=== PATIENT | female | born 1940 | race Caucasian/White ===

== ENCOUNTER → 2017-10-03 16:29 | Outpatient (CLI) | payer MEDICARE, BC, SELFPAY ==
--- NOTE | 2017-10-03 16:51 | RAD_ITS ---
STUDY: X-RAY - LEFT KNEE REASON FOR EXAM: Female, 77 years old. Pain TECHNIQUE: 4 view(s) of the knee. COMPARISON: None. FINDINGS: Normal visualized distal femur. Normal visualized proximal tibia and fibula. Normal proximal tibiofibular articulation. Normal medial femorotibial compartment. Normal lateral femorotibial compartment. Normal patellofemoral articulation. The soft tissue structures are unremarkable. RAD/Knee 4 or More Views IMPRESSION: Normal x-ray examination of the knee. Electronically Signed: Serjio Bolanos DO at 23:02 EDT Tel [phone], Service support ,
[2017-10-03 17:59] LABS: Absolute Lymphocyte Count 1.93 X10^3/ul (0.83-4.51); Absolute Neutrophil Count 4.2 X10^3/uL (2.0-7.7); Basophil# 0.02 X10^3/uL; Basophil% 0.3 % (0-1); Eosinophil# 0.14 X10^3/uL; Eosinophils% 1.8 % (0-5); Hematocrit 33.8 % (37-47); Hemoglobin 10.8 g/dl (12.0-15.0); Lymphocyte # 1.93 X10^3/ul (4.0); Lymphocyte % 25.3 % (19-41); Mean Corpuscular Hgb 29.6 pg (27.0-32.0); Mean Corpuscular Volume 92.6 fL (81-99); Mean Platelet Vol. 9.2 fl (6.2-12.0); Neutrophil # 4.23 X10^3/uL (2.7-7.7); Neutrophil % 55.5 % (47-70); Platelet Count 357 K/mm3 (150-450); RBC Distribution Width CV 17.9 % (11.6-14.6); RBC Distribution Width SD 60.4 fl (35.1-43.9); Red Blood Count 3.65 M/mm3 (4.2-5.4); White Blood Count 7.6 K/mm3 (4.4-11.0)
[2017-10-03 18:04] LABS: POSITIVE COUNT NO; POSITIVE DIFFERENTIAL NO; POSITIVE MORPHOLOGY NO
[2017-10-03 18:11] LABS: Rheumatoid Factor < 10.0 IU/mL (<15); Uric Acid 3.8 mg/dL (2.6-6.0)
[2017-10-04 08:53] LABS: PTHIN 30.7 pg/mL (18.4-80.1)
[2017-10-07 16:09] LABS: ANTINUCLEAR ANTIBODIES DIRECT Positive (Negative); Anti-Centromere B Ab <0.2 AI (0.0-0.9); Anti-Chromatin <0.2 AI (0.0-0.9); Anti-Jo <0.2 AI (0.0-0.9); Anti-Scleroderma-70 AB <0.2 AI (0.0-0.9); RNP Ab 0.3 AI (0.0-0.9); SJOGREN'S Anti-SS-B test < 0.2 AI (0.0-0.9); Smith Ab <0.2 AI (0.0-0.9)
[2017-10-07 18:13] LABS: Anti-dsDNA Ab 2 IU/mL (0-9)
== END ==
PROVIDERS: Family Provider Family Medicine; PCP Family Medicine; Visit Provider Family Medicine
DX: M17.12 Unilateral primary osteoarthritis, left knee (principal)
CPT/HCPCS: 36415; 73564; 83970; 84550; 85025; 86038; 86140; 86431

== ENCOUNTER → 2017-10-03 18:34 | Outpatient (CLI) | payer MEDICARE, BC, SELFPAY | PROVIDERS: Family Provider Family Medicine; PCP Family Medicine; Visit Provider Family Medicine | DX: N30.00 Acute cystitis without hematuria (principal); M17.12 Unilateral primary osteoarthritis, left knee | CPT/HCPCS: 36415; 73564; 83970; 84550; 85025; 86038; 86140; 86225; 86235; 86431; 87086 ==

== ENCOUNTER → 2017-10-25 15:03 | Outpatient (CLI) | payer MEDICARE, BC, SELFPAY ==
[2017-10-25 15:48] LABS: Absolute Lymphocyte Count 2.26 X10^3/ul (0.83-4.51); Absolute Neutrophil Count 2.9 X10^3/uL (2.0-7.7); Basophil# 0.04 X10^3/uL; Basophil% 0.6 % (0-1); Eosinophil# 0.05 X10^3/uL; Eosinophils% 0.8 % (0-5); Hematocrit 33.2 % (37-47); Hemoglobin 10.6 g/dl (12.0-15.0); Lymphocyte # 2.26 X10^3/ul (4.0); Lymphocyte % 36.1 % (19-41); Mean Corp Hgb Conc 31.9 g/gl (32-36); Mean Corpuscular Hgb 29.4 pg (27.0-32.0); Mean Corpuscular Volume 92.2 fL (81-99); Mean Platelet Vol. 8.7 fl (6.2-12.0); Monocyte# 0.96 X10^3/uL; Monocyte% 15.3 % (0-10); Neutrophil # 2.94 X10^3/uL (2.7-7.7); POSITIVE COUNT NO; POSITIVE DIFFERENTIAL NO; POSITIVE MORPHOLOGY NO; Platelet Count 377 K/mm3 (150-450); RBC Distribution Width SD 56.8 fl (35.1-43.9); White Blood Count 6.3 K/mm3 (4.4-11.0)
[2017-10-25 16:43] LABS: Vitamin B12 1224 pg/mL (211-911)
== END ==
PROVIDERS: Family Provider Family Medicine; PCP Family Medicine; Visit Provider Nurse Practitioner Adult Health
DX: D64.9 Anemia, unspecified (principal)
CPT/HCPCS: 36415; 82607; 82746; 85025

== ENCOUNTER 2018-01-05 18:17 | Emergency (ER) | payer MEDICARE, BC, SELFPAY ==
[2018-01-05 18:18] VITALS: BP 153/88; PULSE 87; RESP 18; TEMP 36.8; O2SAT 99; BMI 23.0
--- NOTE | 2018-01-05 18:34 | ED.DCSUM_ITS ---
- ER Visit Summary Date of Service: 01/05/18 Chief Complaint: Elevated blood pressure History of Present Illness: The patient is a 77 F presenting with elevated blood pressure. She states she checked her blood pressure today at home. It was 168 systolic. When she rechecked it was 158 systolic. She is on metoprolol 12.5 mg twice a day. She is asymptomatic. She denies chest pain, shortness of breath. Denies headache. Denies numbness or weakness. Denies any complaints. Physical Examination: Vitals are stable. Blood pressure 153/88. Patient is afebrile. Alert no acute distress. HEENT exam is unremarkable. Neck is supple. Lungs are clear and equal bilaterally. Heart is regular rate and rhythm. Abdomen is soft nontender nondistended. Extremities are unremarkable. Skin is warm and dry. No focal neurologic deficit. Remainder of exam is unremarkable. Emergency Department Course and Treatment: Repeat blood pressure is 147/90. Patient remains asymptomatic. Discussed with Dr. Zavala. Patient is advised to follow-up in the office. Advised return to ED if worsening complaints Disposition: Discharge home Impression: Hypertension This note was generated with PartyLineation software. It may contain incorrect words, spelling, and punctuation that were not noted in review of the chart prior to signing ED Disposition - Plan for ED Patient: Chief Complaint: Hypertension Instructions: ED HTN Established Referrals: Alex Naranjo MD [Primary Care Provider] -
[2018-01-05 18:40] VITALS: BP 147/90; PULSE 83; RESP 14
--- NOTE | 2018-01-05 19:03 | ED.DEP ---
ED Disposition - Plan for ED Patient: Chief Complaint: Hypertension Instructions: ED HTN Established Referrals: Alex Naranjo MD [Primary Care Provider] -
[2018-01-05 19:21] VITALS: BP 152/77; PULSE 70; RESP 17; O2SAT 100
== END 2018-01-05 19:23 | disposition home or self-care (01) ==
LOC: ED 18:41
PROVIDERS: Emergency Provider Emergency Medicine; Family Provider Family Medicine; PCP Family Medicine
DX: I10 Essential (primary) hypertension (principal); Z79.82 Long term (current) use of aspirin; Z79.899 Other long term (current) drug therapy
CPT/HCPCS: 99282

== ENCOUNTER → 2018-03-19 16:27 | Outpatient (CLI) | payer MEDICARE, BC, SELFPAY ==
[2018-03-19 18:41] LABS: ALB/GLOB Ratio 1.2 RATIO (0.9-2.4); AST(SGOT) 21 U/L (15-37); Alanine Aminotransfer ALT/SGPT 24 U/L (13-56); Albumin, Serum 3.9 g/dL (3.2-5.0); Alkaline Phosphatase 38 U/L (45-117); Anion Gap 10 (5-15); BUN 19 mg/dL (7-18); Calcium,Total 9.5 mg/dL (8.5-10.1); Chloride 103 mmol/L (98-107); Creatinine, Serum 0.95 mg/dL (0.55-1.02); EST Glomerular Filtration Rate 61 mL/min (>60); Est Glom Filt Rate - Afr Amer 73 mL/min (>60); Globulin 3.2 g/dL (2.2-4.2); Glucose 93 mg/dL (74-106); Potassium 4.3 mmol/L (3.5-5.1); Protein, Total 7.1 g/dL (6.4-8.2); Sodium Level 139 mmol/L (136-145); Thyroid Stim Hormone (TSH) 2.25 uIU/mL (0.358-3.74)
[2018-03-19 18:42] LABS: Microalbumin,Random Urine < 5.0 mg/L (NO RANGE EST.)
--- OUTSIDE RECORDS SUMMARY | 2018-05-21 19:00 | XMS RPT_ITS ---
:1940 Author Organization OH[facility] Care Team Providers Name Role Phone Alex Naranjo Attending Unavailable Jose A, Alex Primary Care Unavailable Alex Naranjo Attending Unavailable Naranjo, Alex Referring Unavailable Naranjo, Alex Primary Care Unavailable Alex Naranjo Attending Unavailable Jose A, Alex Primary Care Unavailable Jose A, Alex Referring Unavailable Emilee Reeder Attending Unavailable Emilee Reeder Referring Unavailable Naranjo, Alex Primary Care Unavailable Naranjo, Alex Primary Care Unavailable Liseth Arauz Attending Unavailable PROBLEMS PROBLEMS DATE TYPE CONDITION / CODE ATTENDING STATUS SOURCE 10/25/2017 Unknown D64.9 - Anemia, [place], Active [place] unspecified / [facility] D64.9(ICD-10) Hospital Repository 10/04/2017 Unknown N30.00 - Acute Alex Naranjo Active [facility] cystitis without Community hematuria / Hospital N30.00(ICD-10) Repository 10/03/2017 Unknown M17.12 - Alex Naranjo Active [facility] Unilateral [facility] primary Hospital osteoarthritis, Repository left knee / M17.12(ICD-10) PROCEDURES PROCEDURES No Procedure Records FoundRESULTS RESULTS COMPREHENSIVE METABOLIC Collected: 03/19/2018 Status: F Source: [place] PROFIL 4:31 PM [facility] REPOSITORY TYPE CODE TESTS RESULT OUT OF RANGE REFERENCE UNITS LAB L501.0100 74-106 mg/dL Normal GLU 93 Result Comment: Please note revised GLUCOSE reference range effective 2017. LAB L501.1000 7-18 mg/dL High BUN 19 LAB L501.1100 0.55-1.02 mg/dL Normal CREAT,SERUM 0.95 Result Comment: The validity of the calculated GFR AND GFRAA in patients over 70 years has not been determined. Clinical correlation is essential. LAB L501.1110 >60 mL/min Normal EST GFR 61 Result Comment: Non- GFR Calc LAB L501.1115 >60 mL/min Normal EST GFR - AA 73 Result Comment: GFR Calc LAB L501.1300 10-20 RATIO Normal BUN/CRE 20.0 LAB L501.1500 6.4-8.2 g/dL T Normal PROT 7.1 LAB L501.1800 3.2-5.0 g/dL Normal ALB 3.9 LAB L501.1950 2.2-4.2 g/dL Normal GLOB 3.2 LAB L501.2000 0.9-2.4 RATIO Normal A/G 1.2 LAB L501.2200 8.5-10.1 mg/dL CA Normal 9.5 LAB L501.4100 15-37 U/L Normal AST 21 LAB L501.4305 45-117 U/L Low ALK P 38 LAB L501.4405 13-56 U/L Normal ALT 24 LAB L501.4600 0.20-1.00 mg/dL T Normal BILI 0.60 LAB L501.5300 136-145 mmol/L NA Normal 139 LAB L501.5600 3.5-5.1 mmol/L K Normal 4.3 LAB L501.5900 98-107 mmol/L CL Normal 103 LAB L501.6100 21.0-32.0 mmol/L Normal CO2 26.0 LAB L501.6200 5-15 Normal GAP 10 Performed By: #### L500.4050, L501.5200, L501.9520, L502.0250 #### [facility] [address] [place], [address] MAGNESIUM Collected: 03/19/2018 Status: F Source: [place] 4:31 PM [facility] REPOSITORY TYPE CODE TESTS RESULT OUT OF RANGE REFERENCE UNITS LAB L501.5200 1.6-2.6 mg/dL Normal MG 2.0 Performed By: #### L500.4050, L501.5200, L501.9520, L502.0250 #### [facility] [address] [place], [address] THYROID STIM HORMONE Collected: 03/19/2018 Status: F Source: [place] (TSH) 4:31 PM [facility] REPOSITORY TYPE CODE TESTS RESULT OUT OF RANGE REFERENCE UNITS LAB L501.9520 0.358-3.74 uIU/mL Normal TSH 2.25 Performed By: #### L500.4050, L501.5200, L501.9520, L502.0250 #### [facility] [address] [place], [address] MICROALB:CREAT Collected: 03/19/2018 Status: F Source: [place] RATIO,RANDOM UR 4:31 PM [facility] REPOSITORY TYPE CODE TESTS RESULT OUT OF RANGE REFERENCE UNITS LAB L501.1200 NO RANGE EST. mg/dL 18.80 Normal UR CREAT LAB L502.0500 NO RANGE EST. mg/L < 5.0 Normal MICROALBUMI N,UR LAB L502.0600 <30 mg/g CRE mg/g CRE Test Normal not performed MALB:CREAT Performed By: #### L500.4050, L501.5200, L501.9520, L502.0250 #### [facility] [address] [place], [place], [address] EMERGENCY DEPARTMENT Observed: 01/05/2018 Status: F Source: [place] SUMMARY 9:34 PM [facility] REPOSITORY [facility] Medical Records Department [address] [place] [address] Emergency Department Summary 01/05/18 1832 MR#: [id number] Acct: [id number] Name: AMANDA GRAY Rep #: [id number] : 1940 77 From: Liseth Arauz MD PCP: Alex Naranjo MD Status: DEP ER - ER Visit Summary Date of Service: 01/05/18 Chief Complaint: Elevated blood pressure History of Present Illness: The patient is a 77 F presenting with elevated blood pressure. She states she checked her blood pressure today at home. It was 168 systolic. When she rechecked it was 158 systolic. She is on metoprolol 12.5 mg twice a day. She is asymptomatic. She denies chest pain, shortness of breath. Denies headache. Denies numbness or weakness. Denies any complaints. Physical Examination: Vitals are stable. Blood pressure 153/88. Patient is afebrile. Alert no acute distress. HEENT exam is unremarkable. Neck is supple. Lungs are clear and equal bilaterally. Heart is regular rate and rhythm. Abdomen is soft nontender nondistended. Extremities are unremarkable. Skin is warm and dry. No focal neurologic deficit. Remainder of exam is unremarkable. Emergency Department Course and Treatment: Repeat blood pressure is 147/90. Patient remains asymptomatic. Discussed with Dr. Zavala. Patient is advised to follow-up in the office. Advised return to ED if worsening complaints Disposition: Discharge home Impression: Hypertension This note was generated with ReferralMD dictation software. It may contain incorrect words, spelling, and punctuation that were not noted in review of the chart prior to signing ED Disposition - Plan for ED Patient: Chief Complaint: Hypertension Instructions: ED HTN Established Referrals: Alex Naranjo MD [Primary Care Provider] - What to do if you have Problems For any increased pain, shortness of breath, bleeding, nausea or vomiting, chest pain, or any unexpected problems, contact your Primary Care Provider. Call [facility] ([phone]) or report to the closest Emergency Room. Call 911 if necessary. 01/05/182133 <Electronically signed by Liseth Arauz MD> Date Liseth Arauz MD Cosigner Signature (If Indicated): Date CC: Alex Naranjo MD DISCHARGE INSTRUCTION Observed: 01/05/2018 Status: F Source: [place] 7:04 PM [facility] REPOSITORY [facility] Medical Records Department [address] [place] [address] Discharge Instruction 01/05/181902 MR#: [id number] Acct: [id number] Name: AMANDA GRAY Rep #: [id number] : 1940 77 From: Liseth Arauz MD PCP: Alex Naranjo MD Status: REG ER ED Disposition - Plan for ED Patient: Chief Complaint: Hypertension Instructions: ED HTN Established Referrals: Alex Naranjo MD [Primary Care Provider] - What to do if you have Problems For any increased pain, shortness of breath, bleeding, nausea or vomiting, chest pain, or any unexpected problems, contact your Primary Care Provider. Call [facility] ([phone]) or report to the closest Emergency Room. Call 911 if necessary. 01/05/181903 <Electronically signed by Liseth Arauz MD> Date Liseth Arauz MD Cosigner Signature (If Indicated): Date CC: Alex Naranjo MD CBC W/DIFF, AUTOMATED Collected: 10/25/2017 Status: F Source: [place] 3:07 PM [facility] REPOSITORY Order Comment: Order Date: 10/22/17 Order Info: 0184-1 - CBCD TYPE CODE TESTS RESULT OUT OF RANGE REFERENCE UNITS LAB L100.1000 4.4-11.0 K/mm3 Normal WBC 6.3 LAB L100.1200 4.2-5.4 M/mm3 Low RBC 3.60 LAB L100.1300 12.0-15.0 g/dl Low HGB 10.6 LAB L100.1400 37-47 % Low HCT 33.2 LAB L100.1500 81-99 fL Normal MCV 92.2 LAB L100.1600 27.0-32.0 pg Normal MCH 29.4 LAB L100.1700 32-36 g/gl Low MCHC 31.9 LAB L100.1810 11.6-14.6 % High RDW CV 17.0 LAB L100.1820 35.1-43.9 fl High RDW SD 56.8 LAB L100.1900 150-450 K/mm3 Normal PLT 377 LAB L100.2000 6.2-12.0 fl Normal MPV 8.7 LAB L100.2100 47-70 % Normal NEUT% 47.0 LAB L100.2200 19-41 % Normal LY% 36.1 LAB L100.2300 0-10 % High MONO% 15.3 LAB L100.2400 0-5 % Normal EO% 0.8 LAB L100.2500 0-1 % Normal BASO% 0.6 LAB L100.2550 0.0-0.9 % Normal IM GRAN % 0.200 Result Comment: IG% - Immature Granulocytes (promyelocytes, myelocytes and metamyelocytes) > 1% indicates that a LEFT SHIFT is Present. LAB L100.2620 2.0-7.7 X10 3/uL Normal Absolute Neut 2.9 LAB L100.2720 0.83-4.51 X10 3/ul Normal Absolute Lymph 2.26 Performed By: #### L100.0100, L506.0250, L503.0105 #### [facility] [address] [place], [place], [address] FOLATES, (FOLIC ACID) Collected: 10/25/2017 Status: F Source: [place] 3:07 PM [facility] REPOSITORY Order Comment: Order Date: 10/22/17 Order Info: 2284-8 - FOLS Is Patient Taking Vitamins or Folic Acid Supplements? N TYPE CODE TESTS RESULT OUT OF REFERENCE UNITS RANGE LAB L506.0250 3.1-55.4 ng/mL High FOLATES 58.30 Performed By: #### L100.0100, L506.0250, L503.0105 #### [facility] [address] [place], [address] VITAMIN B12 Collected: 10/25/2017 Status: F Source: [place] 3:07 PM [facility] REPOSITORY Order Comment: Order Date: 10/22/17 Order Info: 2132-9 - B12 TYPE CODE TESTS RESULT OUT OF REFERENCE UNITS RANGE LAB L503.0105 211-911 pg/mL High Vitamin B12 1224 Performed By: #### L100.0100, L506.0250, L503.0105 #### [facility] [address] [place], [address] KNEE 4 OR MORE Observed: 10/03/2017 Status: F Source: [place] VIEWS 4:41 PM [facility] REPOSITORY [facility] Imaging Services [address] [place] [address] Knee 4 or More Views MR#: [id number] Acct: [id number] Name: AMANDA GRAY Rep #: [id number] : 1940 F 77 From: Serjio Bolanos DO PCP: Alex Naranjo MD Status: REG CLI Study: Knee 4 or More Views Date of Exam: 10/03/17 Exam# [id number] Ordering Dr: Alex Naranjo MD STUDY: X-RAY - LEFT KNEE REASON FOR EXAM: Female, 77 years old. Pain TECHNIQUE: 4 view(s) of the knee. COMPARISON: None. FINDINGS: Normal visualized distal femur. Normal visualized proximal tibia and fibula. Normal proximal tibiofibular articulation. Normal medial femorotibial compartment. Normal lateral femorotibial compartment. Normal patellofemoral articulation. The soft tissue structures are unremarkable. RAD/Knee 4 or More Views IMPRESSION: Normal x-ray examination of the knee. Electronically Signed: Serjiodi Bolanos DO at 23:02 EDT Tel [phone], Service support , CC: Alex Naranjo MD Tank Shop Supervisor: Signed CBC W/DIFF, AUTOMATED Collected: 10/03/2017 Status: F Source: [place] 4:40 PM [facility] REPOSITORY Order Comment: PLEASE DO COMPREHENSIVE PANEL IF [place] IS POSITIVE PER TYPE CODE TESTS RESULT OUT OF RANGE REFERENCE UNITS LAB L100.1000 4.4-11.0 K/mm3 Normal WBC 7.6 LAB L100.1200 4.2-5.4 M/mm3 Low RBC 3.65 LAB L100.1300 12.0-15.0 g/dl Low HGB 10.8 LAB L100.1400 37-47 % Low HCT 33.8 LAB L100.1500 81-99 fL Normal MCV 92.6 LAB L100.1600 27.0-32.0 pg Normal MCH 29.6 LAB L100.1700 32-36 g/gl Normal MCHC 32.0 LAB L100.1810 11.6-14.6 % High RDW CV 17.9 LAB L100.1820 35.1-43.9 fl High RDW SD 60.4 LAB L100.1900 150-450 K/mm3 Normal PLT 357 LAB L100.2000 6.2-12.0 fl Normal MPV 9.2 LAB L100.2100 47-70 % Normal NEUT% 55.5 LAB L100.2200 19-41 % Normal LY% 25.3 LAB L100.2300 0-10 % High MONO% 17.0 LAB L100.2400 0-5 % Normal EO% 1.8 LAB L100.2500 0-1 % Normal BASO% 0.3 LAB L100.2550 0.0-0.9 % Normal IM GRAN % 0.100 Result Comment: IG% - Immature Granulocytes (promyelocytes, myelocytes and metamyelocytes) > 1% indicates that a LEFT SHIFT is Present. LAB L100.2620 2.0-7.7 X10 3/uL Normal Absolute Neut 4.2 LAB L100.2720 0.83-4.51 X10 3/ul Normal Absolute Lymph 1.93 Performed By: #### L100.0100 #### [facility] [address] [place], [address] URIC ACID Collected: 10/03/2017 Status: F Source: [place] 4:40 PM [facility] REPOSITORY Order Comment: PLEASE DO COMPREHENSIVE PANEL IF [place] IS POSITIVE PER TYPE CODE TESTS RESULT OUT OF RANGE REFERENCE UNITS LAB L501.1400 2.6-6.0 mg/dL Normal URIC 3.8 Result Comment: The drugs N-Acetylcysteine and Metamizole may falsely depress this assay. Performed By: #### L501.1400, L501.6710, L505.7010 #### [facility] [address] [place], [address] CRP Collected: 10/03/2017 Status: F Source: [place] 4:40 PM [facility] REPOSITORY Order Comment: PLEASE DO COMPREHENSIVE PANEL IF [place] IS POSITIVE PER TYPE CODE TESTS RESULT OUT OF RANGE REFERENCE UNITS LAB L501.6710 0.0-3.0 mg/L High 18.50 C-REACTIVE PROT Result Comment: C-Reactive Protein (CRP) provides useful information for the diagnosis, therapy and monitoring of inflammatory processes and associated diseases. For the evaluation of Relative Risk for Cardiovascular Disease, a High Sensitivity CRP (HSCRP) should be ordered. Performed By: #### L501.1400, L501.6710, L505.7010 #### [facility] [address] [place], [address] RHEUMATOID FACTOR Collected: 10/03/2017 Status: F Source: [place] 4:40 PM [facility] REPOSITORY Order Comment: PLEASE DO COMPREHENSIVE PANEL IF [place] IS POSITIVE PER TYPE CODE TESTS RESULT OUT OF RANGE REFERENCE UNITS LAB L505.7010 <15 IU/mL Normal RHEUMATOID FAC < 10.0 Performed By: #### L501.1400, L501.6710, L505.7010 #### [facility] [address] [place], [address] PTHIN Collected: 10/03/2017 Status: F Source: [place] 4:40 PM [facility] REPOSITORY Order Comment: PLEASE DO COMPREHENSIVE PANEL IF [place] IS POSITIVE PER TYPE CODE TESTS RESULT OUT OF RANGE REFERENCE UNITS LAB L509.1000 18.4-80.1 pg/mL Normal PTHIN 30.7 Performed By: #### L509.1000 #### [facility] [address] [place], [address] DENT[place] W/ REFLEX MULT Collected: 10/03/2017 Status: F Source: [place] CONFIRM 4:40 PM [facility] REPOSITORY Order Comment: PLEASE DO COMPREHENSIVE PANEL IF [place] IS POSITIVE PER TYPE CODE TESTS RESULT OUT OF RANGE REFERENCE UNITS LAB L3100.5475 Negative High Positive DENTON-DIRECT LAB L3100.5500 0-9 IU/mL 2 Normal dsDNA AB Result Comment: Negative <5 Equivocal 5 - 9 Positive >9 LAB L3100.9200 0.0-0.9 AI Anti-SS-A High 7.0 LAB L3100.9300 0.0-0.9 AI Anti-SS-B Normal < 0.2 LAB L3410.0427 0.0-0.9 AI ANTICHROMATIN Normal <0.2 LAB L3410.0500 0.0-0.9 AI ANTI-LYUDMILA Normal <0.2 LAB L3410.0700 0.0-0.9 AI ANTISCLER Normal <0.2 LAB L3410.1200 0.0-0.9 AI SLIME PLANT OPERATOR Ab Normal 0.3 LAB L3410.1300 0.0-0.9 AI NARANJO Ab Normal <0.2 LAB L3410.4010 0.0-0.9 AI ANTI-CENT B Normal <0.2 LAB L3410.4150 . COMMENT Normal Comment Result Comment: Autoantibody Disease Association Condition Frequency --------- Antinuclear Antibody, SLE, mixed connective Direct (DENTON-D) tissue diseases --------- dsDNA SLE 40 - 60% --------- Chromatin Drug induced SLE 90% SLE 48 - 97% --------- SSA (Ro) SLE 25 - 35% Sjogren's Syndrome 40 - 70% Lupus 100% --------- SSB (La) SLE 10% Sjogren's Syndrome 30% --------- Sm (anti-Naranjo) SLE 15 - 30% --------- SLIME PLANT OPERATOR Mixed Connective Tissue Disease 95% (U1 nRNP, SLE 30 - 50% anti-ribonucleoprotein) Polymyositis and/or Dermatomyositis 20% --------- Scl-70 (antiDNA Scleroderma (diffuse) 20 - 35% topoisomerase) Crest 13% --------- Lyudmila-1 Polymyositis and/or Dermatomyositis 20 - 40% --------- Centromere B Scleroderma - Crest variant 80% Performed at: [facility] [id number] Food Adviser: Vignesh Oneal PhD, Phone: [phone] Performed By: #### L3100.5450 #### [facility] (refer to report for specific site) refer to report for address and phone number Observed: 10/03/2017 Status: F Source: [place] CULTURE, URINE 3:15 PM [facility] REPOSITORY Urine Culture Culture exhibits no growth. Performed By: #### M100.0650 #### [facility] [address] [place] [address], [id number] ALLERGIES ALLERGIES DATE TYPE / CODE NAME / CODE REACTION SEVERITY SOURCE 01/05/2018 Drug No Known Unknown [facility] Allergy/4160 Allergies/F00 Hospital 63016(SNOMED 9822393(RXNOR Repository CT) M) ENCOUNTERS ENCOUNTERS ADMIT/DISCHARGE ACCOUNT ADMITTING ENCOUNTER LOCATION SOURCE NUMBER CLASS 03/19/2018 [id number] Ambulatory [place] [facility] ing:MFPLAB Repository 01/05/2018/ [id number] Emergency [place] 8 0 [facility] ing:ED Repository 10/25/2017 [id number] Ambulatory [place] 4 [facility] ing:LAB Repository 10/03/2017 [id number] Ambulatory [place] 9 [facility] ing:LABSPEC Repository 10/03/2017 [id number] Ambulatory [place] 7 [facility] ing:MTLAB Repository PAYERS PAYERS ENCOUNTER GUARANTOR PAYER SUBSCRIBER SOURCE 03/19/2018 Amanda Barger Primary Amanda Barger [place] [id number] Insurance:MEDICARE LaneDOB: Community [place] PART A [facility] [address] [id number] Number: Repository [address]Lzm: 330 [id number] [phone] (HP) Date:2018-03-19 03/19/2018 Secondary ALEJANDRO L LANEDOB: [place] Insurance:ANTHEMPolic [id number] [id number] Repository Date:9651-65-08[address] [place] [address]EF: 03/19/2018 Tertiary NOT GIVENUNK [place] Insurance:SELF PAY [facility] Number: Effective Repository Date:2018-03-19 01/05/2018 Amanda Barger Primary Amanda Barger [place] [id number] Insurance:MEDICARE LaneDOB: [place] PART A [facility] [address] [id number] [place] Number: Repository [id number]: 330 [id number] [phone] (HP) Date:2018-01-05 01/05/2018 Secondary ALEJANDRO L MARINADOB: [facility] Insurance:ANTHEMPolic [id number] Community [facility] y Number: [facility] [id number] Repository Date:0528-35-05[address] [place] [address]MQ: 01/05/2018 Tertiary NOT GIVENUNK [place] Insurance:SELF PAY [facility] Number: Effective Repository Date:2018-01-05 10/25/2017 Amanda Barger Primary Amanda Barger [place] [id number] Insurance:MEDICARE LaneDOB: [place] PART A [facility] [address] [id number] Number: Repository [id number]: 330 [id number] [phone] (HP) Date:2017-10-25 10/25/2017 Secondary ALEJANDRO L LANEDOB: [place] Insurance:ANTHEMPolic [id number] [id number] Repository Date:8831-39-38[address], [place] [address]UT: 10/25/2017 Tertiary NOT GIVENUNK [place] Insurance:SELF PAY [facility] Effective Repository Date:2017-10-25 10/03/2017 Amanda Barger Primary Amanda Barger [place] [id number] Insurance:MEDICARE LaneDOB: [place] PART A [facility] [address] 1965[place] Number: Repository [id number]: 330 [id number] [phone] (HP) Date:2017-10-03 10/03/2017 Secondary ALEJANDRO L MARINADOB: [place] Insurance:ANTHEMPolic [id number] [facility] y Number: [facility] [id number] Repository Date:4204-95-31[address], [place] [address]DI: 10/03/2017 Tertiary NOT GIVENUNK [place] Insurance:SELF PAY [facility] Number: Effective Repository Date:2017-10-03 10/03/2017 Amanda Barger Primary Amanda Barger [facility] [id number] Insurance:MEDICARE LaneDOB: [place] PART A [facility] [address] [id number] Number: Repository [id number]: 330 [id number] [phone] (HP) Date:2017-10-03 10/03/2017 Secondary ALEJANDRO GRAYDOB: [place] Insurance:ANTHEMPolic [id number] [facility] y Number: [facility] [id number] Repository Date:2702-73-74[address], [place] [address]VM: 10/03/2017 Tertiary NOT GIVENUNK [place] Insurance:SELF PAY [facility] Number: Effective Repository Date:2017-10-03
== END ==
PROVIDERS: Family Provider Family Medicine; PCP Family Medicine; Visit Provider Family Medicine
DX: I10 Essential (primary) hypertension (principal); R09.89 Other specified symptoms and signs involving the circulatory and respiratory systems
CPT/HCPCS: 36415; 80053; 82043; 82570; 83735; 84443

== ENCOUNTER → 2019-03-06 13:32 | Outpatient (CLI) | payer MEDICARE, BC, SELFPAY ==
[2019-03-06 16:15] LABS: Anion Gap 2 (5-15); BUN 15 mg/dL (7-18); BUN/Creat Ratio 14.3 RATIO (10-20); Calcium,Total 9.9 mg/dL (8.5-10.1); Chloride 102 mmol/L (98-107); Cholesterol 218 mg/dL (200); Creatinine, Serum 1.05 mg/dL (0.55-1.02); EST Glomerular Filtration Rate 54 mL/min (>60); Est Glom Filt Rate - Afr Amer 65 mL/min (>60); Glucose 98 mg/dL (74-106); High Density Lipoprotein 70 mg/dL; Potassium 4.2 mmol/L (3.5-5.1); Sodium Level 135 mmol/L (136-145); Triglycerides 82 mg/dL; Very Low Density Lipoprotein 16 mg/dL (5-40)
== END ==
PROVIDERS: Family Provider Family Medicine; PCP Family Medicine; Referring Provider Family Medicine; Visit Provider Family Medicine
DX: I10 Essential (primary) hypertension (principal)
CPT/HCPCS: 36415; 80048; 80061

== ENCOUNTER 2020-05-05 09:56 | Outpatient (RCR) | payer MEDICARE, BC, SELFPAY ==
[2020-05-05] MEDS: COVID-19 VACC, MRNA(PFIZER)/PF 30 MCG/0.3 ML SYRINGE IM (15:07)
[2020-05-26] MEDS: COVID-19 VACC, MRNA(PFIZER)/PF 30 MCG/0.3 ML SYRINGE IM (14:43)
== END 2020-08-02 23:59 ==
LOC: IMMUN 09:56
PROVIDERS: PCP Family Medicine; Referring Provider Family Medicine; Visit Provider Family Medicine
DX: Z23 Encounter for immunization (principal)
CPT/HCPCS: 0001A; 0002A; 91300

== ENCOUNTER → 2021-01-04 15:20 | Outpatient (CLI) | payer MEDICARE, BC, SELFPAY ==
[2021-01-04 18:16] LABS: Anion Gap 7 (5-15); BUN 16 mg/dL (7-18); BUN/Creat Ratio 16.8 RATIO (10-20); Calcium,Total 9.7 mg/dL (8.5-10.1); Chloride 102 mmol/L (98-107); Cholesterol 229 mg/dL (200); Creatinine, Serum 0.95 mg/dL (0.55-1.02); EST Glomerular Filtration Rate 60 mL/min (>60); Est Glom Filt Rate - Afr Amer 73 mL/min (>60); Glucose 87 mg/dL (74-106); High Density Lipoprotein 73 mg/dL; Sodium Level 136 mmol/L (136-145); Triglycerides 85 mg/dL; Very Low Density Lipoprotein 17 mg/dL (5-40)
== END ==
PROVIDERS: PCP Family Medicine; Referring Provider Family Medicine; Visit Provider Family Medicine
DX: Z20.822 Contact with and (suspected) exposure to COVID-19 (principal); I10 Essential (primary) hypertension
CPT/HCPCS: 36415; 80048; 80061; 82306; 86769

== ENCOUNTER → 2021-06-26 | Outpatient (CLI) | payer MEDICARE, BC, SELFPAY ==
[2021-06-26 18:03] LABS: Anion Gap 4 (5-15); BUN 14 mg/dL (7-18); BUN/Creat Ratio 15.4 RATIO (10-20); Calcium,Total 9.5 mg/dL (8.5-10.1); Chloride 105 mmol/L (98-107); Creatinine, Serum 0.91 mg/dL (0.55-1.02); EST Glomerular Filtration Rate 63 mL/min (>60); Est Glom Filt Rate - Afr Amer 76 mL/min (>60); Glucose 93 mg/dL (74-106); Potassium 3.9 mmol/L (3.5-5.1); Sodium Level 137 mmol/L (136-145)
== END | disposition home or self-care (01) ==
LOC: MFPLAB 16:48
PROVIDERS: PCP Family Medicine; Visit Provider Family Medicine
DX: I10 Essential (primary) hypertension (principal)
CPT/HCPCS: 36415; 80048

== ENCOUNTER → 2022-01-09 | Outpatient (CLI) | payer MEDICARE, BC, SELFPAY ==
[2022-01-09 18:06] LABS: T4 Total, Thyroxin 7.4 ug/dL (4.8-13.9); Thyroid Stim Hormone (TSH) 1.52 uIU/mL (0.358-3.74)
== END | disposition home or self-care (01) ==
LOC: MFPLAB 15:18
PROVIDERS: PCP Family Medicine; Referring Provider Family Medicine; Visit Provider Family Medicine
DX: L85.3 Xerosis cutis (principal)
CPT/HCPCS: 36415; 84436; 84443

== ENCOUNTER → 2022-01-23 | Outpatient (CLI) | payer MEDICARE, BC, SELFPAY ==
[2022-01-23 17:43] LABS: Mucous, Urine 0 SEEN /hpf (<or=2+); Red Blood Cells-Urine 0 SEEN /hpf (0-5); Squamous Epithelial Cells - UA 0 SEEN /hpf (5-10)
[2022-01-23 17:56] LABS: Color, Urine Yellow (Yellow); Glucose, Dipstick Normal (Normal); Ketone-Dipstick Negative (Negative); Leukocyte Esterase-Dipstick 100 /ul (Negative); Nitrite-Dipstick Negative (Negative); Occult Blood-Urine 25 /ul (Negative); Protein-Dipstick Negative (Negative); Specific Gravity, Urine 1.015 (1.002-1.030); Urine Bilirubin Dipstick Negative (Negative); Urine Clarity Clear (Clear); Urine Urobilinogen Normal (Normal)
[2022-01-23 18:17] LABS: Bacteria RARE /hpf (None Seen); White Blood Cells 25-50 SEEN /hpf (0-5)
== END | disposition home or self-care (01) ==
PROVIDERS: PCP Family Medicine; Visit Provider Family Medicine
DX: R82.90 Unspecified abnormal findings in urine (principal)
CPT/HCPCS: 81001

== ENCOUNTER 2022-03-31 10:25 | Inpatient (IN) | payer MEDICARE, BC, SELFPAY ==
[2022-03-31] VITALS (22 sets, daily range): BP systolic 75–134; BP diastolic 48–88; PULSE 74–110; RESP 11–21; TEMP 36.2–36.9; O2SAT 93–100; BMI 21.9
--- NOTE | 2022-03-31 10:51 | ED.VIS.GI ---
HPI HPI - GI History of Present Illness Chief Complaint: GI Bleed Narrative Narrative: 82-year-old female takes low-dose aspirin presents with rectal bleeding that began this morning at 830. She states she had a bowel movement that was runny. She noticed bright red blood afterwards. She continued to have rectal bleeding. She denies any abdominal pain. No lightheadedness or dizziness. No chest pain or shortness of breath. She denies any other bleeding diathesis. She states she had to wear a pad/depends. PFSH PFS Home Medications aspirin 81 mg chewable tablet 81 mg PO DAILY@0800 12/01/16 [History Last Taken Unknown] metoprolol tartrate 25 mg tablet 12.5 mg PO BID 12/01/16 [History Last Taken Unknown] tramadol 50 mg tablet 50 mg PO Q8H PRN PRN Pain 01/05/18 [History Last Taken Unknown] Allergy/AdvReac Type Severity Reaction Status Date / Time No Known Allergies Allergy Verified 03/31/22 10:28 Social History Smoking Status: Never smoker EXAM Physical Exam Const Vital Signs: 03/31/22 10:28 03/31/22 11:43 Temperature 98.0 F Temperature Source Temporal Pulse Rate 78 74 Respiratory Rate 16 Blood Pressure 103/51 L 94/53 L Blood Pressure Mean 68 66 Pulse Ox 98 100 Oxygen Delivery Method Room Air Room Air MDM MDM MDM Narrative Medical decision making narrative: Patient has had intermittent hypotension, so I did not perform orthostatics. She still remained cognizant. Rectal examination through visual inspection only showed no evidence of dried blood or hemorrhaging, her daughter was present in the room at her request. I reviewed her laboratory work. Her CBC shows slightly elevated white count of 15.1 which I think is nonspecific, hemoglobin at 8.2, 2 points below her baseline approximately. Platelet estimate was performed and was adequate. BUN slightly elevated at 21 with creatinine of 0.9, chloride slightly elevated at 109. Glucose of 132 elevated appropriately with a normal anion gap of 6. While I do feel that her hemoglobin is stable, given her hypotension albeit transient, I discussed patient with Dr. Lisa Hernandez who would like the patient admitted to the ICU. She has already discussed the patient with gastroenterology. Patient is in guarded condition given her tenuous blood pressure. Disposition is admitted in stable condition. Lab Data Attestation: I reviewed the patient's lab results. Labs: Laboratory Results - last 24 hr 03/31/22 03/31/22 11:05 11:05 WBC 15.1 H RBC 2.96 L Hgb 8.2 L Hct 26.2 L MCV 88.5 MCH 27.7 MCHC 31.3 L RDW Std Deviation 58.5 H RDW Coeff of Brenda 18.3 H Plt Count Immature Gran % (Auto) 0.600 Neut % (Auto) 82.4 H Lymph % (Auto) 7.9 L [place] % (Auto) 7.8 Eos % (Auto) 0.8 Baso % (Auto) 0.5 Absolute Neuts (auto) 12.4 H Absolute Lymphs (auto) 1.19 Nucleated RBC % 0 Differential Comment SCANNED Platelet Estimate ADEQUATE Sodium 140 Potassium 4.4 Chloride 109 H Carbon Dioxide 25.0 Anion Gap 6 BUN 21 H Creatinine 0.93 Estim Creat Clear Calc 1.77 Est GFR (MDRD) Af Amer 75 Est GFR (MDRD) Non-Af 62 BUN/Creatinine Ratio 22.6 H Glucose 132 H Calcium 8.7 Total Bilirubin 0.40 AST 18 ALT 20 Alkaline Phosphatase 47 Total Protein 6.8 Albumin 3.0 L Globulin 3.8 Albumin/Globulin Ratio 0.8 L Critical Care Time Critical Care Time: Yes Critical care time (excluding procedures): 30-74 minutes (31), Including time spent:, Discussing w/Patient &/or Family/Instructional Specialist, Discussing w/Consultants, Arranging Admission or Transfer and Performing Direct Patient Care at Bedside Discharge Plan Dx/Rx/DC Orders Clinical Impression: Rectal bleeding, Anemia, Hypotension Disposition Disposition: Acute Care Hospital [facility]
[2022-03-31] MEDS: 0.9% Normal Saline 1,000 ML 1000 ML IV (11:12)
[2022-03-31 11:19] LABS: Absolute Lymphocyte Count 1.19 X10^3/uL (0.83-4.51); Absolute Neutrophil Count 12.4 X10^3/uL (2.0-7.7); Basophil# 0.07 X10^3/uL; Basophil% 0.5 % (0-1); Eosinophil# 0.12 X10^3/uL; Eosinophils% 0.8 % (0-5); Hematocrit 26.2 % (37-47); Hemoglobin 8.2 g/dL (12.0-15.0); Lymphocyte # 1.19 X10^3/ul (0.83-4.51); Lymphocyte % 7.9 % (19-41); Mean Corp Hgb Conc 31.3 g/dL (32-36); Mean Corpuscular Hgb 27.7 pg (27.0-32.0); Mean Corpuscular Volume 88.5 fL (81-99); Monocyte# 1.17 X10^3/uL; Monocyte% 7.8 % (0-10); NRBC Flagged by Analyzer 0 % (0-5); Neutrophil # 12.41 X10^3/uL (2.7-7.7); Neutrophil % 82.4 % (47-70); POSITIVE COUNT YES; RBC Distribution Width CV 18.3 % (11.6-14.6); RBC Distribution Width SD 58.5 fl (35.1-43.9); Red Blood Count 2.96 M/mm3 (4.2-5.4); White Blood Count 15.1 K/mm3 (4.4-11.0)
[2022-03-31 11:36] LABS: ALB/GLOB Ratio 0.8 RATIO (0.9-2.4); AST(SGOT) 18 U/L (15-37); Alanine Aminotransfer ALT/SGPT 20 U/L (13-56); Alkaline Phosphatase 47 U/L (45-117); Anion Gap 6 (5-15); BUN 21 mg/dL (7-18); BUN/Creat Ratio 22.6 RATIO (10-20); Calcium,Total 8.7 mg/dL (8.5-10.1); Chloride 109 mmol/L (98-107); Creatinine, Serum 0.93 mg/dL (0.55-1.02); EST Glomerular Filtration Rate 62 mL/min (>60); Est Glom Filt Rate - Afr Amer 75 mL/min (>60); Estimated Creatinine Clearance 1.77 ml/min; Globulin 3.8 g/dL (2.2-4.2); Glucose 132 mg/dL (74-106); Potassium 4.4 mmol/L (3.5-5.1); Protein, Total 6.8 g/dL (6.4-8.2); Sodium Level 140 mmol/L (136-145)
[2022-03-31 11:45] LABS: Differential Indicated SCAN CRITERIA MET
[2022-03-31 11:46] LABS: Differential Comment SCANNED; Platelet Estimate ADEQUATE (ADEQ)
[2022-03-31 13:20] LABS: Hemoglobin 7.3 g/dL (12.0-15.0)
[2022-03-31 13:30] LABS: International Normalized Ratio 1.2
[2022-03-31] MEDS: Lactated Ringers 1,000 ML 75 ML IV (14:03)
--- NOTE | 2022-03-31 14:09 | CT_ITS ---
HISTORY: Rectal bleeding began this morning at 8:30. TECHNIQUE: Helically acquired images were obtained of the abdomen and pelvis after the intravenous administration of 100mL Isovue-370. A radiation dose optimization technique was used for this scan. 372 images. COMPARISON: None. FINDINGS: LOWER CHEST: 2.2 x 2.7 cm centrally necrotic left lower lobe mass. BOWEL: Bowel including appendix nondilated. Mild diffuse colonic wall thickening with prominence of the vasa recta. Colonic diverticulosis. 2.6 x 3.2 cm left and 1.7 x 2.6 cm right outpouchings of the rectosigmoid wall with wall thickening. No enlarged pericolonic lymph nodes. PERITONEUM: No significant ascites. LIVER: No enhancing mass. Fatty infiltration. GALLBLADDER/BILIARY TREE: Gallbladder present. SPLEEN/PANCREAS: Homogeneous and nonenlarged. KIDNEYS: No hydronephrosis. Mild left renal scarring with tiny upper pole cyst. ADRENAL GLANDS: No nodules. VESSELS: Tortuous abdominal aorta without aneurysm. Moderate atherosclerosis of the abdominal aorta and its major branches. PELVIC ORGANS: Trace air in the urinary bladder. Trace free fluid in the pelvis. Prominent left adnexal vessels. BONES: Degenerative change and thoracolumbar scoliosis CT/Abdomen/Pelvis W IV Cont ONLY IMPRESSION: 2.7 cm centrally necrotic left lower lobe mass, concerning for primary malignancy or pulmonary metastasis. Diffuse colonic wall thickening with prominence of the vasa recta compatible with pancolitis. Colonic diverticulosis with larger focal outpouchings and wall thickening of the rectosigmoid colon concerning for ulcerations, possible underlying mass with inflamed giant diverticula considered less likely. Electronically Signed: Alisha Sutherland MD at 15:43 EST ,
--- NOTE | 2022-03-31 15:00 | NURSING ---
Pt up to [facility]. While having liquid, bloody BM, pt became dizzy. Pt then became unresponsive with syncopal episode. Placed back in bed x3 assist. BP 75/51 and pt becomes responsive again. Dr. Hernandez notified.
--- NOTE | 2022-03-31 16:22 | HP.PCM.HOS_ITS ---
HPI - General General Date of Admission: 03/31/22 Date of Service: 03/31/22 Chief Complaint: Rectal bleeding [facility] Nikolai GRAY, is a 82 F who presented to the emergency department at [facility] on 03/31/2022 with hematochezia. Patient reported on presentation at 830 this morning she had a bowel movement that was runny and noted bright red blood afterwards. She continued to have multiple bowel movements prior to presentation that included hematochezia. She denied any abdominal pain. She did have the presyncopal episode with an episode of nausea while at home but none in the emergency department. Her blood pressure was borderline on presentation and she was given IV fluids. She has never had a colonoscopy. She takes only aspirin with an 81 mg dosing at baseline. The patient denied any urinary incontinence but then reported she wears depends. She has chronic low back pain with resultant stenosis causing intermittent bilateral lower extremity pain/tingling numbness for which she takes Ultram. She states that she was feeling in her normal state of health prior to this morning. Vital signs on presentation showed a temperature of 98 degrees, blood pressure of 103/51 with a repeat at 94/53, heart rate of 78, respiratory rate 16, oxygen saturations 98% on room air. CBC showed a leukocytosis with a white count of 15.1, hemoglobin of 8.2 (recent baseline unknown however it appears in Baseline hemoglobin was between 10 and 11), platelets were normal and the patient did have a mild left shift with an 82.4% neutrophilia. Coags were normal. Chemistry panel showed mildly elevated BUN at 21 with a serum creatinine of 0.93 and a blood glucose of 132. Liver functions were normal. T ype and screen were performed the patient was found to be a negative with negative antibody screen. CT of the abdomen pelvis showed a 2.7 centrally necrotic left lower lobe mass concerning for primary malignancy or metastasis, diffuse colonic wall thickening with prominence of the vasa recta compatible with pancolitis as well as colonic diverticulosis with large old focal outpouchings and wall thickening of the rectosigmoid colon concerning for ulcerations and possible underlying mass with inflamed giant diverticula. [facility] Medical History Chronic pain GI bleed HLD (hyperlipidemia) HTN (hypertension) Tremor Home Medications aspirin 81 mg chewable tablet 81 mg PO DAILY@0800 12/01/16 [History Last Taken Unknown] metoprolol tartrate 25 mg tablet 12.5 mg PO BID 12/01/16 [History Last Taken Unknown] tramadol 50 mg tablet 50 mg PO Q8H PRN PRN Pain 01/05/18 [History Last Taken Unknown] Allergy/AdvReac Type Severity Reaction Status Date / Time No Known Allergies Allergy Verified 03/31/22 10:28 no significant family history no surgical history Social History (Updated 03/31/22 @ 16:[address] Nohemy Hernandez, DO) household members: none housing: house Smoking Status: Never smoker alcohol intake: never substance use type: does not use ROS Constitutional Constitutional: Denies anorexia, change in weight, chills, fatigue, fever(s), malaise, night sweats, weakness or other Eyes Eyes: Denies blurry vision, change in eye color, change in vision, discharge f rom eye(s), double vision, erythema, eye pain, loss of vision or other ENT HEENT: Denies abnormal hearing, dysphagia, ear pain, epistaxis, headache(s), hearing loss, nasal congestion, nasal discharge, post nasal drip, sinus pressure, sore throat or other Cardiovascular Cardiovascular: Reports syncope; Denies chest pain, claudication, dyspnea on exertion, edema, lightheadedness, orthopnea, palpitations, paroxysmal nocturnal dyspnea, rapid heart rate or other Respiratory/Chest Respiratory/Chest: Denies cough, dyspnea, excessive phlegm production, he moptysis, productive cough, shortness of breath at rest, shortness of breath with exertion, wheezing or other Gastrointestinal Gastrointestinal: Reports hematochezia and nausea; Denies abdominal pain, coffee ground emesis, constipation, diarrhea, dyspepsia, hematemesis, loose stools, melena, vomiting or other Genitourinary Genitourinary: Reports urinary incontinence; Denies burning urination, diffic ulty urinating, dysuria, hematuria, nocturia, urinary frequency, urinary hesitancy, urinary urgency or other Musculoskeletal Musculoskeletal: Denies arthralgias, back pain, joint pain, joint stiffness, joint swelling, myalgias, neck pain or other Neurologic Neurologic: Denies abnormal gait, abnormal speech, confusion, disequilibrium, dizziness, focal weakness, headache(s), numbness, paresthesias, seizure-like activity, seizures, syncope, tingling, tremor(s) or other Psychiatric Psychiatric: Denies anxiety, depression, homicidal ideation, suicidal ideation or other Endocrine Endocrinology: Denies change in body appearance, cold intolerance, excessive sweating, heat intolerance, polydipsia, polyuria or other Hematologic/Lymphatic Hematologic/Lymphatic: Denies anemia, easy bleeding, easy bruising, lymphadenopathy or other Allergic/Immunologic Allergic/Immunologic: Denies rhinitis, hives, eczemia, asthma or other Vital Signs Vital Signs Vital Signs: 03/31/22 10:28 03/31/22 11:43 03/31/22 13:17 Temperature 98.0 F 97.8 F Temperature Source Temporal Temporal Pulse Rate 78 74 83 Respiratory Rate 16 17 Blood Pressure 103/51 L 94/53 L 121/65 H Blood Pressure [BP] Blood Pressure Mean 68 66 83 Blood Pressure Mean [BP] Blood Pressure Source Blood Pressure Source [BP] Blood Pressure Position Blood Pressure Position [BP] Blood Pressure Location Blood Pressure Location [BP] Pulse Ox 98 100 96 Oxygen Delivery Method Room Air Room Air Room Air 03/31/22 13:45 03/31/22 14:00 03/31/22 14:15 Temperature 97.3 F L Temperature Source Temporal Pulse Rate 87 88 88 Respiratory Rate 15 15 Blood Pressure 134/64 H 129/64 H 111/60 Blood Pressure [BP] Blood Pressure Mean 87 85 77 Blood Pressure Mean [BP] Blood Pressure Source Monitor Monitor Monitor Blood Pressure Source [BP] Blood Pressure Position Semi-Fowlers Semi-Fowlers Semi-Fowlers Blood Pressure Position [BP] Blood Pressure Location Left Arm Left Arm Left Arm Blood Pressure Location [BP] Pulse Ox 100 99 Oxygen Delivery Method Room Air Room Air 03/31/22 14:30 03/31/22 14:56 03/31/22 15:00 Temperature Temperature Source Pulse Rate 84 92 84 Respiratory Rate 14 11 L Blood Pressure 101/55 L Blood Pressure [BP] 75/51 L 88/53 L Blood Pressure Mean 70 Blood Pressure Mean [BP] 59 64 Blood Pressure Source Monitor Blood Pressure Source [BP] Monitor Monitor Blood Pressure Position Semi-Fowlers Blood Pressure Position [BP] Semi-Fowlers Semi-Fowlers Blood Pressure Location Left Arm Blood Pressure Location [BP] Left Arm Left Arm Pulse Ox 100 98 Oxygen Delivery Method Room Air Room Air 03/31/22 15:30 03/31/22 14:05 03/31/22 16:00 Temperature 97.1 F L Temperature Source Temporal Pulse Rate 86 85 Respiratory Rate 16 16 Blood Pressure Blood Pressure [BP] 99/48 L 102/51 L Blood Pressure Mean Blood Pressure Mean [BP] 65 68 Blood Pressure Source Blood Pressure Source [BP] Monitor Monitor Blood Pressure Position Blood Pressure Position [BP] Semi-Fowlers Semi-Fowlers Blood Pressure Location Blood Pressure Location [BP] Left Arm Left Arm Pulse Ox 100 100 Oxygen Delivery Method Room Air Room Air Room Air Weight Weight: 54.431 kg Body Mass Index (BMI) 21.9 Physical Exam Const alert, oriented x3, no apparent distress, average body habitus and well nourished Constitutional Narrative: Pale appearing, elderly, white female, sitting up in bed, daughter at bedside, currently appears nontoxic HEENT normocephalic, head/scalp atraumatic and hearing grossly normal bilaterally HEENT Narrative: Upper dental plate in place, Mallampati 2, no thrush Eyes PERRL and EOMs intact bilaterally Eyes Narrative: Conjunctiva are pale bilaterally, no scleral icterus Neck no lymphadenopathy, supple, no JVD and no carotid bruits Neck Narrative: Trachea midline, no thyroid enlargement Resp normal respiratory effort, no retractions, no use of accessory muscles and clear to auscultation bilaterally Auscultation: Negative for rales, rhonchi or wheezes Cardio regular rate, regular rhythm, S1 normal heart sound, S2 normal heart sound, no murmurs, no rub, no gallops and no clicks GI normal to inspection, nondistended, normoactive bowel sounds, soft to palpation and non-tender Extremity no clubbing, cyanosis or edema Extremity Narrative: 2+ pedal pulses Skin no rashes or lesions noted, no wounds, skin turgor normal, no jaundice, no petechiae and no mottling Skin Narrative: Skin is pale General Skin Exam: pallor Neuro oriented x3, CN's II-XII intact bilaterally, moves all extremities and no focal motor deficits Neuro Narrative: Mild generalized weakness-proximal greater than distal with no focal deficits Speech: speech normal Psych affect normal Psych Narrative: Very pleasant, appropriately interactive Results Lab / Micro Data Result Diagrams: 03/31/22 13:10 03/31/22 11:05 Labs: Laboratory Results - last 24 hr 03/31/22 11:05: WBC 15.1 H, RBC 2.96 L, Hgb 8.2 L, Hct 26.2 L, MCV 88.5, MCH 27.7, MCHC 31.3 L, RDW Std Deviation 58.5 H, RDW Coeff of Brenda 18.3 H, Plt Count , Immature Gran % (Auto) 0.600, Neut % (Auto) 82.4 H, Lymph % (Auto) 7.9 L, [place] % (Auto) 7.8, Eos % (Auto) 0.8, Baso % (Auto) 0.5, Absolute Neuts (auto) 12.4 H , Absolute Lymphs (auto) 1.19, Nucleated RBC % 0, Differential Comment SCANNED, Platelet Estimate ADEQUATE 03/31/22 11:05: Sodium 140, Potassium 4.4, Chloride 109 H, Carbon Dioxide 25.0, Anion Gap 6, BUN 21 H, Creatinine 0.93, Estim Creat Clear Calc 1.77, Est GFR (MDRD) Af Amer 75, Est GFR (MDRD) Non-Af 62, BUN/Creatinine Ratio 22.6 H, Glucose 132 H, Calcium 8.7, Total Bilirubin 0.40, AST 18, ALT 20, Alkaline Phosphatase 47, Total Protein 6.8, Albumin 3.0 L, Globulin 3.8, Albumin/Globulin Ratio 0.8 L 03/31/22 13:10: PT 15.0 H, INR 1.2 03/31/22 13:10: Blood Type A NEGATIVE, Antibody Screen NEGATIVE 03/31/22 13:10: Hgb 7.3 L, Hct 24.0 L Radiology Impression Abdomen/Pelvis CT 03/31/22 14:09 IMPRESSION: 2.7 cm centrally necrotic left lower lobe mass, concerning for primary malignancy or pulmonary metastasis. Diffuse colonic wall thickening with prominence of the vasa recta compatible with pancolitis. Colonic diverticulosis with larger focal outpouchings and wall thickening of the rectosigmoid colon concerning for ulcerations, possible underlying mass with inflamed giant diverticula considered less likely. 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 -Check CT of the chest for further malignancy -Check CEA -Continue clear liquid diet -Hold home aspirin -Will be admitted to the ICU given her relative hypotension on admission at high risk for hemorrhagic shock if she continues to bleed -GI consulted and following--> patient will likely be prepped for colonoscopy Hypotension -Currently improved with IV fluids -Suspect somewhat vasovagal -Continue to monitor -Hold home metoprolol -Continue LR at 75 cc/h Acute on chronic anemia -MCV is normal however I do suspect iron deficiency -Check iron studies -Every 6 hour H&H -Transfuse for hemoglobin less than 7 -Type and screen completed -Patient appears to have been anemic for considerable amount of time upon review of data available Leukocytosis -No signs of acute infection -Suspect reactive -Repeat CBC in a.m. Chronic low back pain with spinal stenosis -Continue as needed Ultram DVT prophylaxis -SCDs -Chemoprophylaxis contraindicated with GI bleeding CODE STATUS -DNR CCA with no intubation as per discussion on Charges/Coding Visit Charges Inpatient E&M: 23615 Init Hosp L3
--- NOTE | 2022-03-31 16:28 | CT_ITS ---
INDICATION: lung mass EXAMINATION: CT CHEST WITHOUT CONTRAST - CT Chest W/O Contrast Injection TECHNIQUE: Helically acquired images were obtained of the chest. A radiation dose optimization technique was used for this scan. IV Contrast dosage and agent: None. Radiation Dose (provided by facility) CTDIvol (6.77 ) mGy, DLP ( 260.37) mGy-cm COMPARISON: CT of the abdomen on the same date, 03/31/2022 FINDINGS: LUNGS, PLEURA AND LARGE AIRWAYS: Lungs are well expanded. No focal infiltrate or consolidation. There is however a mass at the LEFT lung base measuring 2.6 x 2.4 cm, mildly lobulated contour, mild spiculation, and central necrosis is noted. No other pulmonary masses identified. No pleural effusion. Scattered areas of mild nodular pleural thickening without definitive mass lesions noted. THYROID: No thyroid lesions. HEART AND PERICARDIUM: Heart size is normal. No pericardial effusion. Valvular annulus calcifications and scattered coronary vascular calcifications present. VESSELS: Diffuse aortic calcifications without aneurysmal dilatation. MEDIASTINUM AND DEVORAH: No mediastinal or hilar adenopathy. Esophagus is unremarkable. There is a small hiatal hernia. UPPER ABDOMEN: No acute pathology. BONES: No suspicious lytic or blastic abnormality. CT/Chest without Contrast IMPRESSION: 1. Solitary mass at the LEFT lung base measuring 2.6 x 2.4 cm, central necrosis is noted. Mild lobulation spiculation evident, and pattern is consistent with a neoplastic process. No other pulmonary masses or evidence of metastatic disease. 2. No parenchymal infiltrate consolidation or effusion. Electronically Signed: Oneil George MD at 22:22 EST ,
[2022-03-31] MEDS: 0.9% Saline Lock 10 ML Syringe IV (18:36)
[2022-03-31 18:47] LABS: Hematocrit 19.5 % (37-47); Hemoglobin 6.2 g/dL (12.0-15.0)
[2022-03-31 19:07] LABS: Ferritin 22 ng/mL (8-252); Iron 26 ug/dL (50-170); Iron Binding Capacity,Total 300 ug/dL (250-450); PERCENT IRON SATURATION 8.7 % (15.0-55.0)
--- NOTE | 2022-03-31 20:49 | CON.PCM.GI_ITS ---
HPI Consult Data Date of Consult: 03/31/22 HPI Narrative Reason for Consultation: GI bleed HPI Narrative: AMANDA GRAY, is a 82 F who presents from home with lower GI bleeding. She has a past medical history of iron deficiency anemia. Her hemoglobin has been progressively decreasing over the last several years. She is not on iron. She has not had a colonoscopy. She takes low-dose aspirin presents with rectal bleeding that began this morning at 830.? She states she had a bowel movement that was runny.? She noticed bright red blood afterwards.? She continued to have rectal bleeding.? She denies any abdominal pain.? No lightheadedness or dizziness.? No chest pain or shortness of breath.? She denies any other bleeding diathesis. Hemoglobin in the ED was 8.2 and on repeat it was 7.3. I was consulted to manage his lower GI bleeding. She was admitted to the ICU for hypotension. I requested that she get a CT scan of the abdomen and pelvis.? CT scan abdomen and pelvis displayed: 2.7 cm centrally necrotic left lower lobe mass, concerning for primary malignancy or pulmonary metastasis. Diffuse colonic wall thickening with prominence of the vasa recta compatible with pancolitis.? Colonic diverticulosis with larger focal outpouchings and wall thickening of the rectosigmoid colon concerning for ulcerations, possible underlying mass with inflamed giant diverticula considered less likely. CT scan of the chest is pending. [facility] Medical History Chronic pain GI bleed HLD (hyperlipidemia) HTN (hypertension) Tremor Home Medications aspirin 81 mg chewable tablet 81 mg PO DAILY@0800 12/01/16 [History Last Taken Unknown] metoprolol tartrate 25 mg tablet 12.5 mg PO 0800 Check with primary doctor 12/01/16 [History Last Taken Unknown] tramadol 50 mg tablet 50 mg PO Q8H PRN PRN Pain 01/05/18 [History Last Taken Unknown] metoprolol tartrate 25 mg tablet 25 mg PO QHS Check with primary doctor 03/31/22 [History Last Taken Unknown] Allergy/AdvReac Type Severity Reaction Status Date / Time No Known Allergies Allergy Verified 03/31/22 10:28 Family History no significant family his Surgical History no surgical history Social History (Updated 03/31/22 @ 16:[address] Nohemy Hernandez DO) household members: none housing: house Smoking Status: Never smoker alcohol intake: never substance use type: does not use ROS Constitutional Constitutional: Denies anorexia, change in weight, chills, fatigue, fever(s), malaise, night sweats, weakness or other Eyes Eyes: Denies blurry vision, change in eye color, change in vision, discharge from eye(s), double vision, erythema, eye pain, loss of vision or other ENT HEENT: Denies abnormal hearing, dysphagia, ear pain, epistaxis, headache(s), hearing loss, nasal congestion, nasal discharge, post nasal drip, sinus pressure, sore throat or other Cardiovascular Cardiovascular: Reports syncope; Denies chest pain, claudication, dyspnea on exertion, edema, lightheadedness, orthopnea, palpitations, paroxysmal nocturnal dyspnea, rapid heart rate or other Respiratory/Chest Respiratory/Chest: Denies cough, dyspnea, excessive phlegm production, hemoptysis, productive cough, shortness of breath at rest, shortness of breath with exertion, wheezing or other Gastrointestinal Gastrointestinal: Reports hematochezia and nausea; Denies abdominal pain, coffee ground emesis, constipation, diarrhea, dyspepsia, hematemesis, loose stools, melena, vomiting or other Genitourinary Genitourinary: Reports urinary incontinence; Denies burning urination, difficulty urinating, dysuria, hematuria, nocturia, urinary frequency, urinary hesitancy, urinary urgency or other Musculoskeletal Musculoskeletal: Denies arthralgias, back pain, joint pain, joint stiffness, joint swelling, myalgias, neck pain or other Neurologic Neurologic: Denies abnormal gait, abnormal speech, confusion, disequilibrium, dizziness, focal weakness, headache(s), numbness, paresthesias, seizure-like activity, seizures, syncope, tingling, tremor(s) or other Psychiatric Psychiatric: Denies anxiety, depression, homicidal ideation, suicidal ideation or other Endocrine Endocrinology: Denies change in body appearance, cold intolerance, excessive sweating, heat intolerance, polydipsia, polyuria or other Hematologic/Lymphatic Hematologic/Lymphatic: Denies anemia, easy bleeding, easy bruising, lymphadenopathy or other Allergic/Immunologic Allergic/Immunologic: Denies rhinitis, hives, eczemia, asthma or other Physical Exam Const alert, oriented x3, no apparent distress, average body habitus and well cory shed HEENT normocephalic, head/scalp atraumatic and hearing grossly normal bilaterally Eyes PERRL and EOMs intact bilaterally Eyes Narrative: Conjunctiva are pale bilaterally, no scleral icterus Neck no lymphadenopathy, supple, no JVD and no carotid bruits Neck Narrative: Trachea midline, no thyroid enlargement Resp normal respiratory effort, no retractions, no use of accessory muscles and clear to auscultation bilaterally Auscultation: Negative for rales, rhonchi or wheezes Cardio regular rate, regular rhythm, S1 normal heart sound, S2 normal heart sound, no murmurs, no rub, no gallops and no clicks GI normal to inspection, nondistended, normoactive bowel sounds, soft to palpation and non-tender Extremity no clubbing, cyanosis or edema Extremity Narrative: 2+ pedal pulses Skin no rashes or lesions noted, no wounds, skin turgor normal, no jaundice, no petechiae and no mottling Skin Narrative: Skin is pale General Skin Exam: pallor Neuro oriented x3, CN's II-XII intact bilaterally, moves all extremities and no focal motor deficits Neuro Narrative: Mild generalized weakness-proximal greater than distal with no focal deficits Speech: speech normal Psych affect normal Psych Narrative: Very pleasant, appropriately interactive Lab / Micro Data Result Diagrams: 03/31/22 18:30 03/31/22 11:05 Labs: Laboratory Results - last 24 hr 03/31/22 11:05: WBC 15.1 H, RBC 2.96 L, Hgb 8.2 L, Hct 26.2 L, MCV 88.5, MCH 27.7, MCHC 31.3 L, RDW Std Deviation 58.5 H, RDW Coeff of Brenda 18.3 H, Plt Count , Immature Gran % (Auto) 0.600, Neut % (Auto) 82.4 H, Lymph % (Auto) 7.9 L, Grundy % (Auto) 7.8, Eos % (Auto) 0.8, Baso % (Auto) 0.5, Absolute Neuts (auto) 12.4 H, Absolute Lymphs (auto) 1.19, Nucleated RBC % 0, Differential Comment SCANNED, Platelet Estimate ADEQUATE 03/31/22 11:05: Sodium 140, Potassium 4.4, Chloride 109 H, Carbon Dioxide 25.0, Anion Gap 6, BUN 21 H, Creatinine 0.93, Estim Creat Clear Calc 1.77, Est GFR (MDRD) Af Amer 75, Est GFR (MDRD) Non-Af 62, BUN/Creatinine Ratio 22.6 H, Glucose 132 H, Calcium 8.7, Total Bilirubin 0.40, AST 18, ALT 20, Alkaline Phosp hatase 47, Total Protein 6.8, Albumin 3.0 L, Globulin 3.8, Albumin/Globulin Ratio 0.8 L 03/31/22 13:05: Crossmatch See Detail 03/31/22 13:10: PT 15.0 H, INR 1.2 03/31/22 13:10: Blood Type A NEGATIVE, Antibody Screen NEGATIVE 03/31/22 13:10: Hgb 7.3 L, Hct 24.0 L 03/31/22 18:30: Hgb 6.2 L, Hct 19.5 L 03/31/22 18:30: Iron 26 L, TIBC 300, Iron Saturation 8.7 L, Ferritin 22 Radiology Impression Abdomen/Pelvis CT 03/31/22 14:09 IMPRESSION: 2.7 cm centrally necrotic left lower lobe mass, concerning for primary malignancy or pulmonary metastasis. Diffuse colonic wall thickening with prominence of the vasa recta compatible with pancolitis. Colonic diverticulosis with larger focal outpouchings and wall thickening of the rectosigmoid colon concerning for ulcerations, possible underlying mass with inflamed giant diverticula considered less likely. Electronically Signed: Alisha Sutherland MD at 15:43 EST , Assessment & Plan Assessment/Plan (1) Lung mass: PLAN: Lung mass concerning for a primary carcinoma of the lung versus metastatic lesion in the lung. She may need lung biopsy. (2) Rectal bleeding: PLAN: She will need colonoscopy to evaluate her colon for primary colonic malignancy. There is diffuse colitis seen on her colonoscopy with some thickening of bowel pouches in the sigmoid colon possibly secondary to diverticulitis. I will start her on antibiotics. (3) Anemia: PLAN: She should have an upper and lower endoscopy due to her BUN to creatinine ratio being elevated to rule out any peptic ulcer disease since she takes aspirin as other etiologies of her anemia along with possible colonic malignancy she will need a colonoscopy. Recommend to transfuse 2 units of packed red blood cells. Charges/Coding Visit Charges Inpatient E&M: 25280 Init Hosp L3
[2022-03-31] MEDS: Acetaminophen 500 MG Tablet 1000 MG PO (20:56)
[2022-04-01] VITALS (30 sets, daily range): BP systolic 103–144; BP diastolic 49–78; PULSE 85–121; RESP 12–20; TEMP 36.2–37; O2SAT 94–100
[2022-04-01 02:42] LABS: Hematocrit 24.3 % (37-47); Hemoglobin 7.7 g/dL (12.0-15.0)
--- NOTE | 2022-04-01 02:55 | NURSING ---
Patient called out saying she didn't feel well. This RN and DRIVER ENGINEER in room, pt pale, stating she was nauseous. Pt became unconscious, BP 44/27 @ 0256, HR 90. Placed in trendelenburg position. Pt alert and talking at 0259 & BP 85/57. This RN called and updated Dr Duff, order received for additional unit of PRBC and to increase IVF to 100 ml/hr.
[2022-04-01 05:16] LABS: Absolute Lymphocyte Count 1.38 X10^3/uL (0.83-4.51); Basophil# 0.04 X10^3/uL; Basophil% 0.4 % (0-1); Eosinophil# 0.03 X10^3/uL; Eosinophils% 0.3 % (0-5); Hematocrit 22.2 % (37-47); Hemoglobin 7.2 g/dL (12.0-15.0); Lymphocyte # 1.38 X10^3/ul (0.83-4.51); Mean Corp Hgb Conc 32.4 g/dL (32-36); Mean Corpuscular Hgb 28.7 pg (27.0-32.0); Mean Corpuscular Volume 88.4 fL (81-99); Mean Platelet Vol. 9.3 fl (6.2-12.0); Monocyte# 1.13 X10^3/uL; Monocyte% 10.7 % (0-10); NRBC Flagged by Analyzer 0.2 % (0-5); Neutrophil # 7.95 X10^3/uL (2.7-7.7); Neutrophil % 75.1 % (47-70); Platelet Count 305 K/mm3 (150-450); RBC Distribution Width CV 16.2 % (11.6-14.6); RBC Distribution Width SD 52.6 fl (35.1-43.9); Red Blood Count 2.51 M/mm3 (4.2-5.4); White Blood Count 10.6 K/mm3 (4.4-11.0)
[2022-04-01 05:38] LABS: ALB/GLOB Ratio 0.9 RATIO (0.9-2.4); AST(SGOT) 13 U/L (15-37); Alanine Aminotransfer ALT/SGPT 13 U/L (13-56); Albumin, Serum 2.3 g/dL (3.2-5.0); Alkaline Phosphatase 32 U/L (45-117); Anion Gap 6 (5-15); BUN 16 mg/dL (7-18); BUN/Creat Ratio 23.3 RATIO (10-20); Calcium,Total 7.6 mg/dL (8.5-10.1); Chloride 114 mmol/L (98-107); Creatinine, Serum 0.69 mg/dL (0.55-1.02); EST Glomerular Filtration Rate 88 mL/min (>60); Est Glom Filt Rate - Afr Amer 106 mL/min (>60); Estimated Creatinine Clearance 35.49 ml/min; Globulin 2.5 g/dL (2.2-4.2); Glucose 135 mg/dL (74-106); Potassium 4.1 mmol/L (3.5-5.1); Protein, Total 4.8 g/dL (6.4-8.2); Sodium Level 142 mmol/L (136-145)
[2022-04-01] MEDS: 0.9% Saline Lock 10 ML Syringe IV (06:04)
[2022-04-01] MEDS: Lactated Ringers 1,000 ML 100 ML IV (08:02)
[2022-04-01 13:20] LABS: Hematocrit 23.1 % (37-47); Hemoglobin 7.3 g/dL (12.0-15.0); POSITIVE COUNT YES
--- NOTE | 2022-04-01 13:53 | PCM.PN.HOSP ---
Subjective Subjective Patient with ongoing rectal bleeding through the night. Has been and she is a total of 3 units of PRBC's since admission and hemoglobin is staying about the same level. 2 more units have been ordered. Did have a syncopal episode yesterday what sounds like it was vasovagal as it occurred when she got up to have a bowel movement. CT of her chest showed a mass at the left lower lobe that solitary. I discussed with the patient and her daughter and the need for lung biopsy which will be performed on Saturday based on interventional radiology schedule. She voiced understanding. She was very concerned about having to use the bedpan for bowel prep and felt that she would make a mess of the bed. I assured her that this was not an unusual occurrence for the hospital more used to dealing with it. Objective Data Objective Data Vital Signs: Vital Signs Temp Pulse Resp BP Pulse Ox O2 Del Method 97.3 F L 101 H 17 131/66 H 98 Room Air 04/01/22 12:00 04/01/22 13:00 04/01/22 13:00 04/01/22 13:00 04/01/22 13:00 04/01/22 13:00 Oxygen Delivery Method Room Air Weight: 55.3 kg Body Mass Index (BMI) 21.9 Intake & Output: Intake and Output for Last 24 Hours 03/30/22 03/31/22 04/01/22 23:59 23:59 23:59 Intake Total 1951.25 / 1951.25 1410.83 / 1410.83 Output Total 450 / 450 350 / 350 Balance 1501.25 / 1501.25 1060.83 / 1060.83 Lab / Micro Data Result Diagrams: 04/01/22 13:00 04/01/22 05:08 Labs: Laboratory Results - last 24 hr 03/31/22 13:05: Crossmatch See Detail 03/31/22 13:05: Crossmatch See Detail 03/31/22 13:10: Blood Type A NEGATIVE, Antibody Screen NEGATIVE 03/31/22 18:30: Hgb 6.2 L, Hct 19.5 L 03/31/22 18:30: Iron 26 L, TIBC 300, Iron Saturation 8.7 L, Ferritin 22 04/01/22 02:35: Hgb 7.7 L, Hct 24.3 L 04/01/22 05:08: WBC 10.6, RBC 2.51 L, Hgb 7.2 L, Hct 22.2 L, MCV 88.4, MCH 28.7, MCHC 32.4, RDW Std Deviation 52.6 H, RDW Coeff of Brenda 16.2 H, Plt Count 305, MPV 9.3, Immature Gran % (Auto) 0.500, Neut % (Auto) 75.1 H, Lymph % (Auto) 13.0 L, Frontier % (Auto) 10.7 H, Eos % (Auto) 0.3, Baso % (Auto) 0.4, Absolute Neuts (auto) 8.0 H, Absolute Lymphs (auto) 1.38, Nucleated RBC % 0.2 04/01/22 05:08: Sodium 142, Potassium 4.1, Chloride 114 H, Carbon Dioxide 22.0, Anion Gap 6, BUN 16, Creatinine 0.69, Estim Creat Clear Calc 35.49, Est GFR (MDRD) Af Amer 106, Est GFR (MDRD) Non-Af 88, BUN/Creatinine Ratio 23.3 H, Glucose 135 H, Calcium 7.6 L, Total Bilirubin 0.60, AST 13 L, ALT 13, Alkaline Phosphatase 32 L, Total Protein 4.8 L, Albumin 2.3 L, Globulin 2.5, Albumin/Globulin Ratio 0.9 04/01/22 13:00: Hgb 7.3 L, Hct 23.1 L Radiography Diagnostic Testing: Radiology Impression Abdomen/Pelvis CT 03/31/22 14:09 IMPRESSION: 2.7 cm centrally necrotic left lower lobe mass, concerning for primary malignancy or pulmonary metastasis. Diffuse colonic wall thickening with prominence of the vasa recta compatible with pancolitis. Colonic diverticulosis with larger focal outpouchings and wall thickening of the rectosigmoid colon concerning for ulcerations, possible underlying mass with inflamed giant diverticula considered less likely. Electronically Signed: Alisha Sutherland MD at 15:43 EST , Chest CT 03/31/22 16:28 IMPRESSION: 1. Solitary mass at the LEFT lung base measuring 2.6 x 2.4 cm, central necrosis is noted. Mild lobulation spiculation evident, and pattern is consistent with a neoplastic process. No other pulmonary masses or evidence of metastatic disease. 2. No parenchymal infiltrate consolidation or effusion. Electronically Signed: Oneil George MD at 22:22 EST , Physical Exam Const alert, oriented x3, no apparent distress and average body habitus Constitutional Narrative: Pale appearing, elderly, white female, sitting up in bed, daughter at bedside, currently appears nontoxic, color seems to be improved as patient looks less pale than yesterday HEENT normocephalic, head/scalp atraumatic and hearing grossly normal bilaterally HEENT Narrative: Mallampati 2, no thrush Resp normal respiratory effort, no retractions, no use of accessory muscles and clear to auscultation bilaterally Auscultation: Negative for rales, rhonchi or wheezes Cardio regular rate, regular rhythm, S1 normal heart sound, S2 normal heart sound, no murmurs, no rub, no gallops and no clicks GI normal to inspection, nondistended, normoactive bowel sounds, soft to palpation and non-tender Extremity no clubbing, cyanosis or edema Extremity Narrative: 2+ pedal pulses Skin no rashes or lesions noted, no wounds, skin turgor normal, no jaundice, no petechiae and no mottling Skin Narrative: Skin is pale but improved Neuro oriented x3, CN's II-XII intact bilaterally, moves all extremities and no focal motor deficits Neuro Narrative: Mild generalized weakness-proximal greater than distal with no focal deficits Speech: speech normal Psych affect normal Psych Narrative: Very pleasant, appropriately interactive Assessment & Plan Assessment/Plan (1) Rectal bleeding: (2) Anemia: (3) Hypotension: (4) Leukocytosis: (5) Lung mass: PLAN: Plan Rectal bleeding/hematochezia -Patient never had colonoscopy -CT of the abdomen pelvis showed markedly abnormal colon along with a left lower lobe lung mass with central necrosis -Check C. difficile and enteric panel -Patient with ongoing bleeding -Plan is for colonoscopy tomorrow -CEA is pending -Continue clear liquid diet -Continue to hold home aspirin -Continue ICU care -GI following and case discussed Lung mass -This appears to be solitary left lower lobe -CT-guided biopsy ordered -Suspect this is a primary malignancy -Discussed with patient Hypotension -Improved with IV fluids and transfusion -We will decrease LR to 50 cc/h Acute on chronic anemia -Iron studies are consistent with iron deficiency -Patient has been transfused 3 units packed red blood cells thus far -2 more units pending -Plan is to repeat hemoglobin 4 hours after second unit is in -IV iron 200 mg daily x2 days has been ordered -This along with her transfusion should boost her iron stores -Patient appears to have been anemic for considerable amount of time upon review of data available Leukocytosis -No signs of acute infection -Resolved Chronic low back pain with spinal stenosis -Continue as needed Ultram DVT prophylaxis -SCDs -Chemoprophylaxis contraindicated with GI bleeding CODE STATUS -DNR CCA with no intubation as per discussion on admission Charges/Coding Visit Charges Inpatient E&M: 85231 Subs Hosp L2
[2022-04-01] MEDS: Acetaminophen 500 MG Tablet 1000 MG PO ×2 (14:08→21:18)
[2022-04-02] VITALS (29 sets, daily range): BP systolic 99–153; BP diastolic 45–114; PULSE 82–119; RESP 12–28; TEMP 36.4–37.4; O2SAT 86–100; BMI 22.0
--- NOTE | 2022-04-02 | COLBX_PTH ---
PATIENT: AMANDA GRAY LOC: [facility] U#:[id number] AGE/SX: 82/F ROOM: ICU01 RE03/31/[address]: Dr. Nohemy Hernandez, DO : 1940 BED: 1 DIS: 04/03/2022 SPEC #: [id number] RECD: 04/02/22 15:13 STATUS: RAFAELA REQ #: [id number] NARINDER: 04/02/22 00:[address]: Yaya Duff DEPT: SURGICAL PATHOLOGY RECD BY: Ty Kincaid ENTERED: 04/03/22 09:10 SP TYPE: COLON BX OTHR DR: MD Dr. Andre Patel MD Dr. Kathryn Lee, DO Tissues: A - Duodenum, NOS B - Esophageal mucous membrane C - Sigmoid colon biopsy Procedures: Surgery Specimen Level IV Comments: @ Ordering doctor for SUIV edited from to @ by OLYA at 04/03/22 1334 @ Submitting doctor edited from to @ by RGOOD at 04/03/22 1330 HEADER OPERATION: Colonoscopy with biopsy and tattoo and electrohemostasis, EGD PRE-OP DIAGNOSIS: Lung mass, rectal bleeding, anemia TISSUE SUBMITTED: A ? Duodenal ulcer biopsy, B ? Distal esophagus biopsy, C ? Sigmoid polyp MICROSCOPIC DIAGNOSIS A ? Duodenal ulcer biopsy: Fragments of duodenal mucosa with focal ulceration, fibrinous exudation and acute and chronic inflammation. B ? Distal esophagus biopsy: Fragments of gastroesophageal mucosa with mild chronic inflammation. Negative for intestinal metaplasia (goblet cell metaplasia). See comment. C ? Sigmoid polyp, biopsy: Consistent with inflammatory polyp. SJ 04/04/2022 COMMENT Alcian blue/PAS stain with matched control is used in the evaluation of the specimen. MICROSCOPIC DESCRIPTION Slides are reviewed. GROSS DESCRIPTION A. Received is one container labeled with the patient name and designated duodenal ulcer. The specimen consists of two irregular fragments of light mansfield soft tissue that in aggregate measure 0.6 x 0.3 x 0.1 cm. The specimen is totally submitted in one cassette. B. Received is one container labeled with the patient name and designated distal esophagus. The specimen consists of multiple irregular fragment of light mansfield soft tissue that in aggregate measure 0.8 x 0.5 x 0.1 cm. The specimen is totally submitted in one cassette. C. Received is one container labeled with the patient name and designated sigmoid polyp. The specimen consists of one mansfield polyp that measures 0.8 x 0.8 x 0.5 cm. The specimen is bisected and totally submitted in one cassette. /AM:cc 04/04/2022 TC:2 CPT: 47824 x3, 02636
[2022-04-02] MEDS: Lactated Ringers 1,000 ML 50 ML IV (01:22)
[2022-04-02 04:45] LABS: Anion Gap 6 (5-15); BUN 15 mg/dL (7-18); BUN/Creat Ratio 26.8 RATIO (10-20); Calcium,Total 7.5 mg/dL (8.5-10.1); Chloride 115 mmol/L (98-107); Creatinine, Serum 0.56 mg/dL (0.55-1.02); EST Glomerular Filtration Rate 111 mL/min (>60); Est Glom Filt Rate - Afr Amer 134 mL/min (>60); Estimated Creatinine Clearance 35.49 ml/min; Glucose 91 mg/dL (74-106); Magnesium 1.7 mg/dL (1.6-2.6); Potassium 5.3 mmol/L (3.5-5.1); Sodium Level 143 mmol/L (136-145)
[2022-04-02 05:12] LABS: Absolute Lymphocyte Count 2.12 X10^3/uL (0.83-4.51); Absolute Neutrophil Count 5.9 X10^3/uL (2.0-7.7); Basophil# 0.06 X10^3/uL; Basophil% 0.6 % (0-1); Eosinophil# 0.16 X10^3/uL; Eosinophils% 1.7 % (0-5); Hematocrit 25.5 % (37-47); Hemoglobin 8.7 g/dL (12.0-15.0); Lymphocyte # 2.12 X10^3/ul (0.83-4.51); Lymphocyte % 21.9 % (19-41); Mean Corp Hgb Conc 34.1 g/dL (32-36); Mean Corpuscular Hgb 30.4 pg (27.0-32.0); Mean Corpuscular Volume 89.2 fL (81-99); Mean Platelet Vol. 9.3 fl (6.2-12.0); Monocyte# 1.38 X10^3/uL; Monocyte% 14.3 % (0-10); NRBC Flagged by Analyzer 0 % (0-5); Platelet Count 237 K/mm3 (150-450); RBC Distribution Width CV 15.6 % (11.6-14.6); RBC Distribution Width SD 50.5 fl (35.1-43.9); Red Blood Count 2.86 M/mm3 (4.2-5.4); White Blood Count 9.7 K/mm3 (4.4-11.0)
[2022-04-02] MEDS: 0.9% Saline Lock 10 ML Syringe IV ×2 (08:31→12:00)
--- NOTE | 2022-04-02 10:00 | NURSING ---
To Endo w/ OR staff.
[2022-04-02] MEDS: Epinephrine (1 mg/ml) 1 MG/ML VIAL (12:07)
[2022-04-02] MEDS: 0.9% Normal Saline (Pres. free 10 ML Vial (12:07)
--- NOTE | 2022-04-02 12:21 | OP.EGD_ITS ---
Patient Name: Thania Jonas Procedure Date: 04/02/2022 11:03 AM Date of : 1940 Age: 82 Procedure: Upper GI endoscopy Indications: Epigastric abdominal pain Providers: Yaya Duff DO Medicines: Monitored Anesthesia Care Patient Profile: This is an 82 year old female. Refer to note in patient chart for documentation of history and physical. Patient has symptoms of acute abdominal cramping and acute global abdominal pain. Complications: No immediate complications. Procedure: Pre-Anesthesia Assessment: - Prior to the procedure, a History and Physical was performed, and patient medications and allergies were reviewed. The risks and benefits of the procedure and the sedation options and risks were discussed with the patient. All questions were answered and informed consent was obtained. Patient identification and proposed procedure were verified by the physician in the pre-procedure area. Mental Status Examination: alert and oriented. Airway Examination: normal oropharyngeal airway and neck mobility. CV Examination: normal. Prophylactic Antibiotics: The patient does not require prophylactic antibiotics. Prior Anticoagulants: The patient has taken no previous anticoagulant or antiplatelet agents. ASA Grade Assessment: II - A patient with mild systemic disease. After reviewing the risks and benefits, the patient was deemed in satisfactory condition to undergo the procedure. The anesthesia plan was to use moderate sedation / analgesia (conscious sedation). Immediately prior to administration of medications, the patient was re-assessed for adequacy to receive sedatives. The heart rate, respiratory rate, oxygen saturations, blood pressure, adequacy of pulmonary ventilation, and response to care were monitored throughout the procedure. The physical status of the patient was re-assessed after the procedure. After obtaining informed consent, the endoscope was passed under direct vision. Throughout the procedure, the patient's blood pressure, pulse, and oxygen saturations were monitored continuously. The Colonoscope was introduced through the mouth, and advanced to the second part of duodenum. The upper GI endoscopy was accomplished without difficulty. The patient tolerated the procedure well. Scope In: 11:06:34 AM Scope Out: 11:12:58 AM Total Procedure Duration Time 0 hours 6 minutes 24 seconds Findings: LA Grade B (one or more mucosal breaks greater than 5 mm, not extending between the tops of two mucosal folds) esophagitis with no bleeding was found 35 to 37 cm from the incisors. Biopsies were taken with a cold forceps for histology. Verification of patient identification for the specimen was done. Estimated blood loss was minimal. A small hiatal hernia was present. No other significant abnormalities were identified in a careful examination of the stomach. Three non-bleeding superficial duodenal ulcers with no stigmata of bleeding were found in the duodenal bulb. The largest lesion was 4 mm in largest dimension. Biopsies were taken with a cold forceps for histology. Verification of patient identification for the specimen was done. Estimated blood loss was minimal. Impression: - LA Grade B reflux esophagitis. Biopsied. - Small hiatal hernia. - Multiple non-bleeding duodenal ulcers with no stigmata of bleeding. Biopsied. Recommendation: - Discharge patient to home. - Resume previous diet. - Continue present medications. - Await pathology results. - Repeat upper endoscopy in 4 months for surveillance. Procedure Code(s): --- Professional --- 04630, Esophagogastroduodenoscopy, flexible, transoral; with biopsy, single or multiple CPT copyright 2017 [employer]. All rights reserved. The codes documented in this report are preliminary and upon foreign language instructor review may be revised to meet current compliance requirements. Yaya Duff DO 04/02/2022 12:21:13 PM This report has been signed electronically. Number of Addenda: 0 Note Initiated On: 04/02/2022 11:03 AM
--- NOTE | 2022-04-02 12:22 | OP.CCLET_ITS ---
04/02/2022 Lorna Aguillon [address] [place] [address] Re : Upper GI endoscopy procedure for Thania Jonas Dear Dr. Aguillon This procedure was performed on Saturday, April 02, 2022. My impressions and recommendations are as follows: Impressions : - LA Grade B reflux esophagitis. Biopsied. - Small hiatal hernia. - Multiple non-bleeding duodenal ulcers with no stigmata of bleeding. Biopsied. Recommendations : - Discharge patient to home. - Resume previous diet. - Continue present medications. - Await pathology results. - Repeat upper endoscopy in 4 months for surveillance. My findings are described in the full procedure note, which is enclosed. If I can be of further assistance, please feel free to contact me at . Sincerely, Yaya Duff, 04/02/2022 12:21:13 PM This report has been signed electronically.
--- NOTE | 2022-04-02 12:28 | OP.CCLET_ITS ---
04/02/2022 [address] [place] [address] Re : Colonoscopy procedure for Thania Pritesh Dear Dr. Aguillon This procedure was performed on Saturday, April 02, 2022. My impressions and recommendations are as follows: Impressions : - Moderate diverticulosis in the recto-sigmoid colon, in the sigmoid colon and in the descending colon. There was active bleeding coming from the diverticular opening. Injected. Treated with a heater probe. - One 9 mm polyp in the sigmoid colon, removed with a hot snare. Resected and retrieved. - Blood in the entire examined colon. - The examined portion of the ileum was normal. Recommendations : - Return patient to [facility] for ongoing care. - Full liquid diet. - Continue present medications. - Await pathology results. - Repeat colonoscopy in 6 months because the bowel preparation was poor. My findings are described in the full procedure note, which is enclosed. If I can be of further assistance, please feel free to contact me at . Sincerely, Yyaa Duff, 04/02/2022 12:27:47 PM This report has been signed electronically.
--- NOTE | 2022-04-02 12:28 | OP.COLON_ITS ---
Patient Name: Thania Jonas Procedure Date: 04/02/2022 11:15 AM Date of : 1940 Age: 82 Procedure: Colonoscopy Indications: This is the patient's first colonoscopy, Hematochezia Providers: Yaya Duff DO Medicines: Monitored Anesthesia Care Patient Profile: This is an 82 year old female. Refer to note in patient chart for documentation of history and physical. Patient has symptoms of acute abdominal cramping and acute global abdominal pain. Last Colonoscopy: none. The patient's first colonoscopy is today. Complications: No immediate complications. Procedure: Pre-Anesthesia Assessment: - Prior to the procedure, a History and Physical was performed, and patient medications and allergies were reviewed. The risks and benefits of the procedure and the sedation options and risks were discussed with the patient. All questions were answered and informed consent was obtained. Patient identification and proposed procedure were verified by the physician in the pre-procedure area. Mental Status Examination: alert and oriented. Airway Examination: normal oropharyngeal airway and neck mobility. CV Examination: normal. Prophylactic Antibiotics: The patient does not require prophylactic antibiotics. Prior Anticoagulants: The patient has taken no previous anticoagulant or antiplatelet agents. ASA Grade Assessment: II - A patient with mild systemic disease. After reviewing the risks and benefits, the patient was deemed in satisfactory condition to undergo the procedure. The anesthesia plan was to use moderate sedation / analgesia (conscious sedation). Immediately prior to administration of medications, the patient was re-assessed for adequacy to receive sedatives. The heart rate, respiratory rate, oxygen saturations, blood pressure, adequacy of pulmonary ventilation, and response to care were monitored throughout the procedure. The physical status of the patient was re-assessed after the procedure. After I obtained informed consent, the scope was passed under direct vision. Throughout the procedure, the patient's blood pressure, pulse, and oxygen saturations were monitored continuously. The Colonoscope was introduced through the anus and advanced to the terminal ileum. The colonoscopy was performed without difficulty. The patient tolerated the procedure well. No bowel preparation was given prior to the procedure. Retroflexion was not performed due to a very small redundant rectum. Scope In: 11:16:49 AM Scope Out: 12:13:20 PM Total Procedure Duration Time 0 hours 56 minutes 31 seconds Findings: The perianal and digital rectal examinations were normal. Multiple small and large-mouthed diverticula were found in the recto-sigmoid colon, sigmoid colon and descending colon. There was active bleeding coming from the diverticular opening. Area was successfully injected with 5 mL of a 1:10,000 solution of epinephrine for hemostasis. Coagulation for hemostasis using heater probe was successful. Area was successfully injected with 5 mL Juany ink for tattooing. Estimated blood loss was minimal. A 9 mm polyp was found in the sigmoid colon. The polyp was sessile. The polyp was removed with a hot snare. Resection and retrieval were complete. Verification of patient identification for the specimen was done. Estimated blood loss was minimal. Red blood was found in the entire colon. The terminal ileum appeared normal. Impression: - Moderate diverticulosis in the recto-sigmoid colon, in the sigmoid colon and in the descending colon. There was active bleeding coming from the diverticular opening. Injected. Treated with a heater probe. - One 9 mm polyp in the sigmoid colon, removed with a hot snare. Resected and retrieved. - Blood in the entire examined colon. - The examined portion of the ileum was normal. Recommendation: - [facility] to [facility] care. - Full liquid diet. - Continue present medications. - Await pathology results. - Repeat colonoscopy in 6 months because the bowel preparation was poor. Procedure Code(s): --- Professional --- 85153, 59, Colonoscopy, flexible; with control of bleeding, any method 16712, Colonoscopy, flexible; with removal of tumor(s), polyp(s), or other lesion(s) by snare technique CPT copyright 2017 [employer]. All rights reserved. The codes documented in this report are preliminary and upon oil expeller operator review may be revised to meet current compliance requirements. Yaya Duff DO 04/02/2022 12:27:47 PM This report has been signed electronically. Number of Addenda: 0 Note Initiated On: 04/02/2022 11:15 AM
--- NOTE | 2022-04-02 15:45 | CASEMGMT ---
RN CM TOOL AND DIE ENGINEER CM to room to meet with patient for initial transition planning/care coordination assessment. SHARRI IGLESIAS introduced self and role at [facility]. Pt voices understanding and consents to assessment at this time. Pt resting in bed in no distress at this time. Pt is A/O at this time and answers all questions appropriately. Care providers, pharmacy, and demographics verified/updated at this time. PCP: Dr Aguillon Specialists: none Preferred Pharmacy: [facility] Insurance: Eddie PERYR Prescription Benefit: Yes Living Will/HPOA: Pt states is not sure if she has done these or who is her POA, if she has. She would like to complete new ones. SW, Erin, made aware. Pt made aware, if SW unable to meet w/her prior to discharge, that she can meet w/SW as an out-pt to complete AD. She was provided w/Garage Door Opener Installer rac card w/contact info. LNOK: Dtr, Indira. Son, Mello. BrotherMac Living Arrangements: [place] [facility]one story w/basement w/one step to enter. Denies difficulty w/stairs. Indep w/ADL's and IADL's and manages her own medications. Transportation: Pt states drives self and states no transportation concerns at this time. DME: Denies using any DME and denies needs. She states she does have a shower chair, but does not use it. HHC/SNF: No hx of either. Denies needs for HHC at this time. Pt wishes to return home and states has no concerns with going home at time of discharge. CM to follow for any discharge planning/needs. Pt voices no further concerns/needs at this time. Advised pt to ask for CM if any further questions/concerns/needs arise. Voices understanding. PLAN: Home SW for AD Natacha WOLFF RN, CM
--- NOTE | 2022-04-02 15:45 | CHAPLAIN ---
Type of Pastoral Visit _x__ Initial Visit ___ Follow-up Visit ___ On-call Visit ___ General Patient Visit ___ Spiritual Assessment ___ Family Conference ___ Bereavement ___ Rapid Response ___ Code Blue ___ Other (describe below) Pastoral Care Referral From _x__ Patient ___ Family ___ Nurse ___ Physician ___ Professor Of Kinesiology ___ Senior Software Qa Engineer ___ Other (describe below) Sacrament/Intervention _x__ Active listening ___ Anointing ___ Judaism ___ Bereavement ___ Communion _x__ Jayda exploration ___ _x__ Life review _x__ Prayer ___ Reconciliation ___ Sacrament of Sick ___ Supportive presence ___ Wedding ___ Other (describe below) Pastoral Comments patient is awake and watching TV after having a procedure done earlier today; pt is welcoming and identifies herself as a Episcopal believer; pt states that she has had good news today and is thankful for answers to prayer; pt was in June and navigating through this new season; pt asks for prayer about 'what is next' as family lives out of state; pt speaks freely about her jayda in God and how this is supportive to her
--- NOTE | 2022-04-02 16:12 | PN.HOSP_ITS ---
Subjective Subjective Bloody bowel movements have decreased in frequency and hemoglobin seems to be stabilizing. Colonoscopy was performed today with plans for CT-guided biopsy tomorrow. No current issues or needs expressed. No significant issues overnight. Objective Data Objective Data Vital Signs: Vital Signs Temp Pulse Resp BP Pulse Ox O2 Del Method 98.1 F 92 15 128/65 H 100 Room Air 04/02/22 16:00 04/02/22 16:00 04/02/22 16:00 04/02/22 16:00 04/02/22 16:00 04/02/22 16:00 Oxygen Delivery Method Room Air Weight: 54.7 kg Body Mass Index (BMI) 22.0 Intake & Output: Intake and Output for Last 24 Hours 03/31/22 04/01/22 04/02/22 23:59 23:59 23:59 Intake Total 1951.25 / 1951.25 2662.50 / 2662.50 1325.33 / 1325.33 Output Total 450 / 450 750 / 750 400 / 400 Balance 1501.25 / 1501.25 1912.50 / 1912.50 925.33 / 925.33 Lab / Micro Data Result Diagrams: 04/02/22 04:50 04/02/22 04:20 Labs: Laboratory Results - last 24 hr 03/31/22 13:05: Crossmatch See Detail 03/31/22 13:05: Crossmatch See Detail 04/02/22 04:20: WBC Cancelled, Corrected WBC Cancelled, RBC Cancelled, Hgb Cancelled, Hct Cancelled, MCV Cancelled, MCH Cancelled, MCHC Cancelled, RDW Std Deviation Cancelled, RDW Coeff of Brenda Cancelled, Plt Count Cancelled, MPV Cancelled, Immature Gran % (Auto) Cancelled, Neut % (Auto) Cancelled, Lymph % (Auto) Cancelled, Duc[place]ne % (Auto) Cancelled, Eos % (Auto) Cancelled, Baso % (Auto) Cancelled, Absolute Neuts (auto) Cancelled, Absolute Lymphs (auto) Cancelled, Total Counted Cancelled, Neutrophils % (Manual) Cancelled, Band Neutrophils % Cancelled, Lymphocytes % (Manual) Cancelled, Monocytes % (Manual) Cancelled, Eosinophils % (Manual) Cancelled, Basophils % (Manual) Cancelled, Metamyelocytes % Cancelled, Myelocytes % Cancelled, Promyelocytes % Cancelled, Blast Cells % Cancelled, Plasma Cell % (Manual) Cancelled, Other Cells % Cancelled, Nucleated RBC % Cancelled, Nucleated RBCs/100 WBC Cancelled, Differential Comment Cancelled, Diff Path Review Cancelled, Hypersegmented Neuts Cancelled, Atypical Lymphocytes Cancelled, Reactive Lymphocytes Cancelled, Smudge Cells Cancelled, Toxic Granulation Cancelled, Toxic Vacuolation Cancelled, Dohle Bodies Cancelled, Suzanne Rods Cancelled, Platelet Estimate Cancelled, Plt Morphology Comment Cancelled, RBC Morphology Cancelled, Polychromasia Cancelled, Hypochromasia Cancelled, Poikilocytosis Cancelled, Basophilic Stippling Can celled, Anisocytosis Cancelled, Microcytosis Cancelled, Macrocytosis Cancelled, Spherocytes Cancelled, Sickle Cells Cancelled, Target Cells Cancelled, Tear Drop Cells Cancelled, Ovalocytes Cancelled, Stomatocytes Cancelled, [place] Bodies Cancelled, Shashi Cells Cancelled, Bite Cells Cancelled, Crenated Cell Cancelled, Acanthocytes (Spur) Cancelled, Rouleaux Cancelled, Schistocytes Cancelled 04/02/22 04:20: Sodium 143, Potassium 5.3 H, Chloride 115 H, Carbon Dioxide 22.0, Anion Gap 6, BUN 15, Creatinine 0.56, Estim Creat Clear Calc 35.49, Est GFR (MDRD) Af Amer 134, Est GFR (MDRD) Non-Af 111, BUN/Creatinine Ratio 26.8 H, Glucose 91, Calcium 7.5 L, Phosphorus 2.0 L, Magnesium 1.7 04/02/22 04:50: WBC 9.7, RBC 2.86 L, Hgb 8.7 L, Hct 25.5 L, MCV 89.2, MCH 30.4, MCHC 34.1 D, RDW Std Deviation 50.5 H, RDW Coeff of Brenda 15.6 H, Plt Count 237, MPV 9.3, Immature Gran % (Auto) 0.500, Neut % (Auto) 61.0, Lymph % (Auto) 21.9, Duchesne % (Auto) 14.3 H, Eos % (Auto) 1.7, Baso % (Auto) 0.6, Absolute Neuts (auto) 5.9, Absolute Lymphs (auto) 2.12, Nucleated RBC % 0 Physical Exam Const alert, oriented x3, no apparent distress, average body habitus and well nourished Constitutional Narrative: Pale appearing, elderly, white female, sitting up in a chair at the bedside, daughter at bedside, currently appears nontoxic HEENT normocephalic, head/scalp atraumatic, hearing grossly normal bilaterally and moist oral mucous membranes HEENT Narrative: Mallampati 2 Resp normal respiratory effort, no retractions, no use of accessory muscles and clear to auscultation bilaterally Auscultation: Negative for rales, rhonchi or wheezes Cardio regular rate, regular rhythm, S1 normal heart sound, S2 normal heart sound, no murmurs, no rub, no gallops and no clicks GI normal to inspection, nondistended, normoactive bowel sounds, soft to palpation and non-tender Extremity no clubbing, cyanosis or edema Extremity Narrative: 2+ pedal pulses Skin General Skin Exam: pallor Neuro oriented x3, moves all extremities and no focal motor deficits Neuro Narrative: Mild generalized weakness-proximal greater than distal with no focal deficits Speech: speech normal Psych affect normal Psych Narrative: Very pleasant, appropriately interactive Assessment & Plan Assessment/Plan (1) Rectal bleeding: (2) Anemia: (3) Hypotension: (4) Leukocytosis: (5) Lung mass: PLAN: Plan Rectal bleeding/hematochezia -CT of the abdomen pelvis showed markedly abnormal colon along with a left lower lobe lung mass with central necrosis -EGD demonstrated grade B esophagitis which were biopsied, small hiatal hernia, and multiple nonbleeding duodenal ulcers with no stigmata of bleeding -Repeat EGD was recommended in 4 months -Colonoscopy demonstrated moderate diverticulosis in the rectosigmoid colon, sigmoid colon, and descending colon with active bleeding coming from one of the diverticular openings, this was injected and treated with heater probe, 1 9 mm polyp in the sigmoid colon that was removed with hot snare and sent for pathology -Vince colonoscopy was recommended in 6 months secondary to poor bowel prep -CEA remains pending -Full liquid diet initiated -Continue to hold home aspirin -Continue ICU care -GI following and case discussed Lung mass -This appears to be solitary left lower lobe -CT-guided biopsy ordered and pending for tomorrow -Suspect this is a primary malignancy -Discussed with patient Hypophosphatemia -Sodium Phos bolus given -Repeat Phos in the morning Hyperkalemia -Likely related to transfusions -Renal function is normal and patient is on no potassium supplementation -Repeat potassium in a.m. -Suspect specimen may have hemolyzed as well Hypotension -Resolved -Discontinue the fluids Acute on chronic anemia -Iron studies are consistent with iron deficiency -Patient has been transfused 5 units packed red blood cells since admission - hemoglobin has now stabilized -IV iron 200 mg daily x2 days has been completed -Patient appears to have been anemic for considerable amount of time upon review of data available Chronic low back pain with spinal stenosis -Continue as needed Ultram DVT prophylaxis -SCDs -Chemoprophylaxis contraindicated with GI bleeding CODE STATUS -DNR CCA with no intubation as per discussion on admission Charges/Coding Visit Charges Inpatient E&M: 04637 Subs Hosp L2 Reason for Visit Reason for Visit: Diagnoses Anemia, unspecified (03/31/22) Elevated white blood cell count, unspecified (03/31/22) Hypotension, unspecified (03/31/22) Hemorrhage of anus and rectum (03/31/22) Other nonspecific abnormal finding of lung field (03/31/22)
[2022-04-02 17:49] LABS: Hematocrit 26.8 % (37-47); Hemoglobin 8.9 g/dL (12.0-15.0)
[2022-04-02] MEDS: Acetaminophen 500 MG Tablet 1000 MG PO (20:43)
[2022-04-03] VITALS (21 sets, daily range): BP systolic 95–135; BP diastolic 40–80; PULSE 82–116; RESP 13–24; TEMP 36.7–37.1; O2SAT 91–100
--- NOTE | 2022-04-03 | ASPIGT_PTH ---
PATIENT: AMANDA GRAY LOC: [facility] U#:[id number] AGE/SX: 82/F ROOM: [facility]01 RE03/31/[address]: Dr. Nohemy Hernandez DO : 1940 BED: 1 DIS: 04/03/2022 SPEC #: [id number] RECD: 04/03/22 11:23 STATUS: RAFAELA REQ #: [id number] NARINDER: 04/03/22 00:[address]: Nohemy Hernandez DEPT: SURGICAL PATHOLOGY RECD BY: Ty Kincaid ENTERED: 04/03/22 11:23 SP TYPE: ASP RAD OTHR DR: MD Dr. Andre Patel MD Tissues: Lung, NOS Procedures: FNA Specimen Adequacy Special Stain Group II Surgery Specimen Level IV Imprint (control) HEADER OPERATION: CT-guided lung biopsy PRE-OP DIAGNOSIS: Left lower lobe lung mass TISSUE SUBMITTED: Left lower lobe 20-gauge core x5 MICROSCOPIC DIAGNOSIS Left lower lobe, CT guided core biopsy: Extensive necrosis, focal chronic inflammation and focal areas suggestive of necrotizing granuloma formation. Negative for malignancy. SJ 04/04/22 COMMENT The specimen is evaluated at the time of biopsy by Dr. Barrera. Immediate Evaluation = Negative for malignant cells. Degenerated cells noted. Special stain for fungi is positive for numerous organisms (budding yeast); matched control is appropriate. Correlation with culture studies is necessary for definite classification. Special stain for acid fast bacilli is negative for organisms; matched controls are appropriate. If there is high suspicion for malignancy, rebiopsy is suggested if clinically indicated. Correlation with clinical, radiologic findings and appropriate follow up are necessary. Case has been reviewed in consultation with Dr. Ortiz who concurs with the above diagnosis. IDC:AM MICROSCOPIC DESCRIPTION Slides are reviewed. GROSS DESCRIPTION Received is one container labeled with the patient name and designated left lower lobe. The specimen consists of multiple irregular fragments of light mansfield soft tissue that in aggregate measure 1.0 x 0.4 x 0.1 cm. The specimen is totally submitted in one cassette. Two touch imprints are prepared at the time of core biopsy. /AM:hermelinda 04/04/2022 TC:3 CPT:76461, 82018, 66070 x2
[2022-04-03 03:23] LABS: Absolute Lymphocyte Count 2.38 X10^3/uL (0.83-4.51); Absolute Neutrophil Count 15.6 X10^3/uL (2.0-7.7); Basophil# 0.05 X10^3/uL; Basophil% 0.2 % (0-1); Eosinophil# 0.01 X10^3/uL; Hematocrit 23.8 % (37-47); Hemoglobin 7.8 g/dL (12.0-15.0); Lymphocyte # 2.38 X10^3/ul (0.83-4.51); Lymphocyte % 11.7 % (19-41); Mean Corp Hgb Conc 32.8 g/dL (32-36); Mean Corpuscular Volume 91.5 fL (81-99); Mean Platelet Vol. 9.5 fl (6.2-12.0); Monocyte# 2.23 X10^3/uL; NRBC Flagged by Analyzer 0.2 % (0-5); Neutrophil # 15.55 X10^3/uL (2.7-7.7); Neutrophil % 76.4 % (47-70); POSITIVE DIFFERENTIAL YES; Platelet Count 246 K/mm3 (150-450); RBC Distribution Width CV 16.2 % (11.6-14.6); White Blood Count 20.4 K/mm3 (4.4-11.0)
[2022-04-03 03:33] LABS: Differential Indicated SCAN CRITERIA MET
[2022-04-03 03:36] LABS: Anion Gap 6 (5-15); BUN 9 mg/dL (7-18); BUN/Creat Ratio 12.9 RATIO (10-20); Calcium,Total 7.7 mg/dL (8.5-10.1); Chloride 110 mmol/L (98-107); EST Glomerular Filtration Rate 86 mL/min (>60); Est Glom Filt Rate - Afr Amer 104 mL/min (>60); Estimated Creatinine Clearance 35.49 ml/min; Glucose 103 mg/dL (74-106); Potassium 3.3 mmol/L (3.5-5.1); Sodium Level 142 mmol/L (136-145)
[2022-04-03 03:44] LABS: Anisocytosis 1+
[2022-04-03 03:45] LABS: Atypical Lymphocyte 1+ %
--- NOTE | 2022-04-03 07:00 | PN_ITS ---
Subjective Subjective Patient underwent an EGD and colonoscopy yesterday. She denies any abdominal pain. She denies any nausea, vomiting or diarrhea. She tolerating diet. She underwent percutaneous lung biopsy today. Objective Data Objective Data Vital Signs: Vital Signs Temp Pulse Resp BP Pulse Ox O2 Del Method O2 Flow Rate 98.3 F 112 H 16 99/53 L 97 Room Air 2 04/03/22 12:00 04/03/22 14:00 04/03/22 14:00 04/03/22 14:00 04/03/22 14:00 04/03/22 14:00 04/03/22 07:52 Oxygen Flow Rate (L/min) 2 Oxygen Delivery Method [6] Room Air Oxygen Delivery Method [5] Room Air Oxygen Delivery Method [4] Room Air Oxygen Delivery Method [3] Room Air Oxygen Delivery Method [2] Room Air Oxygen Delivery Method [1 ( Room Air Initial Baseline)] Oxygen Delivery Method Room Air Weight: 128 lb 11.999 oz Body Mass Index (BMI) 22.0 Intake & Output: Intake and Output for Last 24 Hours 04/01/22 04/02/22 04/03/22 23:59 23:59 23:59 Intake Total 2662.50 / 2662.50 2684.50 / 2684.50 50 / 50 Output Total 750 / 750 0 / 2049 650 / 650 Balance 1912.50 / 1912.50 634.50 / 634.50 -600 / -600 Lab / Micro Data Result Diagrams: 04/03/22 12:35 04/03/22 03:08 Labs: Laboratory Results - last 24 hr 03/31/22 18:30: Carcinoembryonic Ag 1.8 04/02/22 17:38: Hgb 8.9 L, Hct 26.8 L 04/03/22 03:08: WBC 20.4 H, RBC 2.60 L, Hgb 7.8 L, Hct 23.8 L, MCV 91.5, MCH 30.0, MCHC 32.8, RDW Std Deviation 54.0 H, RDW Coeff of Brenda 16.2 H, Plt Count 246, MPV 9.5, Immature Gran % (Auto) 0.700, Neut % (Auto) 76.4 H, Lymph % (Auto) 11.7 L, [place] % (Auto) 11.0 H, Eos % (Auto) 0.0, Baso % (Auto) 0.2, Absolute Neuts (auto) 15.6 H, Absolute Lymphs (auto) 2.38, Nucleated RBC % 0.2, Diff Path Review Reviewed, Atypical Lymphocytes 1+, Anisocytosis 1+ 04/03/22 03:08: Sodium 142, Potassium 3.3 L, Chloride 110 H, Carbon Dioxide 26.0, Anion Gap 6, BUN 9, Creatinine 0.70, Estim Creat Clear Calc 35.49, Est GFR (MDRD) Af Amer 104, Est GFR (MDRD) Non-Af 86, BUN/Creatinine Ratio 12.9, Glucose 103, Calcium 7.7 L, Phosphorus 3.0 04/03/22 12:35: Hgb 8.2 L Radiography Diagnostic Testing: Radiology Impression Biopsy CT 04/03/22 10:00 IMPRESSION: 1. CT directed core needle biopsy of the left lower lobe pulmonary nodule using CT image guidance with image documentation as described. Pathology results are pending. 2. Conscious Sedation protocol utilized with independent monitoring. Electronically Signed: Andre Lomeli MD at 11:12 EST , Physical Exam Narrative Patient states she is feeling much better, no more rectal bleeding. Anxious for her CT-guided biopsy but would like to go home later today if able. Const alert, oriented x3, no apparent distress, average body habitus and well nourished Constitutional Narrative: Pale appearing, elderly, white female, sitting up in a chair at the bedside, family at bedside, currently appears nontoxic General Appearance: cooperative, comfortable, well kempt and well developed Orientation / Consciousness: awake, oriented to person, oriented to place and oriented to time Exam Limitations: no limitations HEENT normocephalic, head/scalp atraumatic, hearing grossly normal bilaterally and moist oral mucous membranes HEENT Narrative: Mallampati 2, no thrush Eyes PERRL and EOMs intact bilaterally Eyes Narrative: Conjunctiva are pale bilaterally, no scleral icterus Neck no lymphadenopathy, supple, no JVD and no carotid bruits Neck Narrative: Trachea midline, no thyroid enlargement Resp normal respiratory effort, no retractions, no use of accessory muscles and clear to auscultation bilaterally Auscultation: Negative for rales, rhonchi or wheezes Cardio regular rate, regular rhythm, S1 normal heart sound, S2 normal heart sound, no murmurs, no rub, no gallops and no clicks GI normal to inspection, nondistended, normoactive bowel sounds, soft to palpation and non-tender Extremity no clubbing, cyanosis or edema Extremity Narrative: 2+ pedal pulses Skin no rashes or lesions noted, no wounds, skin turgor normal, no jaundice, no petechiae and no mottling Skin Narrative: Skin is pale but improved from the time of admission Neuro oriented x3, CN's II-XII intact bilaterally, moves all extremities and no focal motor deficits Neuro Narrative: Very mild generalized weakness-proximal greater than distal with no focal deficits Speech: speech normal Psych affect normal Psych Narrative: Very pleasant, appropriately interactive Assessment & Plan Assessment/Plan (1) Rectal bleeding: (2) Anemia: (3) Hypotension: (4) Leukocytosis: (5) Lung mass: PLAN: Plan Rectal bleeding/hematochezia -CT of the abdomen pelvis showed markedly abnormal colon along with a left lower lobe lung mass with central necrosis -EGD demonstrated grade B esophagitis which were biopsied, small hiatal hernia, and multiple nonbleeding duodenal ulcers with no stigmata of bleeding -Repeat EGD was recommended in 4 months -Colonoscopy demonstrated moderate diverticulosis in the rectosigmoid colon, sigmoid colon, and descending colon with active bleeding coming from one of the diverticular openings, this was injected and treated with heater probe, 1 9 mm polyp in the sigmoid colon that was removed with hot snare and sent for pathology -Repeat colonoscopy was recommended in 6 months secondary to poor bowel prep -CEA remains pending -Full liquid diet initiated -Continue to hold home aspirin Charges/Coding Visit Charges Inpatient E&M: 36176 Subs Hosp L2
[2022-04-03] MEDS: Potassium Chloride Oral Tablet 20 MEQ 60 MEQ PO (08:20)
[2022-04-03 08:55] LABS: Carcinoembryonic Antigen 1.8 ng/mL (0.0-4.7)
--- NOTE | 2022-04-03 10:00 | CT_ITS ---
PROCEDURE: CT GUIDED CORE NEEDLE BIOPSY OF A left lower lobe LUNG LESION INDICATION: Female, 82 years old. Lung Mass LLL PHYSICIAN: Dr. NESSA Cole CONSENT: Written informed consent was obtained having explained the risks, benefits and alternatives in detail with the patient who accepted the risks and agreed to proceed. Laboratory review and clinical assessment was performed. CONSCIOUS SEDATION PROTOCOL: The Drugs used were: 1 mg Versed, IV., and 25 mcg Fentanyl, IV. The sedation time was: 26 minutes. Conscious sedation was started at 10:23 AM and terminated at 10:49 AM. The conscious sedation protocol was independently monitored. RADIATION DOSAGE (If Supplied By Facility): CTDIvol = ( 14.5 ) mGy, DLP = ( 213.53 ) mGycm Individualized dose optimization techniques were used for this CT. TECHNIQUE: The patient was placed in the prone position. A noncontrast CT was performed to localize the lesion in the left lower lobe . The skin surface was prepped and draped in a sterile fashion. 1% lidocaine was used for local anesthesia. Using CT guidance, a 20-gauge coaxial biopsy device was advanced to the periphery of the lesion. A total of 5 core specimens were obtained. The specimens were placed in a formalin solution. A post procedure CT demonstrated no adverse sequelae or pneumothorax. The patient tolerated the procedure well without adverse event. A negative biopsy does not exclude malignancy. Further imaging or clinical followup based on patient condition and degree of clinical suspicion for malignancy. Suggest rebiopsy, if biopsy results do not match with clinical scenario. CT/Biopsy/Inj or Needle Placement IMPRESSION: 1. CT directed core needle biopsy of the left lower lobe pulmonary nodule using CT image guidance with image documentation as described. Pathology results are pending. 2. Conscious Sedation protocol utilized with independent monitoring. Electronically Signed: Andre Lomeli MD at 11:12 EST ,
[2022-04-03] MEDS: Midazolam 2 MG/2 ML Syringe IV (10:23)
[2022-04-03] MEDS: fentaNYL 100 MCG/2 ML Ampul IV (10:24)
[2022-04-03] MEDS: Lidocaine 2% (20 ml mdv) 20 ML Vial INFILT (10:30)
--- NOTE | 2022-04-03 11:01 | RAD_ITS ---
STUDY: X-RAY CHEST REASON FOR EXAM: Female, 82 years old. LLL bx -- Immediately post lung biopsy TECHNIQUE: AP inspiration and expiration views. COMPARISON: Comparison is made with prior chest radiograph dated 12/01/2016. FINDINGS: EKG electrodes are seen. No evidence of pneumothorax on the immediate postl eft lung biopsy radiographs. RAD/Chest Insp/Exp 2 View IMPRESSION: No evidence of pneumothorax on the immediate post left lung biopsy radiographs. Electronically Signed: Andre Lomeli MD at 11:30 EST ,
--- NOTE | 2022-04-03 11:11 | CASEMGMT ---
Addendum entered by Marcelina Delgadillo 04/03/22 12:41: Social Work [facility] did text back via [facility] that pt has a bed hold, and she will fax POA papers if they have them. CHARLIE Benavides Original Note: Social Work SW spoke w/pt, gave her blank POA/LW forms, as pt told CM today she already does have the papers completed. SW let her know that if she ever needs to update them, she can call the social work department to set up an appointment to complete them. Pt states understanding. SW remains available for any additional social service. CHARLIE Benavides
[2022-04-03 12:11] LABS: Pathologist Review Reviewed
--- NOTE | 2022-04-03 12:30 | DS.PCM_ITS ---
Providers Date of Admission: 03/31/22 Date of Discharge: 04/03/22 Primary Care Physician: Dr. Lorna Aguillon MD Consultations 03/31/22 13:37 Consult: Gastroenterology Routine Consulting Provider: [facility] Reason for Consult: Hematochezia EMERGENT Consult: No Notified: Yes Date Notified: 03/31/22 Time Notified: 12:31 Method of Notification: Text 04/01/22 07:41 Consult: Interventional Radiology Routine Consulting Provider: Andre Lomeli Reason for Consult: CT guided bx EMERGENT Consult: No Notified: Yes Date Notified: 04/01/22 Time Notified: 07:41 Method of Notification: Physician Initiated Reason For Visit: GI BLEED Diagnosis Discharge Diagnosis (1) Rectal bleeding: Status: Acute Code(s): K62.5 - Hemorrhage of anus and rectum (2) Anemia: Status: Acute Code(s): D64.9 - Anemia, unspecified (3) Hypotension: Status: Acute Code(s): I95.9 - Hypotension, unspecified (4) Leukocytosis: Status: Acute Code(s): D72.829 - Elevated white blood cell count, unspecified (5) Lung mass: Status: Acute Code(s): R91.8 - Other nonspecific abnormal finding of lung field Medications at Discharge Home Medications metoprolol tartrate 25 mg tablet 12.5 mg PO 0800 Check with primary doctor 12/01/16 tramadol 50 mg tablet 50 mg PO Q8H PRN PRN Pain 01/05/18 metoprolol tartrate 25 mg tablet 25 mg PO QHS Check with primary doctor 03/31/22 pantoprazole 40 mg tablet,delayed release (Protonix) 40 mg PO DAILY #30 tabs 04/03/22 Hospital Course Operations - (Left lung ccdity-AT-nxobqu) Procedures Colonoscopy, EGD and - (CT chest/CT abdomen pelvis) Summary of Care Provided Minutes Spent on Discharge: 40 Hospital Course: Mrs. Jonas is an 82-year-old white female who presents emergency department at [facility] on 03/31/2022 with a chief complaint of rectal bleeding. The patient reported at the time of presentation that at approximately 830 on that morning she had a bowel movement that was runny and she noted bright red blood afterwards. She continued to have multiple bowel movements prior to presentation that were consistent with him ongoing hematochezia. She denied any abdominal pain. She did have a presyncopal episode prior to presentation that was associated with nausea while she was using the bathroom but none in the emergency department. She did have another event that was full syncope while she was having a bowel movement in the ICU after admission. Vitals were stable during that time. Her blood pressure was borderline on presentation and she was given IV fluids. She denied ever having a colonoscopy on presentation. She takes minimal medication but does take as pirin 81 mg daily. She reported being in her normal state of health prior to the morning of admission. Vital signs on presentation showed a temperature of 98 degrees, blood pressure of 103/51 with a repeat at 94/53, heart rate of 78, respiratory rate 16, oxygen saturations 98% on room air.? CBC showed a leukocytosis with a white count of 15.1, hemoglobin of 8.2 (recent baseline unknown however it appears in Baseline hemoglobin was between 10 and 11), platelets were normal and the patient did have a mild left shift with an 82.4% neutrophilia.? Coags were normal.? Chemistry panel showed mildly elevated BUN at 21 with a serum creatinine of 0.93 and a blood glucose of 132.? Liver functions were normal.? Type and screen were performed the patient was found to be a negative with negative antibody screen.? CT of the abdomen pelvis showed a 2.7 centrally necrotic left lower lobe mass concerning for primary malignancy or metastasis, diffuse colonic wall thickening with prominence of the vasa recta compatible with pancolitis as well as colonic diverticulosis with large old focal outpouchings and wall thickening of the rectosigmoid colon concerning for ulcerations and possible underlying mass with inflamed giant diverticula. She was admitted to the ICU and her hemoglobin was trended. Her hemoglobin did trend down significantly as she did have ongoing rectal bleeding and she was given initially 3 units of packed red blood cells. She had ongoing rectal bleeding and required 2 more units for a total of 5 units of packed red blood cells during her hospital course. Her hemoglobin is finally stabilized and her rectal bleeding resolved on the a.m. of 04/02/2022. With her initial CT there was concern of metastatic disease from her colon given her presentation and a CT of her chest was performed however there were no more lesions noted in the lungs and it suspected that this was a lung primary we did schedule her for a CT- guided biopsy which was performed on 04/03/2022. Pathology results were pending at the time of discharge. She was taken for EGD and colonoscopy on 04/02/2022 EGD showed grade B esophagitis with no bleeding and biopsy was performed, small hiatal hernia, and 3 nonbleeding superficial duodenal ulcers with no stigmata of bleeding were found in the duodenal bulb. The largest lesion measured at 4 mmHg. Biopsies were taken there and she was placed on Protonix 40 mg daily which was continued at discharge. Colonoscopy demonstrated a moderate amount of diverticulosis in the rectosigmoid, sigmoid, and descending colon. There was active bleeding coming from a diverticular opening and this was injected and treated with heater probe at which time hemostasis was identified. 1 at 9 mm polyp was removed from the sigmoid colon with hot snare and resected and retrieved and sent for pathology. There was blood in the entire colon. She was resumed on a diet and specimens were sent for pathology which were pending upon discharge. A repeat colonoscopy was also recommended in 6 months secondary to poor bowel prep at the time of acute inpatient colonoscopy. She did have a leukocytosis on the day of discharge however was clinically stable. I suspect this is reactive from her recent procedures. Her hemoglobin did drop to 7.8 from 8.9 the day previously and repeat was pending to demonstrate debility however I suspect this is equilibration as she has had no more blood in her stool. Repeat hemoglobin was found to be 8.2. Follow-up chest x-ray after CT- guided biopsy shows no pneumothorax. We did arrange follow-up with pulmonary medicine at the time of discharge for follow-up of her biopsy and to make appropriate referrals. She is also to follow-up with Dr. Duff within the next 2 to 4 weeks to follow-up with her biopsies from her colonoscopy and EGD. Again, she will need a repeat colonoscopy in 6 months. She was discharged home in stable condition and was able to ambulate in bed dependently prior to discharge on 04/03/2022. Discharge diagnoses: Hematochezia secondary to diverticular bleed Duodenal ulcers Acute blood loss anemia-stable Chronic anemia Leukocytosis-reactive Lung mass Hypophosphatemia-resolved Hyperkalemia-resolved Hypotension-resolved Chronic low back pain secondary to spinal stenosis Physical Exam Narrative Patient states she is feeling much better, no more rectal bleeding. Anxious for her CT-guided biopsy but would like to go home later today if able. Const alert, oriented x3, no apparent distress, average body habitus and well nourished Constitutional Narrative: Pale appearing, elderly, white female, sitting up in a chair at the bedside, family at bedside, currently appears nontoxic General Appearance: cooperative, comfortable, well kempt and well developed Orientation / Consciousness: awake, oriented to person, oriented to place and oriented to time Exam Limitations: no limitations HEENT normocephalic, head/scalp atraumatic, hearing grossly normal bilaterally and moist oral mucous membranes HEENT Narrative: Mallampati 2, no thrush Eyes PERRL and EOMs intact bilaterally Eyes Narrative: Conjunctiva are pale bilaterally, no scleral icterus Neck no lymphadenopathy, supple, no JVD and no carotid bruits Neck Narrative: Trachea midline, no thyroid enlargement Resp normal respiratory effort, no retractions, no use of accessory muscles and clear to auscultation bilaterally Auscultation: Negative for rales, rhonchi or wheezes Cardio regular rate, regular rhythm, S1 normal heart sound, S2 normal heart sound, no murmurs, no rub, no gallops and no clicks GI normal to inspection, nondistended, normoactive bowel sounds, soft to palpation and non-tender Extremity no clubbing, cyanosis or edema Extremity Narrative: 2+ pedal pulses Skin no rashes or lesions noted, no wounds, skin turgor normal, no jaundice, no petechiae and no mottling Skin Narrative: Skin is pale but improved from the time of admission Neuro oriented x3, CN's II-XII intact bilaterally, moves all extremities and no focal motor deficits Neuro Narrative: Very mild generalized weakness-proximal greater than distal with no focal deficits Speech: speech normal Psych affect normal Psych Narrative: Very pleasant, appropriately interactive Weight / BMI Weight Weight: 58.4 kg Body Mass Index (BMI) 22.0 ABG / Lab / Microbiology Data Result Diagrams: 04/03/22 03:08 04/03/22 03:08 Laboratory: Laboratory Results - last 24 hr 03/31/22 18:30: Carcinoembryonic Ag 1.8 04/02/22 17:38: Hgb 8.9 L, Hct 26.8 L 04/03/22 03:08: WBC 20.4 H, RBC 2.60 L, Hgb 7.8 L, Hct 23.8 L, MCV 91.5, MCH 30.0, MCHC 32.8, RDW Std Deviation 54.0 H, RDW Coeff of Brenda 16.2 H, Plt Count 246, MPV 9.5, Immature Gran % (Auto) 0.700, Neut % (Auto) 76.4 H, Lymph % (Auto) 11.7 L, Wilcox % (Auto) 11.0 H, Eos % (Auto) 0.0, Baso % (Auto) 0.2, Absolute Neuts (auto) 15.6 H, Absolute Lymphs (auto) 2.38, Nucleated RBC % 0.2, Diff Path Review Reviewed, Atypical Lymphocytes 1+, Anisocytosis 1+ 04/03/22 03:08: Sodium 142, Potassium 3.3 L, Chloride 110 H, Carbon Dioxide 26.0, Anion Gap 6, BUN 9, Creatinine 0.70, Estim Creat Clear Calc 35.49, Est GFR (MDRD) Af Amer 104, Est GFR (MDRD) Non-Af 86, BUN/Creatinine Ratio 12.9, Glucose 103, Calcium 7.7 L, Phosphorus 3.0 Radiography Diagnostic Testing: Radiology Impression Biopsy CT 04/03/22 10:00 IMPRESSION: 1. CT directed core needle biopsy of the left lower lobe pulmonary nodule using CT image guidance with image documentation as described. Pathology results are pending. 2. Conscious Sedation protocol utilized with independent monitoring. 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 Please call tomorrow to make follow-up appointment with Dr. Duff from gastroenterology Discharge Orders/Prescriptions Prescriptions: New pantoprazole [Protonix] 40 mg tablet,delayed release (DR/EC) 40 mg PO DAILY Qty: 30 1RF Continued metoprolol tartrate 25 MG tablet 12.5 mg PO 0800 tramadol 50 MG tablet 50 mg PO Q8H PRN PRN (Reason: Pain) metoprolol tartrate 25 mg Tablet 25 mg PO QHS Discontinued aspirin 81 MG tablet,chewable 81 mg PO DAILY@0800 Referrals / Follow Up: Lorna Aguillon MD [Primary Care Provider] - Within 2 Weeks Yaya Duff DO [Med Staff - Active Staff] - Within 2 Weeks Peg Upton NP, SECY-C [Med Staff - Adv Practice Prof] - Disposition Disposition (needs filled in before D/C Order can be placed): Home, Self Care Charges/Coding Visit Charges Inpatient E&M: 48072 Disch Hosp >30min
--- NOTE | 2022-04-03 12:30 | RAD_ITS ---
INDICATION: LLL BX -- 2 hours post lung biopsy EXAMINATION/TECHNIQUE: X-RAY - XR Chest 2 Views COMPARISON: 04/03/2022. FINDINGS: The lungs are unchanged. The cardiomediastinal silhouette is stable. No pleural effusion or pneumothorax. The osseous structures are unchanged. RAD/Chest Insp/Exp 2 View IMPRESSION: No pneumothorax. No change from prior study. Electronically Signed: Miah Dunham MD at 18:03 EST ,
[2022-04-03 12:48] LABS: Hemoglobin 8.2 g/dL (12.0-15.0)
--- NOTE | 2022-04-03 14:29 | CASEMGMT ---
SHARRI IGLESIAS NOTE: Pt being discharged home. SHARRI IGLESIAS to room to talk w/pt and family who are at bedside. Pt sitting up in chair. Pt states she feels she is almost back to her baseline and feels safe w/returning home. She does not feel she needs HHC or OP therapy at this time. She was made aware, once she returns home, if she is interested in therapy, to discuss options w/her PCP. She voices understanding. She and family deny having any discharge planning needs or concerns. Natacha WOLFF RN, CM
== END 2022-04-03 15:14 | disposition home or self-care (01) | DRG 377 ==
LOC: ED 12:43 → ICU 12:54
PROVIDERS: Internal Medicine Gastroenterology; Admitting Provider Internal Medicine; Emergency Provider Emergency Medicine; PCP Family Medicine; Visit Provider Internal Medicine
PROC: 0DJD8ZZ Inspection of Lower Intestinal Tract, Via Natural or Artificial Opening Endoscopic (ICD-10-PCS; CPT 45378; principal; 2022-04-02 10:55)
DX: K57.31 Diverticulosis of large intestine without perforation or abscess with bleeding (principal); J85.0 Gangrene and necrosis of lung; D62 Acute posthemorrhagic anemia; J84.10 Pulmonary fibrosis, unspecified; K62.5 Hemorrhage of anus and rectum; E83.39 Other disorders of phosphorus metabolism; D72.829 Elevated white blood cell count, unspecified; I95.1 Orthostatic hypotension; E78.5 Hyperlipidemia, unspecified; M48.00 Spinal stenosis, site unspecified; I10 Essential (primary) hypertension; K44.9 Diaphragmatic hernia without obstruction or gangrene; E87.5 Hyperkalemia; K21.00 Gastro-esophageal reflux disease with esophagitis, without bleeding; K63.5 Polyp of colon; M48.061 Spinal stenosis, lumbar region without neurogenic claudication; K26.9 Duodenal ulcer, unspecified as acute or chronic, without hemorrhage or perforation; G89.29 Other chronic pain; R91.8 Other nonspecific abnormal finding of lung field; Z79.82 Long term (current) use of aspirin; Z79.899 Other long term (current) drug therapy; Z66 Do not resuscitate
CPT/HCPCS: 71046; 71250; 74177; 77012; 80048; 80053; 82378; 82728; 83540; 83550; 83735; 84100; 85014; 85018; 85025; 85610; 86850; 86900; 86901; 86920; 88172; 88305; 88313; 94668; 99156; 99285; J1756; J7030; J7040; J7050; J7120; P9016; Q9967; A4216; A4648; C2613; J2405; J2916; J3490

== ENCOUNTER → 2022-04-18 | Outpatient (CLI) | payer MEDICARE, BC, SELFPAY ==
[2022-04-18 18:00] LABS: Absolute Lymphocyte Count 1.97 X10^3/uL (0.83-4.51); Absolute Neutrophil Count 4.9 X10^3/uL (2.0-7.7); Basophil# 0.05 X10^3/uL; Basophil% 0.6 % (0-1); Eosinophil# 0.08 X10^3/uL; Hematocrit 29.9 % (37-47); Hemoglobin 9.1 g/dL (12.0-15.0); Lymphocyte # 1.97 X10^3/ul (0.83-4.51); Mean Corp Hgb Conc 30.4 g/dL (32-36); Mean Corpuscular Hgb 30.1 pg (27.0-32.0); Mean Platelet Vol. 9.3 fl (6.2-12.0); Monocyte# 1.14 X10^3/uL; Monocyte% 13.9 % (0-10); NRBC Flagged by Analyzer 0 % (0-5); Neutrophil # 4.93 X10^3/uL (2.7-7.7); Neutrophil % 60.1 % (47-70); Platelet Count 618 K/mm3 (150-450); RBC Distribution Width CV 16.6 % (11.6-14.6); RBC Distribution Width SD 58.7 fl (35.1-43.9); Red Blood Count 3.02 M/mm3 (4.2-5.4); White Blood Count 8.2 K/mm3 (4.4-11.0)
== END | disposition home or self-care (01) ==
LOC: MFPLAB 16:43
PROVIDERS: PCP Family Medicine; Referring Provider Family Medicine; Visit Provider Family Medicine
DX: D64.9 Anemia, unspecified (principal)
CPT/HCPCS: 36415; 85025

== ENCOUNTER → 2022-06-05 | Outpatient (CLI) | payer MEDICARE, BC, SELFPAY ==
[2022-06-05 17:45] LABS: Absolute Lymphocyte Count 3.07 X10^3/uL (0.83-4.51); Absolute Neutrophil Count 3.5 X10^3/uL (2.0-7.7); Basophil# 0.08 X10^3/uL; Eosinophils% 2.5 % (0-5); Hematocrit 33.9 % (37-47); Hemoglobin 10.2 g/dL (12.0-15.0); Lymphocyte # 3.07 X10^3/ul (0.83-4.51); Lymphocyte % 38.8 % (19-41); Mean Corp Hgb Conc 30.1 g/dL (32-36); Mean Corpuscular Hgb 27.9 pg (27.0-32.0); Mean Corpuscular Volume 92.9 fL (81-99); Mean Platelet Vol. 9.1 fl (6.2-12.0); Monocyte# 1.09 X10^3/uL; Monocyte% 13.8 % (0-10); NRBC Flagged by Analyzer 0 % (0-5); Neutrophil # 3.46 X10^3/uL (2.7-7.7); Neutrophil % 43.6 % (47-70); Platelet Count 480 K/mm3 (150-450); RBC Distribution Width CV 16.5 % (11.6-14.6); RBC Distribution Width SD 56.2 fl (35.1-43.9); Red Blood Count 3.65 M/mm3 (4.2-5.4); White Blood Count 7.9 K/mm3 (4.4-11.0)
== END | disposition home or self-care (01) ==
LOC: MFPLAB 16:06
PROVIDERS: PCP Family Medicine; Referring Provider Family Medicine; Visit Provider Family Medicine
DX: D64.9 Anemia, unspecified (principal)
CPT/HCPCS: 36415; 85025

== ENCOUNTER → 2022-06-29 | Outpatient (CLI) | payer MEDICARE, BC, SELFPAY ==
--- NOTE | 2022-06-29 17:14 | CT_ITS ---
INDICATION: Follow-up lung mass. EXAMINATION: CT CHEST WITHOUT CONTRAST - CT Chest W/O Contrast Injection TECHNIQUE: Helically acquired images were obtained of the chest. A radiation dose optimization technique was used for this scan. IV Contrast dosage and agent: None. COMPARISON: CT of the chest, March 31, 2022. FINDINGS: LUNGS, PLEURA AND LARGE AIRWAYS: The lungs are well expanded. The subpleural posterolateral left lower lobe there is a mildly lobulated 2.8 x 2.1 x 2.0 cm mass. This may be dated with the pleural surface both posteriorly and along the left diaphragm. Lungs are otherwise clear. No pleural effusion or thickening. No pneumothorax. THYROID: No thyroid lesions. HEART AND PERICARDIUM: Heart size is normal. No pericardial effusion. CORONARY ARTERIES: Coronary artery calcification are present VESSELS: Atherosclerotic tortuosity of the thoracic aorta without aneurysm. Normal pulmonary arteries. MEDIASTINUM AND DEVORAH: No mediastinal or hilar adenopathy. Esophagus is unremarkable. No hiatal hernia. UPPER ABDOMEN: No acute pathology. BONES: Degenerative changes of the thoracic spine. CT/Chest without Contrast IMPRESSION: Decrease in the left lower lobe pulmonary mass. This appears more distinct and more separate from the pleural surface. For low-risk or high-risk patients consider a follow-up chest CT at 3 months. If unchanged consider an additional follow-up CT at 18-24 months. Alternatively (or additionally) PET/CT or tissue sampling could be performed. Electronically Signed: Omar Villeda DO at 16:38 EDT Reading Location ID and State: [facility] Tel [phone], Service support ,
== END | disposition home or self-care (01) ==
LOC: CT 17:10
PROVIDERS: PCP Family Medicine; Referring Provider Nurse Practitioner Acute Care; Visit Provider Nurse Practitioner Acute Care
DX: R91.8 Other nonspecific abnormal finding of lung field (principal)
CPT/HCPCS: 71250

== ENCOUNTER → 2022-07-10 | Outpatient (CLI) | payer MEDICARE, BC, SELFPAY ==
[2022-07-10 18:40] LABS: Anion Gap 6 (5-15); BUN 15 mg/dL (7-18); BUN/Creat Ratio 16.2 RATIO (10-20); Calcium,Total 9.4 mg/dL (8.5-10.1); Chloride 103 mmol/L (98-107); Cholesterol 183 mg/dL (200); Creatinine, Serum 0.92 mg/dL (0.55-1.02); EST Glomerular Filtration Rate 62 mL/min (>60); Est Glom Filt Rate - Afr Amer 75 mL/min (>60); Glucose 85 mg/dL (74-106); High Density Lipoprotein 58 mg/dL; Potassium 4.4 mmol/L (3.5-5.1); Sodium Level 135 mmol/L (136-145); Triglycerides 73 mg/dL; Very Low Density Lipoprotein 15 mg/dL (5-40)
== END | disposition home or self-care (01) ==
LOC: MFPLAB 15:12
PROVIDERS: PCP Family Medicine; Visit Provider Family Medicine
DX: I10 Essential (primary) hypertension (principal)
CPT/HCPCS: 36415; 80048; 80061

== ENCOUNTER → 2022-08-01 | Outpatient (CLI) | payer MEDICARE, BC, SELFPAY ==
[2022-08-01 17:37] LABS: Absolute Lymphocyte Count 2.62 X10^3/uL (0.83-4.51); Absolute Neutrophil Count 3.9 X10^3/uL (2.0-7.7); Basophil# 0.07 X10^3/uL; Basophil% 0.9 % (0-1); Eosinophil# 0.14 X10^3/uL; Eosinophils% 1.8 % (0-5); Hematocrit 35.8 % (37-47); Lymphocyte # 2.62 X10^3/ul (0.83-4.51); Lymphocyte % 33.5 % (19-41); Mean Corp Hgb Conc 30.7 g/dL (32-36); Mean Corpuscular Hgb 26.9 pg (27.0-32.0); Mean Corpuscular Volume 87.5 fL (81-99); Mean Platelet Vol. 9.1 fl (6.2-12.0); Monocyte# 1.13 X10^3/uL; Monocyte% 14.4 % (0-10); NRBC Flagged by Analyzer 0 % (0-5); Neutrophil # 3.85 X10^3/uL (2.7-7.7); Neutrophil % 49.1 % (47-70); Platelet Count 504 K/mm3 (150-450); RBC Distribution Width CV 18.9 % (11.6-14.6); RBC Distribution Width SD 60.2 fl (35.1-43.9); Red Blood Count 4.09 M/mm3 (4.2-5.4); White Blood Count 7.8 K/mm3 (4.4-11.0)
[2022-08-01 17:55] LABS: Ferritin 63 ng/mL (8-252); Iron 88 ug/dL (50-170)
== END | disposition home or self-care (01) ==
LOC: MFPLAB 16:09
PROVIDERS: PCP Family Medicine; Visit Provider Family Medicine
DX: D53.9 Nutritional anemia, unspecified (principal)
CPT/HCPCS: 36415; 82728; 83540; 85025

== ENCOUNTER → 2022-08-13 | Outpatient (CLI) | payer MEDICARE, BC, SELFPAY ==
[2022-08-15 15:08] LABS: Cytoplasmic Ab (C-ANCA) <1:20 titer (Neg:<1:20); Perinuclear Ab (P-ANCA) <1:20 titer (Neg:<1:20); QNTFERON TB Mitogen Value > 10.00 IU/mL (.); QNTFERON TB Nil Value 0.04 IU/mL (.); QNTFERON TB1+ Ag Value 0.05 IU/mL (.); QNTFERON TB2+ Ag Value 0.07 IU/mL (.); QNTIFERON TB Positive Criteria Negative (Negative)
== END | disposition home or self-care (01) ==
LOC: PAVLAB 14:21
PROVIDERS: PCP Family Medicine; Referring Provider Internal Medicine Critical Care Medicine; Visit Provider Internal Medicine Critical Care Medicine
DX: R91.1 Solitary pulmonary nodule (principal)
CPT/HCPCS: 36415; 86256; 86480

== ENCOUNTER → 2023-05-10 | Outpatient (CLI) | payer MEDICARE, BC, SELFPAY ==
[2023-05-10 17:39] LABS: Absolute Lymphocyte Count 2.49 X10^3/uL (0.83-4.51); Absolute Neutrophil Count 4.2 X10^3/uL (2.0-7.7); Basophil# 0.05 X10^3/uL; Basophil% 0.6 % (0-1); Eosinophil# 0.04 X10^3/uL; Eosinophils% 0.5 % (0-5); Hematocrit 33.3 % (37-47); Hemoglobin 10.3 g/dL (12.0-15.0); Lymphocyte # 2.49 X10^3/ul (0.83-4.51); Lymphocyte % 31.9 % (19-41); Mean Corp Hgb Conc 30.9 g/dL (32-36); Mean Corpuscular Hgb 27.5 pg (27.0-32.0); Mean Corpuscular Volume 88.8 fL (81-99); Mean Platelet Vol. 8.8 fl (6.2-12.0); Monocyte# 0.98 X10^3/uL; Monocyte% 12.6 % (0-10); NRBC Flagged by Analyzer 0 % (0-5); Neutrophil # 4.22 X10^3/uL (2.7-7.7); Neutrophil % 54.1 % (47-70); Platelet Count 493 K/mm3 (150-450); RBC Distribution Width CV 18.2 % (11.6-14.6); RBC Distribution Width SD 58.7 fl (35.1-43.9); Red Blood Count 3.75 M/mm3 (4.2-5.4); White Blood Count 7.8 K/mm3 (4.4-11.0)
[2023-05-10 17:57] LABS: Anion Gap 4 (5-15); BUN 14 mg/dL (7-18); BUN/Creat Ratio 14.7 RATIO (10-20); Calcium,Total 9.1 mg/dL (8.5-10.1); Chloride 105 mmol/L (98-107); Cholesterol 186 mg/dL (200); Creatinine, Serum 0.95 mg/dL (0.55-1.02); EST Glomerular Filtration Rate 60 mL/min (>60); Est Glom Filt Rate - Afr Amer 72 mL/min (>60); Glucose 96 mg/dL (74-106); High Density Lipoprotein 67 mg/dL; Potassium 3.9 mmol/L (3.5-5.1); Sodium Level 135 mmol/L (136-145); Triglycerides 74 mg/dL; Very Low Density Lipoprotein 15 mg/dL (5-40)
--- OUTSIDE RECORDS SUMMARY | 2023-05-10 19:37 | XMS RPT_ITS | CCD ---
Author Name Unknown Address [address] [place] [address] Organization [facility] Care Team Providers Care Fur Examiner Name Role Phone Lorena HARRELL, Aide Arrieta Unavailable [phone] Medications Completed/Discontinued Medications Medication Drug Class(es) Dates Sig (Normalized) Sig (Original) amitriptyline hydrochloride 10 mg oral tablet (1 source) Tricyclic Antidepressant Start: 09-21-2011 take 1 tablet by mouth once daily AMITRIPTYLINE HCL 10 MG TABS One tablet by mouth daily every night AMITRIPTYLINE HCL [id number] Karolina Valdivia MD Ascorbic Acid 4700 MG / POLYETHYLENE GLYCOL 3350 [id number] MG / Potassium Chloride 1015 MG / Sodium Ascorbate 5900 MG / Sodium Chloride 2690 MG / sodium sulfate 7500 MG Powder for Oral Solution (1 source) Osmotic Laxative Start: 08-26-2012 End: 08-27-2012 MOVIPREP 100 GM SOLR use as per instructions [id number] F-NA ASC-C [id number] Constance Gould aspirin 325 mg delayed release oral tablet (2 sources) Nonsteroidal Anti-inflammatory Drug Start: 08-01-2011 take 1 tablet by mouth once daily ASPIRIN 325 MG TBEC One tablet by mouth daily ASPIRIN [id number] Karolina Valdivia MD Problems Active Problems Problem Classification Problem Date Documented Da te Episodic/Chronic Disorders of lipid metabolism (2 sources) Hyperlipidemia; Translations: [Hyperlipidemia, unspecified] Onset: 08-28-2011 09-12-2011 Chronic Essential hypertension (2 sources) Benign essential hypertension; Translations: [Essential (primary) hypertension] Onset: 08-01-2011 09-12-2011 Chronic Past or Other Problems Problem Classification Problem Date Documented Da te Episodic/Chronic Cardiac dysrhythmias (1 source) Palpitations; Translations: [Palpitations] Onset: 09-13-2011 09-14-2011 Episodic Deficiency and other anemia (1 source) Anemia; Translations: [Anemia, unspecified] Onset: 08-28-2011 08-28-2011 Episodic Nonspecific chest pain (1 source) Atypical chest pain; Translations: [Other chest pain] Onset: 08-01-2011 08-01-2011 Episodic Unclassified (1 source) Encounter for screening for malignant neoplasm of colon; Translations: [Encounter for screening for malignant neoplasm of colon] Onset: 08-28-2011 08-28-2011 Episodic Results Test Name Value Interpretation Reference Range Facil ity Vital Signs Date Time Vital Sign Value Performing Clinician Faci lity 08-26-2012 14:41-0400 BMI (Body Mass Index) 26.02 kg/m2 [facility] Work Phone: 08-26-2012 14:41-0400 Body Temperature 98.5 [degF] [facility] Work Phone: 08-26-2012 14:41-0400 BP Diastolic 75 mm[Hg] [facility] Work Phone: 08-26-2012 14:41-0400 BP Systolic 118 mm[Hg] [facility] Work Phone: 08-26-2012 14:41-0400 BSA (Body Surface Area) 1.61 m2 [facility]ide [facility] Work Phone: 08-26-2012 14:41-0400 Height 154.94 cm [facility] Work Phone: 08-26-2012 14:41-0400 Pulse (Heart Rate) 73 /min [facility] Work Phone: 08-26-2012 14:41-0400 Respiratory Rate 16 /min [facility] Work Phone: 08-26-2012 14:41-0400 Weight 62.23 kg [facility] Work Phone: Procedures Date Procedure Procedure Detail Performing Clinician Start: 12-17-2016 End: 12-21-2016 Nuclear stress test -exercise Siddhartha Benitez MD Start: 09-13-2011 End: 10-01-2011 48 hour holter monitor Karolina Valdivia MD Start: 09-12-2011 End: 09-13-2011 Follow Up Appt 2 months Karolina Valdivia MD Start: 08-28-2011 End: 08-28-2011 Follow Up Appt 6 weeks Karolina Valdivia MD Start: 08-01-2011 End: 08-06-2011 *CBC with Differential Karolina Valdivia MD Start: 08-01-2011 End: 08-06-2011 *CMP Complete Metabolic Panel Karolina Valdivia MD Start: 08-01-2011 End: 08-07-2011 *UA - Urinalysis w/o Micro Karolina Valdivia MD Start: 08-01-2011 End: 08-14-2011 Follow Up Appt 2 weeks Karolina Valdivia MD Start: 08-01-2011 End: 08-07-2011 Lipid 1996 panel - Serum or Plasma Karolina Valdivia MD Start: 08-01-2011 End: 08-14-2011 Nuclear stress test -exercise Karolina Valdivia MD Start: 08-01-2011 End: 08-06-2011 Thyrotropin [Units/volume] in Serum or Plasma Karolina Valdivia MD Plan of Treatment Date Care Activity Detail Author Start: 12-17-2016 End: 12-17-2016 Nuclear stress test -exercise Nuclear stress test -exercise [facility] Work Phone: Start: 09-13-2011 End: 10-01-2011 48 hour holter monitor 48 hour holter monitor [facility] Work Phone: Start: 09-12-2011 End: 09-12-2011 Cardiac Referral Cardiac Referral [address], [address], [place], [address] [facility] Work Phone: Start: 09-12-2011 End: 09-13-2011 Follow Up Appt 2 months Follow Up Appt 2 months [facility] Work Phone: Start: 08-28-2011 End: 08-28-2011 Follow Up Appt 6 weeks Follow Up Appt 6 weeks [facility] Work Phone: Start: 08-01-2011 End: 08-06-2011 *CBC with Differential *CBC with Differential [facility] Work Phone: Start: 08-01-2011 End: 08-06-2011 *CMP Complete Metabolic Panel *CMP Complete Metabolic Panel [facility] Work Phone: Start: 08-01-2011 End: 08-07-2011 *UA - Urinalysis w/o Micro *UA - Urinalysis w/o Micro [facility] Work Phone: Start: 08-01-2011 End: 08-14-2011 Follow Up Appt 2 weeks Follow Up Appt 2 weeks [facility] Work Phone: Start: 08-01-2011 End: 08-07-2011 Lipid panel [AGGREGATE] *Lipid Profile [facility] Work Phone: Start: 08-01-2011 End: 08-14-2011 Nuclear stress test -exercise Nuclear stress test -exercise [facility] Work Phone: Start: 08-01-2011 End: 08-06-2011 Thyroid stimulating hormone (TSH) *TSH [facility] Work Phone: Additional Source Comments FOR RECORDS PERTAINING TO PATIENTS WHO ARE OR HAVE BEEN ENROLLED IN A CHEMICAL DEPENDENCY/SUBSTANCEABUSE PROGRAM, SOME INFORMATION MAY BE OMITTED. This clinical summary was aggregated from multiple sources. Caution should be exercised in using it in the provision of clinical care. This summary normalizes information from multiple sources, and as a consequence, information in this document may materially change the coding, format and clinical context of patient data. In addition, data may be omitted in some cases. CLINICAL DECISIONS SHOULD BE BASED ON THE PRIMARY CLINICAL RECORDS. [facility] [employer] [facility]. provides no warranty or guarantee of the accuracy or completeness of information in this document.
== END | disposition home or self-care (01) ==
LOC: MTLAB 16:39
PROVIDERS: PCP Family Medicine; Referring Provider Family Medicine; Visit Provider Family Medicine
DX: I10 Essential (primary) hypertension (principal); D53.9 Nutritional anemia, unspecified
CPT/HCPCS: 36415; 80048; 80061; 85025

== ENCOUNTER 2023-05-27 15:13 | Inpatient (IN) | payer MEDICARE, BC, SELFPAY ==
[2023-05-27] VITALS (7 sets, daily range): BP systolic 118–154; BP diastolic 65–86; PULSE 76–92; RESP 16; TEMP 36–36.9; O2SAT 98–100; BMI 22.6; BMI 21.0
--- NOTE | 2023-05-27 16:21 | CT_ITS ---
INDICATION: Abdominal pain -- IV PO Contrast EXAMINATION: CT ABDOMEN AND PELVIS WITH CONTRAST - CT Abdomen And Pelvis W/ Contrast Injection TECHNIQUE: Helically acquired images were obtained of the abdomen and pelvis following IV contrast. A radiation dose optimization technique was used for this scan. IV Contrast dosage and agent: 100 cc [id number] Oral contrast: Yes. COMPARISON: 03/31/2022 FINDINGS: LOWER CHEST: Largely fluid attenuation lesion left lung base posteriorly decreased to current 1.4 cm compared to prior 2.1 cm. No consolidations or pleural effusions. Stable small hiatal hernia. LIVER: Homogeneous. No focal mass. GALLBLADDER AND BILIARY TREE: No calcified gallstones. No gallbladder distension or wall edema. No intra- or extrahepatic biliary ductal dilation. PANCREAS: No focal cystic or solid mass. SPLEEN: Normal size without focal cystic or solid mass. ADRENAL GLANDS: No nodules. KIDNEYS AND URETERS: No hydronephrosis. PERITONEUM: No ascites or free air. BOWEL: Normal appendix. Short segment of proximal sigmoid colon colon mildly distended with wall thickening, minimal adjacent stranding. Findings similar to prior study but limited to this segment. Diffusely increased colonic fecal burden. LYMPH NODES: No enlarged mesenteric or retroperitoneal lymph nodes. VESSELS: Aorta is non-dilated. URINARY BLADDER: Unremarkable. REPRODUCTIVE ORGANS: No pelvic masses. ABDOMINAL WALL: No discrete abdominal or pelvic wall hernia. BONES: No acute or aggressive abnormality. CT/Abdomen/Pelvis WITH Contrast IMPRESSION: Focal inflammatory changes in the proximal sigmoid colon with similar appearance to prior study but limited to this single segment. Findings consistent with colitis, diverticulitis or other inflammatory/neoplastic etiology. Colonic fecal burden consistent with clinical constipation. Significant decrease in size of the left lower lobe lesion since prior study. Findings consistent with benign etiology. Electronically Signed: Kyle Hodge MD at 18:59 EDT ,
--- NOTE | 2023-05-27 16:22 | ED.VIS.GI ---
HPI HPI - GI History of Present Illness Chief Complaint: GI Bleed Informant: patient Abdominal Pain/Flank Pain Onset: Yesterday Context: Gradual Onset Timing: Continuous Nausea/Vomiting/Emesis GI Symptom: Negative for Nausea or Vomiting Diarrhea/Melena/Hematochezia GI Symptom: Positive for Hematochezia Onset: Yesterday Stool Quality: Positive for BRB per rectum Associated Symptoms Associated Symptoms: Negative for Dysuria, Frequency or Hematuria Narrative Narrative: Patient presents with gastrointestinal bleeding that began yesterday. Patient states that she noted some bright red bleeding from her rectum yesterday. Patient states it has been constant. Patient denies any abdominal pain. Patient denies any nausea or vomiting. Patient denies any fevers or chills. Patient denies any urinary complaints. Patient states she does have a history of chronic back pain. Patient states that this is not any worse than usual. PFSH PFSH Medical History Back pain Bladder disease Heartburn History of GI bleed HLD (hyperlipidemia) HTN (hypertension) Low iron Non-smoker Numbness and tingling Post-menopausal Syncope Tremor Wears dentures Wears glasses Home Medications metoprolol tartrate 25 mg tablet 12.5 mg PO 0800 Check with primary doctor 12/01/16 [History Last Taken Unknown] tramadol 50 mg tablet 50 mg PO Q8H PRN PRN Pain 01/05/18 [History Last Taken Unknown] metoprolol tartrate 25 mg tablet 25 mg PO QHS Check with primary doctor 03/31/22 [History Last Taken Unknown] Allergy/AdvReac Type Severity Reaction Status Date / Time No Known Allergies Allergy Verified 05/27/23 15:20 Family History Mother CAD (coronary artery disease) Surgical History History of esophagogastroduodenoscopy (EGD) Hx of colonoscopy Social History household members: none housing: house Smoking Status: Never smoker alcohol intake: never substance use type: does not use ROS ROS ED Constitutional Constitutional ED: Denies chills or fever(s) Eyes Eyes: Denies blurry vision or change in vision ENT ENT ED: Denies rhinorrhea or sore throat Cardiovascular Cardiovascular: Denies chest pain or palpitations Respiratory/Chest Respiratory/Chest: Denies cough or dyspnea Gastrointestinal Gastrointestinal: Reports melena; Denies nausea or vomiting Genitourinary Genitourinary ED: Denies dysuria or hematuria Musculoskeletal Musculoskeletal: Reports back pain; Denies neck pain Integumentary Denies abscess or rash Neurologic Neurologic: Denies headache(s) or weakness Allergic/Immunologic Allergic/Immunologic ED: Denies mouth swelling or urticaria EXAM Physical Exam Const Vital Signs: 05/27/23 15:16 05/27/23 15:16 05/27/23 17:46 Temperature 97.4 F L 97.4 F L Temperature Source Temporal Temporal Pulse Rate 82 82 76 Respiratory Rate 16 16 16 Blood Pressure 154/86 H 154/86 H 118/65 Blood Pressure Mean 108 108 82 Pulse Ox 100 100 99 Oxygen Delivery Method Room Air Room Air Room Air 05/27/23 19:00 05/27/23 20:00 Temperature 98.4 F Temperature Source Pulse Rate 80 82 Respiratory Rate 16 16 Blood Pressure 145/72 H 140/70 H Blood Pressure Mean 96 93 Pulse Ox 99 99 Oxygen Delivery Method Room Air Positive well nourished and well developed General Appearance ED: well developed HEENT Reports moist mucous membranes Neck supple and no JVD Resp normal respiratory effort and clear to auscultation bilaterally Cardio regular rate and regular rhythm GI non-distended Palpation: soft and tender LLQ Rectal Exam: normal sphincter tone; Negative for tenderness Extremity full ROM General Extremety ED: Negative for edema or tenderness General Extremity: Negative for edema Neuro CN's II-XII intact bilaterally, moves all extremities and no sensory deficits noted Sensorium / Orientation: alert Motor Exam: strength 5/5 throughout MDM MDM MDM Narrative Medical decision making narrative: Differential diagnosis includes diverticulitis, colitis, lower gastrointestinal bleeding, intestinal mass, coagulopathy, and urinary tract infection. CBC will be obtained to assess for leukocytosis and anemia. Comprehensive metabolic profile will be obtained to assess for hepatic function, renal function, and electrolyte abnormality. Urinalysis will be obtained to assess for urinary tract infection and hematuria. PT with INR and PTT will be obtained to assess for coagulopathy. CT scan of the abdomen pelvis will be obtained to assess for diverticulitis, colon mass, and colitis. Lab Data Attestation: I reviewed the patient's lab results. Lab results narrative: CBC was reviewed. There is a mild anemia with a hemoglobin of 9.7 and hematocrit 30.8. Platelets were slightly elevated at 481. PT with INR and PTT were reviewed. Pro time was 15.2 and INR is 1.2. PTT was 34.5. Comprehensive metabolic profile was reviewed. BUN was 20 and creatinine was 0.87. The remainder is within normal limits. Urinalysis was reviewed and was within normal limits. Labs: Laboratory Results - last 24 hr 05/27/23 05/27/23 16:33 16:51 WBC 6.4 RBC 3.51 L Hgb 9.7 L Hct 30.8 L MCV 87.7 MCH 27.6 MCHC 31.5 L RDW Std Deviation 58.4 H RDW Coeff of Brenda 18.4 H Plt Count 481 H MPV 8.8 Immature Gran % (Auto) 0.300 Neut % (Auto) 61.3 Lymph % (Auto) 24.5 Clay % (Auto) 13.1 H Eos % (Auto) 0.2 Baso % (Auto) 0.6 Absolute Neuts (auto) 3.9 Absolute Lymphs (auto) 1.57 Nucleated RBC % 0 PT 15.2 H INR 1.2 APTT 34.5 Sodium 138 Potassium 3.9 Chloride 104 Carbon Dioxide 26.0 Anion Gap 8 BUN 20 H Creatinine 0.87 Estim Creat Clear Calc 40.11 Est GFR (MDRD) Af Amer 81 Est GFR (MDRD) Non-Af 67 BUN/Creatinine Ratio 23.1 H Glucose 107 H Calcium 9.5 Total Bilirubin 0.60 AST 15 ALT 15 Alkaline Phosphatase 56 Total Protein 8.1 Albumin 3.5 Globulin 4.6 H Albumin/Globulin Ratio 0.8 L Urine Color Yellow Urine Clarity Sl. Cloudy Urine pH 6.0 Ur Specific [place] 1.010 Urine Protein Negative Urine Glucose (UA) Normal Urine Ketones Negative Urine Occult Blood Negative Urine Nitrite Negative Urine Bilirubin Negative Urine Urobilinogen Normal Ur Leukocyte Esterase Negative Urine RBC 0 SEEN Urine WBC 0-5 SEEN Ur Squamous Epith Cells 0-5 SEEN Urine Bacteria 0 SEEN Urine Mucus 0 SEEN Radiography Diagnostic Testing: Clinical Impression(s) from Imaging Studies Abdomen/Pelvis CT 05/27/23 16:21 IMPRESSION: Focal inflammatory changes in the proximal sigmoid colon with similar appearance to prior study but limited to this single segment. Findings consistent with colitis, diverticulitis or other inflammatory/neoplastic etiology. Colonic fecal burden consistent with clinical constipation. Significant decrease in size of the left lower lobe lesion since prior study. Findings consistent with benign etiology. Electronically Signed: Kyle Hodge MD at 18:59 EDT Reading Location ID and State: [facility] / [place] Tel , Service support , CT scan of the abdomen and pelvis was obtained. There are focal inflammatory changes in the proximal sigmoid colon consistent with colitis, diverticulitis, or other inflammatory etiology. This was interpreted by the radiologist and was also independently reviewed by myself. Management Discussion w/another healthcare provider: Hospitalist and Edge Worker Treatment and Re-Evaluation :: Patient is resting comfortably on reevaluation. Patient was advised of her findings. Patient was advised of the need for hospitalization. Patient was started on Unasyn. Case was discussed with Dr. Duff from gastroenterology. He agrees with admission to the hospital. He requested that they patient be prepped for colonoscopy tomorrow. Case was discussed with the hospitalist. He will admit the patient to his service. Patient understood and was agreeable with the plan. All questions were answered. Discharge Plan Triage Chief Complaint: GI Bleed ED Provider: Alex Arndt Dx/Rx/DC Orders Clinical Impression: Colitis, Acute lower gastrointestinal bleeding Prescriptions: No Action metoprolol tartrate 25 MG tablet 12.5 mg PO 0800 tramadol 50 MG tablet 50 mg PO Q8H PRN PRN (Reason: Pain) metoprolol tartrate 25 mg Tablet 25 mg PO QHS Primary Care Provider: Lorna Aguillon Referrals: Lorna Aguillon MD [Primary Care Provider] - Disposition Disposition: Acute Care Hospital [facility]
[2023-05-27 16:56] LABS: Bacteria 0 SEEN /hpf (None Seen); Mucous, Urine 0 SEEN /hpf (<or=2+); Red Blood Cells-Urine 0 SEEN /hpf (0-5)
[2023-05-27 16:59] LABS: Absolute Lymphocyte Count 1.57 X10^3/uL (0.83-4.51); Absolute Neutrophil Count 3.9 X10^3/uL (2.0-7.7); Basophil# 0.04 X10^3/uL; Basophil% 0.6 % (0-1); Eosinophil# 0.01 X10^3/uL; Eosinophils% 0.2 % (0-5); Hematocrit 30.8 % (37-47); Hemoglobin 9.7 g/dL (12.0-15.0); Lymphocyte # 1.57 X10^3/ul (0.83-4.51); Lymphocyte % 24.5 % (19-41); Mean Corp Hgb Conc 31.5 g/dL (32-36); Mean Corpuscular Hgb 27.6 pg (27.0-32.0); Mean Corpuscular Volume 87.7 fL (81-99); Mean Platelet Vol. 8.8 fl (6.2-12.0); Monocyte# 0.84 X10^3/uL; Monocyte% 13.1 % (0-10); NRBC Flagged by Analyzer 0 % (0-5); Neutrophil # 3.92 X10^3/uL (2.7-7.7); Neutrophil % 61.3 % (47-70); Platelet Count 481 K/mm3 (150-450); RBC Distribution Width CV 18.4 % (11.6-14.6); RBC Distribution Width SD 58.4 fl (35.1-43.9); Red Blood Count 3.51 M/mm3 (4.2-5.4); White Blood Count 6.4 K/mm3 (4.4-11.0)
[2023-05-27 17:02] LABS: International Normalized Ratio 1.2; Prothrombin Time (Protime)PT. 15.2 SECONDS (11.7-14.9)
[2023-05-27 17:03] LABS: Color, Urine Yellow (Yellow); Glucose, Dipstick Normal (Normal); Ketone-Dipstick Negative (Negative); Leukocyte Esterase-Dipstick Negative /ul (Negative); Nitrite-Dipstick Negative (Negative); Occult Blood-Urine Negative /ul (Negative); Protein-Dipstick Negative (Negative); Urine Bilirubin Dipstick Negative (Negative); Urine Clarity Sl. Cloudy (Clear); Urine Urobilinogen Normal (Normal)
[2023-05-27 17:03] LABS: Partial Thromboplast Time 34.5 Seconds (24.1-36.2)
[2023-05-27 17:12] LABS: ALB/GLOB Ratio 0.8 RATIO (0.9-2.4); AST(SGOT) 15 U/L (15-37); Alanine Aminotransfer ALT/SGPT 15 U/L (13-56); Albumin, Serum 3.5 g/dL (3.2-5.0); Alkaline Phosphatase 56 U/L (45-117); Anion Gap 8 (5-15); BUN 20 mg/dL (7-18); BUN/Creat Ratio 23.1 RATIO (10-20); Calcium,Total 9.5 mg/dL (8.5-10.1); Chloride 104 mmol/L (98-107); Creatinine, Serum 0.87 mg/dL (0.55-1.02); EST Glomerular Filtration Rate 67 mL/min (>60); Est Glom Filt Rate - Afr Amer 81 mL/min (>60); Estimated Creatinine Clearance 40.11 ml/min; Globulin 4.6 g/dL (2.2-4.2); Glucose 107 mg/dL (74-106); Potassium 3.9 mmol/L (3.5-5.1); Protein, Total 8.1 g/dL (6.4-8.2); Sodium Level 138 mmol/L (136-145)
[2023-05-27 17:21] LABS: Squamous Epithelial Cells - UA 0-5 SEEN /hpf (5-10); White Blood Cells 0-5 SEEN /hpf (0-5)
[2023-05-27] MEDS: Ampicillin/Sulbactam 3 GM in 0.9% Normal Saline (100mL MB+) 100 ML IV (20:08)
--- NOTE | 2023-05-27 20:45 | PCM.HP.STD ---
[facility] Date of Admission: 05/27/23 Date of Service: 05/27/23 Chief Complaint: Gastrointestinal bleed [facility] Narrative AMANDA GRAY, is a 83 F who presents to the emergency department with chief complaint of gastrointestinal bleed. Onset of symptoms began yesterday when patient noticed having bright red blood per rectum. Patient denies any chest pain, shortness of breath, abdominal pain, nausea vomiting and/or diarrhea. Symptoms of bleeding with bright red blood persisted throughout the day therefore, the patient came to the ER for evaluation. Patient does have a history of GI bleed and has seen Dr. Duff in the past. CBC shows a hemoglobin of 9.7. CT scan shows decrease in lung mass left side which has been worked up by pulmonology. CT of the colon appears similar to previous exam. Patient will be admitted to general medical floor Dr. Duff will be consulted for colonoscopy in the morning. Patient will be made n.p.o. and will get bowel prep this evening. [facility] Medical History Back pain Bladder disease Heartburn History of GI bleed HLD (hyperlipidemia) HTN (hypertension) Low iron Non-smoker Numbness and tingling Post-menopausal Syncope Tremor Wears dentures Wears glasses Home Medications metoprolol tartrate 25 mg tablet 12.5 mg PO 0800 Check with primary doctor 12/01/16 [History Last Taken Unknown] tramadol 50 mg tablet 50 mg PO Q8H PRN PRN Pain 01/05/18 [History Last Taken Unknown] metoprolol tartrate 25 mg tablet 25 mg PO QHS Check with primary doctor 03/31/22 [History Last Taken Unknown] Allergy/AdvReac Type Severity Reaction Status Date / Time No Known Allergies Allergy Verified 05/27/23 15:20 Family History Mother CAD (coronary artery disease) Surgical History History of esophagogastroduodenoscopy (EGD) Hx of colonoscopy Social History household members: none housing: house Smoking Status: Never smoker alcohol intake: never substance use type: does not use ROS Constitutional Constitutional: Denies chills or fever(s) Eyes Eyes: Denies blurry vision ENT HEENT: Denies abnormal hearing Cardiovascular Cardiovascular: Denies edema Respiratory/Chest Respiratory/Chest: Denies cough Gastrointestinal Gastrointestinal: Reports hematochezia; Denies abdominal pain, nausea or vomiting Genitourinary Genitourinary: Denies dysuria Musculoskeletal Musculoskeletal: Denies back pain Integumentary Integumentary: Denies dry skin or jaundice Neurologic Neurologic: Denies abnormal speech Psychiatric Psychiatric: Denies anxiety or depression Vital Signs Vital Signs Vital Signs: 05/27/23 15:16 05/27/23 15:16 05/27/23 17:46 Temperature 97.4 F L 97.4 F L Temperature Source Temporal Temporal Pulse Rate 82 82 76 Respiratory Rate 16 16 16 Blood Pressure 154/86 H 154/86 H 118/65 Blood Pressure Mean 108 108 82 Pulse Ox 100 100 99 Oxygen Delivery Method Room Air Room Air Room Air 05/27/23 19:00 05/27/23 20:00 Temperature 98.4 F Temperature Source Pulse Rate 80 82 Respiratory Rate 16 16 Blood Pressure 145/72 H 140/70 H Blood Pressure Mean 96 93 Pulse Ox 99 99 Oxygen Delivery Method Room Air Weight Weight: 124 lb Body Mass Index (BMI) 22.6 Physical Exam Const alert, oriented x3, no apparent distress and well nourished HEENT normocephalic and head/scalp atraumatic Eyes PERRL and EOMs intact bilaterally Neck no lymphadenopathy Lymph Lymphatic: no lymphadenopathy noted Resp normal respiratory effort, normal air movement and clear to auscultation bilaterally Cardio regular rate, regular rhythm, S1 normal heart sound, S2 normal heart sound, no murmurs, no rub and no gallops GI normal to inspection, nondistended, normoactive bowel sounds, soft to palpation, non-tender and non-distended Extremity normal capillary refill Skin General Skin Exam: no breakdown Neuro no focal motor deficits and no sensory deficits noted Psych thought process normal, cooperative and affect normal Appearance: appropriate Results Lab / Micro Data 05/27/23 16:33 05/27/23 16:33 Labs: Laboratory Results - last 24 hr 05/27/23 16:33: WBC 6.4, RBC 3.51 L, Hgb 9.7 L, Hct 30.8 L, MCV 87.7, MCH 27.6, MCHC 31.5 L, RDW Std Deviation 58.4 H, RDW Coeff of Brenda 18.4 H, Plt Count 481 H, MPV 8.8, Immature Gran % (Auto) 0.300, Neut % (Auto) 61.3, Lymph % (Auto) 24.5, Andrew % (Auto) 13.1 H, Eos % (Auto) 0.2, Baso % (Auto) 0.6, Absolute Neuts (auto) 3.9, Absolute Lymphs (auto) 1.57, Nucleated RBC % 0, PT 15.2 H, INR 1.2, APTT 34.5, Sodium 138, Potassium 3.9, Chloride 104, Carbon Dioxide 26.0, Anion Gap 8, BUN 20 H, Creatinine 0.87, Estim Creat Clear Calc 40.11, Est GFR (MDRD) Af Amer 81, Est GFR (MDRD) Non-Af 67, BUN/Creatinine Ratio 23.1 H, Glucose 107 H, Calcium 9.5, Total Bilirubin 0.60, AST 15, ALT 15, Alkaline Phosphatase 56, Total Protein 8.1, Albumin 3.5, Globulin 4.6 H, Albumin/Globulin Ratio 0.8 L 05/27/23 16:51: Urine Color Yellow, Urine Clarity Sl. Cloudy, Urine pH 6.0, Ur Specific [place] 1.010, Urine Protein Negative, Urine Glucose (UA) Normal, Urine Ketones Negative, Urine Occult Blood Negative, Urine Nitrite Negative, Urine Bilirubin Negative, Urine Urobilinogen Normal, Ur Leukocyte Esterase Negative, Urine RBC 0 SEEN, Urine WBC 0-5 SEEN, Ur Squamous Epith Cells 0-5 SEEN, Urine Bacteria 0 SEEN, Urine Mucus 0 SEEN Micro: Microbiology 05/27/23 17:05 Stool Stool Occult Blood (RAHEL) - Final Occult Blood Positive Imaging Radiology Impression Abdomen/Pelvis CT 05/27/23 16:21 IMPRESSION: Focal inflammatory changes in the proximal sigmoid colon with similar appearance to prior study but limited to this single segment. Findings consistent with colitis, diverticulitis or other inflammatory/neoplastic etiology. Colonic fecal burden consistent with clinical constipation. Significant decrease in size of the left lower lobe lesion since prior study. Findings consistent with benign etiology. Electronically Signed: Kyle Hodge MD at 18:59 EDT , Assessment & Plan Assessment/Plan (1) Acute lower gastrointestinal bleeding: (2) Lung nodule: PLAN: Plan 1. Acute GI bleed?admit patient to general medical floor, consult Dr. Duff gastroenterology, initiate bowel prep per his request, make patient n.p.o. with IV fluids over the night. Will give IV Protonix 40 mg twice daily. And repeat H&H every 4 hours. At this point I do not feel necessary to type and cross red blood cells unless there is a substantial decrease in her H&H. 2. History of lung nodule?current CT shows decrease in size and this has been followed as an outpatient with pulmonology. 3. DVT prophylaxis?SCDs due to active bleed. Charges/Coding Visit Charges Inpatient E&M: 22432 Init Hosp L2
[2023-05-27 22:04] LABS: Hematocrit 31.8 % (37-47); Hemoglobin 9.9 g/dL (12.0-15.0)
[2023-05-27] MEDS: 0.9% Normal Saline (1000mL) 1,000 ML 75 ML IV (23:12)
[2023-05-27] MEDS: Electrolyte Solution/Peg's 4000 ML PO (23:13)
[2023-05-27] MEDS: Pantoprazole Sodium 40 MG in 0.9% Normal Saline (100mL MB+) 100 ML 330 MG IV (23:13)
[2023-05-27] MEDS: Metoprolol Tartrate 25 MG Tablet PO (23:56)
[2023-05-28] VITALS (9 sets, daily range): BP systolic 105–130; BP diastolic 58–76; PULSE 81–104; RESP 16–18; TEMP 36.5–36.7; O2SAT 92–98
[2023-05-28 01:07] LABS: Hematocrit 30.3 % (37-47); Hemoglobin 9.5 g/dL (12.0-15.0)
--- NOTE | 2023-05-28 06:17 | EKG12_ITS ---
Test Reason : Blood Pressure : / mmHG Vent. Rate : 081 BPM Atrial Rate : 081 BPM P-R Int : 158 ms QRS Dur : 078 ms QT Int : 380 ms P-R-T Axes : -07 -54 053 degrees QTc Int : 441 ms Normal sinus rhythm Left axis deviation Low voltage QRS Abnormal ECG When compared with ECG of 02-DEC-2016 05:34, No significant change was found Confirmed by Renan Juarez ([id number]), supervising film or videotape editor JOSÉ CLEVELAND ([id number]) on 05/29/2023 6:58:41 AM Referred By: CLINT Confirmed By:Renan Juarez
[2023-05-28 06:21] LABS: Absolute Lymphocyte Count 2.46 X10^3/uL (0.83-4.51); Absolute Neutrophil Count 3.5 X10^3/uL (2.0-7.7); Basophil# 0.05 X10^3/uL; Basophil% 0.7 % (0-1); Eosinophil# 0.07 X10^3/uL; Hematocrit 28.5 % (37-47); Hemoglobin 9.1 g/dL (12.0-15.0); Lymphocyte # 2.46 X10^3/ul (0.83-4.51); Lymphocyte % 34.8 % (19-41); Mean Corp Hgb Conc 31.9 g/dL (32-36); Mean Corpuscular Hgb 27.7 pg (27.0-32.0); Mean Corpuscular Volume 86.9 fL (81-99); Mean Platelet Vol. 8.7 fl (6.2-12.0); Monocyte# 0.94 X10^3/uL; Monocyte% 13.3 % (0-10); NRBC Flagged by Analyzer 0 % (0-5); Neutrophil # 3.54 X10^3/uL (2.7-7.7); Neutrophil % 50.1 % (47-70); Platelet Count 453 K/mm3 (150-450); RBC Distribution Width CV 18.2 % (11.6-14.6); RBC Distribution Width SD 56.7 fl (35.1-43.9); Red Blood Count 3.28 M/mm3 (4.2-5.4); White Blood Count 7.1 K/mm3 (4.4-11.0)
[2023-05-28 07:00] LABS: ALB/GLOB Ratio 0.8 RATIO (0.9-2.4); AST(SGOT) 17 U/L (15-37); Alanine Aminotransfer ALT/SGPT 13 U/L (13-56); Alkaline Phosphatase 48 U/L (45-117); Anion Gap 5 (5-15); BUN 12 mg/dL (7-18); BUN/Creat Ratio 16.2 RATIO (10-20); Calcium,Total 8.7 mg/dL (8.5-10.1); Chloride 109 mmol/L (98-107); Creatinine, Serum 0.74 mg/dL (0.55-1.02); EST Glomerular Filtration Rate 80 mL/min (>60); Est Glom Filt Rate - Afr Amer 97 mL/min (>60); Estimated Creatinine Clearance 43.62 ml/min; Globulin 3.9 g/dL (2.2-4.2); Glucose 104 mg/dL (74-106); Potassium 3.6 mmol/L (3.5-5.1); Protein, Total 6.9 g/dL (6.4-8.2); Sodium Level 140 mmol/L (136-145)
[2023-05-28] MEDS: Pantoprazole Sodium 40 MG in 0.9% Normal Saline (100mL MB+) 100 ML 330 MG IV ×2 (09:55→20:58)
--- NOTE | 2023-05-28 12:12 | PCM.PN.HOSP ---
Reason for Visit Reason for Visit: Diagnoses Gastrointestinal hemorrhage, unspecified (05/27/23) Solitary pulmonary nodule (05/27/23) Subjective Subjective No acute events overnight. Patient seen at bedside this morning. Patient was still completing her colonoscopy prep when I saw her. She denied any acute pain or discomfort at that time. No other acute concerns. Objective Data Objective Data Vital Signs: Vital Signs Temp Pulse Resp BP Pulse Ox O2 Del Method 98.1 F 81 16 130/76 H 98 Room Air 05/28/23 10:00 05/28/23 10:00 05/28/23 10:00 05/28/23 10:00 05/28/23 10:00 05/28/23 10:00 Oxygen Delivery Method Room Air Weight: 52.3 kg Body Mass Index (BMI) 21.0 Intake & Output: Intake and Output for Last 24 Hours 05/26/23 05/27/23 05/28/23 23:59 23:59 23:59 Intake Total 222 / 222 1110 / 1110 Balance 222 / 222 1110 / 1110 Lab / Micro Data 05/28/23 06:00 05/28/23 06:00 Labs: Laboratory Results - last 24 hr 05/27/23 16:33: WBC 6.4, RBC 3.51 L, Hgb 9.7 L, Hct 30.8 L, MCV 87.7, MCH 27.6, MCHC 31.5 L, RDW Std Deviation 58.4 H, RDW Coeff of Brenda 18.4 H, Plt Count 481 H, MPV 8.8, Immature Gran % (Auto) 0.300, Neut % (Auto) 61.3, Lymph % (Auto) 24.5, [place] % (Auto) 13.1 H, Eos % (Auto) 0.2, Baso % (Auto) 0.6, Absolute Neuts (auto) 3.9, Absolute Lymphs (auto) 1.57, Nucleated RBC % 0, PT 15.2 H, INR 1.2, APTT 34.5, Sodium 138, Potassium 3.9, Chloride 104, Carbon Dioxide 26.0, Anion Gap 8, BUN 20 H, Creatinine 0.87, Estim Creat Clear Calc 40.11, Est GFR (MDRD) Af Amer 81, Est GFR (MDRD) Non-Af 67, BUN/Creatinine Ratio 23.1 H, Glucose 107 H, Calcium 9.5, Total Bilirubin 0.60, AST 15, ALT 15, Alkaline Phosphatase 56, Total Protein 8.1, Albumin 3.5, Globulin 4.6 H, Albumin/Globulin Ratio 0.8 L 05/27/23 16:51: Urine Color Yellow, Urine Clarity Sl. Cloudy, Urine pH 6.0, Ur Specific [place] 1.010, Urine Protein Negative, Urine Glucose (UA) Normal, Urine Ketones Negative, Urine Occult Blood Negative, Urine Nitrite Negative, Urine Bilirubin Negative, Urine Urobilinogen Normal, Ur Leukocyte Esterase Negative, Urine RBC 0 SEEN, Urine WBC 0-5 SEEN, Ur Squamous Epith Cells 0-5 SEEN, Urine Bacteria 0 SEEN, Urine Mucus 0 SEEN 05/27/23 21:53: Hgb 9.9 L, Hct 31.8 L 05/28/23 01:00: Hgb 9.5 L, Hct 30.3 L 05/28/23 06:00: WBC 7.1, RBC 3.28 L, Hgb 9.1 L, Hct 28.5 L, MCV 86.9, MCH 27.7, MCHC 31.9 L, RDW Std Deviation 56.7 H, RDW Coeff of Brenda 18.2 H, Plt Count 453 H, MPV 8.7, Immature Gran % (Auto) 0.100, Neut % (Auto) 50.1, Lymph % (Auto) 34.8, [place] % (Auto) 13.3 H, Eos % (Auto) 1.0, Baso % (Auto) 0.7, Absolute Neuts (auto) 3.5, Absolute Lymphs (auto) 2.46, Nucleated RBC % 0, Sodium 140, Potassium 3.6, Chloride 109 H, Carbon Dioxide 26.0, Anion Gap 5, BUN 12, Creatinine 0.74, Estim Creat Clear Calc 43.62, Est GFR (MDRD) Af Amer 97, Est GFR (MDRD) Non-Af 80, BUN/Creatinine Ratio 16.2, Glucose 104, Calcium 8.7, Total Bilirubin 0.60, AST 17, ALT 13, Alkaline Phosphatase 48, Total Protein 6.9, Albumin 3.0 L, Globulin 3.9, Albumin/Globulin Ratio 0.8 L Micro: Microbiology 05/27/23 17:05 Stool Stool Occult Blood (RAHEL) - Final Occult Blood Positive Radiography Diagnostic Testing: Radiology Impression Abdomen/Pelvis CT 05/27/23 16:21 IMPRESSION: Focal inflammatory changes in the proximal sigmoid colon with similar appearance to prior study but limited to this single segment. Findings consistent with colitis, diverticulitis or other inflammatory/neoplastic etiology. Colonic fecal burden consistent with clinical constipation. Significant decrease in size of the left lower lobe lesion since prior study. Findings consistent with benign etiology. Electronically Signed: Kyle Hodge MD at 18:59 EDT , Physical Exam Const alert, oriented x3, no apparent distress and average body habitus Constitutional Narrative: Elderly female, sitting up comfortably in bed, conversing normally, no acute distress. General Appearance: cooperative and comfortable HEENT normocephalic, head/scalp atraumatic, hearing grossly normal bilaterally and nasal mucous membranes and turbinates normal Eyes PERRL, EOMs intact bilaterally and conjunctivae normal Neck full ROM Chest inspection of chest normal Resp normal respiratory effort, normal air movement, no use of accessory muscles and clear to auscultation bilaterally Cardio regular rate, regular rhythm, no murmurs and peripheral pulses 2+ throughout GI normal to inspection, nondistended, normoactive bowel sounds, soft to palpation, non-tender and non-distended Back/Spine normal ROM Extremity normal to inspection, full ROM and no pedal edema Skin no rashes or lesions noted Neuro no focal motor deficits and no sensory deficits noted Speech: speech normal Psych mental status grossly normal Assessment & Plan Assessment/Plan (1) Acute lower gastrointestinal bleeding: (2) Lung nodule: PLAN: Plan Patient is an 83-year-old female who presented to [facility] ED on 05/27/2023 with suspected lower GI bleed. 1. Acute lower GI bleed secondary to recurrent diverticular bleeding ? GI following. S/p colonoscopy on 05/27 that showed no active signs of bleeding, known diverticulosis and rectosigmoid colon, sigmoid colon and descending colon. Per GI, bleed was presumed secondary to recurrent diverticular bleeding. Okay to resume regular diet with goal 20 to 25 g of soluble fiber per day. Will transition to p.o. PPI daily. Hemoglobin 9.7 on admit, has remained stable between 9 and 10. Follow-up a.m. CBC. If patient remains stable overnight, likely okay for discharge home tomorrow. 2. History of lung nodule ? Follows with Dr. Reed with pulmonology, last office visit in 07/2022. Initially noted on CT chest imaging in March [address]22. CT-guided lung biopsy was negative for malignancy, showed chronic inflammation and areas suggestive of necrotizing granuloma formation. Follow-up chest imaging from June 2022 showed interval decrease in size of lesion. TB and ANCA screening in July 2022 negative. Recommendation was for repeat CT chest in 6 months but it does not appear that was done. Will repeat CT chest without contrast here prior to discharge. Chronic medical conditions: ? Hypertension: Continue home blood pressure. ? Chronic pain: Continue home tramadol as needed. DVT prophylaxis: SCDs CODE STATUS: DNR CCA, DNI Expected disposition: Home, 1 to 2 days Total clinical time spent by myself addressing the patient's medical issues, reviewing all the data, and collaborating with patient's care team: 35 minutes. Charges/Coding Visit Charges Inpatient E&M: 70229 Subs Hosp L2
--- NOTE | 2023-05-28 13:41 | CHAPLAIN ---
Type of Pastoral Visit _x__ Initial Visit ___ Follow-up Visit ___ On-call Visit ___ General Patient Visit ___ Spiritual Assessment ___ Family Conference ___ Bereavement ___ Rapid Response ___ Code Blue ___ Other (describe below) Pastoral Care Referral From _x__ Patient ___ Family ___ Nurse ___ Physician ___ High School Foreign Language Teacher ___ Long Distance Billing Operator ___ Other (describe below) Sacrament/Intervention _x__ Active listening ___ Anointing ___ Amish ___ Bereavement ___ Communion _x__ Jayda exploration ___ _x__ Life review _x__ Prayer ___ Reconciliation ___ Sacrament of Sick _x__ Supportive presence ___ Wedding ___ Other (describe below) Pastoral Comments patient is to have diagnostic testing soon; pt speaks about her life, briefly about being almost two years ago, new friends in her area, the need for her to find a christian to attend, and the reasons for being tested today; pt just wants it all to be good; pt welcomes the conversation time and the prayer;
--- NOTE | 2023-05-28 14:00 | CASEMGMT ---
RN CM Face to Face with patient for initial transition planning/care coordination assessment. RN CM introduced self and role at [facility]. Patient lying in bed, alert and oriented. Patient willing to participate in assessment and is able to answer all questions appropriately. Care providers, pharmacy, and demographics verified. PCP: [facility] Specialists: Demetrius Reed, financial center manager Preferred [facility]acy: [facility] Insurance: [employer] Prescription Benefit: yes Living Will/HPOA: none LNOK: son and daughter Living Arrangements: Patient lives alone in a single story condo with 1 step and grab bar to enter. Patient states she is independent at home. Transportation: self, neighbor DME/HHC: Patient has shower chair, cane, walker, medical alert at home. No pevious SNF of [facility] Patient wishes to discharge home, denies need for home health at this time. Patient states he has no further needs or concerns at this time. CM to follow for discharge planning needs that may arise. Disposition Plan: Patient to discharge home with family support and follow-up plans in place. Shirin WOLFF, RN, CM
[2023-05-28] MEDS: Lactated Ringers 1,000 ML 15 ML IV (15:41)
--- NOTE | 2023-05-28 17:17 | OP.COLON_ITS ---
Patient Name: Thania Jonas Procedure Date: 05/28/2023 4:37 PM Date of : 1940 Age: 83 Procedure: Colonoscopy Indications: Hematochezia Providers: Yaya Duff DO Medicines: Monitored Anesthesia Care Patient Profile: This is an 83 year old female. Refer to note in patient chart for documentation of history and physical. Last Colonoscopy: date unknown. Unable to locate last colonoscopy report. Complications: No immediate complications. Procedure: Pre-Anesthesia Assessment: - Prior to the procedure, a History and Physical was performed, and patient medications and allergies were reviewed. The patient is competent. The risks and benefits of the procedure and the sedation options and risks were discussed with the patient. All questions were answered and informed consent was obtained. Patient identification and proposed procedure were verified by the physician in the pre-procedure area. Mental Status Examination: alert and oriented. Airway Examination: normal oropharyngeal airway and neck mobility. CV Examination: normal. Prophylactic Antibiotics: The patient does not require prophylactic antibiotics. Prior Anticoagulants: The patient has taken no anticoagulant or antiplatelet agents. After reviewing the risks and benefits, the patient was deemed in satisfactory condition to undergo the procedure. The anesthesia plan was to use monitored anesthesia care (MAC). Immediately prior to administration of medications, the patient was re-assessed for adequacy to receive sedatives. The heart rate, respiratory rate, oxygen saturations, blood pressure, adequacy of pulmonary ventilation, and response to care were monitored throughout the procedure. The physical status of the patient was re-assessed after the procedure. After I obtained informed consent, the scope was passed under direct vision. Throughout the procedure, the patient's blood pressure, pulse, and oxygen saturations were monitored continuously. The pediatric colonoscope was introduced through the anus and advanced to the terminal ileum. The colonoscopy was performed without difficulty. The patient tolerated the procedure well. The quality of the bowel preparation was adequate. The ileocecal valve, appendiceal orifice, and rectum were photographed. Scope In: 4:53:43 PM Scope Withdrawal Time 0 hours 4 minutes 35 seconds Scope Out: 5:08:56 PM Total Procedure Duration Time 0 hours 15 minutes 13 seconds Findings: The perianal and digital rectal examinations were normal. A tattoo was seen in the sigmoid colon. The tattoo site appeared normal. Multiple small and large-mouthed diverticula were found in the recto-sigmoid colon, sigmoid colon and descending colon. The exam was otherwise without abnormality on direct and retroflexion views. Impression: - A tattoo was seen in the sigmoid colon. The tattoo site appeared normal. - Diverticulosis in the recto-sigmoid colon, in the sigmoid colon and in the descending colon. - The examination was otherwise normal on direct and retroflexion views. - No specimens collected. - Lower GI bleeding secondary to recurrent diverticular bleeding Recommendation: - Return patient to [facility] for ongoing care. - Resume regular diet. - Continue present medications. -20 to 25 g of soluble fiber per day - No repeat colonoscopy due to age. Procedure Code(s): --- Professional --- 66276, Colonoscopy, flexible; diagnostic, including collection of specimen(s) by brushing or washing, when performed (separate procedure) CPT copyright 2021 [employer]. All rights reserved. The codes documented in this report are preliminary and upon mechanical research engineer review may be revised to meet current compliance requirements. Yaya Duff DO 05/28/2023 5:16:54 PM This report has been signed electronically. Number of Addenda: 0 Note Initiated On: 05/28/2023 4:37 PM
--- NOTE | 2023-05-28 17:17 | OP.CCLET_ITS ---
05/28/2023 Lorna Aguillon [address] [place] [address] Re : Colonoscopy procedure for Thania Pritesh Dear Dr. Aguillon This procedure was performed on Sunday, May 28, 2023. My impressions and recommendations are as follows: Impressions : - A tattoo was seen in the sigmoid colon. The tattoo site appeared normal. - Diverticulosis in the recto-sigmoid colon, in the sigmoid colon and in the descending colon. - The examination was otherwise normal on direct and retroflexion views. - No specimens collected. - Lower GI bleeding secondary to recurrent diverticular bleeding Recommendations : - Return patient to [facility] for ongoing care. - Resume regular diet. - Continue present medications. -20 to 25 g of soluble fiber per day - No repeat colonoscopy due to age. My findings are described in the full procedure note, which is enclosed. If I can be of further assistance, please feel free to contact me at . Sincerely, Yaya Duff, 05/28/2023 5:16:54 PM This report has been signed electronically.
--- NOTE | 2023-05-28 18:51 | CT_ITS ---
STUDY: CT CHEST WITHOUT CONTRAST REASON FOR EXAM: Female, 83 years old. f/u lung nodule RADIATION DOSAGE (If Supplied By Facility): CTDIvol = ( 6.59 ) mGy, DLP = ( 237.22 ) mGycm TECHNIQUE: Transaxial imaging was performed without the administration of intravenous contrast material. Multiplanar coronal and sagittal images were reformatted. Individualized dose optimization techniques were used for this CT. COMPARISON: Comparison is made with prior study dated June 29, 2022. FINDINGS: CHEST The previously seen nodular density in the peripheral lateral aspect of the left lower lobe has decreased in size. It presently measures 1.7 cm x 1.1 cm. Mild linear scarring at the lung bases. There is no demonstrated pleural abnormality. There are calcifications of the coronary arteries. Normal mediastinum. Normal hilar regions. Normal unenhanced pulmonary arteries. There is atherosclerotic calcification of the aortic arch with tortuosity and elongation of the aortic arch and descending thoracic aorta. There are multi-level degenerative changes of the thoracic spine. There is no demonstrated abnormality of the visualized upper abdomen. CT/Chest without Contrast IMPRESSION: Further decrease in size of the pleural-based nodule in the left lower lobe. It presently measures 1.7 cm x 1.1 cm. Six-month follow-up recommended. Electronically Signed: Andre Lomeli MD at 9:01 EDT ,
[2023-05-28] MEDS: 0.9% Saline Lock 10 ML Syringe IV (20:57)
[2023-05-28] MEDS: Metoprolol Tartrate 25 MG Tablet PO (22:28)
[2023-05-29 02:55] VITALS: BP 108/69; PULSE 72; RESP 16; TEMP 36.7; O2SAT 98
[2023-05-29 07:00] LABS: Hematocrit 29.1 % (37-47); Hemoglobin 9.2 g/dL (12.0-15.0); Mean Corp Hgb Conc 31.6 g/dL (32-36); Mean Corpuscular Hgb 27.6 pg (27.0-32.0); Mean Corpuscular Volume 87.4 fL (81-99); Mean Platelet Vol. 8.6 fl (6.2-12.0); Platelet Count 466 K/mm3 (150-450); RBC Distribution Width CV 18.5 % (11.6-14.6); RBC Distribution Width SD 58.4 fl (35.1-43.9); Red Blood Count 3.33 M/mm3 (4.2-5.4); White Blood Count 6.6 K/mm3 (4.4-11.0)
[2023-05-29 08:56] VITALS: BP 110/55; PULSE 83; RESP 18; TEMP 36.6; O2SAT 98
[2023-05-29 09:01] VITALS: PULSE 83
[2023-05-29] MEDS: Metoprolol Tartrate 25 MG Tablet 12.5 MG PO (09:01)
[2023-05-29] MEDS: Pantoprazole Sodium 40 MG in 0.9% Normal Saline (100mL MB+) 100 ML 330 MG IV (09:09)
[2023-05-29] MEDS: 0.9% Saline Lock 10 ML Syringe IV (09:09)
--- NOTE | 2023-05-29 12:23 | DCINST_ITS ---
Discharge Instructions Follow Up Care Test Results: Test results from this visit will be discussed in further detail at your follow- up appointment, if applicable. Discharge Plan Admission Admit Date/Time: 05/27/23 20:52 Attending Provider: Jose Miguel Carvalho Primary Care Provider: Lorna Aguillon Consulting Providers: Estrada Iqbal Discharge Orders/Prescriptions Prescriptions: No Action metoprolol tartrate 25 MG tablet 12.5 mg PO 0800 tramadol 50 MG tablet 50 mg PO Q8H PRN PRN (Reason: Pain) metoprolol tartrate 25 mg Tablet 25 mg PO QHS Referrals / Follow Up: Lorna Aguillon MD [Primary Care Provider] -
--- NOTE | 2023-05-29 12:23 | PCM.DC ---
Discharge Instructions Diet Discharge Diet: No restrictions Activity Discharge Activity: No Restrictions Weight Bearing Status: Full weight bearing Follow Up Care Test Results: Test results from this visit will be discussed in further detail at your follow-up appointment, if applicable. Discharge Plan Admission Admit Date/Time: 05/27/23 20:52 Primary Reason for Your Visit: Lower GI bleeding Attending Provider: Jose Miguel Carvalho Primary Care Provider: Lorna Aguillon Consulting Providers: Estrada Iqbal Instructions Additional Instructions / Restrictions: Please continue your normal medications on discharge. You can take iron every other day as we discussed to help limit constipation. Follow-up with the lung doctor as scheduled to further discuss monitoring for your lung nodule. Follow-up with Dr. Duff in the office as needed. Discharge Orders/Prescriptions Prescriptions: Continued metoprolol tartrate 25 MG tablet 12.5 mg PO 0800 tramadol 50 MG tablet 50 mg PO Q8H PRN PRN (Reason: Pain) metoprolol tartrate 25 mg Tablet 25 mg PO QHS Referrals / Follow Up: Lorna Aguillon MD [Primary Care Provider] - Disposition Disposition (needs filled in before D/C Order can be placed): Home, Self Care
--- NOTE | 2023-05-29 12:23 | PCM.DC.SUM ---
Providers Date of Admission: 05/27/23 Date of Discharge: 05/29/23 Primary Care Physician: Dr. Lorna Aguillon MD Consultations 05/27/23 22:12 Consult: Gastroenterology Routine Consulting Provider: [facility] Reason for Consult: gib EMERGENT Consult: Yes MD Notified: Yes Date Notified: 05/27/23 Time Notified: 20:54 Method of Notification: ED Physician Initiated Reason For Visit: ACUTE GI BLEED Diagnosis Discharge Diagnosis (1) Acute lower gastrointestinal bleeding: Status: Acute Code(s): K92.2 - Gastrointestinal hemorrhage, unspecified (2) Lung nodule: Status: Acute Code(s): R91.1 - Solitary pulmonary nodule Medications at Discharge Home Medications metoprolol tartrate 25 mg tablet 12.5 mg PO 0800 Check with primary doctor 12/01/16 tramadol 50 mg tablet 50 mg PO Q8H PRN PRN Pain 01/05/18 metoprolol tartrate 25 mg tablet 25 mg PO QHS Check with primary doctor 03/31/22 Hospital Course Operations None Procedures Colonoscopy, EKG and - (CT abdomen pelvis with IV and p.o. contrast, CT chest without contrast) Summary of Care Provided Minutes Spent on Discharge: 35 Hospital Course: Patient is an 83-year-old female who presented to [facility] ED on 05/27/2023 with suspected lower GI bleed. Hospital course as noted below. Patient discharged home with no therapy needs in stable condition on 05/28. 1. Acute lower GI bleed secondary to recurrent diverticular bleeding S/p colonoscopy on 05/27 that showed no active signs of bleeding, known diverticulosis and rectosigmoid colon, sigmoid colon and descending colon. Per GI, bleed was presumed secondary to recurrent diverticular bleeding. Hemoglobin 9.7 on admit, remained stable between 9 and 10 during admission. ? GI followed. Patient had no further lower GI bleeding after colonoscopy and hemoglobin remained stable. Per GI, patient okay for regular diet on discharge with goal 20 to 25 g of soluble fiber per day. Continue p.o. PPI daily on discharge. Outpatient follow-up with Dr. Duff as needed. 2. History of lung nodule Follows with Dr. Reed with pulmonology, last office visit in 07/2022. Initially noted on CT chest imaging in March [address]22. CT-guided lung biopsy was negative for malignancy, showed chronic inflammation and areas suggestive of necrotizing granuloma formation. Follow-up chest imaging from June 2022 showed interval decrease in size of lesion. TB and ANCA screening in July 2022 negative. Recommendation was for repeat CT chest in 6 months but it does not appear that was done. ? CT chest without contrast on 05/27 showed further decrease in size of pleural-based nodule, with recommendation for 6-month follow-up imaging again. Patient scheduled to see Dr. Reed in the office next month. Chronic medical conditions: ? Hypertension: Continue home Lopressor. ? Chronic pain: Continue home tramadol as needed. Total clinical time spent by myself addressing the patient's medical issues, reviewing all the data, and collaborating with patient's care team: 35 minutes. Physical Exam Const alert, oriented x3, no apparent distress and average body habitus Constitutional Narrative: Elderly female, sitting up comfortably in bed, conversing normally, no acute distress. General Appearance: cooperative and comfortable HEENT normocephalic, head/scalp atraumatic, hearing grossly normal bilaterally and nasal mucous membranes and turbinates normal Eyes PERRL, EOMs intact bilaterally and conjunctivae normal Neck full ROM Chest inspection of chest normal Resp normal respiratory effort, normal air movement, no use of accessory muscles and clear to auscultation bilaterally Cardio regular rate, regular rhythm, no murmurs and peripheral pulses 2+ throughout GI normal to inspection, nondistended, normoactive bowel sounds, soft to palpation, non-tender and non-distended Back/Spine normal ROM Extremity normal to inspection, full ROM and no pedal edema Skin no rashes or lesions noted Neuro no focal motor deficits and no sensory deficits noted Speech: speech normal Psych mental status grossly normal Weight / BMI Weight Weight: 52.3 kg Body Mass Index (BMI) 21.0 ABG / Lab / Microbiology Data 05/29/23 06:34 05/28/23 06:00 Laboratory: Laboratory Results - last 24 hr 05/29/23 06:34: WBC 6.6, RBC 3.33 L, Hgb 9.2 L, Hct 29.1 L, MCV 87.4, MCH 27.6, MCHC 31.6 L, RDW Std Deviation 58.4 H, RDW Coeff of Brenda 18.5 H, Plt Count 466 H, MPV 8.6 Microbiology: Microbiology 05/27/23 17:05 Stool Stool Occult Blood (RAHEL) - Final Occult Blood Positive Radiography Diagnostic Testing: Radiology Impression Chest CT 05/28/23 18:51 IMPRESSION: Further decrease in size of the pleural-based nodule in the left lower lobe. It presently measures 1.7 cm x 1.1 cm. Six-month follow-up recommended. Electronically Signed: Andre Lomeli MD at 9:01 EDT , Meaningful Use Info Meaningful Use Diagnoses (Choose all that apply): None applicable Discharge Plan Admission Admit Date/Time: 05/27/23 20:52 Primary Reason for Your Visit: Lower GI bleeding Attending Provider: Jose Miguel Carvalho Primary Care Provider: Lorna Aguillon Consulting Providers: Estrada Iqbal Instructions Additional Instructions / Restrictions: Please continue your normal medications on discharge. You can take iron every other day as we discussed to help limit constipation. Follow-up with the lung doctor as scheduled to further discuss monitoring for your lung nodule. Follow-up with Dr. Duff in the office as needed. Discharge Orders/Prescriptions Prescriptions: Continued metoprolol tartrate 25 MG tablet 12.5 mg PO 0800 tramadol 50 MG tablet 50 mg PO Q8H PRN PRN (Reason: Pain) metoprolol tartrate 25 mg Tablet 25 mg PO QHS Referrals / Follow Up: Lorna Aguillon MD [Primary Care Provider] - Disposition Disposition (needs filled in before D/C Order can be placed): Home, Self Care Charges/Coding Visit Charges Inpatient E&M: 98853 Disch Hosp >30min
[2023-05-29 14:00] VITALS: BP 111/57; PULSE 87; RESP 18; TEMP 36.6; O2SAT 96
--- NOTE | 2023-05-29 14:36 | PHA.DC.MR.R ---
Pharmacy [place] Med Reconciliation Pharmacy Service has performed discharge medication reconciliation for this patient. The patient's discharge medication list was reviewed for discrepancies and discrepancies were resolved. Medications at Discharge Home Medications metoprolol tartrate 25 mg tablet 12.5 mg PO 0800 Check with primary doctor 12/01/16 tramadol 50 mg tablet 50 mg PO Q8H PRN PRN Pain 01/05/18 metoprolol tartrate 25 mg tablet 25 mg PO QHS Check with primary doctor 03/31/22
--- NOTE | 2023-05-29 14:44 | CASEMGMT ---
Patient has order for discharge. RN CM in to discuss needs at discharge. Patient denies needs or help at discharge. Patient had no further questions or concerns.
== END 2023-05-29 15:01 | disposition home or self-care (01) | DRG 379 ==
LOC: ED 21:05 → PCU 21:31
PROVIDERS: Internal Medicine Gastroenterology; Admitting Provider Family Medicine; Emergency Provider Emergency Medicine; PCP Family Medicine; Visit Provider Hospitalist
PROC: 0DJD8ZZ Inspection of Lower Intestinal Tract, Via Natural or Artificial Opening Endoscopic (ICD-10-PCS; CPT 45378; principal; 2023-05-28 12:55)
DX: K57.31 Diverticulosis of large intestine without perforation or abscess with bleeding (principal); E78.5 Hyperlipidemia, unspecified; I10 Essential (primary) hypertension; R91.1 Solitary pulmonary nodule; G89.29 Other chronic pain; Z79.891 Long term (current) use of opiate analgesic; Z79.899 Other long term (current) drug therapy; Z87.19 Personal history of other diseases of the digestive system
CPT/HCPCS: 36415; 71250; 74177; 80053; 81001; 82274; 85014; 85018; 85025; 85027; 85610; 85730; 93005; 99284; J7030; J7120; Q9967; A4216; J0295; J2405

== ENCOUNTER → 2023-08-09 | Outpatient (CLI) | payer MEDICARE, BC, SELFPAY ==
[2023-08-09 17:35] LABS: Absolute Neutrophil Count 4.9 X10^3/uL (2.0-7.7); Basophil# 0.06 X10^3/uL; Basophil% 0.7 % (0-1); Eosinophil# 0.03 X10^3/uL; Eosinophils% 0.3 % (0-5); Hematocrit 32.7 % (37-47); Lymphocyte % 33.8 % (19-41); Mean Corp Hgb Conc 30.6 g/dL (32-36); Mean Corpuscular Hgb 26.5 pg (27.0-32.0); Mean Corpuscular Volume 86.7 fL (81-99); Mean Platelet Vol. 8.8 fl (6.2-12.0); Monocyte# 0.91 X10^3/uL; Monocyte% 10.2 % (0-10); NRBC Flagged by Analyzer 0 % (0-5); Neutrophil # 4.86 X10^3/uL (2.7-7.7); Neutrophil % 54.8 % (47-70); Platelet Count 516 K/mm3 (150-450); RBC Distribution Width CV 18.5 % (11.6-14.6); RBC Distribution Width SD 58.1 fl (35.1-43.9); Red Blood Count 3.77 M/mm3 (4.2-5.4); White Blood Count 8.9 K/mm3 (4.4-11.0)
[2023-08-09 17:52] LABS: Protein, Urine (Random) 28.4 mg/dL (<11.9); Protein:Creat Ratio 209 mg/g CRE (0-200)
[2023-08-10 01:22] LABS: Cholesterol 201 mg/dL (200); High Density Lipoprotein 62 mg/dL; Iron 28 ug/dL (50-170); Thyroid Stim Hormone (TSH) 2.01 uIU/mL (0.358-3.74); Triglycerides 65 mg/dL; Very Low Density Lipoprotein 13 mg/dL (5-40)
== END | disposition home or self-care (01) ==
LOC: MFPLAB 15:25
PROVIDERS: PCP Family Medicine; Visit Provider Family Medicine
DX: I10 Essential (primary) hypertension (principal); R53.81 Other malaise; R53.83 Other fatigue
CPT/HCPCS: 36415; 80061; 82570; 83540; 84156; 84443; 85025

== ENCOUNTER 2023-10-26 12:38 | Emergency (ER) | payer MEDICARE, BC, SELFPAY ==
[2023-10-26 12:40] VITALS: BP 121/65; PULSE 98; RESP 16; TEMP 35.9; O2SAT 100; BMI 20.8
--- NOTE | 2023-10-26 13:53 | EDS_ITS ---
HPI History of Present Illness Chief Complaint: GI Bleed Informant: patient Narrative Narrative: 83-year-old female presenting to the emergency department I do not know why I am here. Patient states she does not know why the person at her doctor's office sent her to the emergency department yesterday or why she was seen at her doctor's office yesterday. Little exploration and probing questions I find that yesterday morning the patient had bright red blood with bowel movement. She has not had any bowel movement or bleeding since. She was admitted into the hospital earlier this year with a diverticular bleed was found to have esophagitis as well as diverticulosis and active diverticular bleed. She followed up with gastroenterology in the office. Patient states that she is not on any blood thinners. She states that she is really anemic. Last hemoglobin level 9.8 on 16 October. [facility] Medical History Lung nodule Wears glasses Wears dentures Post-menopausal Bladder disease Low iron Back pain Numbness and tingling Syncope Heartburn Non-smoker History of GI bleed Tremor HLD (hyperlipidemia) HTN (hypertension) Home Medications ?Medication ?Instructions ?Recorded ?Last Taken ?Type B-complex with vitamin C 1 cap PO DAILY 10/17/23 Unknown History coQ10 (ubiquinol) 100 mg capsule 100 mg PO DAILY 10/17/23 Unknown History (Qunol Jonny CoQ10) ferrous sulfate 15 mg iron (75 18 mg PO DAILY 10/17/23 Unknown History mg)/mL oral syringe (ORAL USE) (Fe-Fadia) magnesium 200 mg tablet 200 mg PO DAILY 10/17/23 Unknown History metoprolol tartrate 25 mg tablet 12.5 mg PO QHS Check with primary 10/17/23 Unknown History doctor metoprolol tartrate 25 mg tablet 25 mg PO QPM 10/17/23 Unknown History tramadol 50 mg tablet 50 mg PO DAILY PRN 10/17/23 Unknown History Allergy/AdvReac Type Severity Reaction Status Date / Time No Known Allergies Allergy Verified 10/26/23 12:39 Family History Mother CAD (coronary artery disease) Brother Heart disease Surgical History History of esophagogastroduodenoscopy (EGD) Hx of colonoscopy Social History household members: none housing: house Smoking Status: Never smoker alcohol intake: never substance use type: does not use ROS ROS ED Constitutional Constitutional ED: Denies chills, fever(s) or weight loss Eyes Eyes: Denies change in vision or diplopia ENT ENT ED: Denies ear pain, rhinorrhea or sore throat Cardiovascular Cardiovascular: Denies chest pain, orthopnea, palpitations or racing heartbeat Respiratory/Chest Respiratory/Chest: Denies cough, dyspnea or orthopnea Gastrointestinal Gastrointestinal: Reports other Details: See history of present illness ; Denies abdominal pain, diarrhea, nausea or vomiting Genitourinary Genitourinary ED: Denies dysuria, hematuria or urinary frequency Musculoskeletal Musculoskeletal: Denies arthralgias or myalgias Integumentary Denies abscess or rash Neurologic Neurologic: Denies headache(s) or weakness Psychiatric Psychiatric: Denies anxiety, depression, suicidal ideation or suicidal thoughts Endocrine Endocrinology: Denies polydipsia, polyphagia or polyuria Allergic/Immunologic Allergic/Immunologic ED: Denies mouth swelling, tongue swelling or urticaria EXAM Physical Exam Const Vital Signs: 10/26/23 12:40 10/26/23 14:39 10/26/23 16:08 Temperature 96.6 F L Temperature Source Temporal Pulse Rate 98 87 Pulse Rate [Lying] 84 Pulse Rate [Sitting (for 1 minute prior to obtaining)] 87 Pulse Rate [Standing (for 1 minute prior to obtaining)] 90 Respiratory Rate 16 16 Blood Pressure 121/65 H 125/72 H Blood Pressure [Lying] 128/81 H Blood Pressure [Sitting (for 1 minute prior to obtaining)] 134/77 H Blood Pressure [Standing (for 1 minute prior to obtaining)] 131/88 H Blood Pressure Mean 83 89 Blood Pressure Mean [Lying] 96 Blood Pressure Mean [Sitting (for 1 minute prior to obtaining)] 96 Blood Pressure Mean [Standing (for 1 minute prior to obtaining)] 102 Pulse Ox 100 99 Oxygen Delivery Method Room Air 10/26/23 16:33 Temperature Temperature Source Pulse Rate 87 Pulse Rate [Lying] Pulse Rate [Sitting (for 1 minute prior to obtaining)] Pulse Rate [Standing (for 1 minute prior to obtaining)] Respiratory Rate 16 Blood Pressure 139/87 H Blood Pressure [Lying] Blood Pressure [Sitting (for 1 minute prior to obtaining)] Blood Pressure [Standing (for 1 minute prior to obtaining)] Blood Pressure Mean 104 Blood Pressure Mean [Lying] Blood Pressure Mean [Sitting (for 1 minute prior to obtaining)] Blood Pressure Mean [Standing (for 1 minute prior to obtaining)] Pulse Ox 99 Oxygen Delivery Method Room Air Positive well nourished and well developed General Appearance ED: well developed HEENT Reports normocephalic, head/scalp atraumatic and moist mucous membranes Eyes PERRL and EOMs intact bilaterally Neck no lymphadenopathy, supple and no JVD Resp normal respiratory effort and clear to auscultation bilaterally Cardio regular rate, regular rhythm and no murmurs GI normal to inspection, nondistended, normoactive bowel sounds and non-tender Palpation: soft Back/Spine no CVA tenderness and normal ROM Extremity normal to inspection General Extremety ED: Negative for edema General Extremity: Negative for edema Neuro oriented x3 and CN's II-XII intact bilaterally Sensorium / Orientation: alert Motor Exam: strength 5/5 throughout Psych mental status grossly normal Mood & Affect: Negative for depressed or tearful Skin no rashes or lesions noted and no wounds MDM MDM MDM Narrative Medical decision making narrative: Differential diagnosis includes but not limited to colitis diverticulitis diverticular bleed AV malformation anemia Hemoglobin is 8.8. This is down about 1 g from about a week and a half ago. Patient however does not seem symptomatic from this. She is not orthostatic. She has not had any further bleeding in greater than 24 hours. She denies any pain. I think this is most likely a diverticular bleed. She is to monitor and if she has increased bowel movements with bleeding would recommend that she return to the emergency department. She should follow-up with primary care in a week for recheck of hemoglobin. I attempted to review all this with the patient and she is very anxious to go tells me she was just talking about all of this and is understanding of it. History & Record Review Discussion w/independent historian: Patient Additional record(s) reviewed:: Prior inpatient record, Prior outpatient record and Prior labs Lab Data Attestation: I reviewed the patient's lab results. Labs: Laboratory Results - last 24 hr 10/26/23 13:58 WBC 9.8 RBC 3.27 L Hgb 8.8 L Hct 27.7 L MCV 84.7 MCH 26.9 L MCHC 31.8 L RDW Std Deviation 58.8 H RDW Coeff of Brenda 19.1 H Plt Count 423 MPV 8.4 Immature Gran % (Auto) 0.200 Neut % (Auto) 69.0 Lymph % (Auto) 16.9 L [place] % (Auto) 13.5 H Eos % (Auto) 0.0 Baso % (Auto) 0.4 Absolute Neuts (auto) 6.8 Absolute Lymphs (auto) 1.66 Nucleated RBC % 0 Sodium 134 L Potassium 3.5 Chloride 102 Carbon Dioxide 25.0 Anion Gap 7 BUN 24 H Creatinine 1.05 H Estim Creat Clear Calc 33.23 Est GFR (MDRD) Af Amer 65 Est GFR (MDRD) Non-Af 53 L BUN/Creatinine Ratio 22.9 H Glucose 103 Calcium 9.8 Discharge Plan Triage Chief Complaint: GI Bleed ED Provider: Douglas Beckwith Dx/Rx/DC Orders Clinical Impression: Acute lower GI bleeding, Anemia Instructions: ED Lower GI Bleeding (Stable) Prescriptions: No Action tramadol 50 mg tablet 50 mg PO DAILY PRN metoprolol tartrate 25 mg tablet 25 mg PO QPM B-complex with vitamin C Capsule 1 cap PO DAILY magnesium 200 mg tablet 200 mg PO DAILY coQ10 (ubiquinol) [Qunol Jonny CoQ10] 100 mg capsule 100 mg PO DAILY ferrous sulfate [Fe-Fadia] 15 mg iron (75 mg)/mL syringe 18 mg PO DAILY metoprolol tartrate 25 mg tablet 12.5 mg PO QHS Primary Care Provider: Lorna Aguillon Referrals: Lorna Aguillon MD [Primary Care Provider] - 1 Week Print Language: Citizen Of [place] Disposition Disposition: Home, Self Care Discharge Date/Time: 10/26/23 16:34
[2023-10-26 14:06] LABS: Absolute Lymphocyte Count 1.66 X10^3/uL (0.83-4.51); Absolute Neutrophil Count 6.8 X10^3/uL (2.0-7.7); Basophil# 0.04 X10^3/uL; Basophil% 0.4 % (0-1); Hematocrit 27.7 % (37-47); Hemoglobin 8.8 g/dL (12.0-15.0); Lymphocyte # 1.66 X10^3/ul (0.83-4.51); Lymphocyte % 16.9 % (19-41); Mean Corp Hgb Conc 31.8 g/dL (32-36); Mean Corpuscular Hgb 26.9 pg (27.0-32.0); Mean Corpuscular Volume 84.7 fL (81-99); Mean Platelet Vol. 8.4 fl (6.2-12.0); Monocyte# 1.32 X10^3/uL; Monocyte% 13.5 % (0-10); NRBC Flagged by Analyzer 0 % (0-5); Neutrophil # 6.76 X10^3/uL (2.7-7.7); Platelet Count 423 K/mm3 (150-450); RBC Distribution Width CV 19.1 % (11.6-14.6); RBC Distribution Width SD 58.8 fl (35.1-43.9); Red Blood Count 3.27 M/mm3 (4.2-5.4); White Blood Count 9.8 K/mm3 (4.4-11.0)
[2023-10-26 14:16] LABS: Anion Gap 7 (5-15); BUN 24 mg/dL (7-18); BUN/Creat Ratio 22.9 RATIO (10-20); Calcium,Total 9.8 mg/dL (8.5-10.1); Chloride 102 mmol/L (98-107); Creatinine, Serum 1.05 mg/dL (0.55-1.02); EST Glomerular Filtration Rate 53 mL/min (>60); Est Glom Filt Rate - Afr Amer 65 mL/min (>60); Estimated Creatinine Clearance 33.23 ml/min; Glucose 103 mg/dL (74-106); Potassium 3.5 mmol/L (3.5-5.1); Sodium Level 134 mmol/L (136-145)
[2023-10-26 14:39] VITALS: BP 125/72; PULSE 87; RESP 16; O2SAT 99
[2023-10-26 16:08] VITALS: BP 128/81; BP 131/88; BP 134/77; PULSE 84; PULSE 87; PULSE 90
[2023-10-26 16:33] VITALS: BP 139/87; PULSE 87; RESP 16; O2SAT 99
== END 2023-10-26 16:34 | disposition home or self-care (01) ==
PROVIDERS: Emergency Provider Emergency Medicine; PCP Family Medicine; Visit Provider Emergency Medicine
DX: K92.2 Gastrointestinal hemorrhage, unspecified (principal); D64.9 Anemia, unspecified
CPT/HCPCS: 80048; 85025; 99284; J7030

== ENCOUNTER 2023-11-07 16:10 | Outpatient (CLI) | payer MEDICARE, BC, SELFPAY | END 2023-11-07 23:59 | disposition home or self-care (01) | LOC: MEDOUTP 16:19 | PROVIDERS: PCP Family Medicine; Referring Provider Internal Medicine Hematology & Oncology; Visit Provider Internal Medicine Hematology & Oncology | DX: Z00.00 Encounter for general adult medical examination without abnormal findings (principal) ==

== ENCOUNTER → 2024-01-03 | Outpatient (CLI) | payer MEDICARE, BC, SELFPAY ==
--- NOTE | 2024-01-03 14:47 | CT_ITS ---
INDICATION: lung mass EXAMINATION: CT CHEST WITHOUT CONTRAST - CT Chest W/O Contrast Injection TECHNIQUE: Helically acquired images were obtained of the chest. A radiation dose optimization technique was used for this scan. IV Contrast dosage and agent: None. COMPARISON: 05/28/2023 FINDINGS: LUNGS, PLEURA AND LARGE AIRWAYS: Mild bilateral apical scarring. Some scarring in the azygos esophageal recess of the right lower lobe. No change from 1.4 cm noncalcified nodule in the left lower lobe of the lungs are imaged 111 and follow-up CT is recommended in 6 months to document stability. No new noncalcified nodule or mass. No pleural effusion or thickening. No pneumothorax. THYROID: No thyroid lesions. HEART AND PERICARDIUM: Heart size is normal. No pericardial effusion. CORONARY ARTERIES: Coronary artery calcification is seen. VESSELS: Thoracic aorta is not dilated. MEDIASTINUM AND DEVORAH: No mediastinal or hilar adenopathy. Esophagus is unremarkable. No hiatal hernia. UPPER ABDOMEN: No acute pathology. BONES: No suspicious lytic or blastic abnormality. CT/Chest without Contrast IMPRESSION: No change in left lower lobe nodule and follow-up CT is recommended in 6 months to document stability. Electronically Signed: Oneil Lutz MD at 8:51 EST ,
== END | disposition home or self-care (01) ==
LOC: CT 14:44
PROVIDERS: PCP Family Medicine; Referring Provider Nurse Practitioner Acute Care; Visit Provider Nurse Practitioner Acute Care
DX: R91.8 Other nonspecific abnormal finding of lung field (principal)
CPT/HCPCS: 71250

== ENCOUNTER 2024-01-19 10:37 | Emergency (ER) | payer MEDICARE, BC, SELFPAY ==
[2024-01-19 10:38] VITALS: BP 114/76; PULSE 86; RESP 18; TEMP 37; O2SAT 100; BMI 21.2
[2024-01-19 11:55] LABS: Absolute Lymphocyte Count 3.06 X10^3/uL (0.83-4.51); Absolute Neutrophil Count 5.9 X10^3/uL (2.0-7.7); Basophil# 0.06 X10^3/uL; Basophil% 0.6 % (0-1); Eosinophil# 0.02 X10^3/uL; Eosinophils% 0.2 % (0-5); Hematocrit 30.4 % (37-47); Hemoglobin 9.6 g/dL (12.0-15.0); Lymphocyte # 3.06 X10^3/ul (0.83-4.51); Lymphocyte % 29.9 % (19-41); Mean Corp Hgb Conc 31.6 g/dL (32-36); Mean Corpuscular Hgb 26.8 pg (27.0-32.0); Mean Corpuscular Volume 84.9 fL (81-99); Monocyte# 1.07 X10^3/uL; Monocyte% 10.5 % (0-10); NRBC Flagged by Analyzer 0 % (0-5); Neutrophil # 5.94 X10^3/uL (2.7-7.7); Neutrophil % 58.1 % (47-70); Platelet Count 543 K/mm3 (150-450); RBC Distribution Width CV 18.1 % (11.6-14.6); RBC Distribution Width SD 55.5 fl (35.1-43.9); Red Blood Count 3.58 M/mm3 (4.2-5.4); White Blood Count 10.2 K/mm3 (4.4-11.0)
--- NOTE | 2024-01-19 12:03 | ED.VIS.GI ---
HPI HPI - GI History of Present Illness Chief Complaint: GI Bleed Informant: patient Narrative Narrative: Patient is an 83 year old female with history of GI bleeding and iron deficiency anemia presenting with bright red blood per rectum. Patient states she follows with Dr. Mena and has a history of a bleeding polyp. She states yesterday she had 2 episodes of bowel movements with bright red blood in the toilet. She has a hard time quantifying how much blood there was but states it was a lot. She states it was very bright. She notes that yesterday she felt that her stomach was diffusely sore and bloated. She states it still feels bloated but not as bad today. She knows she has not had any bleeding today but is not had a bowel movement. Denies associate nausea or vomiting. Denies lightheadedness or dizziness. Denies any chest pain or shortness of breath. Is not on any blood thinners. Patient tells me that since she has been dealing with her bleeding issues ( she was hospitalized for GI bleed in March 2022) she has had issues with dry mouth, numbness and tingling of her hands or feet and generalized malaise/fatigue. Denies any acute change of the symptoms today. Chart review performed. Most recent GI visit note from 11/12/2023?patient she has a history of colonoscopy with findings consistent with diverticular bleeding. [facility] Medical History Lung nodule Wears glasses Wears dentures Post-menopausal Bladder disease Low iron Back pain Numbness and tingling Syncope Heartburn Non-smoker History of GI bleed Tremor HLD (hyperlipidemia) HTN (hypertension) Home Medications ?Medication ?Instructions ?Recorded ?Last Taken ?Type B-complex with vitamin C 1 cap PO DAILY 10/17/23 Unknown History coQ10 (ubiquinol) 100 mg capsule 100 mg PO DAILY 10/17/23 Unknown History (Qunol Jonny CoQ10) ferrous sulfate 15 mg iron (75 18 mg PO DAILY 10/17/23 Unknown History mg)/mL oral syringe (ORAL USE) (Fe-Fadia) magnesium 200 mg tablet 200 mg PO DAILY 10/17/23 Unknown History metoprolol tartrate 25 mg tablet 12.5 mg PO QHS Check with primary 10/17/23 Unknown History doctor metoprolol tartrate 25 mg tablet 25 mg PO QPM 10/17/23 Unknown History Allergy/AdvReac Type Severity Reaction Status Date / Time No Known Allergies Allergy Verified 01/19/24 10:38 Family History Mother CAD (coronary artery disease) Brother Heart disease Surgical History History of esophagogastroduodenoscopy (EGD) Hx of colonoscopy Social History household members: none housing: house Smoking Status: Never smoker alcohol intake: never substance use type: does not use ROS ROS ED Constitutional Constitutional ED: Denies chills or fever(s) Respiratory/Chest Respiratory/Chest: Denies cough Gastrointestinal Gastrointestinal: Reports abdominal pain and other Details: BRBPR ; Denies constipation, diarrhea, nausea or vomiting Genitourinary Genitourinary ED: Denies dysuria or hematuria Musculoskeletal Musculoskeletal: Reports back pain; Denies arthralgias Integumentary Denies rash Neurologic Neurologic: Reports weakness; Denies paresthesias Hematologic/Lymphatic Hematologic/Lymphatic: Denies easy bleeding or easy bruising EXAM Physical Exam Const Vital Signs: 01/19/24 10:38 01/19/24 12:41 01/19/24 12:42 Temperature 98.6 F Temperature Source Oral Pulse Rate 86 85 Pulse Rate [Lying] 88 Pulse Rate [Sitting (for 1 minute prior to obtaining)] 90 Pulse Rate [Standing (for 1 minute prior to obtaining)] 85 Respiratory Rate 18 16 Blood Pressure 114/76 118/75 Blood Pressure [Lying] 131/68 H Blood Pressure [Sitting (for 1 minute prior to obtaining)] 125/69 H Blood Pressure [Standing (for 1 minute prior to obtaining)] 118/75 Blood Pressure Mean 88 89 Blood Pressure Mean [Lying] 89 Blood Pressure Mean [Sitting (for 1 minute prior to obtaining)] 87 Blood Pressure Mean [Standing (for 1 minute prior to obtaining)] 89 Pulse Ox 100 91 Oxygen Delivery Method Room Air Room Air Positive well nourished and well developed General Appearance ED: well developed, NAD and pallor HEENT Reports moist mucous membranes normocephalic and atraumatic Eyes PERRL Neck supple Resp normal respiratory effort and clear to auscultation bilaterally Cardio regular rate and regular rhythm GI non-tender and non-distended GI Narrative: Dark stool present on rectal exam. It is fecal occult positive. No active bleeding. No masses appreciated of the rectum. Auscultation: normoactive bowel sounds Palpation: soft Back/Spine no CVA tenderness Extremity full ROM General Extremety ED: Negative for edema or tenderness General Extremity: Negative for edema Neuro Sensorium / Orientation: alert, oriented to person, oriented to place and oriented to time Motor Exam: Negative for general weakness Psych mental status grossly normal and thought process normal Skin no wounds General Skin Exam: pallor MDM MDM MDM Narrative Medical decision making narrative: Patient is evaluated for 2 episodes of bright red blood per rectum yesterday. Is no further bleeding today. Vital signs normal in the emergency room. She is well-appearing. Abdomen soft nontender. On rectal exam she has dark brown stool but no signs of active bleeding or bright red blood. Her hemoglobin is actually mildly improved from her baseline as she is 9.6 today and she was 9.31-month ago. BUN is mildly elevated but again at her baseline. Urinalysis is not consistent with infection or hematuria. Given that she has a stable hemoglobin, benign abdominal exam and normal white blood cell count I do not think she requires CT imaging of the abdomen pelvis at this time. Orthostatics negative in the emergency room and patient asymptomatic during. She is a mild drop in her blood pressure but heart rate stays the same. Case discussed with Dr. Omega FERNANDEZ. That he is comfortable with close outpatient follow-up. Discussed with patient that at this time the bleeding seems to have stopped or is stable as her lab work and vital signs are normal. Is counseled that she will be discharged home which she is quite agreeable with but is given close return precautions. Discussed there is always a chance of rebleeding and if that happens she should immediately return to the emergency room. Patient verbalized agreement understand this plan. Discharged home in stable condition. Lab Data Attestation: I reviewed the patient's lab results. Labs: Laboratory Results - last 24 hr 01/19/24 01/19/24 11:50 12:22 WBC 10.2 RBC 3.58 L Hgb 9.6 L Hct 30.4 L MCV 84.9 MCH 26.8 L MCHC 31.6 L RDW Std Deviation 55.5 H RDW Coeff of Brenda 18.1 H Plt Count 543 H MPV 9.0 Immature Gran % (Auto) 0.700 Neut % (Auto) 58.1 Lymph % (Auto) 29.9 [place] % (Auto) 10.5 H Eos % (Auto) 0.2 Baso % (Auto) 0.6 Absolute Neuts (auto) 5.9 Absolute Lymphs (auto) 3.06 Nucleated RBC % 0 Sodium 137 Potassium 4.1 Chloride 104 Carbon Dioxide 26.0 Anion Gap 7 BUN 24 H Creatinine 0.98 Estim Creat Clear Calc 35.61 Est GFR (MDRD) Af Amer 70 Est GFR (MDRD) Non-Af 58 L BUN/Creatinine Ratio 24.6 H Glucose 110 H Calcium 9.6 Total Bilirubin 0.50 AST 18 ALT 21 Alkaline Phosphatase 56 Total Protein 8.2 Albumin 3.6 Globulin 4.6 H Albumin/Globulin Ratio 0.8 L Urine Color Yellow Urine Clarity Clear Urine pH 5.0 Ur Specific [place] 1.025 Urine Protein 15 H Urine Glucose (UA) Normal Urine Ketones 5 H Urine Occult Blood Negative Urine Nitrite Negative Urine Bilirubin Negative Urine Urobilinogen Normal Ur Leukocyte Esterase 25 H Urine RBC 0 SEEN Urine WBC 0 SEEN Ur Squamous Epith Cells 0-5 SEEN Urine Bacteria 0 SEEN Urine Mucus 0 SEEN Discharge Plan Triage Chief Complaint: GI Bleed ED Provider: Karol Hdz Dx/Rx/DC Orders Clinical Impression: BRBPR (bright red blood per rectum), Chronic anemia Instructions: ED Lower GI Bleeding (Stable) Prescriptions: No Action metoprolol tartrate 25 mg tablet 25 mg PO QPM B-complex with vitamin C Capsule 1 cap PO DAILY magnesium 200 mg tablet 200 mg PO DAILY coQ10 (ubiquinol) [Qunol Jonny CoQ10] 100 mg capsule 100 mg PO DAILY ferrous sulfate [Fe-Fadia] 15 mg iron (75 mg)/mL syringe 18 mg PO DAILY metoprolol tartrate 25 mg tablet 12.5 mg PO QHS Primary Care Provider: Ravindra Vieira Referrals: Ravindra Vieira MD [Primary Care Provider] - Friend,DO Yaya [Med Staff - Active Staff] - 3-5 Days Activity Restrictions/Additional Instructions: If your bleeding worsens, you develop worsening abdominal pain, have vomiting, fever or start to get lightheaded please immediately return to the emergency room. You might have some dark stools or small amounts of bleeding but as long as you are feeling okay that is stable for outpatient follow-up. Print Language: [place] Disposition Disposition: Home, Self Care
[2024-01-19 12:09] LABS: ALB/GLOB Ratio 0.8 RATIO (0.9-2.4); AST(SGOT) 18 U/L (15-37); Alanine Aminotransfer ALT/SGPT 21 U/L (13-56); Albumin, Serum 3.6 g/dL (3.2-5.0); Alkaline Phosphatase 56 U/L (45-117); Anion Gap 7 (5-15); BUN 24 mg/dL (7-18); BUN/Creat Ratio 24.6 RATIO (10-20); Calcium,Total 9.6 mg/dL (8.5-10.1); Chloride 104 mmol/L (98-107); Creatinine, Serum 0.98 mg/dL (0.55-1.02); EST Glomerular Filtration Rate 58 mL/min (>60); Est Glom Filt Rate - Afr Amer 70 mL/min (>60); Estimated Creatinine Clearance 35.61 ml/min; Globulin 4.6 g/dL (2.2-4.2); Glucose 110 mg/dL (74-106); Potassium 4.1 mmol/L (3.5-5.1); Protein, Total 8.2 g/dL (6.4-8.2); Sodium Level 137 mmol/L (136-145)
[2024-01-19 12:28] LABS: Bacteria 0 SEEN /hpf (None Seen); Mucous, Urine 0 SEEN /hpf (<or=2+); Red Blood Cells-Urine 0 SEEN /hpf (0-5); White Blood Cells 0 SEEN /hpf (0-5)
[2024-01-19 12:40] LABS: Color, Urine Yellow (Yellow); Glucose, Dipstick Normal (Normal); Ketone-Dipstick 5 mg/dl (Negative); Leukocyte Esterase-Dipstick 25 /ul (Negative); Nitrite-Dipstick Negative (Negative); Occult Blood-Urine Negative /ul (Negative); Protein-Dipstick 15 mg/dl (Negative); Specific Gravity, Urine 1.025 (1.002-1.030); Urine Bilirubin Dipstick Negative (Negative); Urine Clarity Clear (Clear); Urine Urobilinogen Normal (Normal)
[2024-01-19 12:41] VITALS: BP 118/75; BP 125/69; BP 131/68; PULSE 85; PULSE 88; PULSE 90
[2024-01-19 12:42] VITALS: BP 118/75; PULSE 85; RESP 16; O2SAT 91
[2024-01-19 12:45] LABS: Squamous Epithelial Cells - UA 0-5 SEEN /hpf (5-10)
[2024-01-19 13:52] VITALS: BP 125/71; PULSE 91; RESP 16; O2SAT 97
[2024-01-19 14:32] VITALS: BP 122/76; PULSE 91; RESP 14; TEMP 36.6; O2SAT 98
== END 2024-01-19 14:37 | disposition home or self-care (01) ==
PROVIDERS: Emergency Provider Emergency Medicine; PCP Family Medicine; Visit Provider Emergency Medicine
DX: K92.2 Gastrointestinal hemorrhage, unspecified (principal); D64.9 Anemia, unspecified
CPT/HCPCS: 80053; 81001; 82274; 85025; 99283; A4216

== ENCOUNTER 2024-02-29 14:36 | Inpatient (IN) | payer MEDICARE, BC, SELFPAY ==
[2024-02-29] VITALS (7 sets, daily range): BP systolic 97–137; BP diastolic 55–80; PULSE 75–95; RESP 15–19; TEMP 36.2–37.7; O2SAT 98–100; BMI 20.7; BMI 20.3
--- NOTE | 2024-02-29 15:07 | EDS_ITS ---
HPI HPI - GI History of Present Illness Chief Complaint: GI Bleed Narrative Narrative: 84-year-old female previous history of GI bleed, patient of Dr. Luong presents with rectal bleeding that she has had a little bit yesterday but a large bloody bowel movement today. She relates history that she has had black stool for the last 2 weeks. She denies any abdominal pain, no lightheadedness, no chest pain or shortness of breath. She is not on blood thinners but did take a baby aspirin today. She states at 11:00 this morning she had a large bowel movement with a large amount of blood. She presents with colonoscopy pictures stating that she has what she calls a pouchlike polyp that cannot be removed. She feels that this is where the blood may be coming from. [facility] Medical History Lung nodule Wears glasses Wears dentures Post-menopausal Bladder disease Low iron Back pain Numbness and tingling Syncope Heartburn Non-smoker History of GI bleed Tremor HLD (hyperlipidemia) HTN (hypertension) Home Medications ?Medication ?Instructions ?Recorded ?Last Taken ?Type B-complex with vitamin C 1 cap PO DAILY supplient 10/17/23 02/28/24 History coQ10 (ubiquinol) 100 mg capsule 100 mg PO DAILY supplement 10/17/23 02/28/24 History (Qunol Jonny CoQ10) ferrous sulfate 15 mg iron (75 18 mg PO DAILY anemia 10/17/23 02/28/24 History mg)/mL oral syringe (ORAL USE) (Fe-Fadia) magnesium 200 mg tablet 200 mg PO DAILY supplement 10/17/23 02/28/24 History metoprolol tartrate 25 mg tablet 12.5 mg PO DAILY heart 10/17/23 02/29/24 History metoprolol tartrate 25 mg tablet 25 mg PO QPM heart 10/17/23 02/28/24 History atorvastatin 10 mg tablet 10 mg PO DAILY cholesterol 02/29/24 02/29/24 History tramadol 50 mg tablet 50 mg PO BID PRN PRN pain 02/29/24 Unknown History Allergy/AdvReac Type Severity Reaction Status Date / Time No Known Allergies Allergy Verified 02/29/24 14:38 Family History Mother CAD (coronary artery disease) Brother Heart disease Surgical History History of esophagogastroduodenoscopy (EGD) Hx of colonoscopy Social History (Updated 02/29/24 @ 17:09 by Ynes Butler) household members: none housing: house Smoking Status: Never smoker alcohol intake: never substance use type: does not use ROS ROS ED ROS Narrative Constitutional: No fever, no chills. HEENT: No sore throat. No neck pain. No loss of vision. No rhinorrhea. Cardiovascular: No chest pain. No palpitations. No pedal edema. Respiratory: No cough, no shortness of breath. Abdominal: No abdominal pain. No nausea. No vomiting. Positive rectal bleeding. Black stool. Musculoskeletal: No myalgias. No arthralgias. Neurologic: No headaches. No dizziness. No lightheadedness. Skin: No rash. No change in color. EXAM Physical Exam Narrative Exam Narrative: Afebrile. Vital signs noted. Nontoxic-appearing. Cardiovascular examination reveals a regular rate and rhythm. Lungs are clear to auscultation bilaterally. Abdomen is soft and nontender without guarding or rebound. Positive bowel sounds. Neurological examination is nonfocal and nonlateralizing. Const Vital Signs: 02/29/24 14:37 02/29/24 15:33 Temperature 98 F Temperature Source Temporal Pulse Rate 92 Pulse Rate [Lying] 87 Pulse Rate [Sitting (for 1 minute prior to obtaining)] 93 Pulse Rate [Standing (for 1 minute prior to obtaining)] 95 Respiratory Rate 18 Blood Pressure 137/63 H Blood Pressure [Lying] 106/55 L Blood Pressure [Sitting (for 1 minute prior to obtaining)] 112/64 Blood Pressure [Standing (for 1 minute prior to obtaining)] 110/62 Blood Pressure Mean 87 Blood Pressure Mean [Lying] 72 Blood Pressure Mean [Sitting (for 1 minute prior to obtaining)] 80 Blood Pressure Mean [Standing (for 1 minute prior to obtaining)] 78 Pulse Ox 100 Oxygen Delivery Method Room Air MDM MDM MDM Narrative Medical decision making narrative: Differential diagnosis includes but not limited to diverticular bleeding versus AV malformation versus hemorrhoidal bleeding. No feel she necessarily has diverticulitis because her abdominal examination shows no tenderness. I do not feel CT imaging is currently indicated. I will check her laboratory work and see if she is anemic to the point where she requires transfusion. I reviewed her prior records as well. She did have diverticular bleeding back in August of last year. I reviewed her laboratory work from today and she has slightly elevated white count of 11.4 which I think is nonspecific, hemoglobin low at 8.2, she does have a chronic anemia with this is a little lower than previous. Platelet count elevated at 453 which may be more of an acute phase reactant. Sodium slightly low at 134 with chloride normal at 103, potassium normal at 4.0, BUN 15 with creatinine 1.05 so I have lower suspicion for upper GI bleeding. LFTs are grossly unremarkable. Repeat examination shows that the patient denies that she has have any active hemorrhage rectally. I reviewed her orthostatics and they are negative, but her blood pressure dropped to 106. Initially in triage it was 137/63. Given her history of diverticular bleeding and anemia, I do feel that she requires at leas t observation. Patient discussed with the hospitalist. Disposition is admitted in stable condition. History & Record Review Discussion w/independent historian: Patient Lab Data Attestation: I reviewed the patient's lab results. Labs: Laboratory Results - last 24 hr 02/29/24 14:55 WBC 11.4 H RBC 3.20 L Hgb 8.2 L Hct 26.2 L MCV 81.9 MCH 25.6 L MCHC 31.3 L RDW Std Deviation 54.4 H RDW Coeff of Brenda 18.2 H Plt Count 453 H MPV 9.0 Immature Gran % (Auto) 0.600 Neut % (Auto) 72.8 H Lymph % (Auto) 15.3 L Cotton % (Auto) 11.0 H Eos % (Auto) 0.0 Baso % (Auto) 0.3 Absolute Neuts (auto) 8.3 H Absolute Lymphs (auto) 1.75 Nucleated RBC % 0 Sodium 134 L Potassium 4.0 Chloride 103 Carbon Dioxide 26.0 Anion Gap 5 BUN 15 Creatinine 1.05 H Estim Creat Clear Calc 32.67 Est GFR (MDRD) Af Amer 65 Est GFR (MDRD) Non-Af 53 L BUN/Creatinine Ratio 14.3 Glucose 105 Calcium 9.4 Total Bilirubin 0.60 AST 27 ALT 30 Alkaline Phosphatase 52 Total Protein 8.1 Albumin 3.3 Globulin 4.8 H Albumin/Globulin Ratio 0.7 L Management Discussion w/another healthcare provider: Hospitalist (Dr. Yu) Discharge Plan Dx/Rx/DC Orders Clinical Impression: GI bleed, History of GI diverticular bleed Disposition Disposition: Acute Care Hospital [facility] Discharge Date/Time: 02/29/24 16:58
[2024-02-29 15:14] LABS: Absolute Lymphocyte Count 1.75 X10^3/uL (0.83-4.51); Absolute Neutrophil Count 8.3 X10^3/uL (2.0-7.7); Basophil# 0.03 X10^3/uL; Basophil% 0.3 % (0-1); Hematocrit 26.2 % (37-47); Hemoglobin 8.2 g/dL (12.0-15.0); Lymphocyte # 1.75 X10^3/ul (0.83-4.51); Lymphocyte % 15.3 % (19-41); Mean Corp Hgb Conc 31.3 g/dL (32-36); Mean Corpuscular Hgb 25.6 pg (27.0-32.0); Mean Corpuscular Volume 81.9 fL (81-99); Monocyte# 1.26 X10^3/uL; NRBC Flagged by Analyzer 0 % (0-5); Neutrophil # 8.31 X10^3/uL (2.7-7.7); Neutrophil % 72.8 % (47-70); Platelet Count 453 K/mm3 (150-450); RBC Distribution Width CV 18.2 % (11.6-14.6); RBC Distribution Width SD 54.4 fl (35.1-43.9); White Blood Count 11.4 K/mm3 (4.4-11.0)
[2024-02-29 15:36] LABS: ALB/GLOB Ratio 0.7 RATIO (0.9-2.4); AST(SGOT) 27 U/L (15-37); Alanine Aminotransfer ALT/SGPT 30 U/L (13-56); Albumin, Serum 3.3 g/dL (3.2-5.0); Alkaline Phosphatase 52 U/L (45-117); Anion Gap 5 (5-15); BUN 15 mg/dL (7-18); BUN/Creat Ratio 14.3 RATIO (10-20); Calcium,Total 9.4 mg/dL (8.5-10.1); Chloride 103 mmol/L (98-107); Creatinine, Serum 1.05 mg/dL (0.55-1.02); EST Glomerular Filtration Rate 53 mL/min (>60); Est Glom Filt Rate - Afr Amer 65 mL/min (>60); Estimated Creatinine Clearance 32.67 ml/min; Globulin 4.8 g/dL (2.2-4.2); Glucose 105 mg/dL (74-106); Protein, Total 8.1 g/dL (6.4-8.2); Sodium Level 134 mmol/L (136-145)
--- NOTE | 2024-02-29 17:33 | PCM.HP.STD ---
HPI - General General Date of Admission: 02/29/24 HPI Narrative AMANDA GRAY, is a 84 F who presents to the hospital with a combination of dark stools and bright red blood per rectum. She denies any pain with this. She does have a history of nonbleeding duodenal ulcers on EGD back in March 2022 as well as diverticular bleeding in the rectosigmoid colon, this is likely what is going on now with her bright red blood without any pain. Curiously she is not on the PPI for her duodenal ulcers. She denies any abdominal pain. She noticed the blood for couple of days which is why she presented to the hospital. Hemoglobin is 8.2 which is lower than her normal but only by a gram. No nausea or vomiting and no hematemesis. She is complaining of a postnasal drip and something that her [id number] has as well which is who she thinks gave it to her. [facility] Medical History Lung nodule Wears glasses Wears dentures Post-menopausal Bladder disease Low iron Back pain Numbness and tingling Syncope Heartburn Non-smoker History of GI bleed Tremor HLD (hyperlipidemia) HTN (hypertension) Home Medications ?Medication ?Instructions ?Recorded ?Last Taken ?Type B-complex with vitamin C 1 cap PO DAILY supplient 10/17/23 02/28/24 History coQ10 (ubiquinol) 100 mg capsule 100 mg PO DAILY supplement 10/17/23 02/28/24 History (Qunol Jonny CoQ10) ferrous sulfate 15 mg iron (75 18 mg PO DAILY anemia 10/17/23 02/28/24 History mg)/mL oral syringe (ORAL USE) (Fe-Fadia) magnesium 200 mg tablet 200 mg PO DAILY supplement 10/17/23 02/28/24 History metoprolol tartrate 25 mg tablet 12.5 mg PO DAILY heart 10/17/23 02/29/24 History metoprolol tartrate 25 mg tablet 25 mg PO QPM heart 10/17/23 02/28/24 History atorvastatin 10 mg tablet 10 mg PO DAILY cholesterol 02/29/24 02/29/24 History tramadol 50 mg tablet 50 mg PO BID PRN PRN pain 02/29/24 Unknown History Allergy/AdvReac Type Severity Reaction Status Date / Time No Known Allergies Allergy Verified 02/29/24 14:38 Family History Mother CAD (coronary artery disease) Brother Heart disease Surgical History History of esophagogastroduodenoscopy (EGD) Hx of colonoscopy Social History (Updated 02/29/24 @ 17:09 by Ynes Butler) household members: none housing: house Smoking Status: Never smoker alcohol intake: never substance use type: does not use ROS Constitutional Constitutional: Denies chills, fatigue, fever(s) or malaise Eyes Eyes: Denies blurry vision ENT HEENT: Denies headache(s) or nasal discharge Cardiovascular Cardiovascular: Denies chest pain, dyspnea on exertion or syncope Respiratory/Chest Respiratory/Chest: Denies cough, shortness of breath at rest or shortness of breath with exertion Gastrointestinal Gastrointestinal: Reports hematochezia and melena; Denies constipation, diarrhea, hematemesis, nausea or vomiting Genitourinary Genitourinary: Denies dysuria Neurologic Neurologic: Denies focal weakness, numbness or tremor(s) Psychiatric Psychiatric: Denies anxiety or depression Vital Signs Vital Signs Vital Signs: 02/29/24 14:37 02/29/24 15:33 02/29/24 16:13 Temperature 98 F 98 F Temperature Source Temporal Pulse Rate 92 92 Pulse Rate [Lying] 87 Pulse Rate [Sitting (for 1 minute prior to obtaining)] 93 Pulse Rate [Standing (for 1 minute prior to obtaining)] 95 Respiratory Rate 18 18 Blood Pressure 137/63 H 137/63 H Blood Pressure [Lying] 106/55 L Blood Pressure [Sitting (for 1 minute prior to obtaining)] 112/64 Blood Pressure [Standing (for 1 minute prior to obtaining)] 110/62 Blood Pressure Mean 87 87 Blood Pressure Mean [Lying] 72 Blood Pressure Mean [Sitting (for 1 minute prior to obtaining)] 80 Blood Pressure Mean [Standing (for 1 minute prior to obtaining)] 78 Pulse Ox 100 100 Oxygen Delivery Method Room Air 02/29/24 16:36 Temperature Temperature Source Pulse Rate 75 Pulse Rate [Lying] Pulse Rate [Sitting (for 1 minute prior to obtaining)] Pulse Rate [Standing (for 1 minute prior to obtaining)] Respiratory Rate 19 H Blood Pressure Blood Pressure [Lying] Blood Pressure [Sitting (for 1 minute prior to obtaining)] Blood Pressure [Standing (for 1 minute prior to obtaining)] Blood Pressure Mean Blood Pressure Mean [Lying] Blood Pressure Mean [Sitting (for 1 minute prior to obtaining)] Blood Pressure Mean [Standing (for 1 minute prior to obtaining)] Pulse Ox Oxygen Delivery Method Weight Weight: 111 lb 15.917 oz Body Mass Index (BMI) 20.3 Physical Exam Narrative General: Alert, Oriented x3, Cooperative, No apparent distress HEENT: Atraumatic, PERRLA, EOMI, Normocephalic Oral: Moist Mucosa Neck: Supple, No JVD Lungs: Clear to auscultation, Normal air movement, No rhonchi, No wheeze, No rales Cardiovascular: Regular rate, Regular Rhythm, Normal S1, Normal S2, No murmurs Abdomen: Soft, Non Tender, Non-Distended, No Hepato-splenomegaly Extremities: No edema, Capillary Refill Less than 3 Seconds Skin: No rashes, No breakdown Musculoskeletal: No Tenderness to Palpation of Joints or Extremities Neurological: No focal neurological deficits, Motor Exam 5/5 strength throughout, Sensory exam intact to light touch and pain Psych/Mental Status: Normal Affect, Appropriate Results Lab / Micro Data 02/29/24 14:55 02/29/24 14:55 Labs: Laboratory Results - last 24 hr 02/29/24 14:55: WBC 11.4 H, RBC 3.20 L, Hgb 8.2 L, Hct 26.2 L, MCV 81.9, MCH 25.6 L, MCHC 31.3 L, RDW Std Deviation 54.4 H, RDW Coeff of Brenda 18.2 H, Plt Count 453 H, MPV 9.0, Immature Gran % (Auto) 0.600, Neut % (Auto) 72.8 H, Lymph % (Auto) 15.3 L, [place] % (Auto) 11.0 H, Eos % (Auto) 0.0, Baso % (Auto) 0.3, Absolute Neuts (auto) 8.3 H, Absolute Lymphs (auto) 1.75, Nucleated RBC % 0, Sodium 134 L, Potassium 4.0, Chloride 103, Carbon Dioxide 26.0, Anion Gap 5, BUN 15, Creatinine 1.05 H, Estim Creat Clear Calc 32.67, Est GFR (MDRD) Af Amer 65, Est GFR (MDRD) Non-Af 53 L, BUN/Creatinine Ratio 14.3, Glucose 105, Calcium 9.4, Total Bilirubin 0.60, AST 27, ALT 30, Alkaline Phosphatase 52, Total Protein 8.1, Albumin 3.3, Globulin 4.8 H, Albumin/Globulin Ratio 0.7 L Assessment & Plan Assessment/Plan (1) History of GI diverticular bleed: (2) Anemia: QUALIFIERS: Anemia type: iron deficiency Iron deficiency anemia type: chronic blood loss Qualified Code(s): D50.0 - Iron deficiency anemia secondary to blood loss (chronic) PLAN: Plan 1. Bright red blood per rectum in the setting of iron deficiency anemia known diverticular bleeding and duodenal ulcers ? Will recheck hemoglobin in the morning ? Continue with twice daily PPI given her history of duodenal ulcers and esophagitis ? Continue with a clear liquid diet if her hemoglobin drops any further can transfuse and consult GI, if her hemoglobin stabilizes she has a gastroenterology appointment on Saturday 2. Essential HTN/HLD ? Continue with her home blood pressure medications ? Continue with her cholesterol medications ? Will monitor and make adjustments as necessary DVT: Ambulation 75 minutes was spent on direct patient care, including documentation as well as chart review and collaboration with colleagues Charges/Coding Visit Charges Inpatient E&M: 92045 Init Hosp L3
[2024-02-29] MEDS: Pantoprazole Sodium 40 MG Tablet PO ×2 (17:38→21:03)
[2024-02-29] MEDS: Metoprolol Tartrate 25 MG Tablet PO (21:03)
[2024-03-01] VITALS (9 sets, daily range): BP systolic 107–129; BP diastolic 56–72; PULSE 77–95; RESP 16–18; TEMP 36.1–37.2; O2SAT 94–100; BMI 20.3
[2024-03-01 06:48] LABS: Absolute Lymphocyte Count 2.46 X10^3/uL (0.83-4.51); Absolute Neutrophil Count 2.3 X10^3/uL (2.0-7.7); Basophil# 0.02 X10^3/uL; Basophil% 0.3 % (0-1); Eosinophil# 0.08 X10^3/uL; Eosinophils% 1.3 % (0-5); Hematocrit 24.4 % (37-47); Hemoglobin 7.3 g/dL (12.0-15.0); Lymphocyte # 2.46 X10^3/ul (0.83-4.51); Lymphocyte % 41.3 % (19-41); Mean Corp Hgb Conc 29.9 g/dL (32-36); Mean Corpuscular Hgb 25.1 pg (27.0-32.0); Mean Corpuscular Volume 83.8 fL (81-99); Mean Platelet Vol. 9.5 fl (6.2-12.0); Monocyte# 1.05 X10^3/uL; Monocyte% 17.6 % (0-10); NRBC Flagged by Analyzer 0 % (0-5); Neutrophil # 2.31 X10^3/uL (2.7-7.7); Platelet Count 423 K/mm3 (150-450); RBC Distribution Width CV 18.2 % (11.6-14.6); RBC Distribution Width SD 55.1 fl (35.1-43.9); Red Blood Count 2.91 M/mm3 (4.2-5.4)
[2024-03-01 07:30] LABS: Anion Gap 3 (5-15); BUN 11 mg/dL (7-18); BUN/Creat Ratio 12.3 RATIO (10-20); Calcium,Total 8.9 mg/dL (8.5-10.1); Chloride 109 mmol/L (98-107); EST Glomerular Filtration Rate 64 mL/min (>60); Est Glom Filt Rate - Afr Amer 78 mL/min (>60); Estimated Creatinine Clearance 38.12 ml/min; Glucose 83 mg/dL (74-106); Potassium 4.3 mmol/L (3.5-5.1); Sodium Level 137 mmol/L (136-145)
[2024-03-01] MEDS: Pantoprazole Sodium 40 MG Tablet PO ×2 (09:28→21:41)
[2024-03-01] MEDS: Metoprolol Tartrate 25 MG Tablet 12.5 MG PO (09:28)
--- NOTE | 2024-03-01 10:05 | PCM.PN.HOSP ---
Subjective Subjective Doing well, no issues overnight. Hemoglobin down to 7.3 Objective Data Objective Data Vital Signs: Vital Signs Temp Pulse Resp BP Pulse Ox O2 Del Method 97.0 F L 95 18 120/62 97 Room Air 03/01/24 03:20 03/01/24 09:28 03/01/24 03:20 03/01/24 09:28 03/01/24 03:20 03/01/24 03:20 Oxygen Delivery Method Room Air Weight: 111 lb 15.917 oz Body Mass Index (BMI) 20.3 Intake & Output: Intake and Output for Last 24 Hours 02/29/24 03/01/24 03/02/24 03:59 03:59 03:59 Intake Total 620 / 620 Balance 620 / 620 Lab / Micro Data 03/01/24 05:23 03/01/24 05:23 Labs: Laboratory Results - last 24 hr 02/29/24 14:55: WBC 11.4 H, RBC 3.20 L, Hgb 8.2 L, Hct 26.2 L, MCV 81.9, MCH 25.6 L, MCHC 31.3 L, RDW Std Deviation 54.4 H, RDW Coeff of Brenda 18.2 H, Plt Count 453 H, MPV 9.0, Immature Gran % (Auto) 0.600, Neut % (Auto) 72.8 H, Lymph % (Auto) 15.3 L, [place] % (Auto) 11.0 H, Eos % (Auto) 0.0, Baso % (Auto) 0.3, Absolute Neuts (auto) 8.3 H, Absolute Lymphs (auto) 1.75, Nucleated RBC % 0, Sodium 134 L, Potassium 4.0, Chloride 103, Carbon Dioxide 26.0, Anion Gap 5, BUN 15, Creatinine 1.05 H, Estim Creat Clear Calc 32.67, Est GFR (MDRD) Af Amer 65, Est GFR (MDRD) Non-Af 53 L, BUN/Creatinine Ratio 14.3, Glucose 105, Calcium 9.4, Total Bilirubin 0.60, AST 27, ALT 30, Alkaline Phosphatase 52, Total Protein 8.1, Albumin 3.3, Globulin 4.8 H, Albumin/Globulin Ratio 0.7 L 03/01/24 05:23: WBC 6.0, RBC 2.91 L, Hgb 7.3 L, Hct 24.4 L, MCV 83.8, MCH 25.1 L, MCHC 29.9 L, RDW Std Deviation 55.1 H, RDW Coeff of Brenda 18.2 H, Plt Count 423, MPV 9.5, Immature Gran % (Auto) 0.500, Neut % (Auto) 39.0 L, Lymph % (Auto) 41.3 H, [place] % (Auto) 17.6 H, Eos % (Auto) 1.3, Baso % (Auto) 0.3, Absolute Neuts (auto) 2.3, Absolute Lymphs (auto) 2.46, Nucleated RBC % 0, Sodium 137, Potassium 4.3, Chloride 109 H, Carbon Dioxide 25.0, Anion Gap 3 L, BUN 11, Creatinine 0.90, Estim Creat Clear Calc 38.12, Est GFR (MDRD) Af Amer 78, Est GFR (MDRD) Non-Af 64, BUN/Creatinine Ratio 12.3, Glucose 83, Calcium 8.9 Physical Exam Narrative General: Alert, Oriented x3, Cooperative, No apparent distress HEENT: Atraumatic, PERRLA, EOMI, Normocephalic Oral: Moist Mucosa Neck: Supple, No JVD Lungs: Clear to auscultation, Normal air movement, No rhonchi, No wheeze, No rales Cardiovascular: Regular rate, Regular Rhythm, Normal S1, Normal S2, No murmurs Abdomen: Soft, Non Tender, Non-Distended, No Hepato-splenomegaly Extremities: No edema, Capillary Refill Less than 3 Seconds Skin: No rashes, No breakdown Musculoskeletal: No Tenderness to Palpation of Joints or Extremities Neurological: No focal neurological deficits, Motor Exam 5/5 strength throughout, Sensory exam intact to light touch and pain Psych/Mental Status: Normal Affect, Appropriate Assessment & Plan Assessment/Plan (1) History of GI diverticular bleed: (2) Anemia: QUALIFIERS: Anemia type: iron deficiency Iron deficiency anemia type: chronic blood loss Qualified Code(s): D50.0 - Iron deficiency anemia secondary to blood loss (chronic) PLAN: Plan 1. Bright red blood per rectum in the setting of iron deficiency anemia known diverticular bleeding and duodenal ulcers ? Hemoglobin 7.3, recheck this afternoon ? Continue with twice daily PPI given her history of duodenal ulcers and esophagitis ? Continue with a clear liquid diet 2. Essential HTN/HLD ? Continue with her home blood pressure medications ? Continue with her cholesterol medications ? Will monitor and make adjustments as necessary DVT: Ambulation Charges/Coding Visit Charges Inpatient E&M: 57825 Subs Hosp L2
[2024-03-01 11:56] LABS: Hematocrit 22.8 % (37-47); Hemoglobin 7.1 g/dL (12.0-15.0)
[2024-03-01] MEDS: Bisacodyl 5 MG Tablet 20 MG PO (14:07)
[2024-03-01] MEDS: Polyethylene Glycol 3350 BOWEL PREP PO (16:00)
--- NOTE | 2024-03-01 16:10 | CON.PCM.GI_ITS ---
HPI Consult Data Date of Consult: 03/01/24 HPI Narrative Reason for Consultation: GI bleeding HPI Narrative: AMANDA GRAY, is a 84 F with history of GI bleeding and iron deficiency anemia presenting with bright red blood per rectum. She also has a history of a bleeding polyp. She states yesterday she had 2 episodes of bowel movements with bright red blood in the toilet. She has a hard time quantifying how much blood there was but states it was a lot. She states it was very bright. She notes that yesterday she felt that her stomach was diffusely sore and bloated. She states it still feels bloated but not as bad today. She knows she has not had any bleeding today but is not had a bowel movement. Denies associate nausea or vomiting. Denies lightheadedness or dizziness. Denies any chest pain or shortness of breath. Is not on any blood thinners. Patient tells me that since she has been dealing with her bleeding issues ( she was hospitalized for GI bleed in March 2022) she has had issues with dry mouth, numbness and tingling of her hands or feet and generalized malaise/fatigue. Denies any acute change of the symptoms today. Last colonoscopy with findings consistent with diverticular bleeding. [facility] Medical History Lung nodule Wears glasses Wears dentures Post-menopausal Bladder disease Low iron Back pain Numbness and tingling Syncope Heartburn Non-smoker History of GI bleed Tremor HLD (hyperlipidemia) HTN (hypertension) Home Medications ?Medication ?Instructions ?Recorded ?Last Taken ?Type B-complex with vitamin C 1 cap PO DAILY supplient 10/17/23 02/28/24 History coQ10 (ubiquinol) 100 mg capsule 100 mg PO DAILY supplement 10/17/23 02/28/24 History (Qunol Jonny CoQ10) ferrous sulfate 15 mg iron (75 18 mg PO DAILY anemia 10/17/23 02/28/24 History mg)/mL oral syringe (ORAL USE) (Fe-Fadia) magnesium 200 mg tablet 200 mg PO DAILY supplement 10/17/23 02/28/24 History metoprolol tartrate 25 mg tablet 12.5 mg PO DAILY heart 10/17/23 03/02/24 History metoprolol tartrate 25 mg tablet 25 mg PO QPM heart 10/17/23 02/28/24 History atorvastatin 10 mg tablet 10 mg PO DAILY cholesterol 02/29/24 02/29/24 History tramadol 50 mg tablet 50 mg PO BID PRN PRN pain 02/29/24 Unknown History Allergy/AdvReac Type Severity Reaction Status Date / Time No Known Allergies Allergy Verified 02/29/24 14:38 Family History Mother CAD (coronary artery disease) Brother Heart disease Surgical History History of esophagogastroduodenoscopy (EGD) Hx of colonoscopy Social History household members: none housing: house Smoking Status: Never smoker alcohol intake: never substance use type: does not use ROS Constitutional Constitutional: Denies chills, fatigue, fever(s) or malaise Eyes Eyes: Denies blurry vision ENT HEENT: Denies headache(s) or nasal discharge Cardiovascular Cardiovascular: Denies chest pain, dyspnea on exertion or syncope Respiratory/Chest Respiratory/Chest: Denies cough, shortness of breath at rest or shortness of breath with exertion Gastrointestinal Gastrointestinal: Reports hematochezia and melena; Denies constipation, diarrhea, hematemesis, nausea or vomiting Genitourinary Genitourinary: Denies dysuria Neurologic Neurologic: Denies focal weakness, numbness or tremor(s) Psychiatric Psychiatric: Denies anxiety or depression Physical Exam Narrative General: Alert, Oriented x3, Cooperative, No apparent distress HEENT: Atraumatic, PERRLA, EOMI, Normocephalic Oral: Moist Mucosa Neck: Supple, No JVD Lungs: Clear to auscultation, Normal air movement, No rhonchi, No wheeze, No rales Cardiovascular: Regular rate, Regular Rhythm, Normal S1, Normal S2, No murmurs Abdomen: Soft, Non Tender, Non-Distended, No Hepato-splenomegaly Extremities: No edema, Capillary Refill Less than 3 Seconds Skin: No rashes, No breakdown Musculoskeletal: No Tenderness to Palpation of Joints or Extremities Neurological: No focal neurological deficits, Motor Exam 5/5 strength throughout, Sensory exam intact to light touch and pain Psych/Mental Status: Normal Affect, Appropriate Lab / Micro Data 03/02/24 04:18 03/02/24 04:18 Labs: Laboratory Results - last 24 hr 03/01/24 11:50: Crossmatch See Detail 03/02/24 04:18: WBC 5.8, RBC 3.32 L, Hgb 8.8 L, Hct 27.3 L, MCV 82.2, MCH 26.5 L , MCHC 32.2 D, RDW Std Deviation 50.4 H, RDW Coeff of Brenda 17.1 H, Plt Count 431, MPV 9.1, Immature Gran % (Auto) 0.500, Neut % (Auto) 35.7 L, Lymph % (Auto) 43.9 H, [place] % (Auto) 18.5 H, Eos % (Auto) 0.9, Baso % (Auto) 0.5, Absolute Neuts (auto) 2.1, Absolute Lymphs (auto) 2.54, Nucleated RBC % 0, PT 15.0 H, INR 1.2, APTT 36.6 H, Sodium 138, Potassium 3.4 L, Chloride 109 H, Carbon Dioxide 23.0, Anion Gap 6, BUN 8, Creatinine 0.85, Estim Creat Clear Calc 40.36, Est GFR (MDRD) Af Amer 83, Est GFR (MDRD) Non-Af 68, BUN/Creatinine Ratio 9.4 L, Glucose 101, Calcium 9.0 Assessment & Plan Assessment/Plan (1) Rectal bleeding: PLAN: She will need colonoscopy to evaluate her colon for GI bleeding. There is diffuse colitis seen on her previous colonoscopy with some thickening of bowel pouches in the sigmoid colon possibly secondary to diverticulitis. (2) Anemia: QUALIFIERS: Anemia type: iron deficiency Iron deficiency anemia type: chronic blood loss Qualified Code(s): D50.0 - Iron deficiency anemia secondary to blood loss (chronic) PLAN: She should have an upper and lower endoscopy due to her BUN to creatinine ratio being elevated to rule out any peptic ulcer disease since she takes aspirin as other etiologies of her anemia along with possible colonic malignancy she will need a colonoscopy. She received 2 units of packed red blood cells. (3) History of GI diverticular bleed: (4) GI bleed: Charges/Coding Visit Charges Inpatient E&M: 38520 Init Hosp L3
[2024-03-01] MEDS: Metoprolol Tartrate 25 MG Tablet PO (21:41)
[2024-03-01] MEDS: Atorvastatin Calcium 10 MG Tablet PO (21:41)
[2024-03-02] VITALS (14 sets, daily range): BP systolic 90–128; BP diastolic 50–90; PULSE 67–93; RESP 16–18; TEMP 36.2–36.8; O2SAT 92–100; BMI 20.3
[2024-03-02 04:37] LABS: Absolute Lymphocyte Count 2.54 X10^3/uL (0.83-4.51); Absolute Neutrophil Count 2.1 X10^3/uL (2.0-7.7); Basophil# 0.03 X10^3/uL; Basophil% 0.5 % (0-1); Eosinophil# 0.05 X10^3/uL; Eosinophils% 0.9 % (0-5); Hematocrit 27.3 % (37-47); Hemoglobin 8.8 g/dL (12.0-15.0); Lymphocyte # 2.54 X10^3/ul (0.83-4.51); Lymphocyte % 43.9 % (19-41); Mean Corp Hgb Conc 32.2 g/dL (32-36); Mean Corpuscular Hgb 26.5 pg (27.0-32.0); Mean Corpuscular Volume 82.2 fL (81-99); Mean Platelet Vol. 9.1 fl (6.2-12.0); Monocyte# 1.07 X10^3/uL; Monocyte% 18.5 % (0-10); NRBC Flagged by Analyzer 0 % (0-5); Neutrophil # 2.06 X10^3/uL (2.7-7.7); Neutrophil % 35.7 % (47-70); Platelet Count 431 K/mm3 (150-450); RBC Distribution Width CV 17.1 % (11.6-14.6); RBC Distribution Width SD 50.4 fl (35.1-43.9); Red Blood Count 3.32 M/mm3 (4.2-5.4); White Blood Count 5.8 K/mm3 (4.4-11.0)
[2024-03-02 04:47] LABS: International Normalized Ratio 1.2
[2024-03-02 04:48] LABS: Partial Thromboplast Time 36.6 Seconds (24.1-36.2)
[2024-03-02 04:53] LABS: Anion Gap 6 (5-15); BUN 8 mg/dL (7-18); BUN/Creat Ratio 9.4 RATIO (10-20); Chloride 109 mmol/L (98-107); Creatinine, Serum 0.85 mg/dL (0.55-1.02); EST Glomerular Filtration Rate 68 mL/min (>60); Est Glom Filt Rate - Afr Amer 83 mL/min (>60); Estimated Creatinine Clearance 40.36 ml/min; Glucose 101 mg/dL (74-106); Potassium 3.4 mmol/L (3.5-5.1); Sodium Level 138 mmol/L (136-145)
--- NOTE | 2024-03-02 05:00 | EKG12_ITS ---
Test Reason : AM EKG Blood Pressure : */* mmHG Vent. Rate : 69 BPM Atrial Rate : 69 BPM P-R Int : 170 ms QRS Dur : 80 ms QT Int : 386 ms P-R-T Axes : 39 -59 57 degrees QTcB Int : 413 ms Normal sinus rhythm Left axis deviation Low voltage QRS Abnormal ECG When compared with ECG of 28-May-2023 08:13, No significant change was found Confirmed by SHANTA PADILLA, JACQUELINE ([id number]), editorial project manager JOSÉ CLEVELAND ([id number]) on 03/02/2024 10:01:19 AM Referred By: Confirmed By: JACQUELINE WOMACK MD
--- NOTE | 2024-03-02 09:50 | PCM.PN.HOSP ---
Subjective Subjective Doing well, no issues overnight. Tolerated prep Objective Data Objective Data Vital Signs: Vital Signs Temp Pulse Resp BP Pulse Ox O2 Del Method 98.1 F 73 18 112/63 97 Room Air 03/02/24 08:10 03/02/24 08:10 03/02/24 08:10 03/02/24 08:10 03/02/24 08:10 03/02/24 08:10 Oxygen Delivery Method Room Air Weight: 111 lb 15.917 oz Body Mass Index (BMI) 20.3 Intake & Output: Intake and Output for Last 24 Hours 03/01/24 03/02/24 03/03/24 03:59 03:59 03:59 Intake Total 620 / 620 1740 / 1740 Balance 620 / 620 1740 / 1740 Lab / Micro Data 03/02/24 04:18 03/02/24 04:18 Labs: Laboratory Results - last 24 hr 03/01/24 11:48: Hgb 7.1 L, Hct 22.8 L 03/01/24 11:50: Blood Type A NEGATIVE, Antibody Screen NEGATIVE, Crossmatch See Detail 03/02/24 04:18: WBC 5.8, RBC 3.32 L, Hgb 8.8 L, Hct 27.3 L, MCV 82.2, MCH 26.5 L, MCHC 32.2 D, RDW Std Deviation 50.4 H, RDW Coeff of Brenda 17.1 H, Plt Count 431, MPV 9.1, Immature Gran % (Auto) 0.500, Neut % (Auto) 35.7 L, Lymph % (Auto) 43.9 H, [place] % (Auto) 18.5 H, Eos % (Auto) 0.9, Baso % (Auto) 0.5, Absolute Neuts (auto) 2.1, Absolute Lymphs (auto) 2.54, Nucleated RBC % 0, PT 15.0 H, INR 1.2, APTT 36.6 H, Sodium 138, Potassium 3.4 L, Chloride 109 H, Carbon Dioxide 23.0, Anion Gap 6, BUN 8, Creatinine 0.85, Estim Creat Clear Calc 40.36, Est GFR (MDRD) Af Amer 83, Est GFR (MDRD) Non-Af 68, BUN/Creatinine Ratio 9.4 L, Glucose 101, Calcium 9.0 Physical Exam Narrative General: Alert, Oriented x3, Cooperative, No apparent distress HEENT: Atraumatic, PERRLA, EOMI, Normocephalic Oral: Moist Mucosa Neck: Supple, No JVD Lungs: Clear to auscultation, Normal air movement, No rhonchi, No wheeze, No rales Cardiovascular: Regular rate, Regular Rhythm, Normal S1, Normal S2, No murmurs Abdomen: Soft, Non Tender, Non-Distended, No Hepato-splenomegaly Extremities: No edema, Capillary Refill Less than 3 Seconds Skin: No rashes, No breakdown Musculoskeletal: No Tenderness to Palpation of Joints or Extremities Neurological: No focal neurological deficits, Motor Exam 5/5 strength throughout, Sensory exam intact to light touch and pain Psych/Mental Status: Normal Affect, Appropriate Assessment & Plan Assessment/Plan (1) History of GI diverticular bleed: (2) Anemia: QUALIFIERS: Anemia type: iron deficiency Iron deficiency anemia type: chronic blood loss Qualified Code(s): D50.0 - Iron deficiency anemia secondary to blood loss (chronic) PLAN: Plan 1. Bright red blood per rectum in the setting of iron deficiency anemia known diverticular bleeding and duodenal ulcers ? Hemoglobin 7.1 yesterday on recheck she was transfused 1 unit now up to 8.8 ? Continue with twice daily PPI given her history of duodenal ulcers and esophagitis ? Currently n.p.o., discussed with GI plan for colonoscopy and possible EGD today 2. Essential HTN/HLD ? Continue with her home blood pressure medications ? Continue with her cholesterol medications ? Will monitor and make adjustments as necessary DVT: Ambulation Charges/Coding Visit Charges Inpatient E&M: 92776 Subs Hosp L2
[2024-03-02] MEDS: Metoprolol Tartrate 25 MG Tablet 12.5 MG PO (10:26)
[2024-03-02] MEDS: Pantoprazole Sodium 40 MG Tablet PO ×2 (10:26→21:21)
[2024-03-02] MEDS: 0.9% Saline Lock 10 ML Syringe IV (10:28)
--- NOTE | 2024-03-02 13:07 | CASEMGMT ---
SHARRI IGLESIAS Assessment: Face to Face with pt for initial transition planning/care coordination assessment. SHARRI IGLESIAS introduced self and role at [facility], pt voices understanding and consents to assessment. Pt is A&O x4 and answers all questions appropriately at this time. Pt resting in bed in no distress. Care providers, pharmacy, and demographics verified/updated. Admitting Dx: GI Bleed PCP: Dariel Specialists: Denies Preferred Pharmacy: [facility] Insurance: Eddie PERRY Prescription Benefit: yes LNOK: alone Living Arrangements: Pt lives alone in a condo with no steps to enter in. ADLs: Pt states I with ADLs and IADLs. Transportation: Pt drives self. Pt has car here, does not have any family close by. Plans to drive self home upon DC, notified SHARRI IGLESIAS on floor. DME: Walker, cane, shower bench. HHC/SNF: Denies Hx of. Pt states no concerns with going home at time of dc. Pt states no further concerns/needs. CM to follow. Advised pt to ask CM if any further question/concerns/needs arise, voices understanding. Pt Goal: Home Plan: Home, follow plan of care.
--- NOTE | 2024-03-02 14:58 | CHAPLAIN ---
Type of Pastoral Visit _x__ Initial Visit ___ Follow-up Visit ___ On-call Visit ___ General Patient Visit ___ Spiritual Assessment ___ Family Conference ___ Bereavement ___ Rapid Response ___ Code Blue ___ Other (describe below) Pastoral Care Referral From _x__ Patient ___ Family ___ Nurse ___ Physician ___ Slicing Machine Operator/Tender ___ Auto Mechanics Instructor ___ Other (describe below) Sacrament/Intervention _x__ Active listening ___ Anointing ___ Orthodox ___ Bereavement ___ Communion _x__ Jayda exploration ___ ___ Life review _x__ Prayer ___ Reconciliation ___ Sacrament of Sick _x__ Supportive presence ___ Wedding ___ Other (describe below) Pastoral Comments patient is waiting to have a scope done and is eager to have conversation and a prayer first; pt gives some life details but her concern is the weather and how it might be when she has to drive home; pt reviews her quest for a new jayda community and welcomes a prayer
--- NOTE | 2024-03-02 15:47 | PCM.PRE.AN2 ---
ASA Classification* ASA Classification ASA Classification: 2 Assessment & Plan Anesthesia* Anesthesia Assessment Anesthesia Assessment: Discussed sedation and/or anesthesia options, risks, benefits, and alternatives with patient/parents/legal guardian/POA. Questions invited. The patient/parents/legal guardian/POA seems to understand and agrees to proceed with anesthesia plan. Reviewed the physical assessment, medical history, allergy history and patient home medications list prior to surgery/procedure/anesthetic and documented any changes. Performed airway and anesthesia risk assessments. Anesthesia Type Anesthesia Type: MAC History Source History Obtained from:: Patient and Chart Anesthesia Focused Assessment* Temperature: 98.2 F Pulse Rate: 72 Blood Pressure: 109/63 Respiratory Rate: 18 Pulse Ox: 100 Oxygen Delivery Method: Room Air Airway Assessment Mouth opens: >3 cm Mallampati Score: III Teeth Condition: Caps/Crowns (Patient has several permanent implants on the top and they are all tight.), Missing (Multiple missing teeth lower as well. Rest of the teeth are tight) and Partial (Upper partials are out.) Neck Range of motion (ROM): Full ROM Focused Labs Anesthesia Preop lab: CBC WBC 5.8 K/mm3 (4.4-11.0) 03/02/24 04:18 RBC 3.32 M/mm3 (4.2-5.4) L 03/02/24 04:18 Hgb 8.8 g/dL (12.0-15.0) L 03/02/24 04:18 Hct 27.3 % (37-47) L 03/02/24 04:18 Plt Count 431 K/mm3 (150-450) 03/02/24 04:18 CHEMISTRY Potassium 3.4 mmol/L (3.5-5.1) L 03/02/24 04:18 Sodium 138 mmol/L (136-145) 03/02/24 04:18 Magnesium 2.3 mg/dL (1.6-2.6) 10/17/23 16:31 Phosphorus 3.0 mg/dL (2.5-4.9) 10/17/23 16:31 BUN 8 mg/dL (7-18) 03/02/24 04:18 Creatinine 0.85 mg/dL (0.55-1.02) 03/02/24 04:18 Glucose 101 mg/dL (74-106) 03/02/24 04:18 TSH 1.380 uIU/mL (0.358-3.740) 10/17/23 16:31 COAG PT 15.0 SECONDS (11.7-14.9) H 03/02/24 04:18 Pre-Assessment Diagnosis/Proposed Procedure Planned Operative Procedure(s): Esophagogastroduodenoscopy with possible biopsy. 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 When Was Last Pacemaker Check QUESTION #4 FULL TEXT: You/Your Family Experience fever (hyperthermia) with Anesthesia Last Oral Intake Last Oral intake: Last Oral Intake NPO since 00:00 03/02/24 14:10 Meds taken in AM with sips of Yes 03/02/24 14:10 water? Meds patient instructed to protonix, lopressor 03/02/24 14:10 take am of surgery Any additional information?: Yes Meds taken in AM with sips of water?: Yes PONV PONV - loading unit operator seating: PONV - loading unit operator seating Female HX of Motion Sickness HX of N/V After Surgery Non-Smoker Duration of Surgery greater than 60 minutes Number of Risk Factors PONV Score Height & Weight Height & Weight: Anesthesia: Height & Weight Height 5 ft 2.25 in 03/02/24 14:12 Weight: 50.8 kg 03/02/24 14:12 Body Mass Index (BMI) 20.3 03/02/24 14:10 Respiratory Assessment Respiratory Assessment - loading unit operator seating: Respiratory Tract Infection Hx - loading unit operator seating Hx Respiratory Tract Infection No 03/01/24 18:54 Any additional information?: Yes Hx Respiratory Tract Infection: Yes (Patient has had a lingering cough and cold for about a week.) STOP Sleep Apnea STOP Sleep Apnea - loading unit operator seating: STOP Sleep Apnea - loading unit operator seating Hx Hypertension Yes 02/29/24 17:10 Hx Sleep Apnea No 02/29/24 17:10 CPAP BIPAP Do you snore loudly (louder No 02/29/24 17:10 than talking or can be heard Do you often feel tired/ Yes 02/29/24 17:10 fatigued/ sleepy during daytime? Has anyone observed you stop No 02/29/24 17:10 breathing during sleep? STOP Results Positive 02/29/24 17:10 QUESTION #5 FULL TEXT : Do you snore loudly (louder than talking or can be heard through closed doors)? 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 Specify any problems Hx of Preganancy in last 3 N/A 02/29/24 17:10 Months Nurse Filling Out Transfusion DSLOAN 02/29/24 17:10 & Questions: Date: 02/29/24 02/29/24 17:10 Time: 17:11 02/29/24 17:10 Patient unable to answer at this time (ie. confused, unrespo /Reproduction History /Reproductive History - loading unit operator seating: /Reproductive Hx- loading unit operator seating Hx Now Gestational Age (in weeks): EDC: Hx Hx Para Hx Section SAB No 03/01/24 18:54 Active Medications Active Medications: Current Medications Generic Name Dose Route Start Last Admin Trade Name Freq PRN Reason Stop Dose Admin Atorvastatin Calcium 10 mg 03/01/24 22:00 03/01/24 21:41 Atorvastatin Calcium 10 Mg Tablet PO 10 mg QHS KAILASH Administration Sodium Chloride 100 mls @ 15 mls/hr 02/29/24 17:08 IV .Q6H40M PRN Saline Flush Sodium Chloride 100 mls @ 15 mls/hr 02/29/24 17:08 IV .Q6H40M PRN Additional IVPB Infusion Metoprolol Tartrate 12.5 mg 03/01/24 10:00 03/02/24 10:26 Metoprolol Tartrate 25 Mg Tablet PO 12.5 mg DAILY KAILASH Administration Protocol Metoprolol Tartrate 25 mg 02/29/24 21:00 03/01/24 21:41 Metoprolol Tartrate 25 Mg Tablet PO 25 mg QPM KAILASH Administration Protocol Pantoprazole Sodium 40 mg 02/29/24 17:05 03/02/24 10:26 Pantoprazole Sodium 40 Mg Tablet PO 40 mg BID KAILASH Administration Sodium Chloride 10 - 40 ml 02/29/24 17:08 03/02/24 10:28 0.9% Saline Lock 10 Ml Syringe IV 10 ml UD PRN Administration SALINE FLUSH [facility] Medical History Lung nodule Wears glasses Wears dentures Post-menopausal Bladder disease Low iron Back pain Numbness and tingling Syncope Heartburn Non-smoker History of GI bleed Tremor HLD (hyperlipidemia) HTN (hypertension) Home Medications ?Medication ?Instructions ?Recorded ?Last Taken ?Type B-complex with vitamin C 1 cap PO DAILY supplient 10/17/23 02/28/24 History coQ10 (ubiquinol) 100 mg capsule 100 mg PO DAILY supplement 10/17/23 02/28/24 History (Qunol Jonny CoQ10) ferrous sulfate 15 mg iron (75 18 mg PO DAILY anemia 10/17/23 02/28/24 History mg)/mL oral syringe (ORAL USE) (Fe-Fadia) magnesium 200 mg tablet 200 mg PO DAILY supplement 10/17/23 02/28/24 History metoprolol tartrate 25 mg tablet 12.5 mg PO DAILY heart 10/17/23 03/02/24 History metoprolol tartrate 25 mg tablet 25 mg PO QPM heart 10/17/23 02/28/24 History atorvastatin 10 mg tablet 10 mg PO DAILY cholesterol 02/29/24 02/29/24 History tramadol 50 mg tablet 50 mg PO BID PRN PRN pain 02/29/24 Unknown History Allergy/AdvReac Type Severity Reaction Status Date / Time No Known Allergies Allergy Verified 02/29/24 14:38 Family History Mother CAD (coronary artery disease) Brother Heart disease Surgical History History of esophagogastroduodenoscopy (EGD) Hx of colonoscopy Social History household members: none housing: house Smoking Status: Never smoker alcohol intake: never substance use type: does not use Review of Systems (Anesthesia) ROS Narrative System reviewed and no additional complaints, except as documented.
--- NOTE | 2024-03-02 16:00 | IMM_PTH ---
PATIENT: AMANDA GRAY LOC: [facility] U#:[id number] AGE/SX: 84/F ROOM: [facility] RE03/01/[address]: Dr. Megan Foster MD : 1940 BED: 1 DIS: 03/07/2024 SPEC #: [id number] RECD: 03/03/24 11:52 STATUS: SOUT REQ #: [id number] NARINDER: 03/02/24 16:[address]: Yaya Duff DEPT: IMMUNOHISTOCHEMISTRY RECD BY: Flakito Schroeder ENTERED: 03/03/24 11:53 SP TYPE: IMMUNO OTHR DR: MD Dr. Davonte Tanner MD Dr. Paige Pierce, MD Tissues: Gastric mucous membrane Procedures: H Pylori (initial) Comments: @ Ordering doctor for H.PYLORI edited from to @ by ADOLFO at 03/03/24 1153 @ Submitting doctor edited from to @ by ADOLFO at 03/03/24 1153 PHYSICIAN & INSTITUTION [place] [id number] SPECIMEN INFORMATION: Tissue Source: Gastric ulcer biopsy Clinical Info: Remberto Specimen Number: [id number] CPT code: 88418 METHODOLOGY: Deparaffinized sections of prefer/formalin-fixed tissue or PAP/DQ stained slides are incubated with monoclonal/polyclonal antibodies/oligonucleotide probes. Localization is made via biotin free immunoperoxidase method. Appropriate controls are performed and reacted as expected. Results on target cell population are indicated in the following table: RESULTS: ANTIBODY / CLONE RESULT H Pylori (polyclonal) Negative for H. pylori organisms These tests were developed and their performance characteristics determined by [facility]. They may not have been cleared or approved by the U.S. Food and Drug Administration. The FDA has determined that such clearance or approval is not necessary. The above immunohistochemical/dualISH markers are ordered and reviewed by the Pathologist. INTERPRETATION: Gastric ulcer, biopsy: Negative for H. pylori organisms CED, 03/04/2024
--- NOTE | 2024-03-02 16:00 | EGD_PTH ---
PATIENT: AMANDA GRAY LOC: [facility] U#:[id number] AGE/SX: 84/F ROOM: [facility] RE03/01/[address]: Dr. Megan Foster MD : 1940 BED: 1 DIS: 03/07/2024 SPEC #: [id number] RECD: 03/03/24 09:42 STATUS: RAFAELA RELizzie #: [id number] NARINDER: 03/02/24 16:[address]: Yaya Duff DEPT: SURGICAL PATHOLOGY RECD BY: Krista Mccormack ENTERED: 03/03/24 10:52 SP TYPE: EGD BIOPSY OTHR DR: MD Dr. Davonte Tanner MD Dr. Paige Pierce, MD Tissues: Gastric mucous membrane Procedures: Surgery Specimen Level IV Comments: @ Ordering doctor for SUIV edited from to @ by ADOLFO at 03/03/24 1126 @ Submitting doctor edited from to @ by ADOLFO at 03/03/24 1126 HEADER OPERATION: Colonoscopy with clip applied and tattoo, EGD with biopsy PRE-OP DIAGNOSIS: Anemia TISSUE SUBMITTED: Gastric ulcer biopsy MICROSCOPIC DIAGNOSIS Gastric Ulcer, Biopsy: 1. Antral mucosa with intestinal metaplasia. 2. No erosions or ulceration, gastritis, polyps, or dysplasia. 3. An immunohistochemical stain with appropriate controls for H. pylori is negative for organisms. CED, 03/04/2024 COMMENT The results of immunohistochemistry for Helicobacter pylori will be reported separately ([id number]). MICROSCOPIC DESCRIPTION Slides are reviewed. GROSS DESCRIPTION Received in fixative is one container labeled with the patient's name and designated Gastric ulcer biopsy. The specimen consists of two irregular fragments of light mansfield soft tissue that in aggregate measure 1.0 x 0.5 x 0.2 cm. The specimen is totally submitted in one cassette. 03/03/2024 TC:4 CPT:53805
--- NOTE | 2024-03-02 16:13 | PN.GI_ITS ---
Subjective Subjective Patient is doing well. She tolerated a prep without any problems. She states that her stools have been clear. Objective Data Objective Data Vital Signs: Vital Signs Temp Pulse Resp BP Pulse Ox O2 Del Method 98.2 F 72 18 109/63 100 Room Air 03/02/24 15:50 03/02/24 15:50 03/02/24 15:50 03/02/24 15:50 03/02/24 15:50 03/02/24 15:59 Oxygen Delivery Method Room Air Weight: 111 lb 15.917 oz Body Mass Index (BMI) 20.3 Intake & Output: Intake and Output for Last 24 Hours 02/29/24 03/01/24 03/02/24 23:59 23:59 23:59 Intake Total 620 / 620 1740 / 1740 Balance 620 / 620 1740 / 1740 Lab / Micro Data 03/02/24 04:18 03/02/24 04:18 Labs: Laboratory Results - last 24 hr 03/01/24 11:50: Crossmatch See Detail 03/02/24 04:18: WBC 5.8, RBC 3.32 L, Hgb 8.8 L, Hct 27.3 L, MCV 82.2, MCH 26.5 L , MCHC 32.2 D, RDW Std Deviation 50.4 H, RDW Coeff of Brenda 17.1 H, Plt Count 431, MPV 9.1, Immature Gran % (Auto) 0.500, Neut % (Auto) 35.7 L, Lymph % (Auto) 43.9 H, [place] % (Auto) 18.5 H, Eos % (Auto) 0.9, Baso % (Auto) 0.5, Absolute Neuts (auto) 2.1, Absolute Lymphs (auto) 2.54, Nucleated RBC % 0, PT 15.0 H, INR 1.2, APTT 36.6 H, Sodium 138, Potassium 3.4 L, Chloride 109 H, Carbon Dioxide 23.0, Anion Gap 6, BUN 8, Creatinine 0.85, Estim Creat Clear Calc 40.36, Est GFR (MDRD) Af Amer 83, Est GFR (MDRD) Non-Af 68, BUN/Creatinine Ratio 9.4 L, Glucose 101, Calcium 9.0 Physical Exam Narrative General: Alert, Oriented x3, Cooperative, No apparent distress HEENT: Atraumatic, PERRLA, EOMI, Normocephalic Oral: Moist Mucosa Neck: Supple, No JVD Lungs: Clear to auscultation, Normal air movement, No rhonchi, No wheeze, No rales Cardiovascular: Regular rate, Regular Rhythm, Normal S1, Normal S2, No murmurs Abdomen: Soft, Non Tender, Non-Distended, No Hepato-splenomegaly Extremities: No edema, Capillary Refill Less than 3 Seconds Skin: No rashes, No breakdown Musculoskeletal: No Tenderness to Palpation of Joints or Extremities Neurological: No focal neurological deficits, Motor Exam 5/5 strength throughout, Sensory exam intact to light touch and pain Psych/Mental Status: Normal Affect, Appropriate Assessment & Plan Assessment/Plan (1) Rectal bleeding: PLAN: She will need colonoscopy to evaluate her colon for GI bleeding. There is diffuse colitis seen on her previous colonoscopy with some thickening of bowel pouches in the sigmoid colon possibly secondary to diverticulitis. (2) Anemia: QUALIFIERS: Anemia type: iron deficiency Iron deficiency anemia type: chronic blood loss Qualified Code(s): D50.0 - Iron deficiency anemia secondary to blood loss (chronic) PLAN: She should have an upper and lower endoscopy due to her BUN to creatinine ratio being elevated to rule out any peptic ulcer disease since she takes aspirin as other etiologies of her anemia along with possible colonic malignancy she will need a colonoscopy. She received 2 units of packed red blood cells. (3) History of GI diverticular bleed: (4) GI bleed: Charges/Coding Visit Charges Inpatient E&M: 09533 Subs Hosp L3
--- NOTE | 2024-03-02 17:05 | OP.CCLET_ITS ---
03/02/2024 Ravindra Vieira Md Re : Upper GI endoscopy procedure for Thania Jonas Dear Dariel This procedure was performed on Saturday, March 02, 2024. My impressions and recommendations are as follows: Impressions : - Normal esophagus. - Medium-sized hiatal hernia. - No gross lesions in the first portion of the duodenum. - No specimens collected. Recommendations : - Resume previous diet [Duration]. - Continue present medications. My findings are described in the full procedure note, which is enclosed. If I can be of further assistance, please feel free to contact me at . Sincerely, Yaya Duff, 03/02/2024 5:04:52 PM This report has been signed electronically.
--- NOTE | 2024-03-02 17:05 | OP.EGD_ITS ---
Patient Name: Thania Jonas Procedure Date: 03/02/2024 4:09 PM Date of : 1940 Age: 84 Procedure: Upper GI endoscopy Indications: Hematochezia, Recent gastrointestinal bleeding Providers: Yaya Duff DO Medicines: Monitored Anesthesia Care Patient Profile: This is an 84 year old female. Refer to note in patient chart for documentation of history and physical. Patient has symptoms of acute abdominal cramping. Complications: No immediate complications. Procedure: Pre-Anesthesia Assessment: - Prior to the procedure, a History and Physical was performed, and patient medications and allergies were reviewed. The patient is competent. The risks and benefits of the procedure and the sedation options and risks were discussed with the patient. All questions were answered and informed consent was obtained. Patient identification and proposed procedure were verified by the physician in the pre-procedure area. Mental Status Examination: alert and oriented. Airway Examination: normal oropharyngeal airway and neck mobility. Respiratory Examination: clear to auscultation. CV Examination: normal. Prophylactic Antibiotics: The patient does not require prophylactic antibiotics. Prior Anticoagulants: The patient has taken no anticoagulant or antiplatelet agents except for NSAID medication. ASA Grade Assessment: III - A patient with severe systemic disease. After reviewing the risks and benefits, the patient was deemed in satisfactory condition to undergo the procedure. The anesthesia plan was to use monitored anesthesia care (MAC). Immediately prior to administration of medications, the patient was re-assessed for adequacy to receive sedatives. The heart rate, respiratory rate, oxygen saturations, blood pressure, adequacy of pulmonary ventilation, and response to care were monitored throughout the procedure. The physical status of the patient was re-assessed after the procedure. After obtaining informed consent, the endoscope was passed under direct vision. Throughout the procedure, the patient's blood pressure, pulse, and oxygen saturations were monitored continuously. The Colonoscope was introduced through the mouth, and advanced to the second part of duodenum. The upper GI endoscopy was accomplished without difficulty. The patient tolerated the procedure well. Scope In: 4:26:28 PM Scope Out: 4:30:23 PM Total Procedure Duration Time 0 hours 3 minutes 55 seconds Findings: The examined esophagus was normal. A medium-sized hiatal hernia was present. No gross lesions were noted in the first portion of the duodenum. Two non-bleeding linear gastric ulcers with no stigmata of bleeding were found in the gastric antrum. The largest lesion was 3 mm in largest dimension. Biopsies were taken with a cold forceps for histology. Verification of patient identification for the specimen was done. Estimated blood loss was minimal. Impression: - Normal esophagus. - Medium-sized hiatal hernia. - No gross lesions in the first portion of the duodenum. - No specimens collected. Recommendation: - Resume previous diet [Duration]. - Continue present medications. Procedure Code(s): --- Professional --- 14412, Esophagogastroduodenoscopy, flexible, transoral; with biopsy, single or multiple CPT copyright 2021 [employer]. All rights reserved. The codes documented in this report are preliminary and upon lockstitch lining setter review may be revised to meet current compliance requirements. Yaya Duff DO 03/02/2024 5:04:52 PM This report has been signed electronically. Number of Addenda: 0 Note Initiated On: 03/02/2024 4:09 PM
--- NOTE | 2024-03-02 17:06 | PCM.POST.ANE ---
Anesthesia: Postop Eval I Current Vital Signs Temperature: 97.2 F Pulse Rate: 72 Blood Pressure: 91/55 Respiratory Rate: 16 Pulse Ox: 92 Oxygen Delivery Method: Room Air Assessment Airway patent: Yes Spontaneous unlabored respirations: Yes Mental status: Asleep nausea: No Vomiting: No Anesthesia Complication: No Fluid Hydration Crystalloid volume administer (ml): 60 Total IV fluid infused: 60 Progress Note Anesthesia document: Postop Eval 1 completed: Yes
--- NOTE | 2024-03-02 17:14 | OP.COLON_ITS ---
Patient Name: Thania Jonas Procedure Date: 03/02/2024 4:30 PM Date of : 1940 Age: 84 Procedure: Colonoscopy Indications: Hematochezia Providers: Yaya Duff DO Medicines: Monitored Anesthesia Care Patient Profile: This is an 84 year old female. Refer to note in patient chart for documentation of history and physical. Patient has symptoms of acute abdominal cramping. Last Colonoscopy: 1 year ago. Complications: No immediate complications. Procedure: Pre-Anesthesia Assessment: - Prior to the procedure, a History and Physical was performed, and patient medications and allergies were reviewed. The patient is competent. The risks and benefits of the procedure and the sedation options and risks were discussed with the patient. All questions were answered and informed consent was obtained. Patient identification and proposed procedure were verified by the physician in the pre-procedure area. Mental Status Examination: alert and oriented. Airway Examination: normal oropharyngeal airway and neck mobility. Respiratory Examination: clear to auscultation. CV Examination: normal. Prophylactic Antibiotics: The patient does not require prophylactic antibiotics. Prior Anticoagulants: The patient has taken no anticoagulant or antiplatelet agents except for NSAID medication. ASA Grade Assessment: III - A patient with severe systemic disease. After reviewing the risks and benefits, the patient was deemed in satisfactory condition to undergo the procedure. The anesthesia plan was to use monitored anesthesia care (MAC). Immediately prior to administration of medications, the patient was re-assessed for adequacy to receive sedatives. The heart rate, respiratory rate, oxygen saturations, blood pressure, adequacy of pulmonary ventilation, and response to care were monitored throughout the procedure. The physical status of the patient was re-assessed after the procedure. After I obtained informed consent, the scope was passed under direct vision. Throughout the procedure, the patient's blood pressure, pulse, and oxygen saturations were monitored continuously. The Colonoscope was introduced through the anus and advanced to the cecum, identified by appendiceal orifice and ileocecal valve. The colonoscopy was performed without difficulty. The patient tolerated the procedure well. The quality of the bowel preparation was good. The ileocecal valve, appendiceal orifice, and rectum were photographed. Scope In: 4:32:16 PM Scope Withdrawal Time 0 hours 18 minutes 8 seconds Scope Out: 4:55:41 PM Total Procedure Duration Time 0 hours 23 minutes 25 seconds Findings: The perianal and digital rectal examinations were normal. Multiple small and large-mouthed diverticula were found in the recto-sigmoid colon and sigmoid colon. Red blood was found in the recto-sigmoid colon and in the sigmoid colon. Lavage of the area was performed using a large amount of sterile water, resulting in clearance with excellent visualization. Localized moderate inflammation characterized by adherent blood was found [Site]. For location marking, one hemostatic clip was successfully placed. Clip calender roll operator: A V.E.T.S.c.a.r.e.. There was no bleeding at the end of the procedure. Area was tattooed with an injection of 1 mL of Juany ink. Estimated blood loss was minimal. Impression: - Diverticulosis in the recto-sigmoid colon and in the sigmoid colon. - Blood in the recto-sigmoid colon and in the sigmoid colon. - Localized moderate inflammation was found consistent with ischemic colitis. Clip was placed. Clip calender roll operator: A V.E.T.S.c.a.r.e.. Tattooed. - No specimens collected. Recommendation: - Return patient to [facility] care. - Full liquid diet. - Continue present medications. - Surgical consultation for segmental resection as suggested by her daughter Indira Cheek - No repeat colonoscopy due to age. Procedure Code(s): --- Professional --- 43265, Colonoscopy, flexible; with directed submucosal injection(s), any substance 09605, Unlisted procedure, colon CPT copyright 2021 [employer]. All rights reserved. The codes documented in this report are preliminary and upon body shop mechanic review may be revised to meet current compliance requirements. Yaya Duff DO 03/02/2024 5:13:31 PM This report has been signed electronically. Number of Addenda: 0 Note Initiated On: 03/02/2024 4:30 PM
--- NOTE | 2024-03-02 17:14 | OP.CCLET_ITS ---
03/02/2024 Ravindra Vieira Md Re : Colonoscopy procedure for Thania Jonas Shalinir Dariel This procedure was performed on Saturday, March 02, 2024. My impressions and recommendations are as follows: Impressions : - Diverticulosis in the recto-sigmoid colon and in the sigmoid colon. - Blood in the recto-sigmoid colon and in the sigmoid colon. - Localized moderate inflammation was found consistent with ischemic colitis. Clip was placed. Clip welder 2nd shift: Breaker. Tattooed. - No specimens collected. Recommendations : - Return patient to [facility] for ongoing care. - Full liquid diet. - Continue present medications. - Surgical consultation for segmental resection as suggested by her daughter Indira Cheek [phone] - No repeat colonoscopy due to age. My findings are described in the full procedure note, which is enclosed. If I can be of further assistance, please feel free to contact me at . Sincerely, Yaya Duff, 03/02/2024 5:13:31 PM This report has been signed electronically.
--- NOTE | 2024-03-02 17:19 | PCM.POSTANE2 ---
Anesthesia Postop Eval I Sum Postop Eval Completion status Anesthesia document: Postop Eval 1 completed: Yes Anesthesia Postop Eval I Summary Anesthesia Postop Eval I Summary: Anesthesia Postop Eval I: Assessment Summary Airway patent Yes 03/02/24 17:07 [email or web address] Spontaneous unlabored Yes 03/02/24 17:07 [email or web address] respirations Mental status Asleep 03/02/24 17:07 [email or web address] nausea No 03/02/24 17:07 [email or web address] Vomiting No 03/02/24 17:07 [email or web address] Anesthesia Postop Eval I: Fluid Summary Crystalloid volume administer 60 03/02/24 17:07 [email or web address] (ml) Colloids volume administered ( ml) Blood Product volume administered (ml) Total IV fluid infused 60 03/02/24 17:07 [email or web address] Anesthesia Postop Eval I: Summary Notes Anesthesia Complication No 03/02/24 17:07 [email or web address] Anesthesia Complication Comment: Post-operative progress note Anesthesia: Postop Eval II Evaluation Mental status: Awake Pain Level: 0 nausea: No Vomiting: No
[2024-03-02] MEDS: Atorvastatin Calcium 10 MG Tablet PO (21:21)
[2024-03-02] MEDS: Metoprolol Tartrate 25 MG Tablet PO (21:21)
[2024-03-03 03:20] VITALS: BP 126/67; PULSE 78; RESP 16; TEMP 36.4; O2SAT 98
[2024-03-03 06:11] LABS: Absolute Lymphocyte Count 1.11 X10^3/uL (0.83-4.51); Absolute Neutrophil Count 8.2 X10^3/uL (2.0-7.7); Basophil# 0.01 X10^3/uL; Basophil% 0.1 % (0-1); Hematocrit 28.1 % (37-47); Hemoglobin 8.9 g/dL (12.0-15.0); Lymphocyte # 1.11 X10^3/ul (0.83-4.51); Lymphocyte % 10.8 % (19-41); Mean Corp Hgb Conc 31.7 g/dL (32-36); Mean Corpuscular Hgb 26.3 pg (27.0-32.0); Mean Corpuscular Volume 83.1 fL (81-99); Monocyte# 0.86 X10^3/uL; Monocyte% 8.4 % (0-10); NRBC Flagged by Analyzer 0 % (0-5); Neutrophil % 80.1 % (47-70); Platelet Count 498 K/mm3 (150-450); RBC Distribution Width CV 17.4 % (11.6-14.6); RBC Distribution Width SD 52.2 fl (35.1-43.9); Red Blood Count 3.38 M/mm3 (4.2-5.4); White Blood Count 10.2 K/mm3 (4.4-11.0)
[2024-03-03 06:28] LABS: Anion Gap 4 (5-15); BUN 12 mg/dL (7-18); BUN/Creat Ratio 13.3 RATIO (10-20); Chloride 108 mmol/L (98-107); EST Glomerular Filtration Rate 64 mL/min (>60); Est Glom Filt Rate - Afr Amer 77 mL/min (>60); Estimated Creatinine Clearance 38.12 ml/min; Glucose 150 mg/dL (74-106); Potassium 4.4 mmol/L (3.5-5.1); Sodium Level 136 mmol/L (136-145)
[2024-03-03 08:59] VITALS: BP 117/66; PULSE 74; RESP 16; TEMP 36.6; O2SAT 97
[2024-03-03 09:46] VITALS: BP 117/66; PULSE 74
[2024-03-03] MEDS: Pantoprazole Sodium 40 MG Tablet PO ×2 (09:46→22:58)
[2024-03-03] MEDS: Metoprolol Tartrate 25 MG Tablet 12.5 MG PO (09:46)
[2024-03-03] MEDS: Benzonatate 100 MG Capsule 200 MG PO (14:26)
[2024-03-03 14:32] VITALS: BP 105/67; PULSE 86; RESP 18; TEMP 36.9; O2SAT 100
--- NOTE | 2024-03-03 16:30 | PCM.PN.HOSP ---
Reason for Visit Reason for Visit: Diagnoses Iron deficiency anemia secondary to blood loss (chronic) (03/01/24) Hemorrhage of anus and rectum (03/01/24) Gastrointestinal hemorrhage, unspecified (03/01/24) Personal history of other diseases of the digestive system (03/01/24) Subjective Subjective Patient denies any nausea or abdominal pain however has noticed when she is going to urinate that she does have some blood present again, not currently a large amount but is there. Objective Data Objective Data Vital Signs: Vital Signs Temp Pulse Resp BP Pulse Ox O2 Del Method 98.4 F 86 18 105/67 100 Room Air 03/03/24 14:32 03/03/24 14:32 03/03/24 14:32 03/03/24 14:32 03/03/24 14:32 03/03/24 14:32 Oxygen Delivery Method Room Air Weight: 50.8 kg Body Mass Index (BMI) 20.3 Intake & Output: Intake and Output for Last 24 Hours 03/01/24 03/02/24 03/03/24 23:59 23:59 23:59 Intake Total 1740 / 1740 450 / 450 50 / 50 Balance 1740 / 1740 450 / 450 50 / 50 Lab / Micro Data 03/03/24 05:49 03/03/24 05:49 Labs: Laboratory Results - last 24 hr 03/03/24 05:49: WBC 10.2, RBC 3.38 L, Hgb 8.9 L, Hct 28.1 L, MCV 83.1, MCH 26.3 L, MCHC 31.7 L, RDW Std Deviation 52.2 H, RDW Coeff of Brenda 17.4 H, Plt Count 498 H, MPV 9.0, Immature Gran % (Auto) 0.600, Neut % (Auto) 80.1 H, Lymph % (Auto) 10.8 L, [place] % (Auto) 8.4, Eos % (Auto) 0.0, Baso % (Auto) 0.1, Absolute Neuts (auto) 8.2 H, Absolute Lymphs (auto) 1.11, Nucleated RBC % 0, Sodium 136, Potassium 4.4, Chloride 108 H, Carbon Dioxide 25.0, Anion Gap 4 L, BUN 12, Creatinine 0.90, Estim Creat Clear Calc 38.12, Est GFR (MDRD) Af Amer 77, Est GFR (MDRD) Non-Af 64, BUN/Creatinine Ratio 13.3, Glucose 150 H, Calcium 9.0 Physical Exam Narrative General: Alert, no apparent distress HEENT: Atraumatic, normocephalic Eyes: Anicteric, normal conjunctiva, extraocular movements grossly intact Neck: Supple Respiratory: Clear to auscultation bilaterally, normal respiratory effort Cardiovascular: Regular rate and rhythm GI: Soft, nontender, nondistended Extremities: No edema Musculoskeletal: Moving all extremities Neuro: No overt focal neurological deficits Skin: No rashes appreciated Psych: Cooperative Assessment & Plan Assessment/Plan (1) GI bleed: PLAN: Plan # Recurrent GI bleeds -Patient with benign upper endoscopy however lower endoscopy demonstrated diverticulosis and rectosigmoid and sigmoid colon as well as blood in the sigmoid colon with localized moderate inflammation. He was advised patient be transition to liquid diet and that surgical consultation be requested for possible segmental resection -Spoke with patient, she is still intermittently having blood per rectum and is agreeable to consultation -Surgery consult placed -GI following -Hemoglobin was stable today -Repeat in a.m. -Will start iron supplementation #DVT ppx: SCDs Megan Foster MD Charges/Coding Visit Charges Inpatient E&M: 68008 Subs Hosp L1
--- NOTE | 2024-03-03 16:52 | EX.PCM.CON.S ---
Assessment & Plan Assessment/Plan (1) History of GI diverticular bleed: PLAN: Plan The patient is an 84-year-old female who was recently admitted for lower GI bleed secondary to diverticulosis. This was easily controlled endoscopically as has been done in the past as well. Review of the chart seems to indicate that this is likely her third episode of bleeding diverticulosis in the past 2 to 3 years. I did discuss the option of surgery with the patient as well as her daughter. I discussed that this would likely be a several hour surgery and would certainly require a recovery period. We did also discuss concerns for anastomotic leak given the finding of ischemic colitis on recent colonoscopy. Based on the risks and benefits in this 84-year-old female, I feel that more conservative approaches to treatment such as endoscopy might be a better option than surgical resection. Certainly if her bleeding persists, we can certainly reconsider surgery if needed. The patient seems more inclined to follow this conservative recommendation, however her daughter seems to be concerned about the possibility of this continuing to occur in the future. I really feel that a conservative approach might be in the patient's best interest given her age and comorbidities, and the fact that she is doing very well clinically at the present time. We will certainly continue to follow along closely and advise accordingly HPI Consult Data Date of Consult: 03/03/24 HPI Narrative Reason for Consultation: Lower GI bleed-possible colon resection HPI Narrative: AMANDA GRAY, is a 84 F who has a history of lower GI bleeds as well as an upper GI bleed over the past several years. Review of her chart as well as discussion with Dr. Duff indicates that most of these plates have been diverticular in nature. All of these have resolved either spontaneously or with endoscopic intervention such as injection or cauterization or clipping. Patient presented to the emergency room recently with yet another episode of both dark stools as well as some bright red blood. She underwent colonoscopy yesterday afternoon and was found to have some blood in the sigmoid colon and rectum. It was felt that this was diverticular in nature. She also had some patchy areas of ischemic colitis also noted. Patient states that the amount of blood coming from her rectum has subsided considerably. She has never had any type of abdominal pain. Her H&H is currently stable. I have been asked to see the patient in consultation to discuss option of segmental colon resection. [facility] Medical History Lung nodule Wears glasses Wears dentures Post-menopausal Bladder disease Low iron Back pain Numbness and tingling Syncope Heartburn Non-smoker History of GI bleed Tremor HLD (hyperlipidemia) HTN (hypertension) Home Medications ?Medication ?Instructions ?Recorded ?Last Taken ?Type B-complex with vitamin C 1 cap PO DAILY supplient 10/17/23 02/28/24 History coQ10 (ubiquinol) 100 mg capsule 100 mg PO DAILY supplement 10/17/23 02/28/24 History (Qunol Jonny CoQ10) ferrous sulfate 15 mg iron (75 18 mg PO DAILY anemia 10/17/23 02/28/24 History mg)/mL oral syringe (ORAL USE) (Fe-Fadia) magnesium 200 mg tablet 200 mg PO DAILY supplement 10/17/23 02/28/24 History metoprolol tartrate 25 mg tablet 12.5 mg PO DAILY heart 10/17/23 03/02/24 History metoprolol tartrate 25 mg tablet 25 mg PO QPM heart 10/17/23 02/28/24 History atorvastatin 10 mg tablet 10 mg PO DAILY cholesterol 02/29/24 02/29/24 History tramadol 50 mg tablet 50 mg PO BID PRN PRN pain 02/29/24 Unknown History Allergy/AdvReac Type Severity Reaction Status Date / Time No Known Allergies Allergy Verified 02/29/24 14:38 Family History Mother CAD (coronary artery disease) Brother Heart disease Surgical History History of esophagogastroduodenoscopy (EGD) Hx of colonoscopy Social History household members: none housing: house Smoking Status: Never smoker alcohol intake: never substance use type: does not use ROS Eyes Eyes: Reports systems reviewed and no addt'l complaints, except as documented ENT HEENT: Reports systems reviewed and no addt'l complaints, except as documented Cardiovascular Cardiovascular: Reports systems reviewed and no addt'l complaints, except as documented Respiratory/Chest Respiratory/Chest: Reports systems reviewed and no addt'l complaints, except as documented Gastrointestinal Gastrointestinal: Reports systems reviewed and no addt'l complaints, except as documented Genitourinary Genitourinary: Reports systems reviewed and no addt'l complaints, except as documented Musculoskeletal Musculoskeletal: Reports systems reviewed and no addt'l complaints, except as documented Integumentary Integumentary: Reports systems reviewed and no addt'l complaints, except as documented Physical Exam Narrative She is alert and oriented x 3. She is in no acute distress. Abdomen is soft, nontender and nondistended. Lab / Micro Data 03/03/24 05:49 03/03/24 05:49 Labs: Laboratory Results - last 24 hr 03/03/24 05:49: WBC 10.2, RBC 3.38 L, Hgb 8.9 L, Hct 28.1 L, MCV 83.1, MCH 26.3 L, MCHC 31.7 L, RDW Std Deviation 52.2 H, RDW Coeff of Brenda 17.4 H, Plt Count 498 H, MPV 9.0, Immature Gran % (Auto) 0.600, Neut % (Auto) 80.1 H, Lymph % (Auto) 10.8 L, [place] % (Auto) 8.4, Eos % (Auto) 0.0, Baso % (Auto) 0.1, Absolute Neuts (auto) 8.2 H, Absolute Lymphs (auto) 1.11, Nucleated RBC % 0, Sodium 136, Potassium 4.4, Chloride 108 H, Carbon Dioxide 25.0, Anion Gap 4 L, BUN 12, Creatinine 0.90, Estim Creat Clear Calc 38.12, Est GFR (MDRD) Af Amer 77, Est GFR (MDRD) Non-Af 64, BUN/Creatinine Ratio 13.3, Glucose 150 H, Calcium 9.0 Charges/Coding Visit Charges Inpatient E&M: 92075 Init Hosp L3
[2024-03-03 22:40] VITALS: BP 116/59; PULSE 86; RESP 18; TEMP 36.7; O2SAT 97
[2024-03-03 22:58] VITALS: BP 116/59; PULSE 86
[2024-03-03] MEDS: Atorvastatin Calcium 10 MG Tablet PO (22:58)
[2024-03-03] MEDS: Metoprolol Tartrate 25 MG Tablet PO (22:58)
[2024-03-04 02:26] VITALS: BP 100/68; PULSE 78; RESP 18; TEMP 36.7; O2SAT 97
[2024-03-04 04:44] LABS: Hematocrit 26.1 % (37-47); Hemoglobin 8.2 g/dL (12.0-15.0); Mean Corp Hgb Conc 31.4 g/dL (32-36); Mean Corpuscular Hgb 26.7 pg (27.0-32.0); Mean Platelet Vol. 9.1 fl (6.2-12.0); Platelet Count 509 K/mm3 (150-450); RBC Distribution Width CV 18.2 % (11.6-14.6); RBC Distribution Width SD 55.1 fl (35.1-43.9); Red Blood Count 3.07 M/mm3 (4.2-5.4); White Blood Count 8.6 K/mm3 (4.4-11.0)
[2024-03-04 05:04] LABS: Anion Gap 2 (5-15); BUN 11 mg/dL (7-18); BUN/Creat Ratio 11.3 RATIO (10-20); Calcium,Total 8.8 mg/dL (8.5-10.1); Chloride 110 mmol/L (98-107); Creatinine, Serum 0.98 mg/dL (0.55-1.02); EST Glomerular Filtration Rate 58 mL/min (>60); Est Glom Filt Rate - Afr Amer 70 mL/min (>60); Glucose 89 mg/dL (74-106); Potassium 4.2 mmol/L (3.5-5.1); Sodium Level 139 mmol/L (136-145)
[2024-03-04 08:22] VITALS: BP 103/84; PULSE 71; RESP 16; TEMP 36.4; O2SAT 100
--- NOTE | 2024-03-04 08:24 | PCM.PN.SRG ---
Subjective Subjective Patient evaluated resting comfortably in bed. She denies any abdominal pain. She denies having any bowel movements over night. She does note when she urinated she wiped her bottom and noted bright red blood. Objective Data Objective Data Vital Signs: Vital Signs Temp Pulse Resp BP Pulse Ox O2 Del Method 98.0 F 78 18 100/68 97 Room Air 03/04/24 02:26 03/04/24 02:26 03/04/24 02:26 03/04/24 02:26 03/04/24 02:26 03/04/24 02:26 Oxygen Delivery Method Room Air Weight: 111 lb 15.917 oz Body Mass Index (BMI) 20.3 Intake & Output: Intake and Output for Last 24 Hours 03/02/24 03/03/24 03/04/24 23:59 23:59 23:59 Intake Total 450 / 450 650 / 650 Balance 450 / 450 650 / 650 Lab / Micro Data 03/04/24 04:15 03/04/24 04:15 Labs: Laboratory Results - last 24 hr 03/04/24 04:15: WBC 8.6, RBC 3.07 L, Hgb 8.2 L, Hct 26.1 L, MCV 85.0, MCH 26.7 L, MCHC 31.4 L, RDW Std Deviation 55.1 H, RDW Coeff of Brenda 18.2 H, Plt Count 509 H, MPV 9.1, Sodium 139, Potassium 4.2, Chloride 110 H, Carbon Dioxide 27.0, Anion Gap 2 L, BUN 11, Creatinine 0.98, Estim Creat Clear Calc 35.00, Est GFR (MDRD) Af Amer 70, Est GFR (MDRD) Non-Af 58 L, BUN/Creatinine Ratio 11.3, Glucose 89, Calcium 8.8 Physical Exam GI normal to inspection, nondistended, normoactive bowel sounds, soft to palpation and non-tender Assessment & Plan Assessment/Plan (1) History of GI diverticular bleed: (2) Anemia: QUALIFIERS: Anemia type: iron deficiency Iron deficiency anemia type: chronic blood loss Qualified Code(s): D50.0 - Iron deficiency anemia secondary to blood loss (chronic) PLAN: Plan I am following this patient in conjunction with Dr. Bedoya. He will independently evaluate this patient. Labs reviewed. Hgb remains stable Colectomy was extensively discussed with the patient. Secondary to ischemic colitis and the amount of inflammation noted during the colonoscopy, patient is at higher risk for an anastomotic leak leading to poor recovery. Current inflammation would also lead to higher likelihood of colostomy creation. Patient has verbally declined going through any type of colon resection procedure at this time. At this time we will continue to take more of a conservative approach. We will continue to monitor this patient Charges/Coding Visit Charges Inpatient E&M: 96209 [facility] Hosp L1
[2024-03-04] MEDS: Iron Polysaccharide Complex 150 MG CAPSULE PO (08:43)
[2024-03-04 10:07] VITALS: PULSE 71
[2024-03-04] MEDS: Metoprolol Tartrate 25 MG Tablet 12.5 MG PO (10:07)
[2024-03-04] MEDS: Pantoprazole Sodium 40 MG Tablet PO ×2 (10:11→20:53)
--- NOTE | 2024-03-04 14:13 | NM_ITS ---
CLINICAL: 84-year-old female with history of gastrointestinal hemorrhage. LABELED BLOOD POOL GASTROINTESTINAL BLEEDING STUDY COMPARISON: None available FINDINGS: Following the intravenous administration of 25.1 mCi of 99m Tc Ultratag labeled RBCs, image acquisitions of the anterior-abdomen and pelvis for a total of 60 minutes reveal: 1. Review of static sequential 1 minute acquisitions of the anterior abdomen and pelvis demonstrate no evidence of increased tracer uptake indicative of acute gastrointestinal hemorrhage. 2. Physiologic tracer uptake is noted in the hepatic, splenic, cardiac and major vascular blood pool. NM/GI Bleed Scan IMPRESSION: 1. NEGATIVE 99m Tc ULTRATAG LABELED BLOOD POOL GASTROINTESTINAL BLEEDING EXAMINATION. 2. There is no scintigraphic evidence of acute gastrointestinal hemorrhage on the current examination. Electronically Signed: Oneil Pete DO at 17:10 EST ,
--- NOTE | 2024-03-04 15:01 | PN.HOSP_ITS ---
Reason for Visit Reason for Visit: Diagnoses Iron deficiency anemia secondary to blood loss (chronic) (03/01/24) Hemorrhage of anus and rectum (03/01/24) Gastrointestinal hemorrhage, unspecified (03/01/24) Personal history of other diseases of the digestive system (03/01/24) Subjective Subjective Denies any abdominal pain, did have another bowel movement with some blood present Objective Data Objective Data Vital Signs: Vital Signs Temp Pulse Resp BP Pulse Ox O2 Del Method 97.5 F L 71 16 103/84 H 100 Room Air 03/04/24 08:22 03/04/24 10:07 03/04/24 08:22 03/04/24 08:22 03/04/24 08:22 03/04/24 08:26 Oxygen Delivery Method Room Air Weight: 50.8 kg Body Mass Index (BMI) 20.3 Intake & Output: Intake and Output for Last 24 Hours 03/02/24 03/03/24 03/04/24 23:59 23:59 23:59 Intake Total 450 / 450 650 / 650 800 / 800 Balance 450 / 450 650 / 650 800 / 800 Lab / Micro Data 03/04/24 04:15 03/04/24 04:15 Labs: Laboratory Results - last 24 hr 03/04/24 04:15: WBC 8.6, RBC 3.07 L, Hgb 8.2 L, Hct 26.1 L, MCV 85.0, MCH 26.7 L , MCHC 31.4 L, RDW Std Deviation 55.1 H, RDW Coeff of Brenda 18.2 H, Plt Count 509 H, MPV 9.1, Sodium 139, Potassium 4.2, Chloride 110 H, Carbon Dioxide 27.0, A nion Gap 2 L, BUN 11, Creatinine 0.98, Estim Creat Clear Calc 35.00, Est GFR (MDRD) Af Amer 70, Est GFR (MDRD) Non-Af 58 L, BUN/Creatinine Ratio 11.3, Glucose 89, Calcium 8.8 Physical Exam Narrative General: Alert, no apparent distress HEENT: Atraumatic, normocephalic Eyes: Anicteric Neck: Supple Respiratory: Clear to auscultation bilaterally, normal respiratory effort Cardiovascular: Regular rate and rhythm GI: Soft, nontender, nondistended Extremities: No edema Musculoskeletal: Moving all extremities Neuro: No overt focal neurological deficits Skin: No rashes appreciated Psych: Cooperative Assessment & Plan Assessment/Plan (1) GI bleed: PLAN: Plan # Recurrent GI bleeds -Patient with benign upper endoscopy however lower endoscopy demonstrated diverticulosis and rectosigmoid and sigmoid colon as well as blood in the sigmoid colon with localized moderate inflammation. He was advised patient be transition to liquid diet and that surgical consultation be requested for possible segmental resection -Spoke with patient, she is still intermittently having blood per rectum and is agreeable to consultation -Surgery consult placed -GI following -Hemoglobin was stable today -Repeat in a.m. -Will start iron supplementation -03/04: Hemoglobin 8.2, patient evaluated by surgery service and plan is for conservative management due to concerns for poor recovery and higher likelihood of colostomy. Patient is still having some blood per rectum, discussed with GI who recommended bleeding scan, further evaluation management pending scan #DVT ppx: SCDs Megan Foster MD Time spent in the patient's overall evaluation,decision-making process, review of diagnostic data, adjustment of management, discussion with other providers, nursing nursing and ancillary staff involved in patient's care documentation, 37 minutes Charges/Coding Visit Charges Inpatient E&M: 16593 Subs Hosp L2
--- NOTE | 2024-03-04 17:28 | EX.PCM.PN.GI ---
Objective Data Objective Data Vital Signs: Vital Signs Temp Pulse Resp BP Pulse Ox O2 Del Method 97.5 F L 71 16 103/84 H 100 Room Air 03/04/24 08:22 03/04/24 10:07 03/04/24 08:22 03/04/24 08:22 03/04/24 08:22 03/04/24 14:00 Oxygen Delivery Method Room Air Weight: 111 lb 15.917 oz Body Mass Index (BMI) 20.3 Intake & Output: Intake and Output for Last 24 Hours 03/02/24 03/03/24 03/04/24 23:59 23:59 23:59 Intake Total 450 / 450 650 / 650 800 / 800 Balance 450 / 450 650 / 650 800 / 800 Lab / Micro Data 03/04/24 04:15 03/04/24 04:15 Labs: Laboratory Results - last 24 hr 03/04/24 04:15: WBC 8.6, RBC 3.07 L, Hgb 8.2 L, Hct 26.1 L, MCV 85.0, MCH 26.7 L, MCHC 31.4 L, RDW Std Deviation 55.1 H, RDW Coeff of Brenda 18.2 H, Plt Count 509 H, MPV 9.1, Sodium 139, Potassium 4.2, Chloride 110 H, Carbon Dioxide 27.0, Anion Gap 2 L, BUN 11, Creatinine 0.98, Estim Creat Clear Calc 35.00, Est GFR (MDRD) Af Amer 70, Est GFR (MDRD) Non-Af 58 L, BUN/Creatinine Ratio 11.3, Glucose 89, Calcium 8.8 Radiography Diagnostic Testing: Radiology Impression GI Bleed Scan Nuclear Medicine 03/04/24 14:13 IMPRESSION: 1. NEGATIVE 99m Tc ULTRATAG LABELED BLOOD POOL GASTROINTESTINAL BLEEDING EXAMINATION. 2. There is no scintigraphic evidence of acute gastrointestinal hemorrhage on the current examination. Electronically Signed: Oneil Pete, at 17:10 EST , Assessment & Plan Assessment/Plan (1) Acute lower gastrointestinal bleeding: (2) Lung nodule: PLAN: Plan Patient is an 84-year-old female who presented to [facility] ED with lower GI bleed. 1. Acute lower GI bleed secondary to recurrent diverticular bleeding ? S/p colonoscopy on 05/27 that showed no active signs of bleeding, known diverticulosis and rectosigmoid colon, sigmoid colon and descending colon. Previous GI bleed was presumed secondary to recurrent diverticular bleeding. She underwent repeat colonoscopy yesterday and was discovered to have recurrent diverticular bleeding. The area was tattooed and clip was placed to identify area. A bleeding scan was ordered today because patient said she was still bleeding. Bleeding scan was normal. Hemoglobin is slightly down to 8.2. Will order a CT angiography. Keep n.p.o. past midnight for possible flexible sigmoidoscopy tomorrow morning if needed with further intervention. Charges/Coding Visit Charges Inpatient E&M: 58531 [facility] Hosp L3
--- NOTE | 2024-03-04 17:29 | CT_ITS ---
STUDY: CTA ABDOMEN AND PELVIS WITH CONTRAST REASON FOR EXAM: Female, 84 years old. GI bleed RADIATION DOSAGE (If Supplied By Facility): CTDIvol = ( 14.50 ) mGy, DLP = ( 340.61 ) mGycm TECHNIQUE: Transaxial images were obtained from the dome of the diaphragm to the symphysis pubis without oral contrast. IV 100mL Isovue-370 was administered. Sagittal and coronal images were reconstructed. 3-D images were reconstructed. Individualized dose optimization techniques were used for this CT. COMPARISON: CT May 27, 2023. Nuclear medicine GI bleed scan March 04, 2024. FINDINGS: There is diffuse atherosclerotic calcification of the abdominal aorta with elongation and tortuosity, but without a demonstrated aneurysm. Normal celiac and superior and inferior mesenteric arteries. There is mild plaque of the proximal renal arteries. There is a 1.7 cm left lower lung mass. There are mitral annular calcifications Normal liver. The gallbladder is contracted. Normal spleen. Normal pancreas. Normal bilateral adrenal glands. Normal right kidney. Normal left kidney. Normal visualized stomach. Normal small intestine. There is diverticulosis, with thickening of the sigmoid colon wall, and pericolonic inflammation changes consistent with acute diverticulitis. There is a 4.6 cm air and debris collection of the wall consistent with abscess versus necrotic mass. There is 2.0 cm linear metallic density in the colon colon wall in this region. The appendix is visualized and appears normal. Normal inferior vena cava. Normal retroperitoneum. Normal urinary bladder. There is atrophy of the uterus. There is mild free fluid in the pelvis. Normal abdominal wall. There is scoliosis and degenerative change of the spine. CT/CTA Abd/Pelvis W/WO Contrast IMPRESSION: No active hemorrhage seen. Sigmoid diverticulitis with abscess of the wall versus necrotic mass. No obstruction. Electronically Signed: Elias Modi MD at 20:08 EST ,
[2024-03-04 17:57] VITALS: BP 117/72; PULSE 75; RESP 16; TEMP 37; O2SAT 99
[2024-03-04] MEDS: 0.9% Normal Saline (1000mL) 1,000 ML 50 ML IV (19:59)
[2024-03-04 20:49] VITALS: BP 121/60; PULSE 82; RESP 16; TEMP 36.9; O2SAT 97
[2024-03-04 20:53] VITALS: PULSE 82
[2024-03-04] MEDS: Metoprolol Tartrate 25 MG Tablet PO (20:53)
[2024-03-04] MEDS: Atorvastatin Calcium 10 MG Tablet PO (20:54)
[2024-03-05] VITALS (7 sets, daily range): BP systolic 117–134; BP diastolic 64–72; PULSE 74–94; RESP 15–18; TEMP 36.4–36.9; O2SAT 97–100
[2024-03-05 05:25] LABS: Hematocrit 26.5 % (37-47); Hemoglobin 8.4 g/dL (12.0-15.0); Mean Corp Hgb Conc 31.7 g/dL (32-36); Mean Corpuscular Hgb 27.1 pg (27.0-32.0); Mean Corpuscular Volume 85.5 fL (81-99); Mean Platelet Vol. 8.5 fl (6.2-12.0); Platelet Count 490 K/mm3 (150-450); RBC Distribution Width CV 18.3 % (11.6-14.6); RBC Distribution Width SD 55.8 fl (35.1-43.9); White Blood Count 7.1 K/mm3 (4.4-11.0)
[2024-03-05 05:47] LABS: Anion Gap 1 (5-15); BUN 8 mg/dL (7-18); BUN/Creat Ratio 9.1 RATIO (10-20); Calcium,Total 8.8 mg/dL (8.5-10.1); Chloride 111 mmol/L (98-107); Creatinine, Serum 0.88 mg/dL (0.55-1.02); EST Glomerular Filtration Rate 65 mL/min (>60); Est Glom Filt Rate - Afr Amer 79 mL/min (>60); Estimated Creatinine Clearance 38.98 ml/min; Glucose 85 mg/dL (74-106); Potassium 4.1 mmol/L (3.5-5.1); Sodium Level 140 mmol/L (136-145)
[2024-03-05] MEDS: Piperacil/Tazobactam 4.5 GM in 0.9% Normal Saline (100mL MB+) 100 ML IV (09:45)
--- NOTE | 2024-03-05 09:46 | PCM.PN.SRG ---
Subjective Subjective Patient evaluated resting comfortably in bed. She denies any abdominal pain. She denies any rectal bleeding over night. Objective Data Objective Data Vital Signs: Vital Signs Temp Pulse Resp BP Pulse Ox O2 Del Method 97.5 F L 74 15 134/72 H 98 Room Air 03/05/24 08:29 03/05/24 08:29 03/05/24 08:29 03/05/24 08:29 03/05/24 08:29 03/05/24 08:49 Oxygen Delivery Method Room Air Weight: 111 lb 15.917 oz Body Mass Index (BMI) 20.3 Intake & Output: Intake and Output for Last 24 Hours 03/03/24 03/04/24 03/05/24 23:59 23:59 23:59 Intake Total 650 / 650 1300 / 1300 Balance 650 / 650 1300 / 1300 Lab / Micro Data 03/05/24 05:18 03/05/24 05:18 Labs: Laboratory Results - last 24 hr 03/05/24 05:18: WBC 7.1, RBC 3.10 L, Hgb 8.4 L, Hct 26.5 L, MCV 85.5, MCH 27.1, MCHC 31.7 L, RDW Std Deviation 55.8 H, RDW Coeff of Brenda 18.3 H, Plt Count 490 H, MPV 8.5, Sodium 140, Potassium 4.1, Chloride 111 H, Carbon Dioxide 28.0, Anion Gap 1 L, BUN 8, Creatinine 0.88, Estim Creat Clear Calc 38.98, Est GFR (MDRD) Af Amer 79, Est GFR (MDRD) Non-Af 65, BUN/Creatinine Ratio 9.1 L, Glucose 85, Calcium 8.8 Radiography Diagnostic Testing: Radiology Impression GI Bleed Scan Nuclear Medicine 03/04/24 14:13 IMPRESSION: 1. NEGATIVE 99m Tc ULTRATAG LABELED BLOOD POOL GASTROINTESTINAL BLEEDING EXAMINATION. 2. There is no scintigraphic evidence of acute gastrointestinal hemorrhage on the current examination. Electronically Signed: Oneil Pete, at 17:10 EST , Abdomen/Pelvis CTA 03/04/24 17:29 IMPRESSION: No active hemorrhage seen. Sigmoid diverticulitis with abscess of the wall versus necrotic mass. No obstruction. Electronically Signed: Elias Modi MD at 20:08 EST , Physical Exam GI normal to inspection, nondistended, normoactive bowel sounds, soft to palpation and non-tender Assessment & Plan Assessment/Plan (1) History of GI diverticular bleed: (2) GI bleed: PLAN: Plan I am following this patient in conjunction with Dr. Bedoya. He will independently evaluate this patient. Labs reviewed. Hgb remains stable Bleeding scan performed yesterday which returned normal CTA of the ab/pel was performed demonstrating acute diverticulitis with abscess of the wall versus necrotic mass. Colonoscopy recently performed consistent with ischemic colitis presentation. Will discuss results with Dr. Bedoya. No surgical intervention being recommended at this time Patient NPO for possible sigmoidoscopy today with Dr. Duff We will continue to monitor this patient. Charges/Coding Visit Charges Inpatient E&M: 20181 Subs Hosp L1 (post-op; no charge)
--- NOTE | 2024-03-05 10:27 | PCM.PN.HOSP ---
Reason for Visit Reason for Visit: Diagnoses Iron deficiency anemia secondary to blood loss (chronic) (03/01/24) Hemorrhage of anus and rectum (03/01/24) Gastrointestinal hemorrhage, unspecified (03/01/24) Solitary pulmonary nodule (03/01/24) Personal history of other diseases of the digestive system (03/01/24) Subjective Subjective Patient seen this a.m., she reports she is feeling hungry but otherwise the same, no abdominal pain, at the time of evaluation had not had any more blood in her stool Objective Data Objective Data Vital Signs: Vital Signs Temp Pulse Resp BP Pulse Ox O2 Del Method 97.5 F L 77 18 127/66 H 98 Room Air 03/05/24 12:22 03/05/24 12:22 03/05/24 12:22 03/05/24 12:22 03/05/24 12:22 03/05/24 14:00 Oxygen Delivery Method Room Air Weight: 50.8 kg Body Mass Index (BMI) 20.3 Intake & Output: Intake and Output for Last 24 Hours 03/03/24 03/04/24 03/05/24 23:59 23:59 23:59 Intake Total 650 / 650 1300 / 1300 1400 / 1400 Balance 650 / 650 1300 / 1300 1400 / 1400 Lab / Micro Data 03/05/24 05:18 03/05/24 05:18 Labs: Laboratory Results - last 24 hr 03/05/24 05:18: WBC 7.1, RBC 3.10 L, Hgb 8.4 L, Hct 26.5 L, MCV 85.5, MCH 27.1, MCHC 31.7 L, RDW Std Deviation 55.8 H, RDW Coeff of Brenda 18.3 H, Plt Count 490 H, MPV 8.5, Sodium 140, Potassium 4.1, Chloride 111 H, Carbon Dioxide 28.0, Anion Gap 1 L, BUN 8, Creatinine 0.88, Estim Creat Clear Calc 38.98, Est GFR (MDRD) Af Amer 79, Est GFR (MDRD) Non-Af 65, BUN/Creatinine Ratio 9.1 L, Glucose 85, Calcium 8.8 Radiography Diagnostic Testing: Radiology Impression GI Bleed Scan Nuclear Medicine 03/04/24 14:13 IMPRESSION: 1. NEGATIVE 99m Tc ULTRATAG LABELED BLOOD POOL GASTROINTESTINAL BLEEDING EXAMINATION. 2. There is no scintigraphic evidence of acute gastrointestinal hemorrhage on the current examination. Electronically Signed: Oneil Pete DO at 17:10 EST , Abdomen/Pelvis CTA 03/04/24 17:29 IMPRESSION: No active hemorrhage seen. Sigmoid diverticulitis with abscess of the wall versus necrotic mass. No obstruction. Electronically Signed: Elias Modi MD at 20:08 EST , Physical Exam Narrative General: Alert, no apparent distress HEENT: Atraumatic, normocephalic Eyes: Anicteric Neck: Supple Respiratory: Clear to auscultation bilaterally, normal respiratory effort Cardiovascular: Regular rate and rhythm GI: Soft, nontender, nondistended Extremities: No edema Musculoskeletal: Moving all extremities Neuro: No overt focal neurological deficits Skin: No rashes appreciated Psych: Cooperative Assessment & Plan Assessment/Plan (1) GI bleed: PLAN: Plan # Intra-abdominal abscess -Zosyn started -Patient afebrile, white blood cell count within normal limits, patient not in any pain -Patient had CTA performed 03/04 given her continued bleeding on that day and it showed sigmoid diverticulitis with abscess of wall of 4.6 cm -Discussed with GI who recommended discussing with IR and/or surgery -Given the location IR did not think it was amenable to IR guided procedure -Discussed with surgery, given patient's significant stability and lack of lab or vital abnormalities it was advised to continue IV antibiotics and consult infectious disease to see if continued antibiotics would be reasonable with outpatient imaging follow-up or if patient will need transferred to a tertiary facility for more definitive intervention # Recurrent GI bleeds -Patient with benign upper endoscopy however lower endoscopy demonstrated diverticulosis and rectosigmoid and sigmoid colon as well as blood in the sigmoid colon with localized moderate inflammation. He was advised patient be transition to liquid diet and that surgical consultation be requested for possible segmental resection -Spoke with patient, she is still intermittently having blood per rectum and is agreeable to consultation -Surgery consult placed -GI following -Hemoglobin was stable today -Repeat in a.m. -Will start iron supplementation -03/04: Hemoglobin 8.2, patient evaluated by surgery service and plan is for conservative management due to concerns for poor recovery and higher likelihood of colostomy. Patient is still having some blood per rectum, discussed with GI who recommended bleeding scan, further evaluation management pending scan -03/05: This a.m. patient reports she has not had more blood per rectum over abscess found as above, GI following, hemoglobin presently stable #DVT ppx: SCDs Megan Foster MD Time spent in the patient's overall evaluation,decision-making process, review of diagnostic data, adjustment of management, discussion with other providers, nursing nursing and ancillary staff involved in patient's care documentation, 58 minutes Charges/Coding Visit Charges Inpatient E&M: 09111 Subs Hosp L3
[2024-03-05] MEDS: Pantoprazole Sodium 40 MG Tablet PO ×2 (12:11→21:39)
[2024-03-05] MEDS: Metoprolol Tartrate 25 MG Tablet 12.5 MG PO (12:12)
[2024-03-05] MEDS: Iron Polysaccharide Complex 150 MG CAPSULE PO (12:16)
[2024-03-05] MEDS: Piperacil/Tazobactam 3.375 GM in 0.9% Normal Saline (50mL MB+) 50 ML IV ×2 (14:58→21:44)
--- NOTE | 2024-03-05 16:14 | PN.GI_ITS ---
Subjective Subjective Patient states she is still having a little bit of lower GI bleeding. She does not have any abdominal pain. She been afebrile. Objective Data Objective Data Vital Signs: Vital Signs Temp Pulse Resp BP Pulse Ox O2 Del Method 97.5 F L 77 18 127/66 H 98 Room Air 03/05/24 12:22 03/05/24 12:22 03/05/24 12:22 03/05/24 12:22 03/05/24 12:22 03/05/24 14:00 Oxygen Delivery Method Room Air Weight: 111 lb 15.917 oz Body Mass Index (BMI) 20.3 Intake & Output: Intake and Output for Last 24 Hours 03/03/24 03/04/24 03/05/24 23:59 23:59 23:59 Intake Total 650 / 650 1300 / 1300 1400 / 1400 Balance 650 / 650 1300 / 1300 1400 / 1400 Lab / Micro Data 03/05/24 05:18 03/05/24 05:18 Labs: Laboratory Results - last 24 hr 03/05/24 05:18: WBC 7.1, RBC 3.10 L, Hgb 8.4 L, Hct 26.5 L, MCV 85.5, MCH 27.1, MCHC 31.7 L, RDW Std Deviation 55.8 H, RDW Coeff of Brenda 18.3 H, Plt Count 490 H, MPV 8.5, Sodium 140, Potassium 4.1, Chloride 111 H, Carbon Dioxide 28.0, Anion Gap 1 L, BUN 8, Creatinine 0.88, Estim Creat Clear Calc 38.98, Est GFR (MDRD) Af Amer 79, Est GFR (MDRD) Non-Af 65, BUN/Creatinine Ratio 9.1 L, Glucose 85, Calcium 8.8 Radiography Diagnostic Testing: Radiology Impression GI Bleed Scan Nuclear Medicine 03/04/24 14:13 IMPRESSION: 1. NEGATIVE 99m Tc ULTRATAG LABELED BLOOD POOL GASTROINTESTINAL BLEEDING EXAMINATION. 2. There is no scintigraphic evidence of acute gastrointestinal hemorrhage on the current examination. Electronically Signed: Oneil Pete DO at 17:10 EST , Abdomen/Pelvis CTA 03/04/24 17:29 IMPRESSION: No active hemorrhage seen. Sigmoid diverticulitis with abscess of the wall versus necrotic mass. No obstruction. Electronically Signed: Elias Modi MD at 20:08 EST , Physical Exam GI normal to inspection, nondistended, normoactive bowel sounds, soft to palpation and non-tender Assessment & Plan Assessment/Plan (1) Acute lower gastrointestinal bleeding: (2) Lung nodule: PLAN: Plan Patient is an 84-year-old female who presented to [facility] ED with lower GI bleed. 1. Acute lower GI bleed secondary to recurrent diverticular bleeding ? S/p colonoscopy on 05/27 that showed no active signs of bleeding, known diverticulosis and rectosigmoid colon, sigmoid colon and descending colon. Previous GI bleed was presumed secondary to recurrent diverticular bleeding. She underwent repeat colonoscopy yesterday and was discovered to have recurrent diverticular bleeding. The area was tattooed and clip was placed to identify area. A bleeding scan was ordered today because patient said she was still bleeding. Bleeding scan was normal. Hemoglobin is slightly down to 8.2. Will order a CT angiography. Keep n.p.o. past midnight for possible flexible sigmoidoscopy tomorrow morning if needed with further intervention. 03/05/2024-a CTA of the abdomen pelvis was ordered to look for GI bleeding and it displayed: Normal liver. The gallbladder is contracted. Normal spleen. Normal pancreas. Normal bilateral adrenal glands. Normal right kidney. Normal left kidney. Normal visualized stomach. Normal small intestine. There is diverticulosis, with thickening of the sigmoid colon wall, and pericolonic inflammation changes consistent with acute diverticulitis. There is a 4.6 cm air and debris collection of the wall consistent with abscess versus necrotic mass. There is 2.0 cm linear metallic density in the colon colon wall in this region. The appendix is visualized and appears normal. Interventional radiology was not able to place a percutaneous drain because of location of the abscess. At this time she is on antibiotic coverage for diverticular abscess. Infectious disease has been consulted. Hemoglobin is 8.4 and seems to be stable at this time. Will continue to follow clinically. Charges/Coding Visit Charges Inpatient E&M: 26909 Subs Hosp L3
[2024-03-05] MEDS: Atorvastatin Calcium 10 MG Tablet PO (21:39)
[2024-03-05] MEDS: Metoprolol Tartrate 25 MG Tablet PO (21:39)
[2024-03-06 03:45] VITALS: BP 130/79; PULSE 83; RESP 16; TEMP 36.8; O2SAT 96
[2024-03-06] MEDS: 0.9% Saline Lock 10 ML Syringe IV ×3 (05:18→14:42)
[2024-03-06] MEDS: Piperacil/Tazobactam 3.375 GM in 0.9% Normal Saline (50mL MB+) 50 ML IV ×3 (05:19→21:05)
[2024-03-06 08:34] LABS: Hematocrit 28.7 % (37-47); Hemoglobin 8.7 g/dL (12.0-15.0); Mean Corp Hgb Conc 30.3 g/dL (32-36); Mean Corpuscular Hgb 26.4 pg (27.0-32.0); Mean Corpuscular Volume 87.2 fL (81-99); Mean Platelet Vol. 8.8 fl (6.2-12.0); Platelet Count 589 K/mm3 (150-450); RBC Distribution Width CV 18.3 % (11.6-14.6); RBC Distribution Width SD 56.5 fl (35.1-43.9); Red Blood Count 3.29 M/mm3 (4.2-5.4); White Blood Count 6.1 K/mm3 (4.4-11.0)
[2024-03-06 09:07] LABS: Anion Gap 4 (5-15); BUN 8 mg/dL (7-18); BUN/Creat Ratio 7.7 RATIO (10-20); Calcium,Total 8.7 mg/dL (8.5-10.1); Chloride 109 mmol/L (98-107); Creatinine, Serum 1.04 mg/dL (0.55-1.02); EST Glomerular Filtration Rate 54 mL/min (>60); Est Glom Filt Rate - Afr Amer 65 mL/min (>60); Estimated Creatinine Clearance 32.99 ml/min; Glucose 80 mg/dL (74-106); Potassium 4.4 mmol/L (3.5-5.1); Sodium Level 140 mmol/L (136-145)
[2024-03-06 10:36] VITALS: BP 104/54; PULSE 80; RESP 16; TEMP 36.6; O2SAT 97
[2024-03-06 10:40] VITALS: BP 104/54; PULSE 80
[2024-03-06] MEDS: Iron Polysaccharide Complex 150 MG CAPSULE PO (10:40)
[2024-03-06] MEDS: Metoprolol Tartrate 25 MG Tablet 12.5 MG PO (10:40)
[2024-03-06] MEDS: Pantoprazole Sodium 40 MG Tablet PO ×2 (10:40→21:07)
--- NOTE | 2024-03-06 12:19 | PN.SURG_ITS ---
Subjective Subjective The patient is an 84-year-old female who originally presented with blood per rectum. She has a history of lower GI bleeds over the last several years. These have been typically attributable to diverticulosis. She underwent colonoscopy earlier this week that showed diverticulosis and some evidence to suggest some ischemic colitis. Her hemoglobin remains stable. Her symptoms of blood per rectum seem to be resolving. She has never complained of abdominal pain. White count has remained stable. This morning she continues to deny any pain. Recent CT scan showed evidence of possible diverticulitis with 4.6 cm abscess. This abscess was not amenable to CT-guided drainage. Objective Data Objective Data Vital Signs: Vital Signs Temp Pulse Resp BP Pulse Ox O2 Del Method 97.8 F 80 16 104/54 L 97 Room Air 03/06/24 10:36 03/06/24 10:40 03/06/24 10:36 03/06/24 10:40 03/06/24 10:36 03/06/24 10:36 Oxygen Delivery Method Room Air Weight: 111 lb 15.917 oz Body Mass Index (BMI) 20.3 Intake & Output: Intake and Output for Last 24 Hours 03/04/24 03/05/24 03/06/24 23:59 23:59 23:59 Intake Total 1300 / 1300 1950.00 / 1950.00 100 / 100 Balance 1300 / 1300 1950.00 / 1950.00 100 / 100 Lab / Micro Data 03/06/24 07:07 03/06/24 07:07 Labs: Laboratory Results - last 24 hr 03/06/24 07:07: WBC 6.1, RBC 3.29 L, Hgb 8.7 L, Hct 28.7 L, MCV 87.2, MCH 26.4 L , MCHC 30.3 L, RDW Std Deviation 56.5 H, RDW Coeff of Brenda 18.3 H, Plt Count 589 H, MPV 8.8, Sodium 140, Potassium 4.4, Chloride 109 H, Carbon Dioxide 27.0, A nion Gap 4 L, BUN 8, Creatinine 1.04 H, Estim Creat Clear Calc 32.99, Est GFR (MDRD) Af Amer 65, Est GFR (MDRD) Non-Af 54 L, BUN/Creatinine Ratio 7.7 L, Glucose 80, Calcium 8.7 Physical Exam Narrative Abdomen is soft, nontender nondistended. No tenderness whatsoever in the left lower quadrant. No palpable mass Const oriented x3 and no apparent distress Assessment & Plan Assessment/Plan (1) Anemia: QUALIFIERS: Anemia type: iron deficiency Iron deficiency anemia type: chronic blood loss Qualified Code(s): D50.0 - Iron deficiency anemia secondary to blood loss (chronic) (2) GI bleed: PLAN: The patient is an 84-year-old female with complaints of blood per rectum. Her symptoms seems to be resolving. Recent colonoscopy showed diverticulosis and ischemic colitis but no mass was encountered. CT scan was performed and was read as diverticulitis with 4.6 cm abscess versus necrotic mass. Abscess was not amenable to percutaneous drainage. No mass was seen on colonoscopy. Review of previous CT scans do show some thickening of the colon. She denies any issues with blood in her urine or other abnormalities. At this point I would recommend a conservative approach since she is clinically asymptomatic. Recommended antibiotics for presumed diverticulitis although it is perplexing that she has no abdominal pain and a normal white blood cell count. We have recommended infectious disease consult to recommend antibiotics on discharge. I would certainly recommend repeating a CAT scan in about 2 to hopefully document decrease in size of the presumed abscess. At this point I have no surgical intervention plans. Certainly if this presumed abscess fails to decrease in size, further intervention and/or colorectal consultation at a tertiary center may need to ultimately be considered. Charges/Coding Visit Charges Inpatient E&M: 06445 Subs Hosp L2
--- NOTE | 2024-03-06 14:34 | PCM.CONS.GEN ---
Assessment & Plan Assessment/Plan (1) Diverticulitis of intestine with abscess: PLAN: No plan for surgery or IR intervention. Clinically stable. ok for home with 3 weeks po cipro/flagyl with repeat CT in 2 weeks. ID followup in 2-3 weeks. Counseled her to come back to ED if abd pain, fever, increased bleeding. Will follow, thank you, d/w Dr. Foster HPI Consult Data Date of Consult: 03/06/24 HPI Narrative Reason for Consultation: abscess HPI Narrative: AMANDA GRAY, is a 84 F who presented 02/28 with one week progressive dark stools that turned to bright red blood. No abd pain, no fever, no n/v/d. Came to ED, admitted, seen by GI and surgery. Colonoscopy done. Now on zosyn, feeling fine. Full ROS performed and neg except as noted above. [facility] Medical History Lung nodule Wears glasses Wears dentures Post-menopausal Bladder disease Low iron Back pain Numbness and tingling Syncope Heartburn Non-smoker History of GI bleed Tremor HLD (hyperlipidemia) HTN (hypertension) Home Medications ?Medication ?Instructions ?Recorded ?Last Taken ?Type B-complex with vitamin C 1 cap PO DAILY supplient 10/17/23 02/28/24 History coQ10 (ubiquinol) 100 mg capsule 100 mg PO DAILY supplement 10/17/23 02/28/24 History (Qunol Jonny CoQ10) ferrous sulfate 15 mg iron (75 18 mg PO DAILY anemia 10/17/23 02/28/24 History mg)/mL oral syringe (ORAL USE) (Fe-Fadia) magnesium 200 mg tablet 200 mg PO DAILY supplement 10/17/23 02/28/24 History metoprolol tartrate 25 mg tablet 12.5 mg PO DAILY heart 10/17/23 03/02/24 History metoprolol tartrate 25 mg tablet 25 mg PO QPM heart 10/17/23 02/28/24 History atorvastatin 10 mg tablet 10 mg PO DAILY cholesterol 02/29/24 02/29/24 History tramadol 50 mg tablet 50 mg PO BID PRN PRN pain 02/29/24 Unknown History Allergy/AdvReac Type Severity Reaction Status Date / Time No Known Allergies Allergy Verified 02/29/24 14:38 Family History Mother CAD (coronary artery disease) Brother Heart disease Surgical History History of esophagogastroduodenoscopy (EGD) Hx of colonoscopy Social History (Updated 03/05/24 @ 07:51 by Ynes Butler) household members: none housing: house do you think of yourself as: straight/heterosexual Smoking Status: Never smoker alcohol intake: never substance use type: does not use Physical Exam Const alert, oriented x3 and no apparent distress General Appearance: cooperative HEENT normocephalic and head/scalp atraumatic Eyes PERRL and EOMs intact bilaterally Neck supple and No nodes Resp normal air movement and clear to auscultation bilaterally Cardio regular rate and regular rhythm GI soft to palpation, non-tender and non-distended Extremity General Extremity: Negative for edema Skin no rashes or lesions noted Neuro CN's II-XII intact bilaterally Lab / Micro Data Attestation: I reviewed the patient's lab results. 03/06/24 07:07 03/06/24 07:07 Labs: Laboratory Results - last 24 hr 03/06/24 07:07: WBC 6.1, RBC 3.29 L, Hgb 8.7 L, Hct 28.7 L, MCV 87.2, MCH 26.4 L, MCHC 30.3 L, RDW Std Deviation 56.5 H, RDW Coeff of Brenda 18.3 H, Plt Count 589 H, MPV 8.8, Sodium 140, Potassium 4.4, Chloride 109 H, Carbon Dioxide 27.0, Anion Gap 4 L, BUN 8, Creatinine 1.04 H, Estim Creat Clear Calc 32.99, Est GFR (MDRD) Af Amer 65, Est GFR (MDRD) Non-Af 54 L, BUN/Creatinine Ratio 7.7 L, Glucose 80, Calcium 8.7
[2024-03-06 14:57] VITALS: BP 109/57; PULSE 89; RESP 16; TEMP 37; O2SAT 98
--- NOTE | 2024-03-06 16:00 | PCM.PN.HOSP ---
Reason for Visit Reason for Visit: Diagnoses Iron deficiency anemia secondary to blood loss (chronic) (03/01/24) Diverticulitis of intestine, part unspecified, with perforation and abscess without bleeding (03/01/24) Hemorrhage of anus and rectum (03/01/24) Gastrointestinal hemorrhage, unspecified (03/01/24) Solitary pulmonary nodule (03/01/24) Personal history of other diseases of the digestive system (03/01/24) Subjective Subjective Patient feeling roughly the same today, excited to get to eat food Objective Data Objective Data Vital Signs: Vital Signs Temp Pulse Resp BP Pulse Ox O2 Del Method 98.6 F 89 16 109/57 L 98 Room Air 03/06/24 14:57 03/06/24 14:57 03/06/24 14:57 03/06/24 14:57 03/06/24 14:57 03/06/24 14:57 Oxygen Delivery Method Room Air Weight: 50.8 kg Body Mass Index (BMI) 20.3 Intake & Output: Intake and Output for Last 24 Hours 03/04/24 03/05/24 03/06/24 23:59 23:59 23:59 Intake Total 1300 / 1300 1950.00 / 1950.00 500 / 500 Balance 1300 / 1300 1950.00 / 1950.00 500 / 500 Lab / Micro Data 03/06/24 07:07 03/06/24 07:07 Labs: Laboratory Results - last 24 hr 03/06/24 07:07: WBC 6.1, RBC 3.29 L, Hgb 8.7 L, Hct 28.7 L, MCV 87.2, MCH 26.4 L, MCHC 30.3 L, RDW Std Deviation 56.5 H, RDW Coeff of Brenda 18.3 H, Plt Count 589 H, MPV 8.8, Sodium 140, Potassium 4.4, Chloride 109 H, Carbon Dioxide 27.0, Anion Gap 4 L, BUN 8, Creatinine 1.04 H, Estim Creat Clear Calc 32.99, Est GFR (MDRD) Af Amer 65, Est GFR (MDRD) Non-Af 54 L, BUN/Creatinine Ratio 7.7 L, Glucose 80, Calcium 8.7 Physical Exam Narrative General: Alert, oriented, no apparent distress HEENT: Atraumatic, normocephalic Eyes: extraocular movements grossly intact Neck: Supple Respiratory: normal respiratory effort Cardiovascular: no edema appreciated GI: nondistended, no abdominal pain Extremities: Moving all extremities Neuro: No overt focal neurological deficits Psych: Cooperative Assessment & Plan Assessment/Plan (1) GI bleed: PLAN: Plan # Intra-abdominal abscess -Zosyn started -Patient afebrile, white blood cell count within normal limits, patient not in any pain -Patient had CTA performed 03/04 given her continued bleeding on that day and it showed sigmoid diverticulitis with abscess of wall of 4.6 cm -Discussed with GI who recommended discussing with IR and/or surgery -Given the location IR did not think it was amenable to IR guided procedure -Discussed with surgery, given patient's significant stability and lack of lab or vital abnormalities it was advised to continue IV antibiotics and consult infectious disease to see if continued antibiotics would be reasonable with outpatient imaging follow-up or if patient will need transferred to a tertiary facility for more definitive intervention -03/06: Discussed with infectious disease, patient stable and can be discharged on ciprofloxacin and Flagyl and will need a CT scan in 2 weeks and will need to be on antibiotics until that is resulted and further decisions are made # Recurrent lower GI bleed secondary to presumed diverticular bleeding -Patient with benign upper endoscopy however lower endoscopy demonstrated diverticulosis and rectosigmoid and sigmoid colon as well as blood in the sigmoid colon with localized moderate inflammation. He was advised patient be transition to liquid diet and that surgical consultation be requested for possible segmental resection -Spoke with patient, she is still intermittently having blood per rectum and is agreeable to consultation -Surgery consult placed -GI following -Hemoglobin was stable today -Repeat in a.m. -Will start iron supplementation -03/04: Hemoglobin 8.2, patient evaluated by surgery service and plan is for conservative management due to concerns for poor recovery and higher likelihood of colostomy. Patient is still having some blood per rectum, discussed with GI who recommended bleeding scan, further evaluation management pending scan -03/05: This a.m. patient reports she has not had more blood per rectum over abscess found as above, GI following, hemoglobin presently stable -03/06: Hemoglobin stable, no further bleeding at this time. Discussed with GI and was advised to tolerate patient on diet and if she is tolerating this can discharge and follow-up in the office. Recommended to have patient on stool softeners at discharge #DVT ppx: SCDs Megan Foster MD Time spent in the patient's overall evaluation,decision-making process, review of diagnostic data, adjustment of management, discussion with other providers, nursing nursing and ancillary staff involved in patient's care documentation, 38 minutes Charges/Coding Visit Charges Inpatient E&M: 69752 Subs Hosp L2
--- NOTE | 2024-03-06 16:04 | CASEMGMT ---
RN CM updated that patient will discharge home over the weekend. RN CM in to discuss needs at discharge. Patient independent in room. Patient denies needs or help at discharge. Patient had no further questions or concerns.
--- NOTE | 2024-03-06 16:52 | PN.GI_ITS ---
Subjective Subjective Patient denies any pain at this time is still continues to not have any more lower GI bleeding. She did have 1 soft bowel movement today. Objective Data Objective Data Vital Signs: Vital Signs Temp Pulse Resp BP Pulse Ox O2 Del Method 98.6 F 89 16 109/57 L 98 Room Air 03/06/24 14:57 03/06/24 14:57 03/06/24 14:57 03/06/24 14:57 03/06/24 14:57 03/06/24 14:57 Oxygen Delivery Method Room Air Weight: 111 lb 15.917 oz Body Mass Index (BMI) 20.3 Intake & Output: Intake and Output for Last 24 Hours 03/04/24 03/05/24 03/06/24 23:59 23:59 23:59 Intake Total 1300 / 1300 1950.00 / 1950.00 500 / 500 Balance 1300 / 1300 1950.00 / 1950.00 500 / 500 Lab / Micro Data 03/06/24 07:07 03/06/24 07:07 Labs: Laboratory Results - last 24 hr 03/06/24 07:07: WBC 6.1, RBC 3.29 L, Hgb 8.7 L, Hct 28.7 L, MCV 87.2, MCH 26.4 L , MCHC 30.3 L, RDW Std Deviation 56.5 H, RDW Coeff of Brenda 18.3 H, Plt Count 589 H, MPV 8.8, Sodium 140, Potassium 4.4, Chloride 109 H, Carbon Dioxide 27.0, A nion Gap 4 L, BUN 8, Creatinine 1.04 H, Estim Creat Clear Calc 32.99, Est GFR (MDRD) Af Amer 65, Est GFR (MDRD) Non-Af 54 L, BUN/Creatinine Ratio 7.7 L, Glucose 80, Calcium 8.7 Physical Exam Const alert, oriented x3 and no apparent distress General Appearance: cooperative HEENT normocephalic and head/scalp atraumatic Eyes PERRL and EOMs intact bilaterally Neck supple and No nodes Resp normal air movement and clear to auscultation bilaterally Cardio regular rate and regular rhythm GI soft to palpation, non-tender and non-distended Extremity General Extremity: Negative for edema Skin no rashes or lesions noted Neuro CN's II-XII intact bilaterally Assessment & Plan Assessment/Plan (1) Acute lower gastrointestinal bleeding: (2) Lung nodule: PLAN: Plan Patient is an 84-year-old female who presented to [facility] ED with lower GI bleed. 1. Acute lower GI bleed secondary to recurrent diverticular bleeding ? S/p colonoscopy on 05/27 that showed no active signs of bleeding, known diverticulosis and rectosigmoid colon, sigmoid colon and descending colon. Previous GI bleed was presumed secondary to recurrent diverticular bleeding. She underwent repeat colonoscopy yesterday and was discovered to have recurrent diverticular bleeding. The area was tattooed and clip was placed to identify area. A bleeding scan was ordered today because patient said she was still bleeding. Bleeding scan was normal. Hemoglobin is slightly down to 8.2. Will order a CT angiography. Keep n.p.o. past midnight for possible flexible sigmoidoscopy tomorrow morning if needed with further intervention. 03/05/2024-a CTA of the abdomen pelvis was ordered to look for GI bleeding and it displayed: Normal liver. The gallbladder is contracted. Normal spleen. Normal pancreas. Normal bilateral adrenal glands. Normal right kidney. Normal left kidney. Normal visualized stomach. Normal small intestine. There is diverticulosis, with thickening of the sigmoid colon wall, and pericolonic inflammation changes consistent with acute diverticulitis. There is a 4.6 cm air and debris collection of the wall consistent with abscess versus necrotic mass. There is 2.0 cm linear metallic density in the colon colon wall in this region. The appendix is visualized and appears normal. Interventional radiology was not able to place a percutaneous drain because of location of the abscess. At this time she is on antibiotic coverage for diverticular abscess. Infectious disease has been consulted. Hemoglobin is 8.4 and seems to be stable at this time. Will continue to follow clinically. 03/06/2024-her hemoglobin seems to be stable. She was seen by infectious disease and they recommended oral treatment for diverticular abscess. No endoscopic evaluation recommended at this time. If patient is DC'd tomorrow she can follow-up in the clinic regarding her recurrent lower GI bleeding. Charges/Coding Visit Charges Inpatient E&M: [address] [facility] Hosp L3
[2024-03-06] MEDS: Atorvastatin Calcium 10 MG Tablet PO (21:07)
[2024-03-06 21:08] VITALS: BP 105/58; PULSE 91; RESP 18; TEMP 36.9; O2SAT 97
[2024-03-06] MEDS: Metoprolol Tartrate 25 MG Tablet PO (21:08)
[2024-03-06] MEDS: Senna/Docusate Sodium 1 Tablet 2 TABLET PO (21:14)
[2024-03-07 05:15] VITALS: BP 154/85; PULSE 79; RESP 16; TEMP 36.7; O2SAT 97
[2024-03-07] MEDS: Piperacil/Tazobactam 3.375 GM in 0.9% Normal Saline (50mL MB+) 50 ML IV (05:50)
[2024-03-07 07:16] LABS: Hematocrit 26.7 % (37-47); Hemoglobin 8.3 g/dL (12.0-15.0); Mean Corp Hgb Conc 31.1 g/dL (32-36); Mean Corpuscular Hgb 27.1 pg (27.0-32.0); Mean Corpuscular Volume 87.3 fL (81-99); Mean Platelet Vol. 8.5 fl (6.2-12.0); Platelet Count 503 K/mm3 (150-450); RBC Distribution Width CV 18.6 % (11.6-14.6); RBC Distribution Width SD 56.8 fl (35.1-43.9); Red Blood Count 3.06 M/mm3 (4.2-5.4); White Blood Count 8.7 K/mm3 (4.4-11.0)
[2024-03-07 07:41] LABS: Anion Gap 2 (5-15); BUN 11 mg/dL (7-18); BUN/Creat Ratio 9.9 RATIO (10-20); Calcium,Total 8.6 mg/dL (8.5-10.1); Chloride 110 mmol/L (98-107); Creatinine, Serum 1.11 mg/dL (0.55-1.02); EST Glomerular Filtration Rate 50 mL/min (>60); Est Glom Filt Rate - Afr Amer 61 mL/min (>60); Estimated Creatinine Clearance 30.91 ml/min; Glucose 96 mg/dL (74-106); Potassium 4.1 mmol/L (3.5-5.1); Sodium Level 140 mmol/L (136-145)
[2024-03-07 08:38] VITALS: BP 147/76; PULSE 84; RESP 16; TEMP 36.7; O2SAT 98
[2024-03-07 08:40] VITALS: BP 147/76; PULSE 84
[2024-03-07] MEDS: Metoprolol Tartrate 25 MG Tablet 12.5 MG PO (08:40)
[2024-03-07] MEDS: Pantoprazole Sodium 40 MG Tablet PO (08:40)
[2024-03-07] MEDS: Senna/Docusate Sodium 1 Tablet 2 TABLET PO (08:40)
[2024-03-07] MEDS: Iron Polysaccharide Complex 150 MG CAPSULE PO (08:40)
--- NOTE | 2024-03-07 11:14 | DCINST_ITS ---
Discharge Instructions Diet Discharge Diet: No restrictions DC O2, CPAP, BIPAP needs Home O2 Discharge instructions: No Dressing / Incision Discharge Activity: - (Increase activity as tolerated) Follow Up Care Test Results: Test results from this visit will be discussed in further detail at your follow- up appointment, if applicable. Discharge Plan Admission Admit Date/Time: 03/01/24 15:05 Primary Reason for Your Visit: Lower GI bleeding Attending Provider: Megan Foster Primary Care Provider: Ravindra Vieira Consulting Providers: Davonte Yu; Laz Bedoya; Qamar Torres Instructions Patient Instructions: ED Diverticulosis Additional Instructions / Restrictions: DISCHARGE INSTRUCTIONS PLEASE READ *Please take this with you to your next doctors appointment* -You will need to follow-up with Dr. Duff with GI in his office upon discharge. Please call his office to schedule an appointment (ph. [phone]) -You will be discharged on Protonix twice daily, continue your iron and will be important that you continue to take stool softeners regularly. Can hold stool softeners for loose stool -You will be discharged with prescriptions for 3 weeks of antibiotics for the abscess seen on the CAT scan, ciprofloxacin and metronidazole -Strongly recommend against drinking alcohol while on metronidazole as the combination can cause nausea, vomiting, racing heart, and flushing of the face. Avoid alcohol for at least 3 days after last dose of metronidazole. -Please follow-up with infectious disease, Dr. Torres, in 2 to 3 weeks upon discharge for further determination of antibiotic timing and course. Please call their office to schedule hospital follow-up appointment upon discharge. -You will need CT scan of the abdomen and pelvis with contrast repeated in 2 weeks to evaluate abscess size to determine further management. This scan can either be coordinated through your primary care physician office or the infectious disease office. Please call Saturday to obtain order for the CAT scan and to obtain follow-up appointments as above -Please call your primary care provider's office upon discharge to schedule a hospital follow up within 1 week. -For any concerning signs or symptoms please call 911 or proceed to the nearest emergency department Discharge Orders/Prescriptions Prescriptions: New sennosides-docusate sodium [Stimulant Laxative Plus] 8.6-50 mg Tablet 2 tab PO BID 30 Days Qty: 120 0RF Rx Instructions: Hold for diarrhea pantoprazole 40 mg Tablet,Delayed Release (Dr/Ec) 40 mg PO BID 30 Days Qty: 60 0RF ciprofloxacin HCl 500 mg tablet 500 mg PO BID 21 Days Qty: 42 0RF metronidazole 500 mg tablet 500 mg PO Q8H 21 Days Qty: 63 0RF Continued metoprolol tartrate 25 mg tablet 25 mg PO QPM B-complex with vitamin C Capsule 1 cap PO DAILY magnesium 200 mg tablet 200 mg PO DAILY coQ10 (ubiquinol) [Qunol Jonny CoQ10] 100 mg capsule 100 mg PO DAILY ferrous sulfate [Fe-Fadia] 15 mg iron (75 mg)/mL syringe 18 mg PO DAILY metoprolol tartrate 25 mg tablet 12.5 mg PO DAILY Rx Instructions: AM atorvastatin 10 mg tablet 10 mg PO DAILY tramadol 50 mg tablet 50 mg PO BID PRN PRN (Reason: pain) Referrals / Follow Up: Ravindra Vieira MD [Primary Care Provider] - Within 1 Week Yaya Duff DO [Med Staff - Active Staff] - ( -You will need to follow-up with Dr. Duff with GI in his office upon discharge. Please call his office to schedule an appointment (ph. [phone])) Qamar Torres MD [Med Staff - Active Staff] - Within 2 Weeks Disposition Disposition (needs filled in before D/C Order can be placed): Home, Self Care
--- NOTE | 2024-03-07 11:18 | PCM.DC.SUM ---
Providers Date of Admission: 03/01/24 Date of Discharge: 03/07/24 Primary Care Physician: Ravindra Vieira MD Consultations 03/01/24 12:08 Consult: Gastroenterology Routine Consulting Provider: [facility] Reason for Consult: GI bleed EMERGENT Consult: No Notified: Yes Date Notified: 03/01/24 Time Notified: 12:31 Method of Notification: Text 03/03/24 13:31 Consult: General Surgery Routine Consulting Provider: Laz Bedoya Reason for Consult: Recurrent LGIB, GI recommended surg eval for possible resection EMERGENT Consult: No Notified: Yes Date Notified: 03/03/24 Time Notified: 13:56 Method of Notification: Text 03/05/24 13:48 Consult: Infectious Disease Routine Consulting Provider: Qamar Torres Reason for Consult: Abdominal abscess, asymptomatic/stable, IR can't drain EMERGENT Consult: No Notified: Yes Date Notified: 03/05/24 Time Notified: 13:55 Method of Notification: Text Reason For Visit: GI BLEED Diagnosis Discharge Diagnosis (1) GI bleed: Status: Chronic Code(s): K92.2 - Gastrointestinal hemorrhage, unspecified (2) Diverticulitis of intestine with abscess: Status: Acute Code(s): K57.80 - Diverticulitis of intestine, part unspecified, with perforation and abscess without bleeding Plan # Recurrent lower GI bleeding secondary to presumed diverticular bleeding # Newly identified intra-abdominal abscess # Hypertension Medications at Discharge Home Medications B-complex with vitamin C 1 cap PO DAILY supplient 10/17/23 coQ10 (ubiquinol) 100 mg capsule (Qunol Jonny CoQ10) 100 mg PO DAILY supplement 10/17/23 ferrous sulfate 15 mg iron (75 mg)/mL oral syringe (ORAL USE) (Fe-Fadia) 18 mg PO DAILY anemia 10/17/23 magnesium 200 mg tablet 200 mg PO DAILY supplement 10/17/23 metoprolol tartrate 25 mg tablet 12.5 mg PO DAILY heart 10/17/23 metoprolol tartrate 25 mg tablet 25 mg PO QPM heart 10/17/23 atorvastatin 10 mg tablet 10 mg PO DAILY cholesterol 02/29/24 tramadol 50 mg tablet 50 mg PO BID PRN PRN pain 02/29/24 ciprofloxacin HCl 500 mg tablet 500 mg PO BID 3 weeks #42 tabs 03/07/24 metronidazole 500 mg tablet 500 mg PO Q8H 3 weeks #63 tabs 03/07/24 pantoprazole 40 mg tablet,delayed release 40 mg PO BID 30 days #60 tabs 03/07/24 sennosides 8.6 mg-docusate sodium 50 mg tablet (Stimulant Laxative Plus) 2 tab PO BID 30 days #120 tabs 03/07/24 Hospital Course Procedures - (EGD, colonoscopy) Summary of Care Provided Minutes Spent on Discharge: 31 Hospital Course: # Recurrent lower GI bleeding secondary to presumed diverticular bleeding # Newly identified intra-abdominal abscess # Hypertension 84-year-old female with problem list as above presented to [facility] ED 02/29/2024 with dark stools and bright red blood per rectum. Has a history of nonbleeding duodenal ulcers on EGD in 2022 as well as diverticular bleeding. She was started on PPI and GI consulted. She underwent upper and lower endoscopy 03/02 and upper endoscopy unremarkable below endoscopy showed localized moderate inflammation in the sigmoid colon with blood noted in rectosigmoid colon and diverticulosis. Given her recurrent bleeding GI recommended surgical consult to discuss possible segmental resection. Surgery consulted and given patient's relative stability and the risks of surgery it was determined, after their risk and benefit discussion with her, conservative management would be pursued. Patient continued to have some bright red blood per rectum so bleeding scan ordered which was negative and CTA ordered which revealed sigmoid diverticulitis with abscess of wall of 4.6 cm. IR contacted for CT-guided drainage however given location this was not an option. Discussed with surgery who reevaluated and given her significant stability with lack of pain and normal white blood cell count and normal vitals it was advised to continue antibiotics and have infectious disease see patient in consult as it was likely reasonable to continue antibiotics and follow-up CT on an outpatient basis. Infectious disease evaluated and felt it was reasonable given her stability to discharge home with 3 weeks of p.o. Cipro/Flagyl and she will need repeat CT in 2 weeks as well as ID follow-up in 2 to 3 weeks with further dispo and management pending CT scan at that time. Discussed with GI and deemed if patient was able to tolerate p.o. is reasonable to discharge home on stool softeners and follow-up with them in the office. On day of discharge patient with no abdominal pain or bleeding and she is comfortable with this plan. She had some dark stool but has been started on iron and denies any sticky/black/tarry stools and no bright red blood and no abdominal pain and hemoglobin is stable. Discharge instructions as followed: DISCHARGE INSTRUCTIONS PLEASE READ *Please take this with you to your next doctors appointment* -You will need to follow-up with Dr. Duff with GI in his office upon discharge. Please call his office to schedule an appointment (ph. [phone]) -You will be discharged on Protonix twice daily, continue your iron and will be important that you continue to take stool softeners regularly. Can hold stool softeners for loose stool -You will be discharged with prescriptions for 3 weeks of antibiotics for the abscess seen on the CT scan, ciprofloxacin and Flagyl -Please follow-up with infectious disease, Dr. Torres, in 2 to 3 weeks upon discharge for further determination of antibiotic timing and course. Please call their office to schedule hospital follow-up appointment upon discharge. -You will need CT scan of the abdomen and pelvis with contrast repeated in 2 weeks to evaluate abscess size to determine further management. This scan can either be coordinated through your primary care physician office or the infectious disease office. Please call Saturday to obtain order for the CT scan and to obtain follow-up appointments as above -Please call your primary care provider's office upon discharge to schedule a hospital follow up within 1 week. -For any concerning signs or symptoms please call 911 or proceed to the nearest emergency department Physical Exam Narrative General: Alert, oriented, no apparent distress HEENT: Atraumatic, normocephalic Eyes: extraocular movements grossly intact Neck: Supple Respiratory: normal respiratory effort Cardiovascular: no edema appreciated GI: nondistended Extremities: Moving all extremities Neuro: No overt focal neurological deficits Psych: Cooperative Weight / BMI Weight Weight: 50.8 kg Body Mass Index (BMI) 20.3 ABG / Lab / Microbiology Data 03/07/24 06:56 03/07/24 06:56 Laboratory: Laboratory Results - last 24 hr 03/07/24 06:56: WBC 8.7, RBC 3.06 L, Hgb 8.3 L, Hct 26.7 L, MCV 87.3, MCH 27.1, MCHC 31.1 L, RDW Std Deviation 56.8 H, RDW Coeff of Brenda 18.6 H, Plt Count 503 H, MPV 8.5, Sodium 140, Potassium 4.1, Chloride 110 H, Carbon Dioxide 28.0, Anion Gap 2 L, BUN 11, Creatinine 1.11 H, Estim Creat Clear Calc 30.91, Est GFR (MDRD) Af Amer 61, Est GFR (MDRD) Non-Af 50 L, BUN/Creatinine Ratio 9.9 L, Glucose 96, Calcium 8.6 D/C Instructions Discharge Diet: No restrictions DC O2, CPAP, BIPAP Needs Home O2 Discharge instructions: No Meaningful Use Info Meaningful Use Meaningful Use Diagnoses (Choose all that apply): None applicable Ischemic Stroke Statin Dosing Therapy Reference: STATIN DOSE THERAPY REFERENCE: * Patients > 75 years receive moderate or high dose statin therapy. * Patients 75 years or YOUNGER should receive HIGH intensity statin dose unless contraindicated. You will be required to document reason for non-treatment if statin daily dose does not meet guidelines. HIGH DOSE STATIN THERAPY DAILY Atorvastatin > than or = to 40 mg Rosuvastatin > than or = to 20 mg Amlodipine + Atorvastatin > than or = to 2.5/40 mg Ezetimibe + Simvastatin 10/80 mg Simvastatin 80mg Discharge Plan Admission Admit Date/Time: 03/01/24 15:05 Primary Reason for Your Visit: Lower GI bleeding Attending Provider: Megan Foster Primary Care Provider: Ravindra Vieira Consulting Providers: Davonte Yu; Laz Bedoya; Qamar Torres Instructions Patient Instructions: ED Diverticulosis Additional Instructions / Restrictions: DISCHARGE INSTRUCTIONS PLEASE READ *Please take this with you to your next doctors appointment* -You will need to follow-up with Dr. Duff with GI in his office upon discharge. Please call his office to schedule an appointment (ph. [phone]) -You will be discharged on Protonix twice daily, continue your iron and will be important that you continue to take stool softeners regularly. Can hold stool softeners for loose stool -You will be discharged with prescriptions for 3 weeks of antibiotics for the abscess seen on the CAT scan, ciprofloxacin and metronidazole -Strongly recommend against drinking alcohol while on metronidazole as the combination can cause nausea, vomiting, racing heart, and flushing of the face. Avoid alcohol for at least 3 days after last dose of metronidazole. -Please follow-up with infectious disease, Dr. Torres, in 2 to 3 weeks upon discharge for further determination of antibiotic timing and course. Please call their office to schedule hospital follow-up appointment upon discharge. -You will need CT scan of the abdomen and pelvis with contrast repeated in 2 weeks to evaluate abscess size to determine further management. This scan can either be coordinated through your primary care physician office or the infectious disease office. Please call Saturday to obtain order for the CAT scan and to obtain follow-up appointments as above -Please call your primary care provider's office upon discharge to schedule a hospital follow up within 1 week. -For any concerning signs or symptoms please call 911 or proceed to the nearest emergency department Discharge Orders/Prescriptions Prescriptions: New sennosides-docusate sodium [Stimulant Laxative Plus] 8.6-50 mg Tablet 2 tab PO BID 30 Days Qty: 120 0RF Rx Instructions: Hold for diarrhea pantoprazole 40 mg Tablet,Delayed Release (Dr/Ec) 40 mg PO BID 30 Days Qty: 60 0RF ciprofloxacin HCl 500 mg tablet 500 mg PO BID 21 Days Qty: 42 0RF metronidazole 500 mg tablet 500 mg PO Q8H 21 Days Qty: 63 0RF Continued metoprolol tartrate 25 mg tablet 25 mg PO QPM B-complex with vitamin C Capsule 1 cap PO DAILY magnesium 200 mg tablet 200 mg PO DAILY coQ10 (ubiquinol) [Qunol Jonny CoQ10] 100 mg capsule 100 mg PO DAILY ferrous sulfate [Fe-Fadia] 15 mg iron (75 mg)/mL syringe 18 mg PO DAILY metoprolol tartrate 25 mg tablet 12.5 mg PO DAILY Rx Instructions: AM atorvastatin 10 mg tablet 10 mg PO DAILY tramadol 50 mg tablet 50 mg PO BID PRN PRN (Reason: pain) Referrals / Follow Up: Ravindra Vieira MD [Primary Care Provider] - Within 1 Week Yaya Duff DO [Med Staff - Active Staff] - ( -You will need to follow-up with Dr. Duff with GI in his office upon discharge. Please call his office to schedule an appointment (ph. [phone])) Qamar Torres MD [Med Staff - Active Staff] - Within 2 Weeks Disposition Disposition (needs filled in before D/C Order can be placed): Home, Self Care Charges/Coding Visit Charges Inpatient E&M: 31524 Disch Hosp >30min
--- NOTE | 2024-03-09 16:21 | ANES.CONFIRM ---
Anesthesia: Confirm Documents Multiple Procedures on Account (2) Confirmed Documents: Yes
== END 2024-03-07 14:10 | disposition home or self-care (01) | DRG 377 ==
LOC: ED 15:48 → PCU 16:29
PROVIDERS: Internal Medicine Gastroenterology; Admitting Provider Family Medicine; Emergency Provider Emergency Medicine; PCP Family Medicine; Visit Provider Internal Medicine
PROC: 0DJD8ZZ Inspection of Lower Intestinal Tract, Via Natural or Artificial Opening Endoscopic (ICD-10-PCS; CPT 45378; principal; 2024-03-02 15:55)
DX: K57.21 Diverticulitis of large intestine with perforation and abscess with bleeding (principal); K65.1 Peritoneal abscess; D50.0 Iron deficiency anemia secondary to blood loss (chronic); I10 Essential (primary) hypertension; K26.9 Duodenal ulcer, unspecified as acute or chronic, without hemorrhage or perforation; E78.5 Hyperlipidemia, unspecified; K44.9 Diaphragmatic hernia without obstruction or gangrene; K57.31 Diverticulosis of large intestine without perforation or abscess with bleeding; Z79.899 Other long term (current) drug therapy
CPT/HCPCS: 36415; 74174; 78278; 80048; 80053; 85014; 85018; 85025; 85027; 85610; 85730; 86850; 86900; 86901; 86920; 86922; 88305; 88342; 93005; 99284; A9560; P9016; Q9967; A4216; A4648; J2405

== ENCOUNTER → 2024-03-26 | Outpatient (CLI) | payer MEDICARE, BC, SELFPAY ==
[2024-03-26 16:37] LABS: Absolute Lymphocyte Count 2.09 X10^3/uL (0.83-4.51); Absolute Neutrophil Count 4.8 X10^3/uL (2.0-7.7); Basophil# 0.05 X10^3/uL; Basophil% 0.6 % (0-1); Eosinophil# 0.11 X10^3/uL; Eosinophils% 1.3 % (0-5); Hematocrit 26.8 % (37-47); Hemoglobin 8.3 g/dL (12.0-15.0); Lymphocyte # 2.09 X10^3/ul (0.83-4.51); Lymphocyte % 25.6 % (19-41); Mean Corpuscular Hgb 27.3 pg (27.0-32.0); Mean Corpuscular Volume 88.2 fL (81-99); Mean Platelet Vol. 8.8 fl (6.2-12.0); Monocyte# 1.08 X10^3/uL; Monocyte% 13.2 % (0-10); NRBC Flagged by Analyzer 0 % (0-5); Neutrophil # 4.79 X10^3/uL (2.7-7.7); Neutrophil % 58.8 % (47-70); POSITIVE MORPHOLOGY YES; Platelet Count 453 K/mm3 (150-450); RBC Distribution Width CV 20.8 % (11.6-14.6); RBC Distribution Width SD 65.5 fl (35.1-43.9); Red Blood Count 3.04 M/mm3 (4.2-5.4); White Blood Count 8.2 K/mm3 (4.4-11.0)
[2024-03-26 17:02] LABS: Differential Indicated SCAN CRITERIA MET; Iron 45 ug/dL (50-170); Iron Binding Capacity,Total 313 ug/dL (250-450); PERCENT IRON SATURATION 14.4 % (15.0-55.0)
[2024-03-26 20:00] LABS: Burr Cells 1+; Polychromasia RARE; Target Cells 1+
[2024-03-26 20:01] LABS: Anisocytosis 2+; Atypical Lymphocyte 1+ %
== END | disposition home or self-care (01) ==
LOC: LAB 15:47
PROVIDERS: PCP Family Medicine; Referring Provider Student in an Organized Health Care Education/Training Program; Visit Provider Student in an Organized Health Care Education/Training Program
DX: D50.0 Iron deficiency anemia secondary to blood loss (chronic) (principal)
CPT/HCPCS: 36415; 83540; 83550; 85025

== ENCOUNTER → 2024-05-13 | Outpatient (CLI) | payer MEDICARE, BC, SELFPAY ==
[2024-05-13 17:16] LABS: Absolute Lymphocyte Count 2.75 X10^3/uL (0.83-4.51); Absolute Neutrophil Count 4.6 X10^3/uL (2.0-7.7); Basophil# 0.06 X10^3/uL; Basophil% 0.7 % (0-1); Eosinophils% 1.2 % (0-5); Hematocrit 26.8 % (37-47); Hemoglobin 8.4 g/dL (12.0-15.0); Lymphocyte # 2.75 X10^3/ul (0.83-4.51); Lymphocyte % 31.9 % (19-41); Mean Corp Hgb Conc 31.3 g/dL (32-36); Mean Corpuscular Volume 89.3 fL (81-99); Mean Platelet Vol. 8.7 fl (6.2-12.0); Monocyte% 12.8 % (0-10); NRBC Flagged by Analyzer 0.2 % (0-5); Neutrophil # 4.57 X10^3/uL (2.7-7.7); Neutrophil % 53.1 % (47-70); Platelet Count 511 K/mm3 (150-450); RBC Distribution Width CV 18.9 % (11.6-14.6); RBC Distribution Width SD 61.7 fl (35.1-43.9); White Blood Count 8.6 K/mm3 (4.4-11.0)
[2024-05-13 19:11] LABS: Iron 104 ug/dL (50-170)
== END | disposition home or self-care (01) ==
LOC: LAB 16:13
PROVIDERS: PCP Family Medicine; Referring Provider Student in an Organized Health Care Education/Training Program; Visit Provider Student in an Organized Health Care Education/Training Program
DX: E61.1 Iron deficiency (principal); Z87.19 Personal history of other diseases of the digestive system
CPT/HCPCS: 36415; 83540; 85025

== ENCOUNTER → 2024-05-25 | Outpatient (CLI) | payer MEDICARE, BC, SELFPAY | END | disposition home or self-care (01) | LOC: CT 16:40 | PROVIDERS: PCP Family Medicine; Referring Provider Internal Medicine Infectious Disease; Visit Provider Internal Medicine Infectious Disease | DX: K65.1 Peritoneal abscess (principal) ==

== ENCOUNTER → 2024-06-19 | Outpatient (CLI) | payer MEDICARE, BC, SELFPAY ==
[2024-06-19 17:48] LABS: Absolute Lymphocyte Count 2.54 X10^3/uL (0.83-4.51); Absolute Neutrophil Count 6.4 X10^3/uL (2.0-7.7); Basophil# 0.04 X10^3/uL; Basophil% 0.4 % (0-1); Eosinophil# 0.03 X10^3/uL; Eosinophils% 0.3 % (0-5); Hematocrit 23.4 % (37-47); Hemoglobin 6.9 g/dL (12.0-15.0); Lymphocyte # 2.54 X10^3/ul (0.83-4.51); Lymphocyte % 24.6 % (19-41); Mean Corp Hgb Conc 29.5 g/dL (32-36); Mean Corpuscular Hgb 25.1 pg (27.0-32.0); Mean Corpuscular Volume 85.1 fL (81-99); Mean Platelet Vol. 8.8 fl (6.2-12.0); Monocyte# 1.24 X10^3/uL; NRBC Flagged by Analyzer 0 % (0-5); Neutrophil # 6.44 X10^3/uL (2.7-7.7); Neutrophil % 62.3 % (47-70); Platelet Count 548 K/mm3 (150-450); RBC Distribution Width SD 55.2 fl (35.1-43.9); Red Blood Count 2.75 M/mm3 (4.2-5.4); White Blood Count 10.3 K/mm3 (4.4-11.0)
[2024-06-19 18:21] LABS: Ferritin 25 ng/mL (22-378); Iron 174 ug/dL (50-170); Iron Binding Capacity,Total 357 ug/dL (250-450); Iron Binding Capacity,Unsat 183 ug/dL (228-428)
== END | disposition home or self-care (01) ==
LOC: MFPLAB 15:34
PROVIDERS: PCP Family Medicine; Referring Provider Family Medicine; Visit Provider Family Medicine
DX: D64.9 Anemia, unspecified (principal)
CPT/HCPCS: 36415; 82728; 83540; 83550; 85025

== ENCOUNTER 2024-07-03 19:29 | Emergency (ER) | payer MEDICARE, BC, SELFPAY ==
[2024-07-03] VITALS (8 sets, daily range): BP systolic 103–130; BP diastolic 59–70; PULSE 88–106; RESP 13–32; TEMP 36.2–37.2; O2SAT 98–100; BMI 19.9
--- NOTE | 2024-07-03 19:46 | EX.ED.DYSGE1 ---
HPI History of Present Illness Chief Complaint: GI Bleed [facility] Medical History History of GI diverticular bleed Lung nodule Wears glasses Wears dentures Post-menopausal Bladder disease Low iron Back pain Numbness and tingling Syncope Heartburn Non-smoker History of GI bleed Tremor HLD (hyperlipidemia) HTN (hypertension) Home Medications ?Medication ?Instructions ?Recorded ?Last Taken ?Type B-complex with vitamin C 1 cap PO DAILY supplient 10/17/23 02/28/24 History coQ10 (ubiquinol) 100 mg capsule 100 mg PO DAILY supplement 10/17/23 02/28/24 History (Qunol Jonny CoQ10) magnesium 200 mg tablet 200 mg PO DAILY supplement 10/17/23 02/28/24 History metoprolol tartrate 25 mg tablet 12.5 mg PO DAILY heart 10/17/23 03/02/24 History metoprolol tartrate 25 mg tablet 25 mg PO QPM heart 10/17/23 02/28/24 History tramadol 50 mg tablet 50 mg PO BID PRN PRN pain 02/29/24 Unknown History ferrous sulfate 325 mg (65 mg 325 mg PO QDAY 03/26/24 Unknown History iron) tablet Allergy/AdvReac Type Severity Reaction Status Date / Time No Known Allergies Allergy Verified 07/03/24 19:30 Family History Mother CAD (coronary artery disease) Brother Heart disease Surgical History History of esophagogastroduodenoscopy (EGD) Hx of colonoscopy Social History household members: none housing: house Smoking Status: Never smoker alcohol intake: never substance use type: does not use EXAM Physical Exam Const Vital Signs: 07/03/24 19:30 07/03/24 21:30 Temperature 97.2 F L Temperature Source Temporal Pulse Rate 103 H 88 Respiratory Rate 20 H 19 H Blood Pressure 103/70 130/61 H Blood Pressure Mean 81 84 Pulse Ox 100 98 Oxygen Delivery Method Room Air MDM MDM MDM Narrative Medical decision making narrative: HISTORY OF PRESENT ILLNESS: Chief complaint: GI bleed 84-year-old female history of GI bleed, heartburn, hypertension, hyperlipidemia presents with concern for GI bleed. Notes bright blood per rectum that began last week. She further states she know her blood count was low at 6.9. Notes fatigue but denies shortness of breath, dizziness or syncope. REVIEW OF SYSTEMS: Pertinent positives: Fatigue, lower abdominal pain Pertinent negatives: Fever, vomiting PHYSICAL EXAM: Nursing triage notes reviewed, Vital signs reviewed Constitutional: please see mdm HENT: MMM Eyes: Pupils equal round and reactive to light, Extraocular muscles intact Neck: No stridor, no JVD, full neck ROM Lungs: Clear to auscultation, No wheezing or rales. No increased work of breathing, no conversational dyspnea, no accessory muscle use, no nasal flaring. No respiratory distress noted Heart: Regular rate and rhythm, No murmurs, No rubs and No gallops, 2+ distal pulses (radial, femoral, posterior tibial) in all extremities Abdomen: Soft, there is no tenderness, rigidity, rebound or guarding, no obvious peritoneal signs, no palpable pulsatile abdominal masses, no auscultated abdominal bruit : No CVAT Rectal: Performed with marine engine machinist apprentice in room Destiney RN. Showed no evidence of obvious melena or bleeding Extremities: No edema Rectal: Performed marine engine machinist apprentice in room Destiney RN, there is a hemorrhoid at 6 o'clock position that is not bleeding. No obvious melena noted Neuro: No new focal neurological deficits, cranial nerves II through XII intact, 5/5 strength in all present extremities. Intact sensation to light touch in all present extremities, 2+ reflexes bilateral patella tendons. Skin: No rash or lesions noted MEDICAL DECISION MAKING: Chief Complaint: please see HPI External records reviewed: [facility] established in 2022 while in [facility]. EGD 03.02.24; - Normal esophagus. - Medium-sized hiatal hernia. - No gross lesions in the first portion of the duodenum. - No specimens collected. Colonoscopy 03.02.24 - Diverticulosis in the recto-sigmoid colon and in the sigmoid colon. - Blood in the recto-sigmoid colon and in the sigmoid colon. - Localized moderate inflammation was found consistent with ischemic colitis. Clip was placed. 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 Tattooed. - No specimens collected. Reviewed prior CBC from June 14 showed hemoglobin 6.9 Factors affecting care: history of GI bleed Social determinants of health: none History obtained from others: none Consults: Gastroenterology (Dr. Duff), general surgery (Dr. Baker), transfer center?[facility] (Dr. Schultz, emergency physician) MDM Narrative: The patient was initially slightly tachycardic at a rate of 103, tachypneic with respiratory 20, afebrile saturating well on room air. Exam with some TTP in left lower quadrant abdomen obvious peritoneal signs. I considered the following differential diagnosis: Anemia, hemorrhoid, anal fissure Exam not consistent with bleeding hemorrhoid anal fissure. Occult blood sample sent to lab patient was placed on the monitor. Given fatigue and EKG was obtained. Type and screen was sent CBC and basic labs were also sent. ALL IMAGES (IF OBTAINED) HAVE BEEN PERSONALLY REVIEWED AND INTERPRETED BY MYSELF. CBC with evidence of leukocytosis suggestive of system information, severe anemia 6.2, BMP without evidence of significant electrolyte abnormalities, no anion gap, no acute kidney injury. CT scan of the pelvis showed a large diverticular abscess of 6 x 6 x 6 cm. Discussed the case with gastroenterology (Dr. Duff), general surgery (Dr. Baker). Both recommended transfer given we do not have IR available. Discussed with [facility] and Dr. Schultz (emergency physician) who accepted the patient transferred to ED to ED for definitive disposition and management. The patient and/or family, caregivers express understanding. The patient and/or family, caregivers agrees with the plan. Shared decision making: I will have a discussion with the patient and or visitors regarding risk/benefits of further testing or admission. They will be made aware of of the risk/benefits inherent in this decision they will be given the opportunity to voice understanding. Total critical care time today provided was at least 35 minutes. This excludes separately billable procedures. Critical care time (if documented) is secondary to the patient having high probability of clinically significant/life threatening deterioration in the patient's condition which required my urgent intervention. Impression: 1. Acute GI bleed 2. Acute diverticulitis 3. Diverticular abscess 4. Severe anemia Dispo: Transfer to [facility] For definitive care and source control by interventional radiology this note was generated with [employer] dictation software. It may contain incorrect words, spelling, and punctuation that were not noted in review of the chart prior to signing. Lab Data Labs: Laboratory Results - last 24 hr 07/03/24 07/03/24 07/03/24 19:50 20:35 20:42 WBC 18.0 H RBC 2.51 L Hgb 6.2 L Hct 20.9 L MCV 83.3 MCH 24.7 L MCHC 29.7 L RDW Std Deviation 54.3 H RDW Coeff of Brenda 18.0 H Plt Count 536 H MPV 8.7 Immature Gran % (Auto) 0.800 Neut % (Auto) 81.3 H Lymph % (Auto) 10.6 L Taney % (Auto) 6.9 Eos % (Auto) 0.0 Baso % (Auto) 0.4 Absolute Neuts (auto) 14.7 H Absolute Lymphs (auto) 1.90 Nucleated RBC % 0 Sodium 134 Potassium 3.9 Chloride 103 Carbon Dioxide 22.2 Anion Gap 9 BUN 22 H Creatinine 0.96 Estim Creat Clear Calc 35.31 L Est GFR (MDRD) Non-Af 59 L BUN/Creatinine Ratio 23.1 H Glucose 123 H Calcium 9.1 Blood Type A NEGATIVE Antibody Screen NEGATIVE Crossmatch See Detail Radiography Diagnostic Testing: Clinical Impression(s) from Imaging Studies Abdomen/Pelvis CT 07/03/24 20:36 IMPRESSION: Sigmoid diverticulitis, with a 6.2 x 6.2 x 6.6 cm abscess. OVERALL FINAL ASSESSMENT: . LI-RADS is not meant to be used in patients <18 years or patients with cirrhosis due to congenital hepatic fibrosis or due to vascular disorders, because these patients have a lower chance of developing HCC. Reading Location: [facility] Discharge Plan Triage Chief Complaint: GI Bleed ED Provider: Jovany Schaffer Dx/Rx/DC Orders Prescriptions: No Action metoprolol tartrate 25 mg tablet 25 mg PO QPM B-complex with vitamin C Capsule 1 cap PO DAILY magnesium 200 mg tablet 200 mg PO DAILY coQ10 (ubiquinol) [Qunol Jonny CoQ10] 100 mg capsule 100 mg PO DAILY ferrous sulfate 325 mg (65 mg iron) tablet 325 mg PO QDAY metoprolol tartrate 25 mg tablet 12.5 mg PO DAILY Rx Instructions: AM tramadol 50 mg tablet 50 mg PO BID PRN PRN (Reason: pain) Primary Care Provider: Ravindra Vieira Referrals: Ravindra Vieira MD [Primary Care Provider] - Print Language: Welsh
[2024-07-03 20:15] LABS: Absolute Neutrophil Count 14.7 X10^3/uL (2.0-7.7); Basophil# 0.07 X10^3/uL; Basophil% 0.4 % (0-1); Hematocrit 20.9 % (37-47); Hemoglobin 6.2 g/dL (12.0-15.0); Lymphocyte % 10.6 % (19-41); Mean Corp Hgb Conc 29.7 g/dL (32-36); Mean Corpuscular Hgb 24.7 pg (27.0-32.0); Mean Corpuscular Volume 83.3 fL (81-99); Mean Platelet Vol. 8.7 fl (6.2-12.0); Monocyte# 1.24 X10^3/uL; Monocyte% 6.9 % (0-10); NRBC Flagged by Analyzer 0 % (0-5); Neutrophil # 14.65 X10^3/uL (2.7-7.7); Neutrophil % 81.3 % (47-70); Platelet Count 536 K/mm3 (150-450); RBC Distribution Width SD 54.3 fl (35.1-43.9); Red Blood Count 2.51 M/mm3 (4.2-5.4)
--- NOTE | 2024-07-03 20:36 | CT_ITS ---
PROCEDURE: ABDOMEN/PELVIS W IV CONT ONLY 07/03/2024 REASON FOR EXAM: ABDOMINAL PAIN TECHNIQUE: Abdomen and pelvis CT with intravenous contrast. Coronal and Sagittal reconstruction series were provided. PATIENT PREPARATION: Per protocol ORAL CONTRAST TYPE: None. AMOUNT: mL CONTRAST: Omnipaque 350 VOLUME: 100 mL Not Provided Gauge IV One or more dose reduction techniques were used (e.g., Automated exposure control, adjustment of the mA and/or kV according to patient size, use of iterative reconstruction technique. COMPARISON: CT abdomen and pelvis 03/04/2024 FINDINGS: Lung bases: Stable left total lobe consolidative opacity. Liver: Normal size. No mass. Gallbladder: Gallbladder is collapsed. No ductal dilation. No cholelithiasis. Spleen: Normal size. Pancreas: Normal size without evidence of mass surrounding inflammation or ductal dilation. Adrenals: Unremarkable. Kidneys: Normal renal sizes. No hydronephrosis. Bladder: Circumferential urinary bladder wall thickening and submucosal hyperemia. Reproductive Organs: Status post hysterectomy. Bowel: Small hiatal hernia. The stomach is otherwise unremarkable. No bowel dilation. Colonic diverticulosis. Again noted within the pelvis is a large air and fluid collection (series 2, image 69, series 601, image 55), which measures 6.2 x 6.2 x 6.6 cm, likely represents an abscess secondary to acute diverticulitis. There is moderate surrounding soft tissue stranding. Appendix: Normal appendix. Lymph nodes: No suspicious lymph node enlargement. Vasculature: Moderate diffuse atherosclerotic calcifications are noted. Peritoneum / Retroperitoneum: No ascites. Bones: Degenerative changes of the spine. CT/Abdomen/Pelvis W IV Cont ONLY IMPRESSION: Sigmoid diverticulitis, with a 6.2 x 6.2 x 6.6 cm abscess. OVERALL FINAL ASSESSMENT: . LI-RADS is not meant to be used in patients <18 years or patients with cirrhosi s due to congenital hepatic fibrosis or due to vascular disorders, because these patients have a lower chance of developing HC C. Reading Location: [facility]
[2024-07-03 20:44] LABS: Anion Gap 9 (5-15); BUN 22 mg/dL (4-19); BUN/Creat Ratio 23.1 RATIO (10-20); Calcium,Total 9.1 mg/dL (7.6-11.0); Carbon Dioxide 22.2 mmol/L (21.0-32.0); Chloride 103 mmol/L (98-108); Creatinine, Serum 0.96 mg/dL (0.70-1.20); EST Glomerular Filtration Rate 59 (>60); Estimated Creatinine Clearance 35.31 ml/min (50-250); Glucose 123 mg/dL (70-99); Potassium 3.9 mmol/L (3.3-5.1); Sodium Level 134 mmol/L (133-145)
[2024-07-03] MEDS: Piperacil/Tazobactam 3.375 GM/50 ML ML IV (22:15)
[2024-07-04] VITALS (8 sets, daily range): BP systolic 116–132; BP diastolic 58–71; PULSE 69–107; RESP 16–23; TEMP 36.8–36.9; O2SAT 98–100
--- NOTE | 2024-07-04 03:26 | ED.RN ---
Report called to Kaycee at [facility].
== END 2024-07-04 03:23 | disposition short-term general hospital (02) ==
PROVIDERS: Emergency Provider Emergency Medicine; PCP Family Medicine; Referring Provider Emergency Medicine; Visit Provider Emergency Medicine
DX: K92.2 Gastrointestinal hemorrhage, unspecified (principal); K57.32 Diverticulitis of large intestine without perforation or abscess without bleeding; K57.80 Diverticulitis of intestine, part unspecified, with perforation and abscess without bleeding; D64.9 Anemia, unspecified
CPT/HCPCS: 74177; 80048; 82274; 85025; 86850; 86900; 86901; 93005; 96365; 99284; P9016; Q9967; A4216